=== PATIENT | female | born 1955 | race Caucasian/White ===

== ENCOUNTER 2017-07-06 15:52 | Inpatient (IN) ==
[~2017-07-06 15:52] MED LIST: *HR* Midazolam HCl 5 MG/5 ML VIAL IVP ONE; *HR* Rocuronium Bromide 50 MG/5 ML VIAL IVC ONE
[2017-07-06] MEDS ORDERED: 0.9 % Sodium Chloride 1,000 ML IVC ONE (15:59)
[2017-07-06] MEDS ORDERED: Piperacillin/Tazobactam 4.5 GM in D5% in Water (Mini-Bag+) 100 ML IVPB ONE (15:59)
[2017-07-06] MEDS ORDERED: Vancomycin 1,000 MG in D5% in Water 250 ML IVPB ONE (15:59)
[2017-07-06] MEDS ORDERED: Ipratropium/Albuterol Neb 3 ML IH ONE (16:00)
[2017-07-06] MEDS ORDERED: methylPREDNISolone 125 MG/2 ML VIAL IVP ONE (16:00)
[2017-07-06] MEDS ORDERED: *HR* Rocuronium Bromide 50 MG/5 ML VIAL IVP ONE (16:04)
[2017-07-06] MEDS ORDERED: *HR* Etomidate 20 MG/10 ML AMPUL IVP ONE (16:04)
[2017-07-06] MEDS ORDERED: Pantoprazole 80 MG in 0.9 % Sodium Chloride 50 ML IVPB ONE (16:20)
--- NOTE | 2017-07-06 16:24 | Emergency Department Note ---
Disposition Clinical Impression: Acute respiratory failure with hypoxia, Elevated CK GI bleed Qualifiers: GI bleed type/associated pathology: unspecified gastrointestinal hemorrhage type Qualified Code(s): K92.2 - Gastrointestinal hemorrhage, unspecified Sepsis Qualifiers: Sepsis type: sepsis due to unspecified organism Qualified Code(s): A41.9 - Sepsis, unspecified organism Pneumonia Qualifiers: Pneumonia type: due to unspecified organism Laterality: bilateral Lung location : lower lobe of lung Qualified Code(s): J18.9 - Pneumonia, unspecified organism Disposition: Admitted As Inpatient Condition: Good General Adult HPI - General Chief complaint: ED Abdominal Pain Stated complaint: abd pain Time Seen by Provider: 07/06/17 15:56 Source: EMS Mode of arrival: EMS Limitations: altered mental status Nursing Notes Reviewed: Yes Vital Signs Reviewed: Yes - History of Present Illness HPI Narrative: 61-year-old female history of oxygen-dependent COPD who presents to the ER due to GI bleed, hypoxia. EMS reports that she had been out of her oxygen for some time. Patient arrives hypoxic in the 80s on a nonrebreather. She was alert and oriented 1 and was unable to provide most of her own history. She has been taking aspirin for abdominal pain. She is unable to quantify how much she actually took. She states that she does have diverticulosis. The patient continued to desaturate despite noninvasive means and the decision was made to intubate her for protection of her airway. Family did arrive reporting that she has been low on her oxygen for a couple of weeks and was supposed to do something about that but she had not. Pt Subjective Complaint: Abdominal pain, GI bleed, hypoxia Onset (ago): day(s) Radiation: non-radiation Pain Scale: 0 Improves with: nothing Worsens with: nothing Associated symptoms: Reports: nausea/vomiting. Denies: chest pain, fever/chills Treatments Prior to Arrival: none - Related Data Home Medications Medication Instructions Recorded Confirmed ALPRAZolam [Xanax 1 MG Tablet] 1 mg PO TID PRN 07/06/17 07/06/17 Albuterol Sulfate [Ventolin Hfa] 2 puff IH Q4H PRN 07/06/17 07/06/17 BuPROPion SR (12 HR) [Wellbutrin 150 mg PO BID 07/06/17 07/06/17 SR] Cetirizine HCl [Zyrtec] 10 mg PO DAILY 07/06/17 07/06/17 Cromolyn Sodium 1 drop OP QID PRN 07/06/17 07/06/17 Docusate Sodium [Stool Softener] 50 mg PO BID 07/06/17 07/06/17 Fluticasone Propionate Nasal 50 - 100 mcg NS DAILY PRN 07/06/17 07/06/17 [Flonase] Fluticasone/Vilanterol [Breo 1 each IH DAILY PRN 07/06/17 07/06/17 Ellipta 200-25 Mcg INH] Gabapentin [Neurontin] 1,200 mg PO TID 07/06/17 07/06/17 Methocarbamol [Robaxin-750] 750 mg PO TID PRN 07/06/17 07/06/17 Montelukast [Singulair] 10 mg PO DAILY 07/06/17 07/06/17 Omeprazole [PriLOSEC] 40 mg PO BID 07/06/17 07/06/17 Oxycodone HCl/Acetaminophen 1 each PO Q6H PRN 07/06/17 07/06/17 [Percocet 5-325 mg Tablet] Paroxetine HCl [Paxil] 20 mg PO DAILY 07/06/17 07/06/17 Piroxicam [Feldene] 20 mg PO DAILY 07/06/17 07/06/17 Polyethylene Glycol 3350 [MiraLAX] 17 gm PO DAILY 07/06/17 07/06/17 Propranolol HCl 40 mg PO BID 07/06/17 07/06/17 Sennosides/Docusate Sodium 2 each PO QAM 07/06/17 07/06/17 [Senna-S Tablet] Umeclidinium [place] [Incruse 62.5 mcg IH DAILY PRN 07/06/17 07/06/17 Ellipta] Previous Rx's Medication Instructions Recorded DiphenhydraMINE [Benadryl] 25 mg PO Q6HR PRN #20 capsule 05/01/16 Allergies Allergy/AdvReac Type Severity Reaction Status Date / Time Penicillins AdvReac See Verified 07/06/17 16:50 Comments All systems ED: reviewed and negative except as stated. Cardiovascular: Denies: chest pain Respiratory: Denies: dyspnea Gastrointestinal: Reports: abdominal pain, nausea, melena. Denies: vomiting, diarrhea Past Medical History - Past Medical History Attestation: Yes The following information was validated with the patient. Source: patient, old records reviewed, obtained from family Medical history: Reports: non-contributory, arthritis, asthma, COPD - Social History Smoking Status: Current every day smoker Alcohol use: Reports: none Drug use: Reports: none Physical Exam - General Limitations: altered mental status General appearance: alert - Head Head exam: atraumatic, normocephalic, normal inspection - Eye Eye exam: Present: normal appearance, EOMI - ENT ENT exam: normal exam - Neck Neck exam: Present: normal inspection, full ROM - Chest Chest inspection: Present: normal inspection, symmetric chest wall rise - Respiratory Respiratory exam: Present: wheezes (Diffuse), accessory muscle use, prolonged expiratory phase. Absent: respiratory distress - Cardiovascular Cardiovascular exam: Present: regular rate, normal rhythm, normal heart sounds - Abdominal Exam Abdominal exam: Present: soft, tenderness (Mild lower abdominal tenderness to palpation without guarding rigidity or distention.). Absent: distention, guarding, rigidity - Rectal Exam Rectal exam: Present: heme (+) stool, other (There is tissue breakdown at the anus) - Extremities Exam Extremities exam: Present: normal inspection, full ROM - Expanded Upper Extremity Exam Shoulder exam: Present: normal inspection, full ROM Arm exam: Present: normal inspection, full ROM Elbow exam: Present: normal inspection, full ROM Forearm/Wrist exam: Present: normal inspection, full ROM Hand exam: Present: normal inspection, full ROM Vascular exam: Normal: radial pulse - Expanded Lower Extremity Exam Hip/Pelvis exam: Present: normal inspection, full ROM Upper leg exam: Present: normal inspection, full ROM Knee exam: Present: normal inspection, full ROM Lower leg exam: Present: normal inspection, full ROM Ankle exam: Present: normal inspection, full ROM Foot/toe exam: Present: normal inspection, full ROM Neurovascular/Tendon exam: Absent: motor deficit, sensory deficit - Neurological Exam Neurological exam: Present: alert, other (Alert and oriented times one. Answering questions appropriately. Nonfocal neurologic exam. Moves all extremities equally.). Absent: oriented X3 - Skin Skin exam: Present: warm, dry, intact, normal color Course Course Narrative: Patient seen and examined the time of arrival. She is alert and oriented 1. She is desaturating here and unable to protect her airway and her altered mental status. The decision was made to intubate please see procedure documentation for details. We will obtain a CT scan of her head as well as her abdomen and pelvis. Patient has grossly positive blood on exam of her rectum. We will also obtain a CBC, type and screen, aspirin level as well as carboxyhemoglobin. Patient given a liter of fluids placed on propofol for sedation and also receiving a dose of Solu-Medrol and Protonix. She will require admission to the ICU for critical care. Disposition pending imaging and labs. Vital Signs Temperature 98.9 F 07/06/17 15:54 Pulse Rate 102 07/06/17 15:54 Respiratory Rate 24 07/06/17 15:54 Blood Pressure 139/84 07/06/17 15:54 O2 Sat by Pulse Oximetry 84 07/06/17 15:54 Temperature 100.0 F H 07/06/17 20:55 Pulse Rate 65 07/06/17 21:00 Respiratory Rate 15 07/06/17 21:00 Blood Pressure 84/42 07/06/17 21:00 O2 Sat by Pulse Oximetry 94 07/06/17 21:00 Oxygen Delivery Oxygen Delivery Ventilator Procedures - Intubation Time out performed: No sedative: Etomidate Mg Given: 20 paralytic: Rocuronium Mg Given: 100 Laryngoscope: Andrew ET Tube Size: 7.5 ET Tube Uncuffed: No Tube Secured Depth (cm): 22 Tube Secured Location: lips Tube Placement Confirmation: visualized tube passing through cords, equal breath sounds bilaterally, no breath sounds over epigastrium, confirmation by capnometry Patient Tolerated Procedure: well Intubation Complications: none Additional Comments: Intubated by Dr. Landa under direct supervision. Medical Decision Making - [facility] Narrative Medical decision making narrative: 61-year-old female presents to the ER due to GI bleed as well as hypoxia. Known history of COPD and has been out of her oxygen at home for the last 2 weeks. She was initially in the low 80s here. Placed on nonrebreather but was unable to protect her airway eating altered here. Patient intubated for securement of her airway. She is grossly Hemoccult positive on exam. Hemoglobin resulted at 13.6. Patient given a dose of Solu-Medrol as well as a liter of IV fluids. She is on propofol for sedation. We did also give her a dose of Protonix given a history of taking aspirin for her abdominal pain. Patient received vancomycin and Zosyn given hypoxia, tachypnea. She is admitted to the ICU for ventilatory management and further care. - Lab Data Lab results reviewed: Yes I reviewed the patient's lab results. Result diagrams: 07/06/17 16:20 07/06/17 16:20 Lab Results 07/06/17 07/06/17 07/06/17 Range/Units 16:07 16:08 16:20 WBC 11.9 H (4.3-11.1) K/mcL RBC 4.37 (3.82-4.97) M/mcL Hgb 13.3 (11.5-15.4) g/dL Hct 40.7 (35.3-44.9) % MCV 93.1 (83.0-100.0) fL MCH 30.4 (28.0-33.3) pg MCHC 32.7 (31.6-35.5) g/dL RDW 16.7 H (11.5-14.5) % Plt Count 283 (140-400) K/mcL MPV 9.6 (9.4-12.4) fL Immature Gran % 0.3 (0-4) % Seg Neutrophils % 84.2 % Lymphocytes % 8.3 % Monocytes % 6.9 % Eosinophils % 0.0 % Basophils % 0.3 % Neutrophils # 10.0 H (1.6-8.9) K/mcL Lymphocytes # 1.0 (0.6-4.6) K/mcL Monocytes # 0.8 (0.0-1.3) K/mcL Eosinophils # 0.0 (0.0-0.6) K/mcL Basophils # 0.0 (0.0-0.2) K/mcL PT (9.4-12.1) Seconds INR APTT (26.0-36.0) Seconds ABG pH (7.32-7.45) pH Units ABG pCO2 (35-45) mmHg ABG pO2 (85-104) mmHg ABG HCO3 (21-27) mEq/L ABG Total CO2 (20-26) mEq/L ABG O2 Saturation (95-98) % ABG Base Excess (-2 to 3) mEq/L Carboxyhemoglobin (0-5) % Sodium (136-145) mEq/L Potassium (3.5-4.5) mEq/L Chloride (98-109) mEq/L Carbon Dioxide (19-29) mEq/L BUN (7-20) mg/dL Creatinine (0.57-1.11) mg/dL Est GFR ( Amer) (> 60) Est GFR (Non-Af Amer) (> 60) BUN/Creatinine Ratio (6-26) Glucose (70-99) mg/dL POC Glucose 116 H (58-89) Calculated Osmolality (280-300) Calcium (8.6-10.8) mg/dL Total Bilirubin (0.2-1.2) mg/dL Direct Bilirubin (0.0-0.5) mg/dL Indirect Bilirubin (0.0-1.2) mg/dL AST (5-34) Units/L ALT (0-55) Units/L Alkaline Phosphatase (38-126) Units/L Ammonia 23 (18-72) mcmol/L Creatine Kinase (29-168) Units/L Troponin I (0-0.03) ng/mL Serum Total Protein (6.0-8.3) g/dL Albumin (3.5-5.0) g/dL Globulin (2.4-3.5) g/dL Albumin/Globulin Ratio (1.1-2.2) TSH (0.350-4.840) mcIU/mL Urine Color (Yellow) Urine Clarity (Clear) Urine pH (5.0-8.0) pH Units Ur Specific [place] (1.010-1.025) Urine Protein (Neg-Trace) mg/dL Urine Glucose (UA) (Normal) mg/dL Urine Ketones (Negative) mg/dL Urine Blood (Negative) Urine Nitrite (Negative) Urine Bilirubin (Negative) Urine Urobilinogen (Normal) mg/dL Ur Leukocyte Esterase (Negative) Urine Microscopic RBC (0-3) per hpf Urine Microscopic WBC (0-3) per hpf Ur Squamous Epith Cells (None-Few) per lpf Urine Bacteria (None-Few) per hpf Hyaline Casts (None-Few) per lpf Ur Culture Indicated? (NO) Salicylates (15-30) mg/dL Urine Opiates Screen (Jecobp=007) ng/mL Acetaminophen (10-30) mcg/mL Ur Barbiturates Screen (Huojot=356) ng/mL Ur Phencyclidine Scrn (Cutoff=25) ng/mL Ur Amphetamines Screen (Cohgpu=8012) ng/mL U Benzodiazepines Scrn (Hbboxc=910) ng/mL Urine Cocaine Screen (Cutoff= 300) ng/mL U Marijuana (THC) Screen (Cutoff = 50) ng/mL Ethyl Alcohol (0-10) mg/dL Person Notif of Crit Blood Type Antibody Screen 07/06/17 07/06/17 07/06/17 Range/Units 16:20 16:20 16:20 WBC (4.3-11.1) K/mcL RBC (3.82-4.97) M/mcL Hgb (11.5-15.4) g/dL Hct (35.3-44.9) % MCV (83.0-100.0) fL MCH (28.0-33.3) pg MCHC (31.6-35.5) g/dL RDW (11.5-14.5) % Plt Count (140-400) K/mcL MPV (9.4-12.4) fL Immature Gran % (0-4) % Seg Neutrophils % % Lymphocytes % % Monocytes % % Eosinophils % % Basophils % % Neutrophils # (1.6-8.9) K/mcL Lymphocytes # (0.6-4.6) K/mcL Monocytes # (0.0-1.3) K/mcL Eosinophils # (0.0-0.6) K/mcL Basophils # (0.0-0.2) K/mcL PT 11.4 (9.4-12.1) Seconds INR 1.1 APTT 27.4 (26.0-36.0) Seconds ABG pH (7.32-7.45) pH Units ABG pCO2 (35-45) mmHg ABG pO2 (85-104) mmHg ABG HCO3 (21-27) mEq/L ABG Total CO2 (20-26) mEq/L ABG O2 Saturation (95-98) % ABG Base Excess (-2 to 3) mEq/L Carboxyhemoglobin (0-5) % Sodium 139 (136-145) mEq/L Potassium 3.5 (3.5-4.5) mEq/L Chloride 105 (98-109) mEq/L Carbon Dioxide 20 (19-29) mEq/L BUN 19 (7-20) mg/dL Creatinine 0.98 (0.57-1.11) mg/dL Est GFR ( Amer) > 60 (> 60) Est GFR (Non-Af Amer) 58 L (> 60) BUN/Creatinine Ratio 19 (6-26) Glucose 120 H (70-99) mg/dL POC Glucose (58-89) Calculated Osmolality 291 (280-300) Calcium 8.8 (8.6-10.8) mg/dL Total Bilirubin 0.3 (0.2-1.2) mg/dL Direct Bilirubin 0.1 (0.0-0.5) mg/dL Indirect Bilirubin 0.2 (0.0-1.2) mg/dL AST 48 H (5-34) Units/L ALT 20 (0-55) Units/L Alkaline Phosphatase 84 (38-126) Units/L Ammonia (18-72) mcmol/L Creatine Kinase 2899 H (29-168) Units/L Troponin I 0.03 (0-0.03) ng/mL Serum Total Protein 7.5 (6.0-8.3) g/dL Albumin 3.6 (3.5-5.0) g/dL Globulin 3.9 H (2.4-3.5) g/dL Albumin/Globulin Ratio 0.9 L (1.1-2.2) TSH 0.297 L (0.350-4.840) mcIU/mL Urine Color (Yellow) Urine Clarity (Clear) Urine pH (5.0-8.0) pH Units Ur Specific [place] (1.010-1.025) Urine Protein (Neg-Trace) mg/dL Urine Glucose (UA) (Normal) mg/dL Urine Ketones (Negative) mg/dL Urine Blood (Negative) Urine Nitrite (Negative) Urine Bilirubin (Negative) Urine Urobilinogen (Normal) mg/dL Ur Leukocyte Esterase (Negative) Urine Microscopic RBC (0-3) per hpf Urine Microscopic WBC (0-3) per hpf Ur Squamous Epith Cells (None-Few) per lpf Urine Bacteria (None-Few) per hpf Hyaline Casts (None-Few) per lpf Ur Culture Indicated? (NO) Salicylates 15.3 (15-30) mg/dL Urine Opiates Screen (Oaefti=749) ng/mL Acetaminophen < 1.0 L (10-30) mcg/mL Ur Barbiturates Screen (Tboyma=929) ng/mL Ur Phencyclidine Scrn (Cutoff=25) ng/mL Ur Amphetamines Screen (Jdmvoj=3148) ng/mL U Benzodiazepines Scrn (Gxtljm=819) ng/mL Urine Cocaine Screen (Cutoff= 300) ng/mL U Marijuana (THC) Screen (Cutoff = 50) ng/mL Ethyl Alcohol < 10 (0-10) mg/dL Person Notif of Crit Blood Type Antibody Screen 07/06/17 07/06/17 07/06/17 Range/Units 16:20 16:20 16:24 WBC (4.3-11.1) K/mcL RBC (3.82-4.97) M/mcL Hgb (11.5-15.4) g/dL Hct (35.3-44.9) % MCV (83.0-100.0) fL MCH (28.0-33.3) pg MCHC (31.6-35.5) g/dL RDW (11.5-14.5) % Plt Count (140-400) K/mcL MPV (9.4-12.4) fL Immature Gran % (0-4) % Seg Neutrophils % % Lymphocytes % % Monocytes % % Eosinophils % % Basophils % % Neutrophils # (1.6-8.9) K/mcL Lymphocytes # (0.6-4.6) K/mcL Monocytes # (0.0-1.3) K/mcL Eosinophils # (0.0-0.6) K/mcL Basophils # (0.0-0.2) K/mcL PT (9.4-12.1) Seconds INR APTT (26.0-36.0) Seconds ABG pH (7.32-7.45) pH Units ABG pCO2 (35-45) mmHg ABG pO2 (85-104) mmHg ABG HCO3 (21-27) mEq/L ABG Total CO2 (20-26) mEq/L ABG O2 Saturation (95-98) % ABG Base Excess (-2 to 3) mEq/L Carboxyhemoglobin 5.9 H (0-5) % Sodium (136-145) mEq/L Potassium (3.5-4.5) mEq/L Chloride (98-109) mEq/L Carbon Dioxide (19-29) mEq/L BUN (7-20) mg/dL Creatinine (0.57-1.11) mg/dL Est GFR ( Amer) (> 60) Est GFR (Non-Af Amer) (> 60) BUN/Creatinine Ratio (6-26) Glucose (70-99) mg/dL POC Glucose (58-89) Calculated Osmolality (280-300) Calcium (8.6-10.8) mg/dL Total Bilirubin (0.2-1.2) mg/dL Direct Bilirubin (0.0-0.5) mg/dL Indirect Bilirubin (0.0-1.2) mg/dL AST (5-34) Units/L ALT (0-55) Units/L Alkaline Phosphatase (38-126) Units/L Ammonia (18-72) mcmol/L Creatine Kinase (29-168) Units/L Troponin I (0-0.03) ng/mL Serum Total Protein (6.0-8.3) g/dL Albumin (3.5-5.0) g/dL Globulin (2.4-3.5) g/dL Albumin/Globulin Ratio (1.1-2.2) TSH (0.350-4.840) mcIU/mL Urine Color Yellow (Yellow) Urine Clarity Clear (Clear) Urine pH 6.0 (5.0-8.0) pH Units Ur Specific [place] 1.025 (1.010-1.025) Urine Protein 30 H (Neg-Trace) mg/dL Urine Glucose (UA) Normal (Normal) mg/dL Urine Ketones Negative (Negative) mg/dL Urine Blood Trace H (Negative) Urine Nitrite Negative (Negative) Urine Bilirubin Negative (Negative) Urine Urobilinogen Normal (Normal) mg/dL Ur Leukocyte Esterase Negative (Negative) Urine Microscopic RBC 3-5 H (0-3) per hpf Urine Microscopic WBC 0-3 (0-3) per hpf Ur Squamous Epith Cells Many H (None-Few) per lpf Urine Bacteria None Seen (None-Few) per hpf Hyaline Casts None Seen (None-Few) per lpf Ur Culture Indicated? NO (NO) Salicylates (15-30) mg/dL Urine Opiates Screen (Wbaqaq=553) ng/mL Acetaminophen (10-30) mcg/mL Ur Barbiturates Screen (Sifbwf=186) ng/mL Ur Phencyclidine Scrn (Cutoff=25) ng/mL Ur Amphetamines Screen (Zgbojo=6772) ng/mL U Benzodiazepines Scrn (Yzhgcz=216) ng/mL Urine Cocaine Screen (Cutoff= 300) ng/mL U Marijuana (THC) Screen (Cutoff = 50) ng/mL Ethyl Alcohol (0-10) mg/dL Person Notif of Crit Blood Type A POSITIVE Antibody Screen NEGATIVE 07/06/17 07/06/17 Range/Units 16:24 16:53 WBC (4.3-11.1) K/mcL RBC (3.82-4.97) M/mcL Hgb (11.5-15.4) g/dL Hct (35.3-44.9) % MCV (83.0-100.0) fL MCH (28.0-33.3) pg MCHC (31.6-35.5) g/dL RDW (11.5-14.5) % Plt Count (140-400) K/mcL MPV (9.4-12.4) fL Immature Gran % (0-4) % Seg Neutrophils % % Lymphocytes % % Monocytes % % Eosinophils % % Basophils % % Neutrophils # (1.6-8.9) K/mcL Lymphocytes # (0.6-4.6) K/mcL Monocytes # (0.0-1.3) K/mcL Eosinophils # (0.0-0.6) K/mcL Basophils # (0.0-0.2) K/mcL PT (9.4-12.1) Seconds INR APTT (26.0-36.0) Seconds ABG pH 7.15 L* (7.32-7.45) pH Units ABG pCO2 74 H* (35-45) mmHg ABG pO2 231 H (85-104) mmHg ABG HCO3 26 (21-27) mEq/L ABG Total CO2 28 H (20-26) mEq/L ABG O2 Saturation 100 H (95-98) % ABG Base Excess -5 L (-2 to 3) mEq/L Carboxyhemoglobin (0-5) % Sodium (136-145) mEq/L Potassium (3.5-4.5) mEq/L Chloride (98-109) mEq/L Carbon Dioxide (19-29) mEq/L BUN (7-20) mg/dL Creatinine (0.57-1.11) mg/dL Est GFR ( Amer) (> 60) Est GFR (Non-Af Amer) (> 60) BUN/Creatinine Ratio (6-26) Glucose (70-99) mg/dL POC Glucose (58-89) Calculated Osmolality (280-300) Calcium (8.6-10.8) mg/dL Total Bilirubin (0.2-1.2) mg/dL Direct Bilirubin (0.0-0.5) mg/dL Indirect Bilirubin (0.0-1.2) mg/dL AST (5-34) Units/L ALT (0-55) Units/L Alkaline Phosphatase (38-126) Units/L Ammonia (18-72) mcmol/L Creatine Kinase (29-168) Units/L Troponin I (0-0.03) ng/mL Serum Total Protein (6.0-8.3) g/dL Albumin (3.5-5.0) g/dL Globulin (2.4-3.5) g/dL Albumin/Globulin Ratio (1.1-2.2) TSH (0.350-4.840) mcIU/mL Urine Color (Yellow) Urine Clarity (Clear) Urine pH (5.0-8.0) pH Units Ur Specific [place] (1.010-1.025) Urine Protein (Neg-Trace) mg/dL Urine Glucose (UA) (Normal) mg/dL Urine Ketones (Negative) mg/dL Urine Blood (Negative) Urine Nitrite (Negative) Urine Bilirubin (Negative) Urine Urobilinogen (Normal) mg/dL Ur Leukocyte Esterase (Negative) Urine Microscopic RBC (0-3) per hpf Urine Microscopic WBC (0-3) per hpf Ur Squamous Epith Cells (None-Few) per lpf Urine Bacteria (None-Few) per hpf Hyaline Casts (None-Few) per lpf Ur Culture Indicated? (NO) Salicylates (15-30) mg/dL Urine Opiates Screen Negative (Zwojoe=646) ng/mL Acetaminophen (10-30) mcg/mL Ur Barbiturates Screen Negative (Oddrbd=001) ng/mL Ur Phencyclidine Scrn Negative (Cutoff=25) ng/mL Ur Amphetamines Screen Negative (Jeknvz=4610) ng/mL U Benzodiazepines Scrn Positive H (Dmasrh=885) ng/mL Urine Cocaine Screen Negative (Cutoff= 300) ng/mL U Marijuana (THC) Screen Positive H (Cutoff = 50) ng/mL Ethyl Alcohol (0-10) mg/dL Person Notif of Crit DIPAK/DAVE KELSEY Blood Type Antibody Screen - Radiology Data Radiology results reviewed: Yes I reviewed the patient's radiology results. Chest X-Ray 07/06/17 15:59 IMPRESSION: Endotracheal tube and enteric tube as detailed above. Bibasilar opacities, atelectasis versus pneumonia. D/ / Christian Gloria MD / Christian Gloria MD Interpreting Provider: Christian Gloria MD Head CT 07/06/17 15:59 IMPRESSION: 1. No acute intracranial hemorrhage 2. Right maxillary sinusitis D/ / Ramesh Babcock MD / Ramesh Babcock MD Interpreting Provider: Ramesh Babcock MD Abdomen/Pelvis CT 07/06/17 16:00 IMPRESSION: Equivocal wall thickening involving the right colon, possibly artifactual due to underdistention. Other considerations would include mild colitis. Diverticulosis predominately involving the descending and sigmoid colon without caitlin evidence of diverticulitis. Enteric tube tip terminates at the level of the GE junction. Recommend advancement. Extensive consolidative opacity and volume loss involving the right middle lobe, right lower lobe, and left lower lobe. Findings likely represent atelectasis with or without superimposed pneumonia/ aspiration. Follow-up radiographs recommended to document resolution. D/ / Christian Gloria MD / Christian Gloria MD Interpreting Provider: Christian Gloria MD KUB X-Ray 07/06/17 16:51 IMPRESSION: Enteric tube tip at the gastroesophageal junction with the side-port in the distal esophagus. Recommend further advancement prior to use. D/ / Percy Santiago MD / Percy Santiago MD Interpreting Provider: Percy Santiago MD - EKG Data EKG #1 EKG attestation: Yes I reviewed and interpreted this EKG. EKG results narrative: EKG demonstrates sinus rhythm with a rate of 88 bpm. Normal axis. Normal intervals. Normal R-wave progression. Nonspecific ST-T wave changes in the inferior leads. No gross ST elevations or depressions. No acute ischemic findings. Attestation Statement - Attestation Attestation: I examined this patient and my medical decision-making was reviewed with the Resident Physician. I agree with the documented findings, disposition and treatment plan as described except to the extent set forth below. 61-year-old female who has been noncompliant with home oxygen use for the past 2 weeks who presents with altered mental status, hypercapnia, inability to protect her airway. She was intubated on arrival due to hypoxic respiratory failure. Subsequently found to have gastrointestinal hemorrhage with chronic rectal prolapse. She was started on Protonix. Broad-spectrum antibiotics were initiated as she met SIRS criteria. She will be admitted to the intensive care unit for further monitoring. CT scan shows no evidence of acute findings on head CT. CT abdomen and pelvis is concerning for possible colitis. Salicylate level is mildly elevated, she did admit to taking salicylates for pain control. I spent greater than 60 minutes of critical care time resuscitating this acutely ill patient suffering from acute respiratory failure and gastrointestinal hemorrhage. This is excluding billable procedures.
[2017-07-06] MEDS: Propofol 500 MG/50 ML INFUS..BTL IVC SCH ×2 (16:32→22:16)
[2017-07-06 16:36] LABS: Bilirubin,Urine Negative (Negative); Blood,Urine Trace (Negative); Clarity,Urine Clear (Clear); Color,Urine Yellow (Yellow); Glucose,Urine (UA) Normal (Normal); Ketones,Urine Negative (Negative); Leukocyte Esterase,Urine Negative (Negative); Nitrite,Urine Negative (Negative); Protein,Urine 30 mg/dL (Neg-Trace); Specific Gravity,Urine 1.025 (1.010-1.025); Urobilinogen,Urine Normal (Normal)
[2017-07-06 16:36] LABS: INR 1.1; Prothrombin Time 11.4 Seconds (9.4-12.1)
[2017-07-06 16:37] LABS: Bacteria,Urine None Seen per hpf (None-Few); Hyaline Casts,Urine None Seen per lpf (None-Few); Squamous Epithelial Cell,Urine Many per lpf (None-Few); WBC,Urine 0-3 per hpf (0-3)
[2017-07-06 16:38] LABS: Activated Partial Thrombo Time 27.4 Seconds (26.0-36.0)
[2017-07-06 16:41] LABS: Amphetamine Screen,Urine Negative ng/mL (Cutoff=1000); Barbiturate Screen,Urine Negative ng/mL (Cutoff=200); Benzodiazepines Screen,Urine Positive ng/mL (Cutoff=200); Cannabinoid Screen,Urine Positive ng/mL (Cutoff = 50); Cocaine Screen,Urine Negative ng/mL (Cutoff= 300); Opiate Screen,Urine Negative ng/mL (Cutoff=300); Phencyclidine Screen,Urine Negative ng/mL (Cutoff=25)
[2017-07-06 16:42] LABS: Basophils % 0.3 %; Chloride 105 mEq/L (98-109); Hematocrit 40.7 % (35.3-44.9); Hemoglobin 13.3 g/dL (11.5-15.4); Immature Granulocytes % 0.3 % (0-4); Lymphocytes % 8.3 %; Mean Corpuscular HGB Conc 32.7 g/dL (31.6-35.5); Mean Corpuscular Hemoglobin 30.4 pg (28.0-33.3); Mean Corpuscular Volume 93.1 fL (83.0-100.0); Mean Platelet Volume 9.6 fL (9.4-12.4); Monocytes # 0.8 K/mcL (0.0-1.3); Monocytes % 6.9 %; Platelet Count 283 K/mcL (140-400); Potassium 3.5 mEq/L (3.5-4.5); Red Blood Count 4.37 M/mcL (3.82-4.97); Red Cell Distribution Width 16.7 % (11.5-14.5); Segmented Neutrophils % 84.2 %; Sodium 139 mEq/L (136-145)
[2017-07-06 16:47] LABS: Carboxyhemoglobin 5.9 % (0-5)
[2017-07-06 16:56] LABS: Alanine Aminotransferase 20 Units/L (0-55); Albumin 3.6 g/dL (3.5-5.0); Albumin/Globulin Ratio 0.9 (1.1-2.2); Alkaline Phosphatase 84 Units/L (38-126); Aspartate Amino Transferase 48 Units/L (5-34); BUN/Creatinine Ratio 19 (6-26); Bilirubin,Direct 0.1 mg/dL (0.0-0.5); Bilirubin,Indirect 0.2 mg/dL (0.0-1.2); Bilirubin,Total 0.3 mg/dL (0.2-1.2); Blood Urea Nitrogen 19 mg/dL (7-20); Calcium 8.8 mg/dL (8.6-10.8); Carbon Dioxide 20 mEq/L (19-29); Creatine Kinase 2899 Units/L (29-168); Globulin 3.9 g/dL (2.4-3.5); Glucose 120 mg/dL (70-99); Osmolality,Calculated 291 (280-300); Salicylate 15.3 mg/dL (15-30); Total Protein 7.5 g/dL (6.0-8.3); eGFR For African Americans > 60 (> 60); eGFR For Non-African Americans 58 (> 60)
[2017-07-06 17:00] LABS: Acetaminophen < 1.0 mcg/mL (10-30); Ethanol < 10 mg/dL (0-10)
[2017-07-06 17:00] LABS: ABG Base Excess -5 mEq/L (-2 to 3); ABG HCO3 26 mEq/L (21-27); ABG Oxygen Saturation 100 % (95-98); ABG PCO2 74 mmHg (35-45); ABG PH 7.15 pH Units (7.32-7.45); ABG PO2 231 mmHg (85-104); ABG TCO2 28 mEq/L (20-26)
[2017-07-06 17:16] LABS: Thyroid Stimulating Hormone 0.297 mcIU/mL (0.350-4.840)
--- NOTE | 2017-07-06 20:10 | Internal Med History&Physical ---
<ChrisCory - Last Filed: 07/06/17 21:12> Date of Encounter: 07/06/17 Time of Encounter: 20:07 Assessment and Plan (1) Acute on chronic respiratory failure with hypoxia and hypercapnia Current visit: Yes Status: Acute Likely secondary to COPD exacerbation as she has been non-compliant with her oxygen at home She was intubated and sedated in the ED and there is no one at bedside Will repeat ABG now as she has been on ventilator for a few hours and adjust settings accordingly Repeat ABG and CXR in the AM for reassessment I personally tried to contact the daughter but could not reach her (2) Acute exacerbation of chronic obstructive pulmonary disease (COPD) Current visit: Yes Status: Chronic Currently intubated and sedated as above Will support with scheduled breathing treatments She did receive steroids in the ED but we will hold off on continuing them for now (3) Community acquired pneumonia Current visit: Yes Status: Acute CXR demonstrated bibasilar opacities concerning for pneumonia Patient was given Vanc/Zosyn in the ED, but we will switch to Levaquin monotherapy as she has not had any recent hospitalizations not is immunocompromised Blood cultures collected in the ED, awaiting sensitivities prior to de- escalation Reassess CXR in the AM as above Qualifiers: Qualified Code(s): J18.9 - Pneumonia, unspecified organism (4) Rhabdomyolysis Current visit: Yes Status: Suspected Unclear if patient was down or sustained any trauma prior to arrival, but initial CK was 2899 There is only mild compromise of kidney function not enough to qualify as JP She did receive fluid bolus in ED, and will continue on maintenance fluids while she is intubated Check I/O's and trend Cr and monitor electrolytes Qualifiers: Qualified Code(s): M62.82 - Rhabdomyolysis (5) Rectal prolapse Current visit: Yes Status: Acute Significant rectal prolapse noted on exam No urgent surgical consultation needed at this time, but will consider once she is more stable and off the vent (6) DVT prophylaxis Current visit: Yes Status: Acute Heparin 5000 units BID Internal Medicine - H&P: HPI Chief complaint: SOB Admitted From: Home Plans for Post Hospital Care: Home History of present illness: Ms. Serrano is a 61 year old female who presented to the ED with abdominal pain and suspected GIB. She was confused and was A/O x 1 and had been hypoxemic saturating in the 80s. She was a poor historian but told the ED staff that she took some aspirin for abdominal pain but unsure how many. She continued to desaturate despite non-invasive measures so was eventually intubated. Family was around earlier and confirmed that she had been out of her oxygen for about 2 weeks as she has COPD. Currently there is no one at bedside and patient is sedated and intubated. Past Med Surg Social Fam HX - Past Medical History Medical history: non-contributory, arthritis, asthma, COPD - Social History Smoking Status: Current every day smoker Alcohol use: none Drug use: none Internal Medicine - H&P: Meds DiphenhydraMINE [Benadryl] 25 mg PO Q6HR PRN #20 capsule 05/01/16 [Rx] ALPRAZolam [Xanax 1 MG Tablet] 1 mg PO TID PRN 07/06/17 [History] Albuterol Sulfate [Ventolin Hfa] 2 puff IH Q4H PRN 07/06/17 [History] BuPROPion SR (12 HR) [Wellbutrin SR] 150 mg PO BID 07/06/17 [History] Cetirizine HCl [Zyrtec] 10 mg PO DAILY 07/06/17 [History] Cromolyn Sodium 1 drop OP QID PRN 07/06/17 [History] Docusate Sodium [Stool Softener] 50 mg PO BID 07/06/17 [History] Fluticasone Propionate Nasal [Flonase] 50 - 100 mcg NS DAILY PRN 07/06/17 [ History] Fluticasone/Vilanterol [Breo Ellipta 200-25 Mcg INH] 1 each IH DAILY PRN [History] Gabapentin [Neurontin] 1,200 mg PO TID 07/06/17 [History] Methocarbamol [Robaxin-750] 750 mg PO TID PRN 07/06/17 [History] Montelukast [Singulair] 10 mg PO DAILY 07/06/17 [History] Omeprazole [PriLOSEC] 40 mg PO BID 07/06/17 [History] Oxycodone HCl/Acetaminophen [Percocet 5-325 mg Tablet] 1 each PO Q6H PRN [History] Paroxetine HCl [Paxil] 20 mg PO DAILY 07/06/17 [History] Piroxicam [Feldene] 20 mg PO DAILY 07/06/17 [History] Polyethylene Glycol 3350 [MiraLAX] 17 gm PO DAILY 07/06/17 [History] Propranolol HCl 40 mg PO BID 07/06/17 [History] Sennosides/Docusate Sodium [Senna-S Tablet] 2 each PO QAM 07/06/17 [History] Umeclidinium [place] [Incruse Ellipta] 62.5 mcg IH DAILY PRN 07/06/17 [History] 3 Allergy/AdvReac Type Severity Reaction Status Date / Time Penicillins AdvReac See Verified 07/06/17 16:50 Comments ROS unobtainable: due to endotracheal tube All Systems PM: A 10-system review of systems was performed and is negative for pertinent findings except as documented above in the HPI. - Constitutional Vitals: Temp Pulse Resp BP Pulse Ox 98.9 F 86 15 122/69 97 07/06/17 15:54 07/06/17 18:12 07/06/17 19:54 07/06/17 19:54 07/06/17 19:54 Exam: sedated and intubated - Head Head exam: Present: atraumatic, normocephalic - Eye Eye exam: Present: PERRL, conjuntiva pink, sclera anicteric - Neck Neck exam general surgery: Present: supple, trachea midline. Absent: lymphadenopathy - Respiratory Respiratory exam: Present: decreased breath sounds. Absent: accessory muscle use, rales, rhonchi, wheezes - Cardiovascular Cardiovascular exam: Present: RRR, +S1, +S2. Absent: diastolic murmur, gallop, rubs, systolic murmur - GI/Abdominal GI/Abdominal exam: Present: normal bowel sounds, soft, no peritoneal signs. Absent: distended, tenderness - Rectal Additional comments: significant rectal prolapse noted - Extremities Exam Extremities exam: Present: warm, radial pulses palpable and symmetrical. Absent : calf tenderness, cyanotic, pedal edema - Neurological Exam Neurological exam: Absent: facial droop, speech deficit Additional comments: unable to assess - Skin Skin exam: Present: dry, intact Internal Med - H&P Results - Labs CBC & Chem 7: 07/06/17 16:20 07/06/17 16:20 <Kaitlin Perez - Last Filed: 07/07/17 03:53> Date of Encounter: 07/07/17 Internal Medicine - H&P: HPI History of present illness: Ms. Serrano is a 61 year old female All Systems PM: A 10-system review of systems was performed and is negative for pertinent findings except as documented above in the HPI. - Constitutional Vitals: Temp Pulse Resp BP Pulse Ox 98.5 F 67 16 113/62 98 07/07/17 00:58 07/07/17 03:04 07/07/17 02:59 07/07/17 02:59 07/07/17 02:59 Internal Med - H&P Results - Labs CBC & Chem 7: 07/07/17 02:51 07/07/17 02:51 Labs: Short CBC 07/07/17 Range/Units 02:51 WBC 11.6 H (4.3-11.1) K/mcL Hgb 12.4 (11.5-15.4) g/dL Hct 37.1 (35.3-44.9) % Plt Count 231 (140-400) K/mcL Neutrophils # 9.8 H (1.6-8.9) K/mcL BMP 07/07/17 02:51 Sodium 137 Potassium 3.6 Chloride 108 Carbon Dioxide 22 BUN 15 Creatinine 0.76 Glucose 121 H Calcium 8.4 L - ABG Interpretation ABG results: 07/06/17 23:10 ABG pH 7.30 L ABG pCO2 47 H ABG pO2 93 ABG HCO3 23 ABG Total CO2 24 ABG O2 Saturation 96 ABG Base Excess -4 L - Impressions ITS Impressions KUB X-Ray 07/06/17 21:36 IMPRESSION: Orogastric tube tip is in peripyloric position. Recommend retraction into the stomach. D/ / Hernan Guallpa MD / Hernan Guallpa MD Interpreting Provider: Hernan Guallpa MD - Attending Attestation I have seen and examined the patient independently. I have discussed with resident DR Perez regarding the management plan. Agree with the documentation. Patient did present to ER for acute respiratory failure with hypoxia and hypercapnia. Respiratory acidosis. Etiology consider pneumonia and COPD exacerbation. Patient failed BiPAP treatment in ER and was intubated. We will continue mechanical ventilation, antibiotic, and bronchodilator. Admit patient to ICU for close monitoring. Intensive care time 35 minutes.
[2017-07-06] MEDS ORDERED: Naloxone 0.4 MG/ML INJ IVP PRN (20:15)
[2017-07-06] MEDS ORDERED: Lacri-Lube 3.5 GM TUBE BOTH EYES PRN (20:15)
[2017-07-06] MEDS ORDERED: Ondansetron 4 MG/2 ML VIAL IVP PRN (20:15)
[2017-07-06] MEDS: Chlorhexidine Rinse 15 ML MOUTHWASH MM SCH (20:48)
[2017-07-06] MEDS: 0.9 % Sodium Chloride 1,000 ML IVC SCH (20:49)
[2017-07-06] MEDS: Ipratropium/Albuterol Neb 3 ML IH SCH (22:54)
[2017-07-06] MEDS: Budesonide/Formoterol 160/4.5 MDI IH SCH (22:54)
[2017-07-06 23:13] LABS: ABG Base Excess -4 mEq/L (-2 to 3); ABG HCO3 23 mEq/L (21-27); ABG Oxygen Saturation 96 % (95-98); ABG PCO2 47 mmHg (35-45); ABG PO2 93 mmHg (85-104); ABG TCO2 24 mEq/L (20-26); Blood Gas Modality PRVC; Blood Gas PEEP 5 cm H2O; Blood Gas Respiration Rate 12; Blood Gas VT 500 cc
[2017-07-06] MEDS ORDERED: *HR* Midazolam HCl 2 MG/2 ML VIAL ONE (23:21)
[2017-07-06] MEDS ORDERED: *HR* Midazolam HCl 2 MG/2 ML VIAL IVP ONE (23:25)
[2017-07-06] MEDS ORDERED: Dextrose Gel 15 GM PO PRN ×2 (23:35)
[2017-07-06] MEDS ORDERED: *HR* Dextrose 50 % in Water (Syg) 50 ML SYRINGE IVP PRN (23:35)
[2017-07-06] MEDS ORDERED: D5% in Water 1,000 ML IVC PRN (23:35)
[2017-07-06] MEDS: Lacri-Lube 3.5 GM TUBE BOTH EYES SCH (23:38)
[2017-07-06] MEDS: Insulin LISPRO 300 UNITS/3 ML VIAL SQ SCH (23:56)
[2017-07-07 03:03] LABS: Basophils % 0.2 %; Hematocrit 37.1 % (35.3-44.9); Hemoglobin 12.4 g/dL (11.5-15.4); Immature Granulocytes % 0.6 % (0-4); Lymphocytes # 1.1 K/mcL (0.6-4.6); Lymphocytes % 9.1 %; Mean Corpuscular HGB Conc 33.4 g/dL (31.6-35.5); Mean Corpuscular Hemoglobin 31.2 pg (28.0-33.3); Mean Corpuscular Volume 93.2 fL (83.0-100.0); Mean Platelet Volume 9.6 fL (9.4-12.4); Monocytes # 0.6 K/mcL (0.0-1.3); Monocytes % 5.3 %; Neutrophils # 9.8 K/mcL (1.6-8.9); Platelet Count 231 K/mcL (140-400); Red Blood Count 3.98 M/mcL (3.82-4.97); Red Cell Distribution Width 16.7 % (11.5-14.5); Segmented Neutrophils % 84.8 %
[2017-07-07 03:16] LABS: BUN/Creatinine Ratio 20 (6-26); Blood Urea Nitrogen 15 mg/dL (7-20); Calcium 8.4 mg/dL (8.6-10.8); Carbon Dioxide 22 mEq/L (19-29); Chloride 108 mEq/L (98-109); Glucose 121 mg/dL (70-99); Magnesium 1.9 mg/dL (1.6-2.6); Osmolality,Calculated 286 (280-300); Phosphorous 2.4 mg/dL (2.3-4.7); Potassium 3.6 mEq/L (3.5-4.5); Sodium 137 mEq/L (136-145); eGFR For African Americans > 60 (> 60); eGFR For Non-African Americans > 60 (> 60)
[2017-07-07] MEDS: Ipratropium/Albuterol Neb 3 ML IH SCH ×4 (04:10→22:15)
[2017-07-07] MEDS: Propofol 500 MG/50 ML INFUS..BTL IVC SCH ×2 (04:16→08:17)
[2017-07-07] MEDS: Lacri-Lube 3.5 GM TUBE BOTH EYES SCH ×2 (04:17→07:57)
[2017-07-07 04:19] LABS: ABG Base Excess -2 mEq/L (-2 to 3); ABG HCO3 25 mEq/L (21-27); ABG Oxygen Saturation 90 % (95-98); ABG PCO2 49 mmHg (35-45); ABG PH 7.31 pH Units (7.32-7.45); ABG PO2 65 mmHg (85-104); ABG TCO2 26 mEq/L (20-26); Blood Gas Modality PRVC; Blood Gas PEEP 5 cm H2O; Blood Gas Respiration Rate 12; Blood Gas VT 500 cc
--- NOTE | 2017-07-07 05:03 | Pulmonology Consult Note ---
<Cory Perez - Last Filed: 07/07/17 07:12> Date of Encounter: 07/07/17 Time of Encounter: 05:03 Assessment and Plan (1) Acute on chronic respiratory failure with hypoxia and hypercapnia Current Visit: Yes Status: Acute Likely secondary to COPD exacerbation in setting of pneumonia as she has been non-compliant with her oxygen at home She was intubated and sedated in the ED and there is no one at bedside this morning Repeat ABG did demonstrate resolving respiratory acidosis after her RR was increased from 12 to 14 CXR this AM is still pending I personally tried to contact the daughter but could not reach her Will plan on SBT this morning and possible extubation if she meets parameters (2) Acute exacerbation of chronic obstructive pulmonary disease (COPD) Current Visit: Yes Status: Chronic Currently intubated and sedated as above Will support with scheduled breathing treatments with plans to resume home meds once extubated She did receive one dose of 125 mg solumedrol in ED (3) Community acquired pneumonia Current Visit: Yes Status: Acute CXR demonstrated bibasilar opacities concerning for pneumonia, which was confirmed by CT Patient was given Vanc/Zosyn in the ED, but has since been switched Levaquin monotherapy since there is no recent hospitalizations or immunocompromise Blood cultures collected in the ED, awaiting sensitivities prior to de- escalation Reassess CXR this AM as above Qualifiers: Qualified Code(s): J18.9 - Pneumonia, unspecified organism (4) Colitis Current Visit: Yes Status: Suspected CT demonstrated equivocal wall thickening in right colon concerning for mild colitis Since she was complaining of abdominal pain initially, we will treat with Levaquin and Flagyl Awaiting blood cultures as above (5) Rhabdomyolysis Current Visit: Yes Status: Suspected Initial levels of CK was 2899 but she did not have renal compromise Continue with maintenance fluids while she is intubated and monitor I/O's and electrolytes Qualifiers: Qualified Code(s): M62.82 - Rhabdomyolysis (6) Rectal prolapse Current Visit: Yes Status: Acute May benefit from surgical consult as outpatient once she is extubated and stable (7) DVT prophylaxis Current Visit: Yes Status: Acute Heparin 5000 units BID History of Present Illness Consult date: 07/07/17 Requesting physician: Cory Perez Reason for consult: COPD, pneumonia Chief complaint: abdominal pain, hypoxemia History of present illness: Pt is a 61 yo female who was admitted from the ED intubated and sedated due to suspected COPD exacerbation and community acquired pneumonia. There is no one at bedside at this time so history is obtained strictly from ED documentation. Apparently she presented to the ED last night initially for abdominal pain and suspected GI bleed. She arrived hypoxemic in the 80s while on nonbreather and was confused and only oriented x 1. She continued to desaturate after being put on BiPAP and was eventually intubated. Family told the ED staff that she had been out of her oxygen for a couple weeks and she did not do anything about it. CXR did demonstrate bibasilar opacities concerning for PNA vs. atelectasis, head CT was negative, and ab/pel CT revealed possible colitis. When she arrived to the ICU, she was agitated despite being on Propofol, but calmed down significantly after Versed was added. This morning she is tranquil and breathing well on the ventilator. Past Med Surg Social Fam HX - Past Medical History Medical history: non-contributory, arthritis, asthma, COPD - Social History Smoking Status: Current every day smoker Smokeless Tobacco Status: No (pt sedated) Alcohol use: none Drug use: none Medications and Allergies DiphenhydraMINE [Benadryl] 25 mg PO Q6HR PRN #20 capsule 05/01/16 [Rx] ALPRAZolam [Xanax 1 MG Tablet] 1 mg PO TID PRN 07/06/17 [History] Albuterol Sulfate [Ventolin Hfa] 2 puff IH Q4H PRN 07/06/17 [History] BuPROPion SR (12 HR) [Wellbutrin SR] 150 mg PO BID 07/06/17 [History] Cetirizine HCl [Zyrtec] 10 mg PO DAILY 07/06/17 [History] Cromolyn Sodium 1 drop OP QID PRN 07/06/17 [History] Docusate Sodium [Stool Softener] 50 mg PO BID 07/06/17 [History] Fluticasone Propionate Nasal [Flonase] 50 - 100 mcg NS DAILY PRN 07/06/17 [ History] Fluticasone/Vilanterol [Breo Ellipta 200-25 Mcg INH] 1 each IH DAILY PRN [History] Gabapentin [Neurontin] 1,200 mg PO TID 07/06/17 [History] Methocarbamol [Robaxin-750] 750 mg PO TID PRN 07/06/17 [History] Montelukast [Singulair] 10 mg PO DAILY 07/06/17 [History] Omeprazole [PriLOSEC] 40 mg PO BID 07/06/17 [History] Oxycodone HCl/Acetaminophen [Percocet 5-325 mg Tablet] 1 each PO Q6H PRN [History] Paroxetine HCl [Paxil] 20 mg PO DAILY 07/06/17 [History] Piroxicam [Feldene] 20 mg PO DAILY 07/06/17 [History] Polyethylene Glycol 3350 [MiraLAX] 17 gm PO DAILY 07/06/17 [History] Propranolol HCl 40 mg PO BID 07/06/17 [History] Sennosides/Docusate Sodium [Senna-S Tablet] 2 each PO QAM 07/06/17 [History] Umeclidinium [place] [Incruse Ellipta] 62.5 mcg IH DAILY PRN 07/06/17 [History] 3 Allergy/AdvReac Type Severity Reaction Status Date / Time Penicillins AdvReac See Verified 07/06/17 16:50 Comments ROS unobtainable: due to endotracheal tube, due to mental status All Systems: A 10-system review of systems was performed and is negative for pertinent findings except as documented above in the HPI. Physical Examination Vital Signs: Vital Signs, Last 4 Hours Pulse Resp BP Pulse Ox 07/07/17 04:10 12 94/48 98 07/07/17 04:00 64 12 94/48 98 07/07/17 03:04 67 07/07/17 02:59 67 16 113/62 98 07/07/17 02:42 14 108/65 99 07/07/17 01:57 81 19 101/60 100 General appearance: no acute distress, other (easily arousable while intubated/ sedated) Eyes: nonicteric ENT: oropharynx moist Neck: supple Effort: normal Inspection: normal Auscultation: bilateral: rales Percussion: bilateral: not dull Tactile fremitus: bilateral: normal Cardiovascular: regular rate and rhythm Gastrointestinal: normoactive bowel sounds, non-distended Integumentary: normal Extremities: no cyanosis, no edema, no clubbing Musculoskeletal: no deformities, ROM normal unable to assess due to mental status anxious Ventilator Settings Ventilator Settings: Ventilator Settings, Last 8 Hours Ventilator Mode A/C Ventilator Mode A/C Ventilator Mode A/C Ventilator Mode A/C Ventilator Mode A/C Ventilator Mode A/C Ventilator Mode A/C Ventilator Mode A/C Ventilator Mode A/C Ventilator Mode VC+ Ventilator Mode VC+ Ventilator Mode A/C Ventilator Mode A/C Ventilator Tidal Volume 500 Setting Ventilator Tidal Volume 500 Setting Ventilator Tidal Volume 500 Setting Ventilator Tidal Volume 500 Setting Ventilator Tidal Volume 500 Setting Ventilator Tidal Volume 500 Setting Ventilator Tidal Volume 500 Setting Ventilator Tidal Volume 500 Setting Ventilator Tidal Volume 500 Setting Ventilator Tidal Volume 500 Setting Ventilator Tidal Volume 500 Setting Ventilator Tidal Volume 500 Setting Ventilator Tidal Volume 500 Setting Ventilator Respiratory Rate 12 Setting Ventilator Respiratory Rate 12 Setting Ventilator Respiratory Rate 12 Setting Ventilator Respiratory Rate 12 Setting Ventilator Respiratory Rate 12 Setting Ventilator Respiratory Rate 12 Setting Ventilator Respiratory Rate 12 Setting Ventilator Respiratory Rate 12 Setting Ventilator Respiratory Rate 12 Setting Ventilator Respiratory Rate 12 Setting Ventilator Respiratory Rate 12 Setting Ventilator Respiratory Rate 12 Setting Ventilator Respiratory Rate 12 Setting Actual Respiratory Rate 12 Actual Respiratory Rate 14 Actual Respiratory Rate 16 Actual Respiratory Rate 14 Actual Respiratory Rate 19 Actual Respiratory Rate 13 Actual Respiratory Rate 14 Actual Respiratory Rate 16 Actual Respiratory Rate 12 Actual Respiratory Rate 13 Actual Respiratory Rate 15 Positive End Expiratory 5 Pressure Positive End Expiratory 5 Pressure Positive End Expiratory 5 Pressure Positive End Expiratory 5 Pressure Positive End Expiratory 5 Pressure Positive End Expiratory 5 Pressure Positive End Expiratory 5 Pressure Positive End Expiratory 5 Pressure Positive End Expiratory 5 Pressure Positive End Expiratory 5 Pressure Positive End Expiratory 5 Pressure Positive End Expiratory 5 Pressure Positive End Expiratory 5 Pressure Peak Inspiratory Airway 30 Pressure Peak Inspiratory Airway 28 Pressure Peak Inspiratory Airway 29 Pressure Peak Inspiratory Airway 30 Pressure Peak Inspiratory Airway 24 Pressure Peak Inspiratory Airway 24 Pressure Peak Inspiratory Airway 28 Pressure Peak Inspiratory Airway 29 Pressure Peak Inspiratory Airway 28 Pressure Peak Inspiratory Airway 30 Pressure Peak Inspiratory Airway 23 Pressure Peak Inspiratory Airway 21 Pressure Results - Laboratory Findings CBC and BMP: 07/07/17 02:51 07/07/17 02:51 ABG ABG pH 7.31 pH Units (7.32-7.45) L 07/07/17 04:14 ABG pCO2 49 mmHg (35-45) H 07/07/17 04:14 ABG pO2 65 mmHg (85-104) L 07/07/17 04:14 ABG O2 Saturation 90 % (95-98) L 07/07/17 04:14 PT/INR, D-dimer PT 11.4 Seconds (9.4-12.1) 07/06/17 16:20 Abnormal lab findings: Abnormal lab results WBC 11.6 K/mcL (4.3-11.1) H 07/07/17 02:51 RDW 16.7 % (11.5-14.5) H 07/07/17 02:51 Neutrophils # 9.8 K/mcL (1.6-8.9) H 07/07/17 02:51 ABG pH 7.31 pH Units (7.32-7.45) L 07/07/17 04:14 ABG pCO2 49 mmHg (35-45) H 07/07/17 04:14 ABG pO2 65 mmHg (85-104) L 07/07/17 04:14 ABG O2 Saturation 90 % (95-98) L 07/07/17 04:14 Carboxyhemoglobin 5.9 % (0-5) H 07/06/17 16:20 Glucose 121 mg/dL (70-99) H 07/07/17 02:51 POC Glucose 145 (58-89) H 07/06/17 23:44 Calcium 8.4 mg/dL (8.6-10.8) L 07/07/17 02:51 AST 48 Units/L (5-34) H 07/06/17 16:20 Creatine Kinase 2899 Units/L (29-168) H 07/06/17 16:20 Globulin 3.9 g/dL (2.4-3.5) H 07/06/17 16:20 Albumin/Globulin Ratio 0.9 (1.1-2.2) L 07/06/17 16:20 TSH 0.297 mcIU/mL (0.350-4.840) L 07/06/17 16:20 Urine Protein 30 mg/dL (Neg-Trace) H 07/06/17 16:24 Urine Blood Trace (Negative) H 07/06/17 16:24 Urine Microscopic RBC 3-5 per hpf (0-3) H 07/06/17 16:24 Ur Squamous Epith Cells Many per lpf (None-Few) H 07/06/17 16:24 Acetaminophen < 1.0 mcg/mL (10-30) L 07/06/17 16:20 U Benzodiazepines Scrn Positive ng/mL (Iwalrn=687) H 07/06/17 16:24 U Marijuana (THC) Screen Positive ng/mL (Cutoff = 50) H 07/06/17 16:24 - Clinical Findings Intake & Output: Intake & Output 07/06/17 07/06/17 07/07/17 15:59 23:59 07:59 Intake Total 50 / 1150 50 / 50 Output Total 425 / 425 450 / 450 Balance -375 / 725 -400 / -400 Weight 72.5 kg Consult Discharge Plan - Plan Referrals: Indra Soria DO [Primary Care Provider] - <Alex Paulino - Last Filed: 07/07/17 16:36> Date of Encounter: 07/07/17 All Systems: A 10-system review of systems was performed and is negative for pertinent findings except as documented above in the HPI. Physical Examination Vital Signs: Vital Signs, Last 4 Hours Temp Pulse Resp BP Pulse Ox 07/07/17 16:00 74 23 116/100 92 07/07/17 15:00 96.9 F L 76 16 115/66 92 07/07/17 14:00 73 20 113/79 94 07/07/17 13:00 70 18 130/78 93 Ventilator Settings Ventilator Settings: Ventilator Settings, Last 8 Hours Ventilator Mode CPAP Results - Laboratory Findings CBC and BMP: 07/07/17 02:51 07/07/17 02:51 ABG ABG pH 7.36 pH Units (7.32-7.45) 07/07/17 10:05 ABG pCO2 44 mmHg (35-45) 07/07/17 10:05 ABG pO2 51 mmHg (85-104) L 07/07/17 10:05 ABG O2 Saturation 84 % (95-98) L 07/07/17 10:05 PT/INR, D-dimer PT 11.4 Seconds (9.4-12.1) 07/06/17 16:20 Abnormal lab findings: Abnormal lab results WBC 11.6 K/mcL (4.3-11.1) H 07/07/17 02:51 RDW 16.7 % (11.5-14.5) H 07/07/17 02:51 Neutrophils # 9.8 K/mcL (1.6-8.9) H 07/07/17 02:51 ABG pO2 51 mmHg (85-104) L 07/07/17 10:05 ABG O2 Saturation 84 % (95-98) L 07/07/17 10:05 Carboxyhemoglobin 5.9 % (0-5) H 07/06/17 16:20 Glucose 121 mg/dL (70-99) H 07/07/17 02:51 POC Glucose 106 (58-89) H 07/07/17 05:26 Calcium 8.4 mg/dL (8.6-10.8) L 07/07/17 02:51 AST 48 Units/L (5-34) H 07/06/17 16:20 Creatine Kinase 2899 Units/L (29-168) H 07/06/17 16:20 Globulin 3.9 g/dL (2.4-3.5) H 07/06/17 16:20 Albumin/Globulin Ratio 0.9 (1.1-2.2) L 07/06/17 16:20 TSH 0.297 mcIU/mL (0.350-4.840) L 07/06/17 16:20 Urine Protein 30 mg/dL (Neg-Trace) H 07/06/17 16:24 Urine Blood Trace (Negative) H 07/06/17 16:24 Urine Microscopic RBC 3-5 per hpf (0-3) H 07/06/17 16:24 Ur Squamous Epith Cells Many per lpf (None-Few) H 07/06/17 16:24 Salicylates < 5.0 mg/dL (15-30) L 07/07/17 07:52 Acetaminophen < 1.0 mcg/mL (10-30) L 07/07/17 07:52 U Benzodiazepines Scrn Positive ng/mL (Dyrmzg=155) H 07/06/17 16:24 U Marijuana (THC) Screen Positive ng/mL (Cutoff = 50) H 07/06/17 16:24 - Clinical Findings Intake & Output: Intake & Output 07/07/17 07/07/17 07/07/17 07:59 15:59 23:59 Intake Total 1160 / 1160 1494 / 1494 Output Total 450 / 450 375 / 375 Balance 710 / 710 1119 / 1119 - Attending Attestation I saw the patient with the resident agree with History and Physical exam findings. 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 Patient is on chronic benzodiazepine , nicotine and Marijuana addiction . After extubation will continue home BZD and Prn Haldol NECK : No JVD appreciated Pulmonary : Patient is hypoxic and hypercarbic on ventilator , ABG showed mild respiratory acidosis with hypoxemia , patient has RLL consolidation will treat with IV levofloxacin and IV steroids patient has background of COPD will continue with bronchodilators . Possible aspiration . Dropped the TV to 450 and RR increased to 18 will SBT once she is awake. Cardiac : Hemodynamically stable Nutrition/GI: Patient had a swallow evaluation will follow speech therapy recs for consistency of solids and liquids . To continue PPI . Patient has chronic abdominal pain due to rectal prolapse surgery consulted most likely outpatient management and elective surgery. Renal : Patient has Rhabdomyloysis will give continuous IV fluids LR 100 ml /hr will repeat CK Heme onc : No acute issues will follow CBC ID: Blood cultures and sputum cultures To continue Levofloxacin for RLL and RML pneumonia will add Metronidazole to cover aspiration. Disposition : Critically ill Code status: Full Code Family/POA: Daughter Spent 35 critical care minutes
[2017-07-07] MEDS ORDERED: Potassium Chloride Elixir 20 MEQ/15 ML UDC GTUBE ONE (05:04)
[2017-07-07] MEDS: Pantoprazole 40 MG VIAL IVP SCH (05:28)
[2017-07-07] MEDS: Insulin LISPRO 300 UNITS/3 ML VIAL SQ SCH ×3 (05:28→17:19)
[2017-07-07] MEDS: *HR* Heparin 5,000 UNIT/ML VIAL SQ SCH ×2 (05:28→17:15)
[2017-07-07] MEDS ORDERED: Calcium Gluconate 1,000 MG in D5% in Water 100 ML IVPB ONE (05:41)
[2017-07-07] MEDS: 0.9 % Sodium Chloride 1,000 ML IVC SCH (07:11)
[2017-07-07] MEDS ORDERED: Ringers Solution, Lactated 1,000 ML IVC ONE (07:33)
[2017-07-07] MEDS: Levofloxacin 750 MG/150 ML 750 MG/150 ML BAG IVPB SCH (07:58)
[2017-07-07] MEDS: Chlorhexidine Rinse 15 ML MOUTHWASH MM SCH (07:58)
[2017-07-07] MEDS ORDERED: MetroNIDAZOLE 500 MG/100 ML 500 MG/100 ML BAG IVPB SCH (08:00)
[2017-07-07] MEDS ORDERED: *HR* Rocuronium Bromide 100 MG/10 ML VIAL IVC ONE (08:09)
[2017-07-07] MEDS ORDERED: *HR* Etomidate 40 MG/20 ML VIAL IVP ONE (08:09)
[2017-07-07] MEDS: Dexmedetomidine HCl 400 MCG/100 ML MLS IVC SCH ×3 (08:13→18:14)
[2017-07-07 08:14] LABS: Acetaminophen < 1.0 mcg/mL (10-30); Salicylate < 5.0 mg/dL (15-30)
[2017-07-07] MEDS: Budesonide/Formoterol 160/4.5 MDI IH SCH ×2 (09:43→22:15)
[2017-07-07 10:12] LABS: ABG Base Excess -1 mEq/L (-2 to 3); ABG HCO3 25 mEq/L (21-27); ABG Oxygen Saturation 84 % (95-98); ABG PCO2 44 mmHg (35-45); ABG PH 7.36 pH Units (7.32-7.45); ABG PO2 51 mmHg (85-104); ABG TCO2 26 mEq/L (20-26)
[2017-07-07] MEDS ORDERED: ALPRAZolam 1 MG TABLET PO ONE (10:24)
[2017-07-07] MEDS ORDERED: *HR* HYDROcodone/Acet 5/325 mg TABLET PO ONE (10:24)
[2017-07-07] MEDS ORDERED: *HR* Morphine 2 MG/ML SYRINGE IVP ONE (10:34)
[2017-07-07] MEDS: BuPROPion SR (12 HR) 150 MG TABLET PO SCH ×2 (10:38→22:49)
[2017-07-07] MEDS: *HR* LORazepam 2 MG/ML VIAL IVP ONE ×2 (10:52→19:03)
--- NOTE | 2017-07-07 14:25 | General Surgery Consult Note ---
Date of Encounter: 07/07/17 Time of Encounter: 14:00 Assessment and Plan (1) Rectal prolapse Current Visit: Yes Status: Acute Patient has a past medical hx of rectal prolapse with unknown surgery on her rectum 09/29/14. Family states that she has pain intermittently and that this is a chronic problem. PE showed no rectal prolapse at this time. No need for surgical or procedural intervention at this time. We will sign off for now, please contact with questions or concerns. History of Present Illness Consult date: 07/07/17 Reason for consult: other (rectal prolapse) Requesting physician: Tim Vazquez History of present illness: Patient is a 61 y/o female with a past medical history of COPD and diverticulosis and presented to the ED due to GI bleed and hypoxia and was found to be in acute respiratory failure. While in the hospital patient began complaining of rectal pain and rectal prolapse was seen by staff. Surgery was consulted for rectal prolapse. Patient was unable to contribute to hx of rectal prolapse due to her altered mental status but family said that she has had the rectal prolapse for years and had rectal surgery in 2014, unsure of type of surgery performed. Family member says she easily prolapses.and reduces. Today while patient was aggravated staff noticed rectal prolapse present. At the time of our examination, rectum was not prolapsed. Past Med Surg Social Fam HX - Past Medical History Medical history: non-contributory, arthritis, asthma, COPD, GERD, hypertension Psychiatric history: anxiety, depression - Past Surgical History Surgical History: hysterectomy, orthopedic, other (right shoulder ), other ( carpal tunnel release) - Social History Smoking Status: Current every day smoker Smokeless Tobacco Status: No (pt sedated) Alcohol use: none Drug use: none - Family History Brother Cause of : murder in [place]ion Father Living Status: Age at : 79 Hx Family Cardiac Disorders: Yes (CAD) Hx Family Respiratory Disorders: Yes (lung disease, ) Mother Living Status: Age at : 56 Hx Family Cancer: Yes Medications and Allergies DiphenhydraMINE [Benadryl] 25 mg PO Q6HR PRN #20 capsule 05/01/16 [Rx] ALPRAZolam [Xanax 1 MG Tablet] 1 mg PO TID PRN 07/06/17 [History] Albuterol Sulfate [Ventolin Hfa] 2 puff IH Q4H PRN 07/06/17 [History] BuPROPion SR (12 HR) [Wellbutrin SR] 150 mg PO BID 07/06/17 [History] Cetirizine HCl [Zyrtec] 10 mg PO DAILY 07/06/17 [History] Cromolyn Sodium 1 drop OP QID PRN 07/06/17 [History] Docusate Sodium [Stool Softener] 50 mg PO BID 07/06/17 [History] Fluticasone Propionate Nasal [Flonase] 50 - 100 mcg NS DAILY PRN 07/06/17 [ History] Fluticasone/Vilanterol [Breo Ellipta 200-25 Mcg INH] 1 each IH DAILY PRN [History] Gabapentin [Neurontin] 1,200 mg PO TID 07/06/17 [History] Methocarbamol [Robaxin-750] 750 mg PO TID PRN 07/06/17 [History] Montelukast [Singulair] 10 mg PO DAILY 07/06/17 [History] Omeprazole [PriLOSEC] 40 mg PO BID 07/06/17 [History] Oxycodone HCl/Acetaminophen [Percocet 5-325 mg Tablet] 1 each PO Q6H PRN [History] Paroxetine HCl [Paxil] 20 mg PO DAILY 07/06/17 [History] Piroxicam [Feldene] 20 mg PO DAILY 07/06/17 [History] Polyethylene Glycol 3350 [MiraLAX] 17 gm PO DAILY 07/06/17 [History] Propranolol HCl 40 mg PO BID 07/06/17 [History] Sennosides/Docusate Sodium [Senna-S Tablet] 2 each PO QAM 07/06/17 [History] Umeclidinium [place] [Incruse Ellipta] 62.5 mcg IH DAILY PRN 07/06/17 [History] 3 Allergy/AdvReac Type Severity Reaction Status Date / Time Penicillins AdvReac See Verified 07/06/17 16:50 Comments Review of Systems ROS unobtainable: due to mental status General Surgery Exam Initial Vital Signs Temp Pulse Resp BP Pulse Ox 98.9 F 102 24 139/84 84 07/06/17 15:54 07/06/17 15:54 07/06/17 15:54 07/06/17 15:54 07/06/17 15:54 - Additional Findings Constitutional: easily arousal, responding to voices but no eye contact, no acute distress Head: Normocephalic, atraumatic, normal contour and symmetric, no masses, lesions or scars Heart: Normal, regular rate and rhythm, no murmurs Lungs: + wheezing diffusely, simple mask present, no rales, or rhonchi Abdomen: Soft, nondistended, nontender, and no masses palpable, bowel sounds present and normal, no guarding or rigidity. Extremities: No clubbing, cyanosis, or edema, radial pulse +2/4, capillary refill <2sec. Rectal: skin is intact and normal in color, no rectal prolapse present, Skin: Skin warm and dry, no lesions, no rashes, no jaundice Neurologic: Cranial nerves II through XII grossly intact, no focal deficits, strength within normal limits in all extremities Psych: Cooperative with exam, poor eye contact, Exam Initial Vital Signs Temp Pulse Resp BP Pulse Ox 98.9 F 102 24 139/84 84 07/06/17 15:54 07/06/17 15:54 07/06/17 15:54 07/06/17 15:54 07/06/17 15:54 Results - Labs 07/07/17 02:51 07/07/17 02:51 Abnormal lab results WBC 11.6 K/mcL (4.3-11.1) H 07/07/17 02:51 RDW 16.7 % (11.5-14.5) H 07/07/17 02:51 Neutrophils # 9.8 K/mcL (1.6-8.9) H 07/07/17 02:51 ABG pO2 51 mmHg (85-104) L 07/07/17 10:05 ABG O2 Saturation 84 % (95-98) L 07/07/17 10:05 Carboxyhemoglobin 5.9 % (0-5) H 07/06/17 16:20 Glucose 121 mg/dL (70-99) H 07/07/17 02:51 POC Glucose 106 (58-89) H 07/07/17 05:26 Calcium 8.4 mg/dL (8.6-10.8) L 07/07/17 02:51 AST 48 Units/L (5-34) H 07/06/17 16:20 Creatine Kinase 2899 Units/L (29-168) H 07/06/17 16:20 Globulin 3.9 g/dL (2.4-3.5) H 07/06/17 16:20 Albumin/Globulin Ratio 0.9 (1.1-2.2) L 07/06/17 16:20 TSH 0.297 mcIU/mL (0.350-4.840) L 07/06/17 16:20 Urine Protein 30 mg/dL (Neg-Trace) H 07/06/17 16:24 Urine Blood Trace (Negative) H 07/06/17 16:24 Urine Microscopic RBC 3-5 per hpf (0-3) H 07/06/17 16:24 Ur Squamous Epith Cells Many per lpf (None-Few) H 07/06/17 16:24 Salicylates < 5.0 mg/dL (15-30) L 07/07/17 07:52 Acetaminophen < 1.0 mcg/mL (10-30) L 07/07/17 07:52 U Benzodiazepines Scrn Positive ng/mL (Skpewl=180) H 07/06/17 16:24 U Marijuana (THC) Screen Positive ng/mL (Cutoff = 50) H 07/06/17 16:24 Diabetes panel 07/07/17 Range/Units 02:51 Sodium 137 (136-145) mEq/L Potassium 3.6 (3.5-4.5) mEq/L Chloride 108 (98-109) mEq/L Carbon Dioxide 22 (19-29) mEq/L BUN 15 (7-20) mg/dL Creatinine 0.76 (0.57-1.11) mg/dL Glucose 121 H (70-99) mg/dL Calcium 8.4 L (8.6-10.8) mg/dL Calcium panel 07/07/17 Range/Units 02:51 Calcium 8.4 L (8.6-10.8) mg/dL Phosphorus 2.4 (2.3-4.7) mg/dL Pituitary panel 07/07/17 Range/Units 02:51 Sodium 137 (136-145) mEq/L Potassium 3.6 (3.5-4.5) mEq/L Chloride 108 (98-109) mEq/L Carbon Dioxide 22 (19-29) mEq/L BUN 15 (7-20) mg/dL Creatinine 0.76 (0.57-1.11) mg/dL Glucose 121 H (70-99) mg/dL Calcium 8.4 L (8.6-10.8) mg/dL Adrenal panel 07/07/17 Range/Units 02:51 Sodium 137 (136-145) mEq/L Potassium 3.6 (3.5-4.5) mEq/L Chloride 108 (98-109) mEq/L Carbon Dioxide 22 (19-29) mEq/L BUN 15 (7-20) mg/dL Creatinine 0.76 (0.57-1.11) mg/dL Glucose 121 H (70-99) mg/dL Calcium 8.4 L (8.6-10.8) mg/dL All other labs normal. Consult Discharge Plan - Plan Referrals: Indra Soria DO [Primary Care Provider] -
[2017-07-07] MEDS ORDERED: ALPRAZolam 1 MG TABLET PO PRN (15:06)
[2017-07-07] MEDS: *HR* Morphine 2 MG/ML SYRINGE IVP PRN ×2 (15:27→18:53)
[2017-07-07] MEDS ORDERED: *HR* LORazepam 2 MG/ML VIAL ONE (15:39)
[2017-07-07] MEDS ORDERED: *HR* LORazepam 2 MG/ML VIAL IVP ONE (15:58)
[2017-07-07] MEDS ORDERED: Haloperidol Lactate 5 MG/ML VIAL IVP PRN (16:37)
[2017-07-07] MEDS ORDERED: Ringers Solution, Lactated 1,000 ML ONE (16:48)
[2017-07-07] MEDS: Ringers Solution, Lactated 1,000 ML IVC SCH (16:52)
[2017-07-07] MEDS: MetroNIDAZOLE 500 MG/100 ML 500 MG/100 ML BAG IVPB SCH (17:10)
[2017-07-07] MEDS: Nicotine 21 MG PATCH.TD24 TD SCH (17:10)
--- NOTE | 2017-07-07 18:27 | Electrocardiograph Report ---
[place] [id number] Test Date: 2017-07-06 Pat Name: Makenzie Serrano Department: 102 Room: [facility] Gender: F Pharmacy Benefit Manager: Susan : 1955 Requested By: Bello Perez Order Number: [id number] Reading MD: Derick Mcgraw DO Measurements Intervals [place] Rate: 88 P: 71 MO: 112 QRS: 62 QRSD: 92 T: 67 QT: 266 QTc: 312 Interpretive Statements SINUS RHYTHM WITH SHORT MO INTERVAL NONSPECIFIC ST & T-WAVE ABNORMALITY Electronically Signed On 07-07-2017 18:26:29 EDT by Derick Mcgraw DO
[2017-07-07] MEDS ORDERED: *HR* Midazolam HCl 2 MG/2 ML VIAL IVP ONE (19:45)
[2017-07-07] MEDS ORDERED: *HR* Midazolam HCl 2 MG/2 ML VIAL ONE (19:47)
--- NOTE | 2017-07-07 20:13 | Event Note ---
Date of Encounter: 07/07/17 Time of Encounter: 20:10 Patient was extremely agitated this evening despite being maxed on Precedex drip. Per RN, she was agitated throughout the day when she was awake and was not making any sense when speaking. She also became tachycardic in the 150s and would intermittently desaturate while on nasal cannula. Daughter was at bedside and stated that although she does get agitated easily, her mother does make sense when talking to. She denies any drug abuse other than marijuana and does not believe she is withdrawing. The decision was made to sedate and intubate to protect her airway. Daughter understood and agreed to the plan.
--- NOTE | 2017-07-07 20:16 | Procedure Note ---
Date of procedure: 07/07/17 Pre-op diagnosis: copd exacerbation Post-op diagnosis: same Procedure: A time-out was completed verifying correct patient, procedure, site, positioning , and special equipment if applicable. The patient was placed in a flat position. Sedation was obtained using Versed 5mg and additionally with Rocuronium 50 mg. The patient was easily ventilated using an ambu bag. The C- mac 4 was used and inserted into the oropharynx at which time there was a Grade 1 view of the vocal cords. A 7.5-chinese endotracheal tube was inserted and visualized going through the vocal cords. The stylette was removed. Colorimetric change was visualized on the CO2 meter. Breath sounds were heard in both lung bourne equally. The endotracheal tube was placed at 23 cm, measured at the teeth. Dr. Perez was present for the entire procedure. A chest x-ray was ordered to assess for pneumothorax and verify endotrachealtube placement. Anesthesia: IV sedation Surgeon: Cory Perez Assistant Professor Of German: Kaitlin Perez Estimated blood loss (cc): 0 Condition: critical Disposition: ICU
[2017-07-07 22:16] LABS: ABG Base Excess 1 mEq/L (-2 to 3); ABG HCO3 27 mEq/L (21-27); ABG Oxygen Saturation 90 % (95-98); ABG PCO2 46 mmHg (35-45); ABG PH 7.37 pH Units (7.32-7.45); ABG PO2 62 mmHg (85-104); ABG TCO2 28 mEq/L (20-26); Blood Gas Modality VC
[2017-07-08] MEDS: MetroNIDAZOLE 500 MG/100 ML 500 MG/100 ML BAG IVPB SCH ×4 (00:18→23:00)
[2017-07-08] MEDS: Insulin LISPRO 300 UNITS/3 ML VIAL SQ SCH ×5 (00:19→23:00)
[2017-07-08] MEDS: Ringers Solution, Lactated 1,000 ML IVC SCH ×2 (00:19→07:54)
[2017-07-08] MEDS: Dexmedetomidine HCl 400 MCG/100 ML MLS IVC SCH ×5 (01:55→22:07)
[2017-07-08] MEDS: Ipratropium/Albuterol Neb 3 ML IH SCH ×4 (03:21→21:25)
[2017-07-08] MEDS: Pantoprazole 40 MG VIAL IVP SCH (05:47)
[2017-07-08] MEDS: *HR* Heparin 5,000 UNIT/ML VIAL SQ SCH ×2 (05:47→17:42)
[2017-07-08 06:25] LABS: Basophils % 0.3 %; Eosinophils % 0.2 %; Hematocrit 38.4 % (35.3-44.9); Hemoglobin 12.7 g/dL (11.5-15.4); Lymphocytes # 1.6 K/mcL (0.6-4.6); Lymphocytes % 12.6 %; Mean Corpuscular HGB Conc 33.1 g/dL (31.6-35.5); Mean Corpuscular Hemoglobin 30.8 pg (28.0-33.3); Mean Corpuscular Volume 93.2 fL (83.0-100.0); Mean Platelet Volume 10.1 fL (9.4-12.4); Monocytes # 0.9 K/mcL (0.0-1.3); Monocytes % 7.2 %; Neutrophils # 9.9 K/mcL (1.6-8.9); Platelet Count 189 K/mcL (140-400); Red Blood Count 4.12 M/mcL (3.82-4.97); Red Cell Distribution Width 16.5 % (11.5-14.5); Segmented Neutrophils % 78.7 %
[2017-07-08 06:43] LABS: BUN/Creatinine Ratio 15 (6-26); Blood Urea Nitrogen 10 mg/dL (7-20); Calcium 8.6 mg/dL (8.6-10.8); Carbon Dioxide 23 mEq/L (19-29); Chloride 104 mEq/L (98-109); Glucose 123 mg/dL (70-99); Magnesium 1.3 mg/dL (1.6-2.6); Osmolality,Calculated 284 (280-300); Phosphorous 1.7 mg/dL (2.3-4.7); Potassium 3.5 mEq/L (3.5-4.5); Sodium 137 mEq/L (136-145); eGFR For African Americans > 60 (> 60); eGFR For Non-African Americans > 60 (> 60)
[2017-07-08] MEDS: Nicotine 21 MG PATCH.TD24 TD SCH (07:58)
--- NOTE | 2017-07-08 07:58 | Pulmonology Progress Note ---
<Tim Vazquez - Last Filed: 07/08/17 11:25> Date of Encounter: 07/08/17 Time of Encounter: 07:56 Assessment and Plan (1) Acute on chronic respiratory failure with hypoxia and hypercapnia Current Visit: Yes Status: Acute Patent intubated again last night Patient oxygenation is stable with vent settings of Rate 22, Tidal Volume 380, PEEP 5, and FiO2 50% CXR showed worsening opacification of the lungs, most likely pulmonary edema Will monitor ABGs (2) Pulmonary edema Current Visit: Yes Status: Acute Increased opacification of the lungs bilaterally Limited echo and troponins x3 ordered to evaluate for cardiac cause Discontinued lactated ringers Starting diuresis with lasix 40 mg Qualifiers: Chronicity: acute Qualified Code(s): J81.0 - Acute pulmonary edema (3) Elevated troponin Current Visit: Yes Status: Acute Troponin increased from 0.03 on 07/06/17 to 0.24 this morning 12 lead EKG did not show ST elevation Most likely demand-perfusion mismatch Will continue to trend troponin, consult cardiology if they do not improve Echo ordered (4) Acute exacerbation of chronic obstructive pulmonary disease (COPD) Current Visit: Yes Status: Acute Stable oxygenation on ventilator Ipratropium/albuterol, symbicort (5) Community acquired pneumonia Current Visit: Yes Status: Acute WBC increased overnight 11.6 --> 12.6 Borderline fever overnight of 100.1 and some decreased temperature down to 96.9 On levofloxacin Day 2, changed to dxyccline to reduce risk of QT prolongation with medications added for delirium Consider escalation if WBC worsens or temperature spikes above 100.4 Qualifiers: Laterality: unspecified laterality Qualified Code(s): J18.9 - Pneumonia, unspecified organism (6) Rhabdomyolysis Current Visit: Yes Status: Suspected CK fell from 2899 to 1833 Good kidney function and urinary output Discontinuing lactated ringers due to pulmonary edema Qualifiers: Rhabdomyolysis type: non-traumatic Qualified Code(s): M62.82 - Rhabdomyolysis (7) Delirium Current Visit: Yes Status: Acute Acute delirium superimposed on chronic dementia, per patient's daughter Becomes acutely agitated with even minimal Patient requiring versed, precedex, and fentanyl Added xanax, seroquel, and zyprexa (8) DVT prophylaxis Current Visit: Yes Status: Acute Heparin subq Subjective Principal diagnosis: COPD Exacerbation, Pneumonia Interval history: Patient was re-intubated last night secondary to extreme agitation and increased sedation requirements. She continues to be agitated this morning. Objective PUL Vital signs: Last Vital Signs Temp 98.6 F 07/08/17 06:00 Pulse 69 07/08/17 07:30 Resp 20 07/08/17 07:43 BP 152/90 07/08/17 07:43 Pulse Ox 93 07/08/17 07:43 General appearance: agitated Eyes: nonicteric Effort: normal Auscultation: bilateral: diminished breath sounds Cardiovascular: regular rate and rhythm Gastrointestinal: soft, non-distended Integumentary: normal Extremities: no cyanosis, no edema unable to assess due to mental status Ventilator Settings Ventilator Settings: Ventilator Settings, Last 8 Hours Ventilator Mode VC+ Ventilator Mode VC+ Ventilator Mode VC+ Ventilator Mode VC+ Ventilator Mode A/C Ventilator Mode A/C Ventilator Mode A/C Ventilator Mode VC+ Ventilator Mode A/C Ventilator Mode VC+ Ventilator Mode A/C Ventilator Mode VC+ Ventilator Mode A/C Ventilator Tidal Volume 380 Setting Ventilator Tidal Volume 380 Setting Ventilator Tidal Volume 500 Setting Ventilator Tidal Volume 500 Setting Ventilator Tidal Volume 500 Setting Ventilator Tidal Volume 500 Setting Ventilator Tidal Volume 500 Setting Ventilator Tidal Volume 500 Setting Ventilator Tidal Volume 500 Setting Ventilator Tidal Volume 500 Setting Ventilator Tidal Volume 500 Setting Ventilator Tidal Volume 500 Setting Ventilator Tidal Volume 500 Setting Ventilator Respiratory Rate 14 Setting Ventilator Respiratory Rate 22 Setting Ventilator Respiratory Rate 14 Setting Ventilator Respiratory Rate 14 Setting Ventilator Respiratory Rate 14 Setting Ventilator Respiratory Rate 14 Setting Ventilator Respiratory Rate 14 Setting Ventilator Respiratory Rate 14 Setting Ventilator Respiratory Rate 14 Setting Ventilator Respiratory Rate 14 Setting Ventilator Respiratory Rate 14 Setting Ventilator Respiratory Rate 14 Setting Ventilator Respiratory Rate 14 Setting Actual Respiratory Rate 37 Actual Respiratory Rate 24 Actual Respiratory Rate 19 Actual Respiratory Rate 18 Actual Respiratory Rate 18 Actual Respiratory Rate 19 Actual Respiratory Rate 20 Actual Respiratory Rate 17 Actual Respiratory Rate 18 Actual Respiratory Rate 18 Actual Respiratory Rate 18 Actual Respiratory Rate 17 Actual Respiratory Rate 18 Positive End Expiratory 5 Pressure Positive End Expiratory 5 Pressure Positive End Expiratory 5 Pressure Positive End Expiratory 5 Pressure Positive End Expiratory 5 Pressure Positive End Expiratory 5 Pressure Positive End Expiratory 5 Pressure Positive End Expiratory 5 Pressure Positive End Expiratory 5 Pressure Positive End Expiratory 5 Pressure Positive End Expiratory 5 Pressure Positive End Expiratory 5 Pressure Positive End Expiratory 5 Pressure Peak Inspiratory Airway 21 Pressure Peak Inspiratory Airway 24 Pressure Peak Inspiratory Airway 29 Pressure Peak Inspiratory Airway 30 Pressure Peak Inspiratory Airway 29 Pressure Peak Inspiratory Airway 25 Pressure Peak Inspiratory Airway 24 Pressure Peak Inspiratory Airway 30 Pressure Peak Inspiratory Airway 29 Pressure Peak Inspiratory Airway 28 Pressure Peak Inspiratory Airway 27 Pressure Peak Inspiratory Airway 27 Pressure Peak Inspiratory Airway 27 Pressure Results - Laboratory Findings CBC and BMP: 07/08/17 05:42 07/08/17 05:42 ABG ABG pH 7.37 pH Units (7.32-7.45) 07/07/17 22:13 ABG pCO2 46 mmHg (35-45) H 07/07/17 22:13 ABG pO2 62 mmHg (85-104) L 07/07/17 22:13 ABG O2 Saturation 90 % (95-98) L 07/07/17 22:13 PT/INR, D-dimer PT 11.4 Seconds (9.4-12.1) 07/06/17 16:20 Abnormal lab findings: Abnormal lab results WBC 12.6 K/mcL (4.3-11.1) H 07/08/17 05:42 RDW 16.5 % (11.5-14.5) H 07/08/17 05:42 Neutrophils # 9.9 K/mcL (1.6-8.9) H 07/08/17 05:42 ABG pCO2 46 mmHg (35-45) H 07/07/17 22:13 ABG pO2 62 mmHg (85-104) L 07/07/17 22:13 ABG Total CO2 28 mEq/L (20-26) H 07/07/17 22:13 ABG O2 Saturation 90 % (95-98) L 07/07/17 22:13 Carboxyhemoglobin 5.9 % (0-5) H 07/06/17 16:20 Glucose 123 mg/dL (70-99) H 07/08/17 05:42 POC Glucose 136 (58-89) H 07/08/17 00:10 Phosphorus 1.7 mg/dL (2.3-4.7) L 07/08/17 05:42 Magnesium 1.3 mg/dL (1.6-2.6) L 07/08/17 05:42 AST 48 Units/L (5-34) H 07/06/17 16:20 Creatine Kinase 1833 Units/L (29-168) H 07/07/17 20:00 Globulin 3.9 g/dL (2.4-3.5) H 07/06/17 16:20 Albumin/Globulin Ratio 0.9 (1.1-2.2) L 07/06/17 16:20 TSH 0.297 mcIU/mL (0.350-4.840) L 07/06/17 16:20 Urine Protein 30 mg/dL (Neg-Trace) H 07/06/17 16:24 Urine Blood Trace (Negative) H 07/06/17 16:24 Urine Microscopic RBC 3-5 per hpf (0-3) H 07/06/17 16:24 Ur Squamous Epith Cells Many per lpf (None-Few) H 07/06/17 16:24 Salicylates < 5.0 mg/dL (15-30) L 07/07/17 07:52 Acetaminophen < 1.0 mcg/mL (10-30) L 07/07/17 07:52 U Benzodiazepines Scrn Positive ng/mL (Bhqmbc=479) H 07/06/17 16:24 U Marijuana (THC) Screen Positive ng/mL (Cutoff = 50) H 07/06/17 16:24 - Diagnostic Findings Chest x-ray: report reviewed, image reviewed - Clinical Findings Intake & Output: Intake & Output 07/07/17 07/07/17 07/08/17 15:59 23:59 07:59 Intake Total 1494 / 1494 228.8 / 228.8 1345.6 / 1345.6 Output Total 375 / 375 2125 / 2125 275 / 275 Balance 1119 / 1119 -1896.2 / -1896.2 1070.6 / 1070.6 Weight 74.1 kg Consult Discharge Plan - Plan Referrals: Indra Soria DO [Primary Care Provider] - <Alex Paulino - Last Filed: 07/08/17 17:56> Date of Encounter: 07/08/17 Objective PUL Vital signs: Last Vital Signs Temp 98.6 F 07/08/17 11:48 Pulse 85 07/08/17 12:00 Resp 25 07/08/17 12:00 BP 128/83 07/08/17 12:00 Pulse Ox 94 07/08/17 12:00 Ventilator Settings Ventilator Settings: Ventilator Settings, Last 8 Hours Ventilator Mode VC+ Ventilator Mode VC+ Ventilator Mode VC+ Ventilator Mode VC+ Ventilator Mode VC+ Ventilator Mode VC+ Ventilator Mode VC+ Ventilator Mode VC+ Ventilator Mode VC+ Ventilator Mode VC+ Ventilator Mode VC+ Ventilator Mode VC+ Ventilator Mode A/C Ventilator Tidal Volume 380 Setting Ventilator Tidal Volume 380 Setting Ventilator Tidal Volume 380 Setting Ventilator Tidal Volume 380 Setting Ventilator Tidal Volume 380 Setting Ventilator Tidal Volume 380 Setting Ventilator Tidal Volume 380 Setting Ventilator Tidal Volume 380 Setting Ventilator Tidal Volume 380 Setting Ventilator Tidal Volume 380 Setting Ventilator Tidal Volume 500 Setting Ventilator Tidal Volume 500 Setting Ventilator Tidal Volume 500 Setting Ventilator Respiratory Rate 20 Setting Ventilator Respiratory Rate 22 Setting Ventilator Respiratory Rate 20 Setting Ventilator Respiratory Rate 22 Setting Ventilator Respiratory Rate 22 Setting Ventilator Respiratory Rate 22 Setting Ventilator Respiratory Rate 22 Setting Ventilator Respiratory Rate 14 Setting Ventilator Respiratory Rate 14 Setting Ventilator Respiratory Rate 22 Setting Ventilator Respiratory Rate 14 Setting Ventilator Respiratory Rate 14 Setting Ventilator Respiratory Rate 14 Setting Actual Respiratory Rate 26 Actual Respiratory Rate 22 Actual Respiratory Rate 22 Actual Respiratory Rate 22 Actual Respiratory Rate 27 Actual Respiratory Rate 27 Actual Respiratory Rate 36 Actual Respiratory Rate 37 Actual Respiratory Rate 24 Actual Respiratory Rate 19 Actual Respiratory Rate 18 Actual Respiratory Rate 18 Positive End Expiratory 5 Pressure Positive End Expiratory 5 Pressure Positive End Expiratory 5 Pressure Positive End Expiratory 5 Pressure Positive End Expiratory 5 Pressure Positive End Expiratory 5 Pressure Positive End Expiratory 5 Pressure Positive End Expiratory 5 Pressure Positive End Expiratory 5 Pressure Positive End Expiratory 5 Pressure Positive End Expiratory 5 Pressure Positive End Expiratory 5 Pressure Positive End Expiratory 5 Pressure Peak Inspiratory Airway 20 Pressure Peak Inspiratory Airway 23 Pressure Peak Inspiratory Airway 24 Pressure Peak Inspiratory Airway 24 Pressure Peak Inspiratory Airway 24 Pressure Peak Inspiratory Airway 26 Pressure Peak Inspiratory Airway 21 Pressure Peak Inspiratory Airway 21 Pressure Peak Inspiratory Airway 24 Pressure Peak Inspiratory Airway 29 Pressure Peak Inspiratory Airway 30 Pressure Peak Inspiratory Airway 29 Pressure Results - Laboratory Findings CBC and BMP: 07/08/17 05:42 07/08/17 05:42 ABG ABG pH 7.37 pH Units (7.32-7.45) 07/07/17 22:13 ABG pCO2 46 mmHg (35-45) H 07/07/17 22:13 ABG pO2 62 mmHg (85-104) L 07/07/17 22:13 ABG O2 Saturation 90 % (95-98) L 07/07/17 22:13 PT/INR, D-dimer PT 11.4 Seconds (9.4-12.1) 07/06/17 16:20 Abnormal lab findings: Abnormal lab results WBC 12.6 K/mcL (4.3-11.1) H 07/08/17 05:42 RDW 16.5 % (11.5-14.5) H 07/08/17 05:42 Neutrophils # 9.9 K/mcL (1.6-8.9) H 07/08/17 05:42 ABG pCO2 46 mmHg (35-45) H 07/07/17 22:13 ABG pO2 62 mmHg (85-104) L 07/07/17 22:13 ABG Total CO2 28 mEq/L (20-26) H 07/07/17 22:13 ABG O2 Saturation 90 % (95-98) L 07/07/17 22:13 Capillary pCO2 39 mmHg (41-51) L 07/08/17 08:36 Capillary pO2 67 mmHg (25-50) H 07/08/17 08:36 Carboxyhemoglobin 5.9 % (0-5) H 07/06/17 16:20 Glucose 123 mg/dL (70-99) H 07/08/17 05:42 POC Glucose 126 (58-89) H 07/08/17 11:13 Phosphorus 1.7 mg/dL (2.3-4.7) L 07/08/17 05:42 Magnesium 1.3 mg/dL (1.6-2.6) L 07/08/17 05:42 AST 48 Units/L (5-34) H 07/06/17 16:20 Creatine Kinase 1833 Units/L (29-168) H 07/07/17 20:00 Troponin I 0.24 ng/mL (0-0.03) H* 07/08/17 08:28 Globulin 3.9 g/dL (2.4-3.5) H 07/06/17 16:20 Albumin/Globulin Ratio 0.9 (1.1-2.2) L 07/06/17 16:20 TSH 0.297 mcIU/mL (0.350-4.840) L 07/06/17 16:20 Urine Protein 30 mg/dL (Neg-Trace) H 07/06/17 16:24 Urine Blood Trace (Negative) H 07/06/17 16:24 Urine Microscopic RBC 3-5 per hpf (0-3) H 07/06/17 16:24 Ur Squamous Epith Cells Many per lpf (None-Few) H 07/06/17 16:24 Salicylates < 5.0 mg/dL (15-30) L 07/07/17 07:52 Acetaminophen < 1.0 mcg/mL (10-30) L 07/07/17 07:52 U Benzodiazepines Scrn Positive ng/mL (Qxpspe=761) H 07/06/17 16:24 U Marijuana (THC) Screen Positive ng/mL (Cutoff = 50) H 07/06/17 16:24 - Clinical Findings Intake & Output: Intake & Output 07/07/17 07/08/17 07/08/17 23:59 07:59 15:59 Intake Total 228.8 / 228.8 2345.6 / 2345.6 550 / 550 Output Total 2125 / 2125 525 / 525 550 / 550 Balance -1896.2 / -1896.2 1820.6 / 1820.6 0 / 0 Weight 74.1 kg - Attending Attestation I saw the patient with the resident agree with History and Physical exam findings. When i examined when patient straining there was mild rectal prolapse yesterday Labs and Radiology were reviewed Ventilator data were reviewed Reduced Tidal volume AC/DC REWINDER: Patient is arousable to just touch with full dose of Precedex and Versed 6 mg /hr complicated chronic BZD addiction, Marijuana . Will start giving baseline antipyschotics nightly seroquel and Daily olanzapine , QT interval is normal will repeat EKG tomorrow for QT interval. NECK : No JVD appreciated Pulmonary : Patient is more hypoxic than yesterday CXR shows bilateral airspace disease more look like Pulmonary edema Vs Pneumonia , Trending Troponin will diurese her , ECHO normal EF with not much diastolic dysfunction with mild pulmonary hypertension lowered TV to 350 low tidal volume strategy adequate gas exchange Cardiac : Hemodynamically stable Nutrition/GI: Will keep her NPO . To continue PPI . Patient has chronic abdominal pain due to rectal prolapse surgery consulted most likely outpatient management and elective surgery. Renal : Patient has Rhabdomyloysis CK trending down good UOP , renal function stable. Heme onc : No acute issues will follow CBC ID: Blood cultures and sputum cultures To continue Levofloxacin for RLL and RML pneumonia will add Metronidazole to cover aspiration. If she spikes fever will broaden her coverage Disposition : Critically ill Code status: Full Code Family/POA: Daughter Spent 32 minutes of Critical Care time .
[2017-07-08] MEDS: BuPROPion SR (12 HR) 150 MG TABLET PO SCH ×2 (08:12→18:48)
[2017-07-08 08:57] LABS: Blood Gas PEEP 5 cm H2O; Blood Gas Respiration Rate 22; Blood Gas VT 380 cc; Capillary Blood PH 7.43 pH Units (7.32-7.45)
[2017-07-08] MEDS: Levofloxacin 750 MG/150 ML 750 MG/150 ML BAG IVPB SCH (08:59)
[2017-07-08 09:22] LABS: Folate 9.5 ng/mL (7.0-31.4)
[2017-07-08] MEDS ORDERED: ALPRAZolam 1 MG TABLET PO PRN (09:43)
[2017-07-08] MEDS: Budesonide/Formoterol 160/4.5 MDI IH SCH ×2 (10:00→21:25)
[2017-07-08] MEDS ORDERED: Furosemide 40 MG/4 ML VIAL IVP ONE (10:28)
[2017-07-08] MEDS: FentaNYL (PF) 1,000 MCG in 0.9 % Sodium Chloride 80 ML IVC SCH (10:57)
[2017-07-08] MEDS: Aspirin 81 MG TAB.CHEW PO SCH (10:58)
[2017-07-08] MEDS: OLANZapine 5 MG TAB.RAPDIS PO SCH ×2 (10:58→17:34)
[2017-07-08] MEDS: Doxycycline 100 MG in 0.9 % Sodium Chloride Mini Bag 100 ML IVPB SCH (17:30)
[2017-07-08] MEDS: *HR* Metoprolol 5 MG/5 ML VIAL IVP SCH (17:32)
[2017-07-09] MEDS: FentaNYL (PF) 1,000 MCG in 0.9 % Sodium Chloride 80 ML IVC SCH (00:01)
[2017-07-09] MEDS: Dexmedetomidine HCl 400 MCG/100 ML MLS IVC SCH ×4 (03:01→22:06)
[2017-07-09] MEDS: Ipratropium/Albuterol Neb 3 ML IH SCH ×4 (03:18→21:38)
[2017-07-09] MEDS: *HR* Metoprolol 5 MG/5 ML VIAL IVP SCH ×2 (04:15→16:09)
[2017-07-09 04:50] LABS: Basophils % 0.3 %; Eosinophils % 0.5 %; Hematocrit 34.1 % (35.3-44.9); Hemoglobin 11.4 g/dL (11.5-15.4); Immature Granulocytes % 0.7 % (0-4); Lymphocytes # 1.1 K/mcL (0.6-4.6); Lymphocytes % 12.7 %; Mean Corpuscular HGB Conc 33.4 g/dL (31.6-35.5); Mean Corpuscular Hemoglobin 30.5 pg (28.0-33.3); Mean Corpuscular Volume 91.2 fL (83.0-100.0); Monocytes # 0.6 K/mcL (0.0-1.3); Monocytes % 6.6 %; Neutrophils # 6.8 K/mcL (1.6-8.9); Platelet Count 178 K/mcL (140-400); Red Blood Count 3.74 M/mcL (3.82-4.97); Red Cell Distribution Width 15.9 % (11.5-14.5); Segmented Neutrophils % 79.2 %
[2017-07-09 05:04] LABS: BUN/Creatinine Ratio 12 (6-26); Blood Urea Nitrogen 8 mg/dL (7-20); Calcium 8.2 mg/dL (8.6-10.8); Carbon Dioxide 27 mEq/L (19-29); Chloride 103 mEq/L (98-109); Creatine Kinase 844 Units/L (29-168); Glucose 107 mg/dL (70-99); Osmolality,Calculated 293 (280-300); Potassium 2.7 mEq/L (3.5-4.5); Sodium 142 mEq/L (136-145); eGFR For African Americans > 60 (> 60); eGFR For Non-African Americans > 60 (> 60)
[2017-07-09] MEDS: Doxycycline 100 MG in 0.9 % Sodium Chloride Mini Bag 100 ML IVPB SCH ×2 (05:18→16:59)
[2017-07-09] MEDS: Pantoprazole 40 MG VIAL IVP SCH (05:20)
[2017-07-09] MEDS: *HR* Heparin 5,000 UNIT/ML VIAL SQ SCH ×2 (05:20→17:00)
[2017-07-09] MEDS: Insulin LISPRO 300 UNITS/3 ML VIAL SQ SCH ×4 (05:20→23:04)
[2017-07-09] MEDS ORDERED: Potassium Effervescent 25 MEQ TABLET.EFF PO ONE (05:31)
[2017-07-09] MEDS ORDERED: Potassium Chloride 40 MEQ/200 ML BAG IVPB ONE (05:32)
[2017-07-09] MEDS ORDERED: Magnesium Sulfate 2 GM in D5% in Water 100 ML IVPB ONE (05:34)
[2017-07-09] MEDS ORDERED: Potassium Chloride Elixir 20 MEQ/15 ML UDC GTUBE ONE (08:07)
--- NOTE | 2017-07-09 08:19 | Pulmonology Progress Note ---
<Tim Vazquez - Last Filed: 07/09/17 10:10> Date of Encounter: 07/09/17 Time of Encounter: 08:13 Assessment and Plan (1) Acute on chronic respiratory failure with hypoxia and hypercapnia Current Visit: Yes Status: Acute Patent intubated, Saturates well with CPAP Repeat CXR ordered for this morning Will monitor ABG Plan to reduce sedation for potential extubation (2) Pulmonary edema Current Visit: Yes Status: Acute Repeating CXR Diuresed well yesterday Additional 40 mg Lasix Avoid IV fluid administration Qualifiers: Chronicity: acute Qualified Code(s): J81.0 - Acute pulmonary edema (3) Elevated troponin Current Visit: Yes Status: Acute Troponin trending down repeating EKG Most likely demand-perfusion mismatch (4) Acute exacerbation of chronic obstructive pulmonary disease (COPD) Current Visit: Yes Status: Acute Stable oxygenation on ventilator Ipratropium/albuterol, symbicort (5) Community acquired pneumonia Current Visit: Yes Status: Acute WBC improved to 8.6 from 12.6 Temperature consistently less than 100 overnight On Doxycycline day 2 Monitor for spiking fevers or increasing WBC count, possibility to escalate to aztreonam and vancomycin if necessary Qualifiers: Laterality: unspecified laterality Qualified Code(s): J18.9 - Pneumonia, unspecified organism (6) Rhabdomyolysis Current Visit: Yes Status: Suspected CK fell from 2899 to 1833, now 844 Good kidney function and urinary output Qualifiers: Rhabdomyolysis type: non-traumatic Qualified Code(s): M62.82 - Rhabdomyolysis (7) Delirium Current Visit: Yes Status: Acute Acute delirium superimposed on chronic dementia, per patient's daughter Will attempt to wean sedation today and will assess mental status (8) Hypokalemia due to loss of potassium Current Visit: Yes Status: Acute Secondary to lasix administration 40 mEq po and 40 mEq IV given early this morning additional 40 mEq po ordered (9) DVT prophylaxis Current Visit: Yes Status: Acute Heparin subq Subjective Principal diagnosis: COPD Exacerbation, Pneumonia Interval history: No acute events overnight. Patient has been stable, though has required high sedation to prevent agitation. Objective PUL Vital signs: Last Vital Signs Temp 98.9 F 07/09/17 07:55 Pulse 68 07/09/17 07:00 Resp 21 07/09/17 07:00 BP 102/60 07/09/17 07:00 Pulse Ox 95 07/09/17 07:00 General appearance: no acute distress, asleep Eyes: nonicteric Effort: other (ventilated) Auscultation: bilateral: diminished breath sounds Cardiovascular: regular rate and rhythm Gastrointestinal: soft, non-distended Extremities: no cyanosis, no edema unable to assess due to mental status Ventilator Settings Ventilator Settings: Ventilator Settings, Last 8 Hours Ventilator Mode VC+ Ventilator Mode VC+ Ventilator Mode VC+ Ventilator Mode VC+ Ventilator Mode VC+ Ventilator Mode VC+ Ventilator Mode VC+ Ventilator Mode VC+ Ventilator Mode VC+ Ventilator Mode VC+ Ventilator Tidal Volume 350 Setting Ventilator Tidal Volume 350 Setting Ventilator Tidal Volume 350 Setting Ventilator Tidal Volume 350 Setting Ventilator Tidal Volume 350 Setting Ventilator Tidal Volume 350 Setting Ventilator Tidal Volume 350 Setting Ventilator Tidal Volume 350 Setting Ventilator Tidal Volume 350 Setting Ventilator Tidal Volume 350 Setting Ventilator Respiratory Rate 20 Setting Ventilator Respiratory Rate 20 Setting Ventilator Respiratory Rate 20 Setting Ventilator Respiratory Rate 20 Setting Ventilator Respiratory Rate 20 Setting Ventilator Respiratory Rate 20 Setting Ventilator Respiratory Rate 20 Setting Ventilator Respiratory Rate 20 Setting Ventilator Respiratory Rate 20 Setting Ventilator Respiratory Rate 20 Setting Actual Respiratory Rate 21 Actual Respiratory Rate 23 Actual Respiratory Rate 20 Actual Respiratory Rate 20 Actual Respiratory Rate 20 Actual Respiratory Rate 21 Actual Respiratory Rate 22 Actual Respiratory Rate 22 Actual Respiratory Rate 24 Actual Respiratory Rate 22 Positive End Expiratory 5 Pressure Positive End Expiratory 5 Pressure Positive End Expiratory 5 Pressure Positive End Expiratory 5 Pressure Positive End Expiratory 5 Pressure Positive End Expiratory 5 Pressure Positive End Expiratory 5 Pressure Positive End Expiratory 5 Pressure Positive End Expiratory 5 Pressure Positive End Expiratory 5 Pressure Peak Inspiratory Airway 25 Pressure Peak Inspiratory Airway 25 Pressure Peak Inspiratory Airway 22 Pressure Peak Inspiratory Airway 24 Pressure Peak Inspiratory Airway 24 Pressure Peak Inspiratory Airway 21 Pressure Peak Inspiratory Airway 21 Pressure Peak Inspiratory Airway 20 Pressure Peak Inspiratory Airway 24 Pressure Peak Inspiratory Airway 19 Pressure Results - Laboratory Findings CBC and BMP: 07/09/17 04:31 07/09/17 04:31 ABG ABG pH 7.37 pH Units (7.32-7.45) 07/07/17 22:13 ABG pCO2 46 mmHg (35-45) H 07/07/17 22:13 ABG pO2 62 mmHg (85-104) L 07/07/17 22:13 ABG O2 Saturation 90 % (95-98) L 07/07/17 22:13 PT/INR, D-dimer PT 11.4 Seconds (9.4-12.1) 07/06/17 16:20 Abnormal lab findings: Abnormal lab results RBC 3.74 M/mcL (3.82-4.97) L 07/09/17 04:31 Hgb 11.4 g/dL (11.5-15.4) L 07/09/17 04:31 Hct 34.1 % (35.3-44.9) L 07/09/17 04:31 RDW 15.9 % (11.5-14.5) H 07/09/17 04:31 ABG pCO2 46 mmHg (35-45) H 07/07/17 22:13 ABG pO2 62 mmHg (85-104) L 07/07/17 22:13 ABG Total CO2 28 mEq/L (20-26) H 07/07/17 22:13 ABG O2 Saturation 90 % (95-98) L 07/07/17 22:13 Capillary pCO2 39 mmHg (41-51) L 07/08/17 08:36 Capillary pO2 67 mmHg (25-50) H 07/08/17 08:36 Carboxyhemoglobin 5.9 % (0-5) H 07/06/17 16:20 Potassium 2.7 mEq/L (3.5-4.5) L 07/09/17 04:31 Glucose 107 mg/dL (70-99) H 07/09/17 04:31 POC Glucose 116 (58-89) H 07/08/17 22:17 Calcium 8.2 mg/dL (8.6-10.8) L 07/09/17 04:31 Phosphorus 1.7 mg/dL (2.3-4.7) L 07/08/17 05:42 Magnesium 1.3 mg/dL (1.6-2.6) L 07/08/17 05:42 AST 48 Units/L (5-34) H 07/06/17 16:20 Creatine Kinase 844 Units/L (29-168) H 07/09/17 04:31 Troponin I 0.19 ng/mL (0-0.03) H* 07/08/17 20:12 Globulin 3.9 g/dL (2.4-3.5) H 07/06/17 16:20 Albumin/Globulin Ratio 0.9 (1.1-2.2) L 07/06/17 16:20 TSH 0.297 mcIU/mL (0.350-4.840) L 07/06/17 16:20 Urine Protein 30 mg/dL (Neg-Trace) H 07/06/17 16:24 Urine Blood Trace (Negative) H 07/06/17 16:24 Urine Microscopic RBC 3-5 per hpf (0-3) H 07/06/17 16:24 Ur Squamous Epith Cells Many per lpf (None-Few) H 07/06/17 16:24 Salicylates < 5.0 mg/dL (15-30) L 07/07/17 07:52 Acetaminophen < 1.0 mcg/mL (10-30) L 07/07/17 07:52 U Benzodiazepines Scrn Positive ng/mL (Sphwbj=469) H 07/06/17 16:24 U Marijuana (THC) Screen Positive ng/mL (Cutoff = 50) H 07/06/17 16:24 - Diagnostic Findings Chest x-ray: pending - Clinical Findings Intake & Output: Intake & Output 07/08/17 07/09/17 07/09/17 23:59 07:59 15:59 Intake Total 600 / 600 604 / 604 Output Total 1100 / 1100 350 / 350 Balance -500 / -500 254 / 254 Weight 73.2 kg Consult Discharge Plan - Plan Referrals: Indra Soria DO [Primary Care Provider] - <Alex Paulino - Last Filed: 07/09/17 11:47> Date of Encounter: 07/09/17 Objective PUL Vital signs: Last Vital Signs Temp 98.5 F 07/09/17 11:14 Pulse 64 07/09/17 11:00 Resp 21 07/09/17 11:00 BP 113/64 07/09/17 11:00 Pulse Ox 91 07/09/17 11:00 Ventilator Settings Ventilator Settings: Ventilator Settings, Last 8 Hours Ventilator Mode VC+ Ventilator Mode VC+ Ventilator Mode VC+ Ventilator Mode VC+ Ventilator Mode VC+ Ventilator Mode VC+ Ventilator Mode VC+ Ventilator Mode VC+ Ventilator Mode VC+ Ventilator Mode VC+ Ventilator Tidal Volume 350 Setting Ventilator Tidal Volume 350 Setting Ventilator Tidal Volume 350 Setting Ventilator Tidal Volume 350 Setting Ventilator Tidal Volume 350 Setting Ventilator Tidal Volume 350 Setting Ventilator Tidal Volume 350 Setting Ventilator Tidal Volume 350 Setting Ventilator Tidal Volume 350 Setting Ventilator Tidal Volume 350 Setting Ventilator Respiratory Rate 20 Setting Ventilator Respiratory Rate 20 Setting Ventilator Respiratory Rate 20 Setting Ventilator Respiratory Rate 20 Setting Ventilator Respiratory Rate 20 Setting Ventilator Respiratory Rate 20 Setting Ventilator Respiratory Rate 20 Setting Ventilator Respiratory Rate 20 Setting Ventilator Respiratory Rate 20 Setting Ventilator Respiratory Rate 20 Setting Actual Respiratory Rate 21 Actual Respiratory Rate 20 Actual Respiratory Rate 20 Actual Respiratory Rate 21 Actual Respiratory Rate 20 Actual Respiratory Rate 21 Actual Respiratory Rate 23 Actual Respiratory Rate 20 Actual Respiratory Rate 20 Actual Respiratory Rate 20 Positive End Expiratory 5 Pressure Positive End Expiratory 5 Pressure Positive End Expiratory 5 Pressure Positive End Expiratory 5 Pressure Positive End Expiratory 5 Pressure Positive End Expiratory 5 Pressure Positive End Expiratory 5 Pressure Positive End Expiratory 5 Pressure Positive End Expiratory 5 Pressure Positive End Expiratory 5 Pressure Peak Inspiratory Airway 27 Pressure Peak Inspiratory Airway 24 Pressure Peak Inspiratory Airway 25 Pressure Peak Inspiratory Airway 23 Pressure Peak Inspiratory Airway 28 Pressure Peak Inspiratory Airway 25 Pressure Peak Inspiratory Airway 25 Pressure Peak Inspiratory Airway 22 Pressure Peak Inspiratory Airway 24 Pressure Peak Inspiratory Airway 24 Pressure Results - Laboratory Findings CBC and BMP: 07/09/17 04:31 07/09/17 04:31 ABG ABG pH 7.37 pH Units (7.32-7.45) 07/07/17 22:13 ABG pCO2 46 mmHg (35-45) H 07/07/17 22:13 ABG pO2 62 mmHg (85-104) L 07/07/17 22:13 ABG O2 Saturation 90 % (95-98) L 07/07/17 22:13 PT/INR, D-dimer PT 11.4 Seconds (9.4-12.1) 07/06/17 16:20 Abnormal lab findings: Abnormal lab results RBC 3.74 M/mcL (3.82-4.97) L 07/09/17 04:31 Hgb 11.4 g/dL (11.5-15.4) L 07/09/17 04:31 Hct 34.1 % (35.3-44.9) L 07/09/17 04:31 RDW 15.9 % (11.5-14.5) H 07/09/17 04:31 ABG pCO2 46 mmHg (35-45) H 07/07/17 22:13 ABG pO2 62 mmHg (85-104) L 07/07/17 22:13 ABG Total CO2 28 mEq/L (20-26) H 07/07/17 22:13 ABG O2 Saturation 90 % (95-98) L 07/07/17 22:13 Capillary pCO2 39 mmHg (41-51) L 07/08/17 08:36 Capillary pO2 67 mmHg (25-50) H 07/08/17 08:36 Carboxyhemoglobin 5.9 % (0-5) H 07/06/17 16:20 Potassium 2.7 mEq/L (3.5-4.5) L 07/09/17 04:31 Glucose 107 mg/dL (70-99) H 07/09/17 04:31 POC Glucose 99 (58-89) H 07/09/17 10:59 Calcium 8.2 mg/dL (8.6-10.8) L 07/09/17 04:31 Phosphorus 1.7 mg/dL (2.3-4.7) L 07/08/17 05:42 Magnesium 1.3 mg/dL (1.6-2.6) L 07/08/17 05:42 AST 48 Units/L (5-34) H 07/06/17 16:20 Creatine Kinase 844 Units/L (29-168) H 07/09/17 04:31 Troponin I 0.19 ng/mL (0-0.03) H* 07/08/17 20:12 Globulin 3.9 g/dL (2.4-3.5) H 07/06/17 16:20 Albumin/Globulin Ratio 0.9 (1.1-2.2) L 07/06/17 16:20 TSH 0.297 mcIU/mL (0.350-4.840) L 07/06/17 16:20 Urine Protein 30 mg/dL (Neg-Trace) H 07/06/17 16:24 Urine Blood Trace (Negative) H 07/06/17 16:24 Urine Microscopic RBC 3-5 per hpf (0-3) H 07/06/17 16:24 Ur Squamous Epith Cells Many per lpf (None-Few) H 07/06/17 16:24 Salicylates < 5.0 mg/dL (15-30) L 07/07/17 07:52 Acetaminophen < 1.0 mcg/mL (10-30) L 07/07/17 07:52 U Benzodiazepines Scrn Positive ng/mL ([id number]=792) H 07/06/17 16:24 U Marijuana (THC) Screen Positive ng/mL (Cutoff = 50) H 07/06/17 16:24 - Clinical Findings Intake & Output: Intake & Output 07/08/17 07/09/17 07/09/17 23:59 07:59 15:59 Intake Total 600 / 600 604 / 604 415 / 415 Output Total 1100 / 1100 350 / 350 150 / 150 Balance -500 / -500 254 / 254 265 / 265 Weight 73.2 kg - Attending Attestation I saw the patient with the resident agree with History and Physical exam findings. Labs and Radiology were reviewed Ventilator data were reviewed Low tidal volume strategy RADIO PROGRAM DIRECTOR: Patient has chronic BZD addiction, Marijuana addiction , patient was re- intubated because was combative and delirious , Patient is on high dose precedex , High dose Versed, On Fentanyl patient is on oral olanzapine and seroquel , will prescribe Xanax once the oral medications in will try to take her off from fentanyl and versed to keep her on Precedex will try extubate most likely tomorrow. NECK : No JVD appreciated Pulmonary : Patient has hypoxic and hypercarbic respiratory failure due to RLL amd RML pneumonia can be possible aspiration will continue Doxycycline and Metronidazole , her CPIS score is 3 low suspicion for VAP , she good gas exchange with FIO2 of 40% , if she spikes fever and oxygenation worsens will broaden the coverage with broad spectrum antibiotics. Cardiac : Hemodynamically stable . EF is 65% , LA size is normal . Troponins trending down supply demand mismatch Nutrition/GI: Will keep her NPO . To continue PPI . Patient has chronic abdominal pain due to rectal prolapse surgery consulted most likely outpatient management and elective surgery. Will start on trophic feeding . Renal : Patient has Rhabdomyloysis CK trending down good UOP , renal function stable. Heme onc : No acute issues ID: Blood cultures and sputum cultures because of concern for QT prolongation changed levofloxacin to doxycycline to continue metronidazole , if she spikes fever and oxygenation gets worsen will do broad spectrum antibiotics Disposition : Critically ill Code status: Full Code Family/POA: Daughter
[2017-07-09] MEDS: MetroNIDAZOLE 500 MG/100 ML 500 MG/100 ML BAG IVPB SCH ×3 (08:40→23:03)
[2017-07-09] MEDS: Nicotine 21 MG PATCH.TD24 TD SCH (08:42)
[2017-07-09] MEDS: Aspirin 81 MG TAB.CHEW PO SCH (08:43)
[2017-07-09] MEDS: BuPROPion SR (12 HR) 150 MG TABLET PO SCH ×2 (08:44→20:02)
[2017-07-09] MEDS: Budesonide/Formoterol 160/4.5 MDI IH SCH ×2 (09:34→21:38)
[2017-07-09] MEDS: Nystatin SUSP 5 ML UD.LIQ PO SCH ×3 (12:27→20:01)
[2017-07-09 13:08] LABS: Magnesium 1.8 mg/dL (1.6-2.6); Phosphorous 2.4 mg/dL (2.3-4.7)
[2017-07-09 13:09] LABS: Potassium 4.2 mEq/L (3.5-4.5)
[2017-07-09] MEDS: ALPRAZolam 1 MG TABLET PO SCH ×2 (14:01→20:01)
[2017-07-09] MEDS: OLANZapine 5 MG TAB.RAPDIS PO SCH (16:58)
[2017-07-10 02:50] LABS: Basophils % 0.4 %; Eosinophils % 0.5 %; Hematocrit 36.5 % (35.3-44.9); Hemoglobin 11.9 g/dL (11.5-15.4); Immature Granulocytes % 0.4 % (0-4); Lymphocytes # 1.1 K/mcL (0.6-4.6); Lymphocytes % 13.8 %; Mean Corpuscular HGB Conc 32.6 g/dL (31.6-35.5); Mean Corpuscular Hemoglobin 30.8 pg (28.0-33.3); Mean Corpuscular Volume 94.6 fL (83.0-100.0); Mean Platelet Volume 10.1 fL (9.4-12.4); Monocytes # 0.6 K/mcL (0.0-1.3); Monocytes % 8.3 %; Neutrophils # 5.8 K/mcL (1.6-8.9); Platelet Count 204 K/mcL (140-400); Red Blood Count 3.86 M/mcL (3.82-4.97); Red Cell Distribution Width 16.3 % (11.5-14.5); Segmented Neutrophils % 76.6 %
[2017-07-10 02:53] LABS: BUN/Creatinine Ratio 16 (6-26); Blood Urea Nitrogen 10 mg/dL (7-20); Calcium 8.4 mg/dL (8.6-10.8); Carbon Dioxide 26 mEq/L (19-29); Chloride 107 mEq/L (98-109); Glucose 106 mg/dL (70-99); Osmolality,Calculated 293 (280-300); Potassium 3.9 mEq/L (3.5-4.5); Sodium 142 mEq/L (136-145); eGFR For African Americans > 60 (> 60); eGFR For Non-African Americans > 60 (> 60)
[2017-07-10] MEDS: Ipratropium/Albuterol Neb 3 ML IH SCH ×4 (03:16→22:31)
[2017-07-10] MEDS: Dexmedetomidine HCl 400 MCG/100 ML MLS IVC SCH (04:14)
[2017-07-10] MEDS: *HR* Heparin 5,000 UNIT/ML VIAL SQ SCH ×2 (05:11→17:14)
[2017-07-10] MEDS: Pantoprazole 40 MG VIAL IVP SCH (05:11)
[2017-07-10] MEDS: Doxycycline 100 MG in 0.9 % Sodium Chloride Mini Bag 100 ML IVPB SCH ×2 (05:11→17:08)
[2017-07-10] MEDS: *HR* Metoprolol 5 MG/5 ML VIAL IVP SCH ×2 (05:12→17:09)
[2017-07-10] MEDS: Insulin LISPRO 300 UNITS/3 ML VIAL SQ SCH ×4 (05:12→23:19)
--- NOTE | 2017-07-10 06:23 | Electrocardiograph Report ---
[place] [id number] Test Date: 2017-07-08 Pat Name: Makenzie Serrano Department: 109 Room: [facility] Gender: F Pharmacy Tech: : [id number] Requested By: Tim Vazquez Order Number: [id number] Reading MD: Sebastian Contreras MD Measurements Intervals [place] Rate: 120 P: 65 ID: [id number] QRS: 72 QRSD: 95 T: 47 QT: 308 QTc: 379 Interpretive Statements SINUS TACHYCARDIA WITH SHORT ID INTERVAL BASELINE ARTIFACT COMPLICATES ACCURATE INTERPRETATION Electronically Signed On 07-10-2017 6:22:10 EDT by Sebastian Contreras MD
[2017-07-10] MEDS: ALPRAZolam 1 MG TABLET PO SCH (08:47)
[2017-07-10] MEDS: 0.9 % Sodium Chloride 1,000 ML IV SCH ×2 (08:47→16:36)
[2017-07-10] MEDS: Aspirin 81 MG TAB.CHEW PO SCH (08:48)
[2017-07-10] MEDS: Nicotine 21 MG PATCH.TD24 TD SCH (08:48)
[2017-07-10] MEDS: Nystatin SUSP 5 ML UD.LIQ PO SCH ×4 (08:49→19:21)
[2017-07-10] MEDS: FentaNYL (PF) 1,000 MCG in 0.9 % Sodium Chloride 80 ML IVC SCH (08:49)
[2017-07-10] MEDS: BuPROPion SR (12 HR) 150 MG TABLET PO SCH (08:49)
[2017-07-10] MEDS: MetroNIDAZOLE 500 MG/100 ML 500 MG/100 ML BAG IVPB SCH ×3 (08:51→23:18)
[2017-07-10] MEDS: Budesonide/Formoterol 160/4.5 MDI IH SCH ×2 (09:03→22:31)
--- NOTE | 2017-07-10 09:36 | Pulmonology Progress Note ---
<Fiona Cage - Last Filed: 07/10/17 15:01> Date of Encounter: 07/10/17 Time of Encounter: 09:00 Assessment and Plan (1) Acute on chronic respiratory failure with hypoxia and hypercapnia Current Visit: Yes Status: Acute -Remains intubated and on CPAP, oxygenating well -Unable to extubate secondary to AMS and unable to follow commands -AMS likely due to tank terminal gauger sedation, gradually improving (2) Pulmonary edema Current Visit: Yes Status: Acute -continue to monitor while giving IV fluids for treatment of rhabdomyolysis -will use lasix as needed -repeat CXR tomorrow Qualifiers: Chronicity: acute Qualified Code(s): J81.0 - Acute pulmonary edema (3) Elevated troponin Current Visit: Yes Status: Acute -likely secondary to mismatch of demand and perfusion -no EKG changes concerning for ischemia (4) Acute exacerbation of chronic obstructive pulmonary disease (COPD) Current Visit: Yes Status: Acute -continue scheduled duoneb and symbicort -mechanical ventilation, oxygenating well (5) Community acquired pneumonia Current Visit: Yes Status: Acute -Temperature elevated from this morning (98.3), now 100.1 -WBC continues to improve, 8.6 to 7.6 today -5 days on abx (flagyl day 4, doxycycline day 3) -Continue to monitor temperatures and WBC count Qualifiers: Laterality: unspecified laterality Qualified Code(s): J18.9 - Pneumonia, unspecified organism (6) Rhabdomyolysis Current Visit: Yes Status: Suspected -CK continues to improve: 433 from 844 -Good kidney function, Cr 0.61 today -Normal saline at 125mL/hr Qualifiers: Rhabdomyolysis type: non-traumatic Qualified Code(s): M62.82 - Rhabdomyolysis (7) Delirium Current Visit: Yes Status: Acute -Acute delirium superimposed on, per patient's daughter, chronic dementia -Unable to assess mental status today because patient is not easily aroused secondary to long-term sedation (8) Hypokalemia due to loss of potassium Current Visit: Yes Status: Acute -Likely etiology is lasix use -Potassium 3.9 today -Giving lasix for pulmonary edema on PRN basis -Monitor with morning labs, will replace as necessary (9) DVT prophylaxis Current Visit: Yes Status: Acute -Continue heparin 5,000 units subQ Subjective Principal diagnosis: COPD Exacerbation, Pneumonia Interval history: Patient seen and examined this morning at bedside, she remains intubated-- unable to conduct ROS. Has been under long-term sedation to prevent agitation. Objective PUL Vital signs: Last Vital Signs Temp 98.3 F 07/10/17 08:41 Pulse 85 07/10/17 08:35 Resp 15 07/10/17 09:05 BP 116/71 07/10/17 09:05 Pulse Ox 91 07/10/17 09:05 General appearance: comatose Eyes: nonicteric ENT: oropharynx dry Neck: supple Effort: other Auscultation: bilateral: diminished breath sounds Cardiovascular: regular rate and rhythm Gastrointestinal: normoactive bowel sounds, soft, non-tender, non-distended Integumentary: normal Extremities: no cyanosis, no edema Musculoskeletal: no deformities unable to assess due to mental status Ventilator Settings Ventilator Settings: Ventilator Settings, Last 8 Hours Ventilator Mode CPAP Ventilator Mode CPAP Ventilator Mode CPAP Ventilator Mode CPAP Ventilator Mode VC+ Ventilator Mode VC+ Ventilator Mode VC+ Ventilator Mode VC+ Ventilator Mode VC+ Ventilator Mode VC+ Ventilator Mode VC+ Ventilator Tidal Volume 350 Setting Ventilator Tidal Volume 350 Setting Ventilator Tidal Volume 350 Setting Ventilator Tidal Volume 350 Setting Ventilator Tidal Volume 350 Setting Ventilator Tidal Volume 350 Setting Ventilator Tidal Volume 350 Setting Ventilator Respiratory Rate 20 Setting Ventilator Respiratory Rate 20 Setting Ventilator Respiratory Rate 20 Setting Ventilator Respiratory Rate 20 Setting Ventilator Respiratory Rate 20 Setting Ventilator Respiratory Rate 20 Setting Ventilator Respiratory Rate 20 Setting Actual Respiratory Rate 19 Actual Respiratory Rate 15 Actual Respiratory Rate 12 Actual Respiratory Rate 11 Actual Respiratory Rate 22 Actual Respiratory Rate 21 Actual Respiratory Rate 21 Actual Respiratory Rate 22 Actual Respiratory Rate 21 Actual Respiratory Rate 21 Actual Respiratory Rate 21 Positive End Expiratory 5 Pressure Positive End Expiratory 5 Pressure Positive End Expiratory 5 Pressure Positive End Expiratory 5 Pressure Positive End Expiratory 5 Pressure Positive End Expiratory 5 Pressure Positive End Expiratory 5 Pressure Positive End Expiratory 5 Pressure Positive End Expiratory 5 Pressure Positive End Expiratory 5 Pressure Positive End Expiratory 5 Pressure Peak Inspiratory Airway 14 Pressure Peak Inspiratory Airway 14 Pressure Peak Inspiratory Airway 15 Pressure Peak Inspiratory Airway 15 Pressure Peak Inspiratory Airway 20 Pressure Peak Inspiratory Airway 20 Pressure Peak Inspiratory Airway 20 Pressure Peak Inspiratory Airway 20 Pressure Peak Inspiratory Airway 21 Pressure Peak Inspiratory Airway 21 Pressure Peak Inspiratory Airway 21 Pressure Results - Laboratory Findings CBC and BMP: 07/10/17 02:34 07/10/17 02:34 ABG ABG pH 7.37 pH Units (7.32-7.45) 07/07/17 22:13 ABG pCO2 46 mmHg (35-45) H 07/07/17 22:13 ABG pO2 62 mmHg (85-104) L 07/07/17 22:13 ABG O2 Saturation 90 % (95-98) L 07/07/17 22:13 PT/INR, D-dimer PT 11.4 Seconds (9.4-12.1) 07/06/17 16:20 Abnormal lab findings: Abnormal lab results RDW 16.3 % (11.5-14.5) H 07/10/17 02:34 ABG pCO2 46 mmHg (35-45) H 07/07/17 22:13 ABG pO2 62 mmHg (85-104) L 07/07/17 22:13 ABG Total CO2 28 mEq/L (20-26) H 07/07/17 22:13 ABG O2 Saturation 90 % (95-98) L 07/07/17 22:13 Capillary pCO2 39 mmHg (41-51) L 07/08/17 08:36 Capillary pO2 67 mmHg (25-50) H 07/08/17 08:36 Carboxyhemoglobin 5.9 % (0-5) H 07/06/17 16:20 Glucose 106 mg/dL (70-99) H 07/10/17 02:34 POC Glucose 99 (58-89) H 07/09/17 22:56 Calcium 8.4 mg/dL (8.6-10.8) L 07/10/17 02:34 AST 48 Units/L (5-34) H 07/06/17 16:20 Creatine Kinase 433 Units/L (29-168) H 07/10/17 08:49 Troponin I 0.19 ng/mL (0-0.03) H* 07/08/17 20:12 Globulin 3.9 g/dL (2.4-3.5) H 07/06/17 16:20 Albumin/Globulin Ratio 0.9 (1.1-2.2) L 07/06/17 16:20 TSH 0.297 mcIU/mL (0.350-4.840) L 07/06/17 16:20 Urine Protein 30 mg/dL (Neg-Trace) H 07/06/17 16:24 Urine Blood Trace (Negative) H 07/06/17 16:24 Urine Microscopic RBC 3-5 per hpf (0-3) H 07/06/17 16:24 Ur Squamous Epith Cells Many per lpf (None-Few) H 07/06/17 16:24 Salicylates < 5.0 mg/dL (15-30) L 07/07/17 07:52 Acetaminophen < 1.0 mcg/mL (10-30) L 07/07/17 07:52 U Benzodiazepines Scrn Positive ng/mL (Aoreon=174) H 07/06/17 16:24 U Marijuana (THC) Screen Positive ng/mL (Cutoff = 50) H 07/06/17 16:24 - Clinical Findings Intake & Output: Intake & Output 07/09/17 07/10/17 07/10/17 23:59 07:59 15:59 Intake Total 460 / 460 300 / 300 Output Total 350 / 350 100 / 100 125 / 125 Balance 110 / 110 200 / 200 -125 / -125 Weight 72.3 kg Consult Discharge Plan - Plan Referrals: Indra Soria DO [Primary Care Provider] - <Petra Perez - Last Filed: 07/10/17 15:45> Date of Encounter: 07/10/17 Objective PUL Vital signs: Last Vital Signs Temp 100.1 F H 07/10/17 12:22 Pulse 99 07/10/17 15:37 Resp 10 07/10/17 15:37 BP 91/55 07/10/17 15:37 Pulse Ox 94 07/10/17 15:37 Ventilator Settings Ventilator Settings: Ventilator Settings, Last 8 Hours Ventilator Mode CPAP Ventilator Mode CPAP Ventilator Mode CPAP Ventilator Mode CPAP Ventilator Mode CPAP Ventilator Mode CPAP Ventilator Mode CPAP Ventilator Mode CPAP Ventilator Mode CPAP Ventilator Mode CPAP Ventilator Mode CPAP Actual Respiratory Rate 10 Actual Respiratory Rate 10 Actual Respiratory Rate 10 Actual Respiratory Rate 10 Actual Respiratory Rate 9 Actual Respiratory Rate 11 Actual Respiratory Rate 11 Actual Respiratory Rate 11 Actual Respiratory Rate 12 Actual Respiratory Rate 19 Actual Respiratory Rate 15 Positive End Expiratory 5 Pressure Positive End Expiratory 5 Pressure Positive End Expiratory 5 Pressure Positive End Expiratory 5 Pressure Positive End Expiratory 5 Pressure Positive End Expiratory 5 Pressure Positive End Expiratory 5 Pressure Positive End Expiratory 5 Pressure Positive End Expiratory 5 Pressure Positive End Expiratory 5 Pressure Positive End Expiratory 5 Pressure Peak Inspiratory Airway 15 Pressure Peak Inspiratory Airway 15 Pressure Peak Inspiratory Airway 15 Pressure Peak Inspiratory Airway 14 Pressure Peak Inspiratory Airway 15 Pressure Peak Inspiratory Airway 14 Pressure Peak Inspiratory Airway 14 Pressure Peak Inspiratory Airway 15 Pressure Peak Inspiratory Airway 14 Pressure Peak Inspiratory Airway 14 Pressure Peak Inspiratory Airway 14 Pressure Results - Laboratory Findings CBC and BMP: 07/10/17 02:34 07/10/17 02:34 ABG ABG pH 7.37 pH Units (7.32-7.45) 07/07/17 22:13 ABG pCO2 46 mmHg (35-45) H 07/07/17 22:13 ABG pO2 62 mmHg (85-104) L 07/07/17 22:13 ABG O2 Saturation 90 % (95-98) L 07/07/17 22:13 PT/INR, D-dimer PT 11.4 Seconds (9.4-12.1) 07/06/17 16:20 Abnormal lab findings: Abnormal lab results RDW 16.3 % (11.5-14.5) H 07/10/17 02:34 ABG pCO2 46 mmHg (35-45) H 07/07/17 22:13 ABG pO2 62 mmHg (85-104) L 07/07/17 22:13 ABG Total CO2 28 mEq/L (20-26) H 07/07/17 22:13 ABG O2 Saturation 90 % (95-98) L 07/07/17 22:13 Capillary pCO2 39 mmHg (41-51) L 07/08/17 08:36 Capillary pO2 67 mmHg (25-50) H 07/08/17 08:36 Carboxyhemoglobin 5.9 % (0-5) H 07/06/17 16:20 Glucose 106 mg/dL (70-99) H 07/10/17 02:34 POC Glucose 99 (58-89) H 07/10/17 12:30 Calcium 8.4 mg/dL (8.6-10.8) L 07/10/17 02:34 AST 48 Units/L (5-34) H 07/06/17 16:20 Creatine Kinase 433 Units/L (29-168) H 07/10/17 08:49 Troponin I 0.19 ng/mL (0-0.03) H* 07/08/17 20:12 Globulin 3.9 g/dL (2.4-3.5) H 07/06/17 16:20 Albumin/Globulin Ratio 0.9 (1.1-2.2) L 07/06/17 16:20 TSH 0.297 mcIU/mL (0.350-4.840) L 07/06/17 16:20 Urine Protein 30 mg/dL (Neg-Trace) H 07/06/17 16:24 Urine Blood Trace (Negative) H 07/06/17 16:24 Urine Microscopic RBC 3-5 per hpf (0-3) H 07/06/17 16:24 Ur Squamous Epith Cells Many per lpf (None-Few) H 07/06/17 16:24 Salicylates < 5.0 mg/dL (15-30) L 07/07/17 07:52 Acetaminophen < 1.0 mcg/mL (10-30) L 07/07/17 07:52 U Benzodiazepines Scrn Positive ng/mL (Ttvzyb=899) H 07/06/17 16:24 U Marijuana (THC) Screen Positive ng/mL (Cutoff = 50) H 07/06/17 16:24 - Clinical Findings Intake & Output: Intake & Output 07/09/17 07/10/17 07/10/17 23:59 07:59 15:59 Intake Total 460 / 460 300 / 300 100 / 100 Output Total 350 / 350 100 / 100 162 / 162 Balance 110 / 110 200 / 200 -62 / -62 Weight 72.3 kg - Attending Attestation I examined this patient and my medical decision-making was reviewed with the Resident Physician. I agree with the documented findings, disposition and treatment plan as described except to the extent set forth below. Patient seen and examined. Labs, radiology, chart personally reviewed. Agree with resident's history and physical, assessment, plan with following comments: DISABILITY RATER: Patient does not follows commands, Pulmonary: Acceptable oxygenation and ventilation. spontaneous breathing trial is done and patient is tolerating, however still not following commands and I suspect from sedation which is being weaned off and it could be metabolic. When patient awake enough then will plan for extubation and this was discussed with the family at the bedside. Cardiovascular: stable GI: Nutrition per dietary and GI prophylaxis per routine Heme: DVT prophylaxis per routine ID: Continue antibiotics and plan to de-escalation Renal; urine out put and renal funtion reviewed Endorcine: blood glucose is monitored Lines: all lines checked and no evidence of infections Skin: skin care to prevent pressure ulcers per nursing routine care
[2017-07-10] MEDS ORDERED: ALPRAZolam 0.5 MG TABLET PO PRN (10:13)
[2017-07-10] MEDS ORDERED: 0.9 % Sodium Chloride 500 ML IVC ONE (12:13)
--- NOTE | 2017-07-10 14:41 | Electrocardiograph Report ---
[place] [id number] Test Date: 2017-07-09 Pat Name: Makenzie Serrano Department: 109 Room: [facility] Gender: F Winderman: MARQUISE : 1955 Requested By: Tim Vazquez Order Number: [id number] Reading MD: Mouna Freeman Measurements Intervals [place] Rate: 66 P: 61 [place]: 121 QRS: 53 QRSD: 106 T: 53 QT: 427 QTc: 440 Interpretive Statements SINUS RHYTHM EARLY REPOLARIZATION Electronically Signed On 07-10-2017 14:39:12 EDT by Mouna Freeman
[2017-07-10] MEDS: Acetaminophen 325 MG TABLET PO PRN (17:08)
[2017-07-10] MEDS: OLANZapine 5 MG TAB.RAPDIS PO SCH (17:09)
[2017-07-10] MEDS: Sennosides/Docusate Sodium TABLET PO SCH (19:21)
[2017-07-11] MEDS: 0.9 % Sodium Chloride 1,000 ML IV SCH ×2 (00:19→07:15)
[2017-07-11] MEDS: Ipratropium/Albuterol Neb 3 ML IH SCH ×4 (03:27→21:37)
[2017-07-11] MEDS: Doxycycline 100 MG in 0.9 % Sodium Chloride Mini Bag 100 ML IVPB SCH ×2 (05:27→17:00)
[2017-07-11] MEDS: Pantoprazole 40 MG VIAL IVP SCH (05:27)
[2017-07-11] MEDS: Insulin LISPRO 300 UNITS/3 ML VIAL SQ SCH ×4 (05:28→23:21)
[2017-07-11] MEDS: *HR* Metoprolol 5 MG/5 ML VIAL IVP SCH ×2 (05:28→17:00)
[2017-07-11] MEDS: *HR* Heparin 5,000 UNIT/ML VIAL SQ SCH ×2 (05:29→17:00)
[2017-07-11] MEDS: MetroNIDAZOLE 500 MG/100 ML 500 MG/100 ML BAG IVPB SCH ×3 (07:14→23:03)
[2017-07-11] MEDS: Nicotine 21 MG PATCH.TD24 TD SCH (07:16)
[2017-07-11] MEDS: Sennosides/Docusate Sodium TABLET PO SCH ×2 (07:16→19:03)
[2017-07-11] MEDS: Nystatin SUSP 5 ML UD.LIQ PO SCH ×4 (07:16→19:03)
[2017-07-11] MEDS: Aspirin 81 MG TAB.CHEW PO SCH (07:17)
[2017-07-11] MEDS: FentaNYL (PF) 1,000 MCG in 0.9 % Sodium Chloride 80 ML IVC SCH ×3 (07:18→18:03)
[2017-07-11] MEDS: Dexmedetomidine HCl 400 MCG/100 ML MLS IVC SCH ×2 (07:18→18:03)
[2017-07-11 07:25] LABS: Basophils % 0.4 %; Eosinophils % 0.2 %; Hematocrit 32.6 % (35.3-44.9); Immature Granulocytes % 1.1 % (0-4); Lymphocytes # 0.8 K/mcL (0.6-4.6); Lymphocytes % 13.8 %; Mean Corpuscular HGB Conc 31.3 g/dL (31.6-35.5); Mean Corpuscular Hemoglobin 29.5 pg (28.0-33.3); Mean Corpuscular Volume 94.2 fL (83.0-100.0); Mean Platelet Volume 9.9 fL (9.4-12.4); Monocytes # 0.7 K/mcL (0.0-1.3); Monocytes % 12.2 %; Neutrophils # 3.9 K/mcL (1.6-8.9); Platelet Count 199 K/mcL (140-400); Red Blood Count 3.46 M/mcL (3.82-4.97); Red Cell Distribution Width 16.5 % (11.5-14.5); Segmented Neutrophils % 72.3 %
[2017-07-11 07:36] LABS: BUN/Creatinine Ratio 22 (6-26); Blood Urea Nitrogen 13 mg/dL (7-20); Carbon Dioxide 24 mEq/L (19-29); Chloride 114 mEq/L (98-109); Creatine Kinase 1347 Units/L (29-168); Glucose 94 mg/dL (70-99); Osmolality,Calculated 300 (280-300); Potassium 3.6 mEq/L (3.5-4.5); Sodium 145 mEq/L (136-145); eGFR For African Americans > 60 (> 60); eGFR For Non-African Americans > 60 (> 60)
[2017-07-11 07:43] LABS: Hemoglobin 10.2 g/dL (11.5-15.4)
[2017-07-11] MEDS ORDERED: *HR* FentaNYL (PF) 100 MCG/2 ML VIAL IVP ONE (09:22)
[2017-07-11] MEDS: Budesonide/Formoterol 160/4.5 MDI IH SCH ×2 (09:54→21:37)
[2017-07-11] MEDS: Ringers Solution, Lactated 1,000 ML IVC SCH ×3 (10:04→22:17)
--- NOTE | 2017-07-11 10:49 | Pulmonology Progress Note ---
<Fiona Cage - Last Filed: 07/11/17 12:53> Date of Encounter: 07/11/17 Time of Encounter: 09:00 Assessment and Plan (1) Acute on chronic respiratory failure with hypoxia and hypercapnia Current Visit: Yes Status: Acute -Remains intubated and on CPAP, oxygenating well -Unable to extubate secondary to continued AMS and unable to follow commands -AMS likely due to manager terminal sedation. Per RN notes, overnight agitation required sedating meds be given again. (2) Pulmonary edema Current Visit: Yes Status: Acute -continue to monitor while giving IV fluids for treatment of rhabdomyolysis -will use lasix as needed -improved per repeat CXR Qualifiers: Chronicity: acute Qualified Code(s): J81.0 - Acute pulmonary edema (3) Elevated troponin Current Visit: Yes Status: Acute -likely secondary to mismatch of demand and perfusion -no EKG changes concerning for ischemia (4) Acute exacerbation of chronic obstructive pulmonary disease (COPD) Current Visit: Yes Status: Acute -continue scheduled duoneb and symbicort -oxygenating well on mechanical ventilation (5) Community acquired pneumonia Current Visit: Yes Status: Acute -Afebrile this morning 98.1 -WBC continues to improve, is 5.4 today -Day 6 on abx (flagyl day 5, doxycycline day 4) -Continue to monitor temperatures and WBC count Qualifiers: Laterality: unspecified laterality Qualified Code(s): J18.9 - Pneumonia, unspecified organism (6) Rhabdomyolysis Current Visit: Yes Status: Suspected -CK elevated to 1347 (yesterday 433), possibly 2/2 episode of agitation, fighting against restraints -Kidney function remains good, Cr 0.58 today -Normal saline stopped and replaced with lactated ringer's 2/2 hyperchloremia -Continue following CK with morning labs -Continue IV fluids Qualifiers: Rhabdomyolysis type: non-traumatic Qualified Code(s): M62.82 - Rhabdomyolysis (7) Delirium Current Visit: Yes Status: Acute -Acute delirium superimposed on, per patient's daughter, chronic dementia -Unable to assess mental status today because patient is not easily aroused secondary to long-term sedation (8) Hypokalemia due to loss of potassium Current Visit: Yes Status: Acute -Likely related to lasix use for pulmonary edema -Potassium 3.9 today -PRN lasix for pulmonary edema -Monitor with morning labs, will replace as necessary (9) DVT prophylaxis Current Visit: Yes Status: Acute -Continue heparin 5,000 units subQ Subjective Principal diagnosis: COPD Exacerbation, Pneumonia Interval history: Patient seen and examined this morning at bedside, she remains intubated-- unable to conduct ROS. Per RN note: agitation overnight (with BP 206/107, HR 130 's, RR 28 on vent) requiring precedex and fentanyl to be started, propofol started per Dr. Ann. Objective PUL Vital signs: Last Vital Signs Temp 98.1 F 07/11/17 08:52 Pulse 160 07/11/17 10:00 Resp 30 07/11/17 10:00 BP 181/120 07/11/17 10:00 Pulse Ox 93 07/11/17 10:00 General appearance: no acute distress, comatose Eyes: nonicteric ENT: oropharynx moist Neck: supple Effort: normal Auscultation: bilateral: rhonchi Cardiovascular: regular rate and rhythm Gastrointestinal: absent bowel sounds, soft, non-tender, non-distended Integumentary: normal Extremities: no cyanosis, no edema, pulses normal, cool Musculoskeletal: no deformities unable to assess due to mental status Ventilator Settings Ventilator Settings: Ventilator Settings, Last 8 Hours Ventilator Mode VC+ Ventilator Mode VC+ Ventilator Mode VC+ Ventilator Mode VC+ Ventilator Mode VC+ Ventilator Mode VC+ Ventilator Mode VC+ Ventilator Mode VC+ Ventilator Mode VC+ Ventilator Mode VC+ Ventilator Mode VC+ Ventilator Mode VC+ Ventilator Tidal Volume 350 Setting Ventilator Tidal Volume 350 Setting Ventilator Tidal Volume 350 Setting Ventilator Tidal Volume 350 Setting Ventilator Tidal Volume 350 Setting Ventilator Tidal Volume 350 Setting Ventilator Tidal Volume 350 Setting Ventilator Tidal Volume 350 Setting Ventilator Tidal Volume 350 Setting Ventilator Tidal Volume 350 Setting Ventilator Tidal Volume 350 Setting Ventilator Tidal Volume 350 Setting Ventilator Respiratory Rate 14 Setting Ventilator Respiratory Rate 14 Setting Ventilator Respiratory Rate 14 Setting Ventilator Respiratory Rate 14 Setting Ventilator Respiratory Rate 14 Setting Ventilator Respiratory Rate 14 Setting Ventilator Respiratory Rate 14 Setting Ventilator Respiratory Rate 14 Setting Ventilator Respiratory Rate 14 Setting Ventilator Respiratory Rate 14 Setting Ventilator Respiratory Rate 14 Setting Ventilator Respiratory Rate 14 Setting Actual Respiratory Rate 30 Actual Respiratory Rate 20 Actual Respiratory Rate 16 Actual Respiratory Rate 18 Actual Respiratory Rate 18 Actual Respiratory Rate 20 Actual Respiratory Rate 20 Actual Respiratory Rate 19 Actual Respiratory Rate 20 Actual Respiratory Rate 16 Actual Respiratory Rate 16 Actual Respiratory Rate 16 Positive End Expiratory 5 Pressure Positive End Expiratory 5 Pressure Positive End Expiratory 5 Pressure Positive End Expiratory 5 Pressure Positive End Expiratory 5 Pressure Positive End Expiratory 5 Pressure Positive End Expiratory 5 Pressure Positive End Expiratory 5 Pressure Positive End Expiratory 5 Pressure Positive End Expiratory 5 Pressure Positive End Expiratory 5 Pressure Positive End Expiratory 5 Pressure Peak Inspiratory Airway 42 Pressure Peak Inspiratory Airway 24 Pressure Peak Inspiratory Airway 21 Pressure Peak Inspiratory Airway 20 Pressure Peak Inspiratory Airway 17 Pressure Peak Inspiratory Airway 23 Pressure Peak Inspiratory Airway 21 Pressure Peak Inspiratory Airway 21 Pressure Peak Inspiratory Airway 21 Pressure Peak Inspiratory Airway 21 Pressure Peak Inspiratory Airway 21 Pressure Peak Inspiratory Airway 22 Pressure Results - Laboratory Findings CBC and BMP: 07/11/17 06:40 07/11/17 06:40 ABG ABG pH 7.37 pH Units (7.32-7.45) 07/07/17 22:13 ABG pCO2 46 mmHg (35-45) H 07/07/17 22:13 ABG pO2 62 mmHg (85-104) L 07/07/17 22:13 ABG O2 Saturation 90 % (95-98) L 07/07/17 22:13 PT/INR, D-dimer PT 11.4 Seconds (9.4-12.1) 07/06/17 16:20 Abnormal lab findings: Abnormal lab results RBC 3.46 M/mcL (3.82-4.97) L 07/11/17 06:40 Hgb 10.2 g/dL (11.5-15.4) L D 07/11/17 06:40 Hct 32.6 % (35.3-44.9) L 07/11/17 06:40 MCHC 31.3 g/dL (31.6-35.5) L 07/11/17 06:40 RDW 16.5 % (11.5-14.5) H 07/11/17 06:40 ABG pCO2 46 mmHg (35-45) H 07/07/17 22:13 ABG pO2 62 mmHg (85-104) L 07/07/17 22:13 ABG Total CO2 28 mEq/L (20-26) H 07/07/17 22:13 ABG O2 Saturation 90 % (95-98) L 07/07/17 22:13 Capillary pCO2 39 mmHg (41-51) L 07/08/17 08:36 Capillary pO2 67 mmHg (25-50) H 07/08/17 08:36 Carboxyhemoglobin 5.9 % (0-5) H 07/06/17 16:20 Chloride 114 mEq/L (98-109) H 07/11/17 06:40 Calcium 8.0 mg/dL (8.6-10.8) L 07/11/17 06:40 AST 48 Units/L (5-34) H 07/06/17 16:20 Creatine Kinase 1347 Units/L (29-168) H D 07/11/17 06:40 Troponin I 0.19 ng/mL (0-0.03) H* 07/08/17 20:12 Globulin 3.9 g/dL (2.4-3.5) H 07/06/17 16:20 Albumin/Globulin Ratio 0.9 (1.1-2.2) L 07/06/17 16:20 TSH 0.297 mcIU/mL (0.350-4.840) L 07/06/17 16:20 Urine Protein 30 mg/dL (Neg-Trace) H 07/06/17 16:24 Urine Blood Trace (Negative) H 07/06/17 16:24 Urine Microscopic RBC 3-5 per hpf (0-3) H 07/06/17 16:24 Ur Squamous Epith Cells Many per lpf (None-Few) H 07/06/17 16:24 Salicylates < 5.0 mg/dL (15-30) L 07/07/17 07:52 Acetaminophen < 1.0 mcg/mL (10-30) L 07/07/17 07:52 U Benzodiazepines Scrn Positive ng/mL ([id number]=746) H 07/06/17 16:24 U Marijuana (THC) Screen Positive ng/mL (Cutoff = 50) H 07/06/17 16:24 - Clinical Findings Intake & Output: Intake & Output 07/10/17 07/11/17 07/11/17 23:59 07:59 15:59 Intake Total 1250 / 1250 2332 / 2332 561 / 561 Output Total 300 / 300 500 / 500 850 / 850 Balance 950 / 950 1832 / 1832 -289 / -289 Weight 72 kg Consult Discharge Plan - Plan Referrals: Indra Soria DO [Primary Care Provider] - <Petra Perez - Last Filed: 07/11/17 16:44> Date of Encounter: 07/11/17 Objective PUL Vital signs: Last Vital Signs Temp 98.9 F 07/11/17 12:36 Pulse 76 07/11/17 16:00 Resp 15 07/11/17 15:18 BP 95/52 07/11/17 15:18 Pulse Ox 95 07/11/17 15:18 Ventilator Settings Ventilator Settings: Ventilator Settings, Last 8 Hours Ventilator Mode VC+ Ventilator Mode VC+ Ventilator Mode VC+ Ventilator Mode VC+ Ventilator Mode VC+ Ventilator Mode VC+ Ventilator Mode VC+ Ventilator Mode VC+ Ventilator Mode VC+ Ventilator Mode VC+ Ventilator Mode VC+ Ventilator Mode VC+ Ventilator Tidal Volume 450 Setting Ventilator Tidal Volume 450 Setting Ventilator Tidal Volume 350 Setting Ventilator Tidal Volume 350 Setting Ventilator Tidal Volume 350 Setting Ventilator Tidal Volume 350 Setting Ventilator Tidal Volume 350 Setting Ventilator Tidal Volume 350 Setting Ventilator Tidal Volume 350 Setting Ventilator Tidal Volume 350 Setting Ventilator Tidal Volume 350 Setting Ventilator Tidal Volume 350 Setting Ventilator Respiratory Rate 14 Setting Ventilator Respiratory Rate 14 Setting Ventilator Respiratory Rate 14 Setting Ventilator Respiratory Rate 14 Setting Ventilator Respiratory Rate 14 Setting Ventilator Respiratory Rate 14 Setting Ventilator Respiratory Rate 14 Setting Ventilator Respiratory Rate 14 Setting Ventilator Respiratory Rate 14 Setting Ventilator Respiratory Rate 14 Setting Ventilator Respiratory Rate 14 Setting Ventilator Respiratory Rate 14 Setting Actual Respiratory Rate 14 Actual Respiratory Rate 18 Actual Respiratory Rate 16 Actual Respiratory Rate 19 Actual Respiratory Rate 18 Actual Respiratory Rate 18 Actual Respiratory Rate 21 Actual Respiratory Rate 18 Actual Respiratory Rate 30 Actual Respiratory Rate 20 Actual Respiratory Rate 16 Positive End Expiratory 5 Pressure Positive End Expiratory 5 Pressure Positive End Expiratory 5 Pressure Positive End Expiratory 5 Pressure Positive End Expiratory 5 Pressure Positive End Expiratory 5 Pressure Positive End Expiratory 5 Pressure Positive End Expiratory 5 Pressure Positive End Expiratory 5 Pressure Positive End Expiratory 5 Pressure Positive End Expiratory 5 Pressure Positive End Expiratory 5 Pressure Peak Inspiratory Airway 19 Pressure Peak Inspiratory Airway 13 Pressure Peak Inspiratory Airway 18 Pressure Peak Inspiratory Airway 23 Pressure Peak Inspiratory Airway 14 Pressure Peak Inspiratory Airway 20 Pressure Peak Inspiratory Airway 20 Pressure Peak Inspiratory Airway 19 Pressure Peak Inspiratory Airway 42 Pressure Peak Inspiratory Airway 24 Pressure Peak Inspiratory Airway 21 Pressure Results - Laboratory Findings CBC and BMP: 07/11/17 06:40 07/11/17 06:40 ABG ABG pH 7.30 pH Units (7.32-7.45) L 07/11/17 16:29 ABG pCO2 53 mmHg (35-45) H 07/11/17 16:29 ABG pO2 74 mmHg (85-104) L 07/11/17 16:29 ABG O2 Saturation 93 % (95-98) L 07/11/17 16:29 PT/INR, D-dimer PT 11.4 Seconds (9.4-12.1) 07/06/17 16:20 Abnormal lab findings: Abnormal lab results RBC 3.46 M/mcL (3.82-4.97) L 07/11/17 06:40 Hgb 10.2 g/dL (11.5-15.4) L D 07/11/17 06:40 Hct 32.6 % (35.3-44.9) L 07/11/17 06:40 MCHC 31.3 g/dL (31.6-35.5) L 07/11/17 06:40 RDW 16.5 % (11.5-14.5) H 07/11/17 06:40 ABG pH 7.30 pH Units (7.32-7.45) L 07/11/17 16:29 ABG pCO2 53 mmHg (35-45) H 07/11/17 16:29 ABG pO2 74 mmHg (85-104) L 07/11/17 16:29 ABG Total CO2 27 mEq/L (20-26) H 07/11/17 16:29 ABG O2 Saturation 93 % (95-98) L 07/11/17 16:29 Capillary pCO2 39 mmHg (41-51) L 07/08/17 08:36 Capillary pO2 67 mmHg (25-50) H 07/08/17 08:36 Carboxyhemoglobin 5.9 % (0-5) H 07/06/17 16:20 Chloride 114 mEq/L (98-109) H 07/11/17 06:40 Calcium 8.0 mg/dL (8.6-10.8) L 07/11/17 06:40 AST 48 Units/L (5-34) H 07/06/17 16:20 Creatine Kinase 1347 Units/L (29-168) H D 07/11/17 06:40 Troponin I 0.19 ng/mL (0-0.03) H* 07/08/17 20:12 Globulin 3.9 g/dL (2.4-3.5) H 07/06/17 16:20 Albumin/Globulin Ratio 0.9 (1.1-2.2) L 07/06/17 16:20 TSH 0.297 mcIU/mL (0.350-4.840) L 07/06/17 16:20 Urine Protein 30 mg/dL (Neg-Trace) H 07/06/17 16:24 Urine Blood Trace (Negative) H 07/06/17 16:24 Urine Microscopic RBC 3-5 per hpf (0-3) H 07/06/17 16:24 Ur Squamous Epith Cells Many per lpf (None-Few) H 07/06/17 16:24 Salicylates < 5.0 mg/dL (15-30) L 07/07/17 07:52 Acetaminophen < 1.0 mcg/mL (10-30) L 07/07/17 07:52 U Benzodiazepines Scrn Positive ng/mL (Buuajm=058) H 07/06/17 16:24 U Marijuana (THC) Screen Positive ng/mL (Cutoff = 50) H 07/06/17 16:24 - Clinical Findings Intake & Output: Intake & Output 07/11/17 07/11/17 07/11/17 07:59 15:59 23:59 Intake Total 2332 / 2332 1661 / 1661 0 / 0 Output Total 500 / 500 1250 / 1250 Balance 1832 / 1832 411 / 411 0 / 0 - Attending Attestation I examined this patient and my medical decision-making was reviewed with the Resident Physician. I agree with the documented findings, disposition and treatment plan as described except to the extent set forth below. Patient seen and examined. Labs, radiology, chart personally reviewed. Agree with resident's history and physical, assessment, plan with following comments: [employer]: Patient does not follows commands, Patient was very agitated and had to is her back on the ventilator and restart sedation. I will add Klonopin via OG every which hopefully will control her agitation and it will be easier for extubation. CT head also was done. Family witnessed her agitation. Pulmonary: Acceptable oxygenation and ventilation.. Unfortunately she is not stable to extubate her mainly due to mental status change and put her back on the full support and change to her vent setting for comfort. Repeated ABG is acceptable and I am hoping the next 24 hours Klonopin and antipsychotic would work and will plan for extubation when the family is around. Cardiovascular: stable GI: Nutrition per dietary and GI prophylaxis per routine Heme: DVT prophylaxis per routine ID: Continue antibiotics and plan to de-escalation Renal; urine out put and renal funtion reviewed Endorcine: blood glucose is monitored Lines: all lines checked and no evidence of infections Skin: skin care to prevent pressure ulcers per nursing routine care I spent 32 min of Critical Care time with this patient. It involved decision making of high complexity to assess, manipulate, and support vital organ system failure and/or to prevent further life threatening deterioration of the patient' s condition. The time involved in the performance of separately reportable procedures was not counted toward critical care time.
[2017-07-11] MEDS: clonazePAM 1 MG TABLET PO SCH ×3 (12:09→23:03)
[2017-07-11 16:32] LABS: ABG Base Excess -1 mEq/L (-2 to 3); ABG HCO3 26 mEq/L (21-27); ABG Oxygen Saturation 93 % (95-98); ABG PCO2 53 mmHg (35-45); ABG PO2 74 mmHg (85-104); ABG TCO2 27 mEq/L (20-26)
[2017-07-11] MEDS: OLANZapine 5 MG TAB.RAPDIS PO SCH (17:00)
[2017-07-11] MEDS: Chlorhexidine Rinse 15 ML MOUTHWASH MM SCH (19:03)
[2017-07-12] MEDS: Ipratropium/Albuterol Neb 3 ML IH SCH ×4 (03:50→22:17)
[2017-07-12] MEDS: Ringers Solution, Lactated 1,000 ML IVC SCH ×4 (04:19→22:21)
[2017-07-12] MEDS: Pantoprazole 40 MG VIAL IVP SCH (05:04)
[2017-07-12] MEDS: Doxycycline 100 MG in 0.9 % Sodium Chloride Mini Bag 100 ML IVPB SCH ×2 (05:04→20:10)
[2017-07-12] MEDS: clonazePAM 1 MG TABLET PO SCH ×4 (05:06→20:21)
[2017-07-12] MEDS: Insulin LISPRO 300 UNITS/3 ML VIAL SQ SCH ×4 (05:06→23:09)
[2017-07-12] MEDS: *HR* Heparin 5,000 UNIT/ML VIAL SQ SCH ×2 (05:06→19:25)
[2017-07-12] MEDS: *HR* Metoprolol 5 MG/5 ML VIAL IVP SCH ×2 (05:06→20:10)
[2017-07-12 05:15] LABS: ABG Base Excess 1 mEq/L (-2 to 3); ABG HCO3 28 mEq/L (21-27); ABG Oxygen Saturation 94 % (95-98); ABG PCO2 57 mmHg (35-45); ABG PO2 79 mmHg (85-104); ABG TCO2 30 mEq/L (20-26); Blood Gas Modality VC; Blood Gas PEEP 5 cm H2O; Blood Gas Respiration Rate 14; Blood Gas VT 450 cc
[2017-07-12] MEDS: Dexmedetomidine HCl 400 MCG/100 ML MLS IVC SCH ×3 (05:18→20:01)
[2017-07-12 06:43] LABS: Basophils % 0.6 %; Eosinophils % 0.4 %; Hematocrit 34.7 % (35.3-44.9); Hemoglobin 10.5 g/dL (11.5-15.4); Immature Granulocytes % 1.4 % (0-4); Lymphocytes # 1.3 K/mcL (0.6-4.6); Mean Corpuscular HGB Conc 30.3 g/dL (31.6-35.5); Mean Corpuscular Hemoglobin 30.2 pg (28.0-33.3); Mean Corpuscular Volume 99.7 fL (83.0-100.0); Monocytes # 0.7 K/mcL (0.0-1.3); Monocytes % 13.7 %; Neutrophils # 2.8 K/mcL (1.6-8.9); Platelet Count 166 K/mcL (140-400); Red Blood Count 3.48 M/mcL (3.82-4.97); Red Cell Distribution Width 16.9 % (11.5-14.5); Segmented Neutrophils % 57.9 %
[2017-07-12 06:56] LABS: BUN/Creatinine Ratio 22 (6-26); Blood Urea Nitrogen 12 mg/dL (7-20); Calcium 8.3 mg/dL (8.6-10.8); Carbon Dioxide 25 mEq/L (19-29); Chloride 113 mEq/L (98-109); Creatine Kinase 1050 Units/L (29-168); Glucose 87 mg/dL (70-99); Osmolality,Calculated 299 (280-300); Potassium 3.4 mEq/L (3.5-4.5); eGFR For African Americans > 60 (> 60); eGFR For Non-African Americans > 60 (> 60)
[2017-07-12 06:58] LABS: Sodium 145 mEq/L (136-145)
[2017-07-12] MEDS ORDERED: Haloperidol Lactate 5 MG/ML VIAL IVP ONE ×2 (07:07→07:35)
[2017-07-12] MEDS ORDERED: Haloperidol Lactate 5 MG/ML VIAL ONE (07:09)
[2017-07-12] MEDS: MetroNIDAZOLE 500 MG/100 ML 500 MG/100 ML BAG IVPB SCH ×3 (08:05→23:36)
--- NOTE | 2017-07-12 09:15 | Pulmonology Progress Note ---
Date of Encounter: 07/12/17 Time of Encounter: 08:30 Assessment and Plan (1) Acute on chronic respiratory failure with hypoxia and hypercapnia Current Visit: Yes Status: Acute -extubated early this morning, breathing on her own with supplemental oxygen -saturating 90-93% -will continue to monitor respiratory status (2) Pulmonary edema Current Visit: Yes Status: Acute -continue to monitor while giving IV fluids for treatment of rhabdomyolysis -will use lasix as needed -improved per repeat CXR Qualifiers: Chronicity: acute Qualified Code(s): J81.0 - Acute pulmonary edema (3) Elevated troponin Current Visit: Yes Status: Acute -likely secondary to mismatch of demand and perfusion -no EKG changes concerning for ischemia (4) Acute exacerbation of chronic obstructive pulmonary disease (COPD) Current Visit: Yes Status: Acute -continue scheduled duoneb and symbicort -oxygenation between 90-93% since extubation this morning (5) Community acquired pneumonia Current Visit: Yes Status: Acute -Afebrile this morning 98.1 -WBC continues to improve, 4.9 today -Day 7 on abx (flagyl day 6, doxycycline day 5) -Continue to monitor temperatures and WBC count Qualifiers: Laterality: unspecified laterality Qualified Code(s): J18.9 - Pneumonia, unspecified organism (6) Rhabdomyolysis Current Visit: Yes Status: Suspected -CK elevated to 1347 from 433, possibly 2/2 episode of agitation, fighting against restraints. CK improved today to 1050. -Kidney function remains good, Cr 0.55 today -Normal saline stopped and replaced with lactated ringer's 2/2 hyperchloremia -Continue following CK with morning labs -Continue IV fluids @ 100mL/h Qualifiers: Rhabdomyolysis type: non-traumatic Qualified Code(s): M62.82 - Rhabdomyolysis (7) Delirium Current Visit: Yes Status: Acute -Acute delirium superimposed on, per patient's daughter, chronic dementia -Unable to assess mental status today because patient is not easily aroused, received 2mg Haldol this morning. (8) Hypokalemia due to loss of potassium Current Visit: Yes Status: Acute -Likely related to lasix use for pulmonary edema -Potassium 3.4 today -Replacing with 10 mEq in 100 mL over 1 hour; total of 4 bags -Monitor with morning labs, will replace as necessary (9) DVT prophylaxis Current Visit: Yes Status: Acute -Continue heparin 5,000 units subQ Subjective Principal diagnosis: COPD Exacerbation, Pneumonia Interval history: Patient seen and examined this morning at bedside, one of her daughters is present. Patient extubated early this morning, now getting supplemental oxygen and breathing without assistance. Unable to arouse patient to obtain a ROS. Objective PUL Vital signs: Last Vital Signs Temp 98.1 F 07/12/17 07:52 Pulse 80 07/12/17 08:00 Resp 14 07/12/17 08:00 BP 94/50 07/12/17 08:00 Pulse Ox 91 07/12/17 08:00 General appearance: no acute distress, comatose Neck: supple Effort: normal Auscultation: bilateral: rhonchi Cardiovascular: regular rate and rhythm Gastrointestinal: absent bowel sounds, soft, non-tender, non-distended Integumentary: normal Extremities: no cyanosis Musculoskeletal: no deformities unable to assess due to mental status Ventilator Settings Ventilator Settings: Ventilator Settings, Last 8 Hours Ventilator Mode VC+ Ventilator Mode VC+ Ventilator Mode VC+ Ventilator Mode VC+ Ventilator Mode VC+ Ventilator Mode VC+ Ventilator Mode VC+ Ventilator Mode VC+ Ventilator Mode VC+ Ventilator Tidal Volume 450 Setting Ventilator Tidal Volume 450 Setting Ventilator Tidal Volume 450 Setting Ventilator Tidal Volume 450 Setting Ventilator Tidal Volume 450 Setting Ventilator Tidal Volume 450 Setting Ventilator Tidal Volume 450 Setting Ventilator Tidal Volume 450 Setting Ventilator Tidal Volume 450 Setting Ventilator Respiratory Rate 14 Setting Ventilator Respiratory Rate 14 Setting Ventilator Respiratory Rate 14 Setting Ventilator Respiratory Rate 14 Setting Ventilator Respiratory Rate 14 Setting Ventilator Respiratory Rate 14 Setting Ventilator Respiratory Rate 14 Setting Ventilator Respiratory Rate 14 Setting Ventilator Respiratory Rate 14 Setting Actual Respiratory Rate 15 Actual Respiratory Rate 15 Actual Respiratory Rate 14 Actual Respiratory Rate 14 Actual Respiratory Rate 14 Actual Respiratory Rate 17 Actual Respiratory Rate 14 Actual Respiratory Rate 14 Positive End Expiratory 5 Pressure Positive End Expiratory 5 Pressure Positive End Expiratory 5 Pressure Positive End Expiratory 5 Pressure Positive End Expiratory 5 Pressure Positive End Expiratory 5 Pressure Positive End Expiratory 5 Pressure Positive End Expiratory 5 Pressure Positive End Expiratory 5 Pressure Peak Inspiratory Airway 23 Pressure Peak Inspiratory Airway 21 Pressure Peak Inspiratory Airway 23 Pressure Peak Inspiratory Airway 23 Pressure Peak Inspiratory Airway 30 Pressure Peak Inspiratory Airway 21 Pressure Peak Inspiratory Airway 21 Pressure Peak Inspiratory Airway 21 Pressure Results - Laboratory Findings CBC and BMP: 07/12/17 06:27 07/12/17 06:27 ABG ABG pH 7.30 pH Units (7.32-7.45) L 07/12/17 05:11 ABG pCO2 57 mmHg (35-45) H 07/12/17 05:11 ABG pO2 79 mmHg (85-104) L 07/12/17 05:11 ABG O2 Saturation 94 % (95-98) L 07/12/17 05:11 PT/INR, D-dimer PT 11.4 Seconds (9.4-12.1) 07/06/17 16:20 Abnormal lab findings: Abnormal lab results RBC 3.48 M/mcL (3.82-4.97) L 07/12/17 06:27 Hgb 10.5 g/dL (11.5-15.4) L 07/12/17 06:27 Hct 34.7 % (35.3-44.9) L 07/12/17 06:27 MCHC 30.3 g/dL (31.6-35.5) L 07/12/17 06:27 RDW 16.9 % (11.5-14.5) H 07/12/17 06:27 ABG pH 7.30 pH Units (7.32-7.45) L 07/12/17 05:11 ABG pCO2 57 mmHg (35-45) H 07/12/17 05:11 ABG pO2 79 mmHg (85-104) L 07/12/17 05:11 ABG HCO3 28 mEq/L (21-27) H 07/12/17 05:11 ABG Total CO2 30 mEq/L (20-26) H 07/12/17 05:11 ABG O2 Saturation 94 % (95-98) L 07/12/17 05:11 Capillary pCO2 39 mmHg (41-51) L 07/08/17 08:36 Capillary pO2 67 mmHg (25-50) H 07/08/17 08:36 Carboxyhemoglobin 5.9 % (0-5) H 07/06/17 16:20 Potassium 3.4 mEq/L (3.5-4.5) L 07/12/17 06:27 Chloride 113 mEq/L (98-109) H 07/12/17 06:27 Creatinine 0.55 mg/dL (0.57-1.11) L 07/12/17 06:27 POC Glucose 92 (58-89) H 07/11/17 23:08 Calcium 8.3 mg/dL (8.6-10.8) L 07/12/17 06:27 AST 48 Units/L (5-34) H 07/06/17 16:20 Creatine Kinase 1050 Units/L (29-168) H 07/12/17 06:27 Troponin I 0.19 ng/mL (0-0.03) H* 07/08/17 20:12 Globulin 3.9 g/dL (2.4-3.5) H 07/06/17 16:20 Albumin/Globulin Ratio 0.9 (1.1-2.2) L 07/06/17 16:20 TSH 0.297 mcIU/mL (0.350-4.840) L 07/06/17 16:20 Urine Protein 30 mg/dL (Neg-Trace) H 07/06/17 16:24 Urine Blood Trace (Negative) H 07/06/17 16:24 Urine Microscopic RBC 3-5 per hpf (0-3) H 07/06/17 16:24 Ur Squamous Epith Cells Many per lpf (None-Few) H 07/06/17 16:24 Salicylates < 5.0 mg/dL (15-30) L 07/07/17 07:52 Acetaminophen < 1.0 mcg/mL (10-30) L 07/07/17 07:52 U Benzodiazepines Scrn Positive ng/mL (Zohwdp=941) H 07/06/17 16:24 U Marijuana (THC) Screen Positive ng/mL (Cutoff = 50) H 07/06/17 16:24 - Clinical Findings Intake & Output: Intake & Output 07/11/17 07/12/17 07/12/17 23:59 07:59 15:59 Intake Total 1283 / 1283 1200 / 1200 Output Total 450 / 450 550 / 550 Balance 833 / 833 650 / 650 Weight 74.2 kg Consult Discharge Plan - Plan Referrals: Indra Soria DO [Primary Care Provider] -
[2017-07-12] MEDS: Nicotine 21 MG PATCH.TD24 TD SCH (09:46)
[2017-07-12] MEDS: Chlorhexidine Rinse 15 ML MOUTHWASH MM SCH ×2 (09:48→20:22)
[2017-07-12] MEDS: Aspirin 81 MG TAB.CHEW PO SCH (09:48)
[2017-07-12] MEDS: Sennosides/Docusate Sodium TABLET PO SCH ×2 (09:48→20:21)
[2017-07-12] MEDS: Nystatin SUSP 5 ML UD.LIQ PO SCH ×4 (09:48→20:22)
[2017-07-12] MEDS: Budesonide/Formoterol 160/4.5 MDI IH SCH ×2 (10:36→22:18)
[2017-07-12] MEDS ORDERED: Haloperidol Lactate 5 MG/ML VIAL IM ONE (18:59)
[2017-07-12] MEDS: OLANZapine 5 MG TAB.RAPDIS PO SCH (20:22)
[2017-07-13] MEDS: Dexmedetomidine HCl 400 MCG/100 ML MLS IVC SCH ×5 (00:44→19:53)
[2017-07-13] MEDS: Ipratropium/Albuterol Neb 3 ML IH SCH ×4 (03:41→21:59)
[2017-07-13] MEDS: clonazePAM 1 MG TABLET PO SCH (04:52)
[2017-07-13] MEDS: *HR* Heparin 5,000 UNIT/ML VIAL SQ SCH ×2 (05:02→18:01)
[2017-07-13] MEDS: Doxycycline 100 MG in 0.9 % Sodium Chloride Mini Bag 100 ML IVPB SCH (05:02)
[2017-07-13] MEDS: Pantoprazole 40 MG VIAL IVP SCH (05:02)
[2017-07-13] MEDS: *HR* Metoprolol 5 MG/5 ML VIAL IVP SCH ×2 (05:03→17:59)
[2017-07-13 05:11] LABS: BUN/Creatinine Ratio 10 (6-26); Blood Urea Nitrogen 6 mg/dL (7-20); Calcium 8.5 mg/dL (8.6-10.8); Carbon Dioxide 25 mEq/L (19-29); Chloride 101 mEq/L (98-109); Creatine Kinase 1616 Units/L (29-168); Glucose 82 mg/dL (70-99); Magnesium 1.1 mg/dL (1.6-2.6); Osmolality,Calculated 291 (280-300); Potassium 3.3 mEq/L (3.5-4.5); Sodium 142 mEq/L (136-145); eGFR For African Americans > 60 (> 60); eGFR For Non-African Americans > 60 (> 60)
[2017-07-13] MEDS: Insulin LISPRO 300 UNITS/3 ML VIAL SQ SCH (05:17)
[2017-07-13 05:36] LABS: Basophils % 0.4 %; Eosinophils % 0.2 %; Hematocrit 33.6 % (35.3-44.9); Hemoglobin 10.7 g/dL (11.5-15.4); Immature Granulocytes % 1.1 % (0-4); Immature Platelets 2.7 % (1.1-6.1); Lymphocytes # 1.1 K/mcL (0.6-4.6); Lymphocytes % 19.9 %; Mean Corpuscular HGB Conc 31.8 g/dL (31.6-35.5); Mean Corpuscular Hemoglobin 30.1 pg (28.0-33.3); Mean Corpuscular Volume 94.6 fL (83.0-100.0); Mean Platelet Volume 9.5 fL (9.4-12.4); Monocytes # 0.5 K/mcL (0.0-1.3); Neutrophils # 3.9 K/mcL (1.6-8.9); Platelet Count 228 K/mcL (140-400); Red Blood Count 3.55 M/mcL (3.82-4.97); Red Cell Distribution Width 15.9 % (11.5-14.5); Segmented Neutrophils % 69.4 %
[2017-07-13] MEDS ORDERED: Calcium Gluconate 1,000 MG in D5% in Water 100 ML IVPB PRN (05:53)
[2017-07-13] MEDS ORDERED: Sodium Phosphate 30 MMOL in D5% in Water 100 ML IVPB PRN (05:53)
[2017-07-13] MEDS ORDERED: Potassium Phosphate 44 MEQ in 0.9 % Sodium Chloride 250 ML IVPB PRN (05:53)
[2017-07-13 06:50] LABS: Ionized Calcium 1.1 mmol/L (1.15-1.35)
[2017-07-13 07:30] LABS: Magnesium 1.1 mg/dL (1.6-2.6); Phosphorous 2.7 mg/dL (2.3-4.7)
[2017-07-13] MEDS ORDERED: Haloperidol Lactate 5 MG/ML VIAL IVP ONE (08:00)
[2017-07-13] MEDS: MetroNIDAZOLE 500 MG/100 ML 500 MG/100 ML BAG IVPB SCH (08:15)
[2017-07-13] MEDS: Chlorhexidine Rinse 15 ML MOUTHWASH MM SCH (08:16)
[2017-07-13] MEDS: Nystatin SUSP 5 ML UD.LIQ PO SCH ×4 (08:16→20:02)
[2017-07-13] MEDS: Magnesium Sulfate 2 GM in D5% in Water 100 ML IVPB PRN (08:16)
[2017-07-13] MEDS: Sennosides/Docusate Sodium TABLET PO SCH ×2 (08:16→20:02)
[2017-07-13] MEDS: Aspirin 81 MG TAB.CHEW PO SCH (08:17)
[2017-07-13] MEDS: Nicotine 21 MG PATCH.TD24 TD SCH (08:17)
[2017-07-13] MEDS: Ringers Solution, Lactated 1,000 ML IVC SCH ×2 (08:34→17:58)
[2017-07-13] MEDS ORDERED: clonazePAM 1 MG TABLET PO SCH (09:00)
--- NOTE | 2017-07-13 09:27 | Pulmonology Progress Note ---
<Fiona Cage - Last Filed: 07/13/17 13:06> Date of Encounter: 07/13/17 Time of Encounter: 08:45 Assessment and Plan (1) Acute on chronic respiratory failure with hypoxia and hypercapnia Current Visit: Yes Status: Acute -remains extubated, breathing on her own -saturating 91-93% on 15L oxymask -will continue to monitor respiratory status (2) Pulmonary edema Current Visit: Yes Status: Acute -continue to monitor while giving IV fluids for treatment of rhabdomyolysis -will use lasix as needed -improved per repeat CXR -remains clinically stable Qualifiers: Chronicity: acute Qualified Code(s): J81.0 - Acute pulmonary edema (3) Elevated troponin Current Visit: Yes Status: Acute -likely secondary to mismatch of demand and perfusion -no EKG changes concerning for ischemia -remains clinically stable (4) Acute exacerbation of chronic obstructive pulmonary disease (COPD) Current Visit: Yes Status: Acute -continue scheduled duoneb and symbicort in addition to PRN albuterol -oxygenation between 90-93% since extubation early yesterday (5) Community acquired pneumonia Current Visit: Yes Status: Acute -Afebrile this morning 99.9 and white count WNL -Flagyl and doxycycline have been stopped -Continue to monitor temperatures and WBC count Qualifiers: Laterality: unspecified laterality Qualified Code(s): J18.9 - Pneumonia, unspecified organism (6) Rhabdomyolysis Current Visit: Yes Status: Suspected -CK elevated to 1347 from 433, possibly 2/2 episode of agitation, fighting against restraints. CK improved today to 1050. -Kidney function remains good, Cr 0.55 today -Normal saline stopped and replaced with lactated ringer's 2/2 hyperchloremia -Continue following CK with morning labs -Continue IV fluids @ 100mL/h Qualifiers: Rhabdomyolysis type: non-traumatic Qualified Code(s): M62.82 - Rhabdomyolysis (7) Delirium Current Visit: Yes Status: Acute -Acute delirium superimposed on, per patient's daughter, chronic dementia -Unable to assess mental status today because patient is not easily aroused, received 2mg Haldol this morning. (8) Hypokalemia due to loss of potassium Current Visit: Yes Status: Acute -Likely related to lasix use for pulmonary edema -Potassium 3.4 today -Replacing with 10 mEq in 100 mL over 1 hour; total of 4 bags -Monitor with morning labs, will replace as necessary (9) DVT prophylaxis Current Visit: Yes Status: Acute -Continue heparin 5,000 units subQ Subjective Principal diagnosis: COPD Exacerbation, Pneumonia Interval history: Patient seen and examined this morning at bedside, receiving supplemental oxygen via oxymask and breathing without assistance. Patient is awake and agitated. She is uncooperative during ROS and exam. Objective PUL Vital signs: Last Vital Signs Temp 99.9 F H 07/13/17 07:33 Pulse 89 07/13/17 06:00 Resp 30 07/13/17 06:00 BP 172/99 07/13/17 06:00 Pulse Ox 91 07/13/17 06:00 General appearance: alert, agitated Neck: supple Effort: normal Auscultation: bilateral: wheezes, rhonchi Cardiovascular: regular rate and rhythm Gastrointestinal: absent bowel sounds, soft, non-tender, non-distended Extremities: no cyanosis, no edema Musculoskeletal: no deformities unable to assess due to mental status Results - Laboratory Findings CBC and BMP: 07/13/17 05:21 07/13/17 04:22 ABG ABG pH 7.30 pH Units (7.32-7.45) L 07/12/17 05:11 ABG pCO2 57 mmHg (35-45) H 07/12/17 05:11 ABG pO2 79 mmHg (85-104) L 07/12/17 05:11 ABG O2 Saturation 94 % (95-98) L 07/12/17 05:11 PT/INR, D-dimer PT 11.4 Seconds (9.4-12.1) 07/06/17 16:20 Abnormal lab findings: Abnormal lab results RBC 3.55 M/mcL (3.82-4.97) L 07/13/17 05:21 Hgb 10.7 g/dL (11.5-15.4) L 07/13/17 05:21 Hct 33.6 % (35.3-44.9) L 07/13/17 05:21 RDW 15.9 % (11.5-14.5) H 07/13/17 05:21 ABG pH 7.30 pH Units (7.32-7.45) L 07/12/17 05:11 ABG pCO2 57 mmHg (35-45) H 07/12/17 05:11 ABG pO2 79 mmHg (85-104) L 07/12/17 05:11 ABG HCO3 28 mEq/L (21-27) H 07/12/17 05:11 ABG Total CO2 30 mEq/L (20-26) H 07/12/17 05:11 ABG O2 Saturation 94 % (95-98) L 07/12/17 05:11 Capillary pCO2 39 mmHg (41-51) L 07/08/17 08:36 Capillary pO2 67 mmHg (25-50) H 07/08/17 08:36 Carboxyhemoglobin 5.9 % (0-5) H 07/06/17 16:20 Potassium 3.3 mEq/L (3.5-4.5) L 07/13/17 04:22 BUN 6 mg/dL (7-20) L 07/13/17 04:22 Calcium 8.5 mg/dL (8.6-10.8) L 07/13/17 04:22 Ionized Calcium 1.10 mmol/L (1.15-1.35) L 07/13/17 06:21 Magnesium 1.1 mg/dL (1.6-2.6) L 07/13/17 06:21 AST 48 Units/L (5-34) H 07/06/17 16:20 Creatine Kinase 1616 Units/L (29-168) H 07/13/17 04:22 Troponin I 0.19 ng/mL (0-0.03) H* 07/08/17 20:12 Globulin 3.9 g/dL (2.4-3.5) H 07/06/17 16:20 Albumin/Globulin Ratio 0.9 (1.1-2.2) L 07/06/17 16:20 TSH 0.297 mcIU/mL (0.350-4.840) L 07/06/17 16:20 Urine Protein 30 mg/dL (Neg-Trace) H 07/06/17 16:24 Urine Blood Trace (Negative) H 07/06/17 16:24 Urine Microscopic RBC 3-5 per hpf (0-3) H 07/06/17 16:24 Ur Squamous Epith Cells Many per lpf (None-Few) H 07/06/17 16:24 Salicylates < 5.0 mg/dL (15-30) L 07/07/17 07:52 Acetaminophen < 1.0 mcg/mL (10-30) L 07/07/17 07:52 U Benzodiazepines Scrn Positive ng/mL (Gngskd=032) H 07/06/17 16:24 U Marijuana (THC) Screen Positive ng/mL (Cutoff = 50) H 07/06/17 16:24 - Clinical Findings Intake & Output: Intake & Output 07/12/17 07/13/17 07/13/17 23:59 07:59 15:59 Intake Total 1400 / 1400 400 / 400 1000 / 1000 Output Total 1850 / 1850 2650 / 2650 Balance -450 / -450 -2250 / -2250 1000 / 1000 Weight 77.9 kg Consult Discharge Plan - Plan Referrals: Indra Soria DO [Primary Care Provider] - <Petra Perez - Last Filed: 07/13/17 16:17> Date of Encounter: 07/13/17 Objective PUL Vital signs: Last Vital Signs Temp 99.3 F 07/13/17 12:36 Pulse 89 07/13/17 14:00 Resp 24 07/13/17 14:00 BP 156/88 07/13/17 14:00 Pulse Ox 97 07/13/17 14:00 Results - Laboratory Findings CBC and BMP: 07/13/17 05:21 07/13/17 04:22 ABG ABG pH 7.30 pH Units (7.32-7.45) L 07/12/17 05:11 ABG pCO2 57 mmHg (35-45) H 07/12/17 05:11 ABG pO2 79 mmHg (85-104) L 07/12/17 05:11 ABG O2 Saturation 94 % (95-98) L 07/12/17 05:11 PT/INR, D-dimer PT 11.4 Seconds (9.4-12.1) 07/06/17 16:20 Abnormal lab findings: Abnormal lab results RBC 3.55 M/mcL (3.82-4.97) L 07/13/17 05:21 Hgb 10.7 g/dL (11.5-15.4) L 07/13/17 05:21 Hct 33.6 % (35.3-44.9) L 07/13/17 05:21 RDW 15.9 % (11.5-14.5) H 07/13/17 05:21 ABG pH 7.30 pH Units (7.32-7.45) L 07/12/17 05:11 ABG pCO2 57 mmHg (35-45) H 07/12/17 05:11 ABG pO2 79 mmHg (85-104) L 07/12/17 05:11 ABG HCO3 28 mEq/L (21-27) H 07/12/17 05:11 ABG Total CO2 30 mEq/L (20-26) H 07/12/17 05:11 ABG O2 Saturation 94 % (95-98) L 07/12/17 05:11 Capillary pCO2 39 mmHg (41-51) L 07/08/17 08:36 Capillary pO2 67 mmHg (25-50) H 07/08/17 08:36 Carboxyhemoglobin 5.9 % (0-5) H 07/06/17 16:20 Potassium 3.3 mEq/L (3.5-4.5) L 07/13/17 04:22 BUN 6 mg/dL (7-20) L 07/13/17 04:22 Calcium 8.5 mg/dL (8.6-10.8) L 07/13/17 04:22 Ionized Calcium 1.10 mmol/L (1.15-1.35) L 07/13/17 06:21 Magnesium 1.1 mg/dL (1.6-2.6) L 07/13/17 06:21 AST 48 Units/L (5-34) H 07/06/17 16:20 Creatine Kinase 1616 Units/L (29-168) H 07/13/17 04:22 Troponin I 0.19 ng/mL (0-0.03) H* 07/08/17 20:12 Globulin 3.9 g/dL (2.4-3.5) H 07/06/17 16:20 Albumin/Globulin Ratio 0.9 (1.1-2.2) L 07/06/17 16:20 TSH 0.297 mcIU/mL (0.350-4.840) L 07/06/17 16:20 Urine Protein 30 mg/dL (Neg-Trace) H 07/06/17 16:24 Urine Blood Trace (Negative) H 07/06/17 16:24 Urine Microscopic RBC 3-5 per hpf (0-3) H 07/06/17 16:24 Ur Squamous Epith Cells Many per lpf (None-Few) H 07/06/17 16:24 Salicylates < 5.0 mg/dL (15-30) L 07/07/17 07:52 Acetaminophen < 1.0 mcg/mL (10-30) L 07/07/17 07:52 U Benzodiazepines Scrn Positive ng/mL (Whtdqo=056) H 07/06/17 16:24 U Marijuana (THC) Screen Positive ng/mL (Cutoff = 50) H 07/06/17 16:24 - Clinical Findings Intake & Output: Intake & Output 07/13/17 07/13/17 07/13/17 07:59 15:59 23:59 Intake Total 400 / 400 1200 / 1200 Output Total 2650 / 2650 700 / 700 Balance -2250 / -2250 500 / 500 Weight 77.9 kg - Attending Attestation I examined this patient and my medical decision-making was reviewed with the Resident Physician. I agree with the documented findings, disposition and treatment plan as described except to the extent set forth below. Patient seen and examined. Labs, radiology, chart personally reviewed. 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 We will continue monitor since with agitation her breathing could worsen. Cardiovascular: stable GI: Nutrition per dietary and GI prophylaxis per routine Heme: DVT prophylaxis per routine ID: Continue antibiotics and plan to de-escalation Renal; urine out put and renal funtion reviewed Endorcine: blood glucose is monitored Lines: all lines checked and no evidence of infections Skin: skin care to prevent pressure ulcers per nursing routine care
[2017-07-13] MEDS: Budesonide/Formoterol 160/4.5 MDI IH SCH ×2 (11:13→21:59)
[2017-07-13] MEDS: *HR* Morphine 2 MG/ML SYRINGE IVP PRN ×3 (12:27→23:53)
--- NOTE | 2017-07-13 14:39 | Consult Note ---
Date of Encounter: 07/13/17 Time of Encounter: 13:50 Assessment & Recommendation (1) Delirium due to multiple etiologies Current visit: Yes Status: Acute Assessment & Recommendation: Patient's behavior and agitation is related to her delirious condition due to multiple etiologies including hypoxia hypercapnia hypokalemia and others. At this time there is no acute psychiatric condition that requires hospitalization or further psychiatric treatment. Regarding the medication I recommend using Haldol when necessary to control agitation and avoids any benzodiazepine since they suppress respiration. Outpatient mental health follow-up appointment is recommended. Thank you for consultation History of Present Illness Patient: new to practice Requesting Physician: Aime Ann MD Reason for consult: Agitation History of present illness: Ms. Serrano is a 61 year old female admitted to the hospital evaluation and treatment of abdominal pain and respiratory failure. Patient is currently in ICU and recently extubated. Psychiatric consultation was requested regarding combativeness agitation after extubation. Patient has a complex medical history including procurement on chronic respiratory failure, hypoxemia and hypercapnia, pulmonary edema, COPD, pneumonia, rhabdomyolysis and hypokalemia. Review of records show no previous psychiatric hospitalization treatment. Per patient's daughter she had a remote history of psychiatric treatment and hospitalization in the past 20 years ago. Patient currently on antidepressant Paxil and on and off Xanax given by primary care physician. daughter informed that patient's is not aggressive or agitated at baseline. Also she is noncompliant with medication or oxygen at home. CC: Aime Ann MD Past Med Surg Social Fam HX - Past Medical History Medical history: non-contributory, arthritis, asthma, COPD, GERD, hypertension - Past Surgical History Surgical History: hysterectomy, orthopedic, other (right shoulder ), other ( carpal tunnel release) - Social History Smoking Status: Current every day smoker Smokeless Tobacco Status: No (pt sedated) Alcohol use: none Drug use: none - Family History Brother Cause of : murder in prsion Father Living Status: Age at : 79 Hx Family Cardiac Disorders: Yes (CAD) Hx Family Respiratory Disorders: Yes (lung disease, ) Mother Living Status: Age at : 56 Hx Family Cancer: Yes Medications & Allergies DiphenhydraMINE [Benadryl] 25 mg PO Q6HR PRN #20 capsule 05/01/16 [Rx] ALPRAZolam [Xanax 1 MG Tablet] 1 mg PO TID PRN 07/06/17 [History] Albuterol Sulfate [Ventolin Hfa] 2 puff IH Q4H PRN 07/06/17 [History] BuPROPion SR (12 HR) [Wellbutrin SR] 150 mg PO BID 07/06/17 [History] Cetirizine HCl [Zyrtec] 10 mg PO DAILY 07/06/17 [History] Cromolyn Sodium 1 drop OP QID PRN 07/06/17 [History] Docusate Sodium [Stool Softener] 50 mg PO BID 07/06/17 [History] Fluticasone Propionate Nasal [Flonase] 50 - 100 mcg NS DAILY PRN 07/06/17 [ History] Fluticasone/Vilanterol [Breo Ellipta 200-25 Mcg INH] 1 each IH DAILY PRN [History] Gabapentin [Neurontin] 1,200 mg PO TID 07/06/17 [History] Methocarbamol [Robaxin-750] 750 mg PO TID PRN 07/06/17 [History] Montelukast [Singulair] 10 mg PO DAILY 07/06/17 [History] Omeprazole [PriLOSEC] 40 mg PO BID 07/06/17 [History] Oxycodone HCl/Acetaminophen [Percocet 5-325 mg Tablet] 1 each PO Q6H PRN [History] Paroxetine HCl [Paxil] 20 mg PO DAILY 07/06/17 [History] Piroxicam [Feldene] 20 mg PO DAILY 07/06/17 [History] Polyethylene Glycol 3350 [MiraLAX] 17 gm PO DAILY 07/06/17 [History] Propranolol HCl 40 mg PO BID 07/06/17 [History] Sennosides/Docusate Sodium [Senna-S Tablet] 2 each PO QAM 07/06/17 [History] Umeclidinium [place] [Incruse Ellipta] 62.5 mcg IH DAILY PRN 07/06/17 [History] 3 Allergy/AdvReac Type Severity Reaction Status Date / Time Penicillins AdvReac See Verified 07/06/17 16:50 Comments Mental Status Exam Additional observations: Patient presented as an elderly white female sitting in bed was family standing by she was alert but she was anxious and restless having difficulty breathing and could not be interviewed Condition she was slightly irritable and agitated. Results - Vital Signs Vital signs: Temp Pulse Resp BP Pulse Ox 99.3 F 89 24 156/88 97 07/13/17 12:36 07/13/17 14:00 07/13/17 14:00 07/13/17 14:00 07/13/17 14:00 - Labs Labs: Laboratory Last Values WBC 5.6 K/mcL (4.3-11.1) 07/13/17 05:21 RBC 3.55 M/mcL (3.82-4.97) L 07/13/17 05:21 Hgb 10.7 g/dL (11.5-15.4) L 07/13/17 05:21 Hct 33.6 % (35.3-44.9) L 07/13/17 05:21 MCV 94.6 fL (83.0-100.0) 07/13/17 05:21 MCH 30.1 pg (28.0-33.3) 07/13/17 05:21 MCHC 31.8 g/dL (31.6-35.5) 07/13/17 05:21 RDW 15.9 % (11.5-14.5) H 07/13/17 05:21 Plt Count 228 K/mcL (140-400) 07/13/17 05:21 MPV 9.5 fL (9.4-12.4) 07/13/17 05:21 Immature Gran % 1.1 % (0-4) 07/13/17 05:21 Seg Neutrophils % 69.4 % 07/13/17 05:21 Lymphocytes % 19.9 % 07/13/17 05:21 Monocytes % 9.0 % 07/13/17 05:21 Eosinophils % 0.2 % 07/13/17 05:21 Basophils % 0.4 % 07/13/17 05:21 Neutrophils # 3.9 K/mcL (1.6-8.9) 07/13/17 05:21 Lymphocytes # 1.1 K/mcL (0.6-4.6) 07/13/17 05:21 Monocytes # 0.5 K/mcL (0.0-1.3) 07/13/17 05:21 Eosinophils # 0.0 K/mcL (0.0-0.6) 07/13/17 05:21 Basophils # 0.0 K/mcL (0.0-0.2) 07/13/17 05:21 Immature Plt Fraction 2.7 % (1.1-6.1) 07/13/17 05:21 PT 11.4 Seconds (9.4-12.1) 07/06/17 16:20 INR 1.1 07/06/17 16:20 APTT 27.4 Seconds (26.0-36.0) 07/06/17 16:20 Sample Site L Radial 07/07/17 04:14 ABG pH 7.30 pH Units (7.32-7.45) L 07/12/17 05:11 ABG pCO2 57 mmHg (35-45) H 07/12/17 05:11 ABG pO2 79 mmHg (85-104) L 07/12/17 05:11 ABG HCO3 28 mEq/L (21-27) H 07/12/17 05:11 ABG Total CO2 30 mEq/L (20-26) H 07/12/17 05:11 ABG O2 Saturation 94 % (95-98) L 07/12/17 05:11 ABG Base Excess 1 mEq/L (-2 to 3) 07/12/17 05:11 Yves Test N/A 07/07/17 04:14 Capillary pH 7.43 pH Units (7.32-7.45) 07/08/17 08:36 Capillary pCO2 39 mmHg (41-51) L 07/08/17 08:36 Capillary pO2 67 mmHg (25-50) H 07/08/17 08:36 Capillary HCO3 26 mEq/l (21-27) 07/08/17 08:36 Capillary Total CO2 27 mEq/L 07/08/17 08:36 Capillary Base Excess 1 mEq/L 07/08/17 08:36 Capillary O2 Sat 93 % 07/08/17 08:36 Carboxyhemoglobin 5.9 % (0-5) H 07/06/17 16:20 O2 Delivery Device Cannula 07/07/17 10:05 Respiration Rate 14 07/12/17 05:11 Blood Gas Modality VC 07/12/17 05:11 Inspired O2 40.0 (1-15=lpm [id number]=%) 07/12/17 05:11 Tidal Volume 450 cc 07/12/17 05:11 PEEP 5 cm H2O 07/12/17 05:11 Sodium 142 mEq/L (136-145) 07/13/17 04:22 Potassium 3.3 mEq/L (3.5-4.5) L 07/13/17 04:22 Chloride 101 mEq/L (98-109) 07/13/17 04:22 Carbon Dioxide 25 mEq/L (19-29) 07/13/17 04:22 BUN 6 mg/dL (7-20) L 07/13/17 04:22 Creatinine 0.60 mg/dL (0.57-1.11) 07/13/17 04:22 Est GFR ( Amer) > 60 (> 60) 07/13/17 04:22 Est GFR (Non-Af Amer) > 60 (> 60) 07/13/17 04:22 BUN/Creatinine Ratio 10 (6-26) 07/13/17 04:22 Glucose 82 mg/dL (70-99) 07/13/17 04:22 POC Glucose 80 (58-89) 07/12/17 22:34 Lactic Acid 1.5 mmol/L (0.5-2.2) 07/07/17 07:52 Calculated Osmolality 291 (280-300) 07/13/17 04:22 Calcium 8.5 mg/dL (8.6-10.8) L 07/13/17 04:22 Ionized Calcium 1.10 mmol/L (1.15-1.35) L 07/13/17 06:21 Phosphorus 2.7 mg/dL (2.3-4.7) 07/13/17 06:21 Magnesium 1.1 mg/dL (1.6-2.6) L 07/13/17 06:21 Total Bilirubin 0.3 mg/dL (0.2-1.2) 07/06/17 16:20 Direct Bilirubin 0.1 mg/dL (0.0-0.5) 07/06/17 16:20 Indirect Bilirubin 0.2 mg/dL (0.0-1.2) 07/06/17 16:20 AST 48 Units/L (5-34) H 07/06/17 16:20 ALT 20 Units/L (0-55) 07/06/17 16:20 Alkaline Phosphatase 84 Units/L (38-126) 07/06/17 16:20 Ammonia 23 mcmol/L (18-72) 07/06/17 16:08 Creatine Kinase 1616 Units/L (29-168) H 07/13/17 04:22 Troponin I 0.19 ng/mL (0-0.03) H* 07/08/17 20:12 Serum Total Protein 7.5 g/dL (6.0-8.3) 07/06/17 16:20 Albumin 3.6 g/dL (3.5-5.0) 07/06/17 16:20 Globulin 3.9 g/dL (2.4-3.5) H 07/06/17 16:20 Albumin/Globulin Ratio 0.9 (1.1-2.2) L 07/06/17 16:20 Vitamin B12 577 pg/mL (213-816) 07/08/17 05:42 Folate 9.5 ng/mL (7.0-31.4) 07/08/17 05:42 TSH 0.297 mcIU/mL (0.350-4.840) L 07/06/17 16:20 Urine Color Yellow (Yellow) 07/06/17 16:24 Urine Clarity Clear (Clear) 07/06/17 16:24 Urine pH 6.0 pH Units (5.0-8.0) 07/06/17 16:24 Ur Specific [place] 1.025 (1.010-1.025) 07/06/17 16:24 Urine Protein 30 mg/dL (Neg-Trace) H 07/06/17 16:24 Urine Glucose (UA) Normal mg/dL (Normal) 07/06/17 16:24 Urine Ketones Negative mg/dL (Negative) 07/06/17 16:24 Urine Blood Trace (Negative) H 07/06/17 16:24 Urine Nitrite Negative (Negative) 07/06/17 16:24 Urine Bilirubin Negative (Negative) 07/06/17 16:24 Urine Urobilinogen Normal mg/dL (Normal) 07/06/17 16:24 Ur Leukocyte Esterase Negative (Negative) 07/06/17 16:24 Urine Microscopic RBC 3-5 per hpf (0-3) H 07/06/17 16:24 Urine Microscopic WBC 0-3 per hpf (0-3) 07/06/17 16:24 Ur Squamous Epith Cells Many per lpf (None-Few) H 07/06/17 16:24 Urine Bacteria None Seen per hpf (None-Few) 07/06/17 16:24 Hyaline Casts None Seen per lpf (None-Few) 07/06/17 16:24 Ur Culture Indicated? NO (NO) 07/06/17 16:24 Salicylates < 5.0 mg/dL (15-30) L 07/07/17 07:52 Urine Opiates Screen Negative ng/mL (Koxgdp=411) 07/06/17 16:24 Acetaminophen < 1.0 mcg/mL (10-30) L 07/07/17 07:52 Ur Barbiturates Screen Negative ng/mL (Wvuucq=259) 07/06/17 16:24 Ur Phencyclidine Scrn Negative ng/mL (Cutoff=25) 07/06/17 16:24 Ur Amphetamines Screen Negative ng/mL (Zrfurd=7820) 07/06/17 16:24 U Benzodiazepines Scrn Positive ng/mL (Kwjwql=278) H 07/06/17 16:24 Urine Cocaine Screen Negative ng/mL (Cutoff= 300) 07/06/17 16:24 U Marijuana (THC) Screen Positive ng/mL (Cutoff = 50) H 07/06/17 16:24 Ethyl Alcohol < 10 mg/dL (0-10) 07/06/17 16:20 Person Notif of Crit RESP/DAVE BLANCHARDNET 07/06/17 16:53 Blood Type A POSITIVE 07/06/17 16:20 Antibody Screen NEGATIVE 07/06/17 16:20 - Impressions Impressions Head CT 07/11/17 11:00 IMPRESSION: 1. No evidence of acute intracranial abnormality. If clinical symptomatology warrants, follow-up MRI examination with diffusion imaging may be helpful for a more complete evaluation. 2. Persistent finding of right maxillary sinus disease as described above. D/ / 07/11/2017 14:12:24 Emerson Winn MD / bcarter Interpreting Provider: Emerson Winn MD Consult Discharge Plan - Plan Referrals: Indra Soria DO [Primary Care Provider] -
[2017-07-13] MEDS: OLANZapine 5 MG TAB.RAPDIS PO SCH (17:59)
[2017-07-13] MEDS: Nystatin POWDER 30 GM BOTTLE TP SCH ×2 (18:00→20:02)
[2017-07-13] MEDS: BuPROPion SR (12 HR) 150 MG TABLET PO SCH (20:02)
[2017-07-14] MEDS: Dexmedetomidine HCl 400 MCG/100 ML MLS IVC SCH ×2 (00:38→05:24)
[2017-07-14] MEDS: Ringers Solution, Lactated 1,000 ML IVC SCH (03:06)
[2017-07-14 03:21] LABS: Basophils % 0.1 %; Eosinophils % 0.1 %; Hematocrit 33.1 % (35.3-44.9); Immature Granulocytes % 1.2 % (0-4); Lymphocytes # 1.1 K/mcL (0.6-4.6); Lymphocytes % 13.5 %; Mean Corpuscular HGB Conc 33.2 g/dL (31.6-35.5); Mean Corpuscular Volume 90.2 fL (83.0-100.0); Mean Platelet Volume 9.8 fL (9.4-12.4); Monocytes # 0.5 K/mcL (0.0-1.3); Monocytes % 6.3 %; Neutrophils # 6.6 K/mcL (1.6-8.9); Platelet Count 237 K/mcL (140-400); Red Blood Count 3.67 M/mcL (3.82-4.97); Red Cell Distribution Width 15.5 % (11.5-14.5); Segmented Neutrophils % 78.8 %
[2017-07-14 03:50] LABS: BUN/Creatinine Ratio 8 (6-26); Calcium 8.5 mg/dL (8.6-10.8); Carbon Dioxide 29 mEq/L (19-29); Chloride 96 mEq/L (98-109); Glucose 109 mg/dL (70-99); Magnesium 1.3 mg/dL (1.6-2.6); Osmolality,Calculated 282 (280-300); Potassium 2.8 mEq/L (3.5-4.5); Sodium 137 mEq/L (136-145); eGFR For African Americans > 60 (> 60); eGFR For Non-African Americans > 60 (> 60)
[2017-07-14 03:51] LABS: Blood Urea Nitrogen 5 mg/dL (7-20)
[2017-07-14] MEDS: Ipratropium/Albuterol Neb 3 ML IH SCH ×4 (04:11→23:07)
[2017-07-14] MEDS: Magnesium Sulfate 2 GM in D5% in Water 100 ML IVPB PRN (04:13)
[2017-07-14] MEDS: *HR* Metoprolol 5 MG/5 ML VIAL IVP SCH (05:01)
[2017-07-14] MEDS: *HR* Heparin 5,000 UNIT/ML VIAL SQ SCH ×2 (05:01→20:35)
--- NOTE | 2017-07-14 08:05 | Pulmonology Progress Note ---
<Fiona Cage - Last Filed: 07/14/17 08:04> Date of Encounter: 07/14/17 Time of Encounter: 08:04 Assessment and Plan (1) Acute on chronic respiratory failure with hypoxia and hypercapnia Current Visit: Yes Status: Acute -remains extubated, breathing on her own -saturating 91-93% on 15L oxymask -will continue to monitor respiratory status (2) Pulmonary edema Current Visit: Yes Status: Acute -continue to monitor while giving IV fluids for treatment of rhabdomyolysis -will use lasix as needed -improved per repeat CXR -remains clinically stable Qualifiers: Chronicity: acute Qualified Code(s): J81.0 - Acute pulmonary edema (3) Elevated troponin Current Visit: Yes Status: Acute -likely secondary to mismatch of demand and perfusion -no EKG changes concerning for ischemia -remains clinically stable (4) Acute exacerbation of chronic obstructive pulmonary disease (COPD) Current Visit: Yes Status: Acute -continue scheduled duoneb and symbicort in addition to PRN albuterol -oxygenation between 90-93% since extubation early yesterday (5) Community acquired pneumonia Current Visit: Yes Status: Acute -Afebrile this morning 99.9 and white count WNL -Flagyl and doxycycline have been stopped -Continue to monitor temperatures and WBC count Qualifiers: Laterality: unspecified laterality Qualified Code(s): J18.9 - Pneumonia, unspecified organism (6) Rhabdomyolysis Current Visit: Yes Status: Suspected -CK elevated to 1347 from 433, possibly 2/2 episode of agitation, fighting against restraints. CK improved today to 1050. -Kidney function remains good, Cr 0.55 today -Normal saline stopped and replaced with lactated ringer's 2/2 hyperchloremia -Continue following CK with morning labs -Continue IV fluids @ 100mL/h Qualifiers: Rhabdomyolysis type: non-traumatic Qualified Code(s): M62.82 - Rhabdomyolysis (7) Delirium Current Visit: Yes Status: Acute -Acute delirium superimposed on, per patient's daughter, chronic dementia -Unable to assess mental status today because patient is not easily aroused, received 2mg Haldol this morning. (8) Hypokalemia due to loss of potassium Current Visit: Yes Status: Acute -Likely related to lasix use for pulmonary edema -Potassium 3.4 today -Replacing with 10 mEq in 100 mL over 1 hour; total of 4 bags -Monitor with morning labs, will replace as necessary (9) DVT prophylaxis Current Visit: Yes Status: Acute -Continue heparin 5,000 units subQ Subjective Principal diagnosis: COPD Exacerbation, Pneumonia Interval history: Patient seen and examined this morning at bedside, receiving supplemental oxygen via oxymask and breathing without assistance. Patient is awake and agitated. She is uncooperative during ROS and exam. Objective PUL Vital signs: Last Vital Signs Temp 101.8 F H 07/14/17 07:55 Pulse 97 07/14/17 07:34 Resp 20 07/14/17 07:00 BP 152/89 07/14/17 07:00 Pulse Ox 96 07/14/17 07:00 Results - Laboratory Findings CBC and BMP: 07/14/17 03:00 07/14/17 03:00 ABG ABG pH 7.30 pH Units (7.32-7.45) L 07/12/17 05:11 ABG pCO2 57 mmHg (35-45) H 07/12/17 05:11 ABG pO2 79 mmHg (85-104) L 07/12/17 05:11 ABG O2 Saturation 94 % (95-98) L 07/12/17 05:11 PT/INR, D-dimer PT 11.4 Seconds (9.4-12.1) 07/06/17 16:20 Abnormal lab findings: Abnormal lab results RBC 3.67 M/mcL (3.82-4.97) L 07/14/17 03:00 Hgb 11.0 g/dL (11.5-15.4) L 07/14/17 03:00 Hct 33.1 % (35.3-44.9) L 07/14/17 03:00 RDW 15.5 % (11.5-14.5) H 07/14/17 03:00 ABG pH 7.30 pH Units (7.32-7.45) L 07/12/17 05:11 ABG pCO2 57 mmHg (35-45) H 07/12/17 05:11 ABG pO2 79 mmHg (85-104) L 07/12/17 05:11 ABG HCO3 28 mEq/L (21-27) H 07/12/17 05:11 ABG Total CO2 30 mEq/L (20-26) H 07/12/17 05:11 ABG O2 Saturation 94 % (95-98) L 07/12/17 05:11 Capillary pCO2 39 mmHg (41-51) L 07/08/17 08:36 Capillary pO2 67 mmHg (25-50) H 07/08/17 08:36 Carboxyhemoglobin 5.9 % (0-5) H 07/06/17 16:20 Potassium 2.8 mEq/L (3.5-4.5) L 07/14/17 03:00 Chloride 96 mEq/L (98-109) L 07/14/17 03:00 BUN 5 mg/dL (7-20) L 07/14/17 03:00 Glucose 109 mg/dL (70-99) H 07/14/17 03:00 Calcium 8.5 mg/dL (8.6-10.8) L 07/14/17 03:00 Ionized Calcium 1.10 mmol/L (1.15-1.35) L 07/13/17 06:21 Magnesium 1.3 mg/dL (1.6-2.6) L 07/14/17 03:00 AST 48 Units/L (5-34) H 07/06/17 16:20 Creatine Kinase 1616 Units/L (29-168) H 07/13/17 04:22 Troponin I 0.19 ng/mL (0-0.03) H* 07/08/17 20:12 Globulin 3.9 g/dL (2.4-3.5) H 07/06/17 16:20 Albumin/Globulin Ratio 0.9 (1.1-2.2) L 07/06/17 16:20 TSH 0.297 mcIU/mL (0.350-4.840) L 07/06/17 16:20 Urine Protein 30 mg/dL (Neg-Trace) H 07/06/17 16:24 Urine Blood Trace (Negative) H 07/06/17 16:24 Urine Microscopic RBC 3-5 per hpf (0-3) H 07/06/17 16:24 Ur Squamous Epith Cells Many per lpf (None-Few) H 07/06/17 16:24 Salicylates < 5.0 mg/dL (15-30) L 07/07/17 07:52 Acetaminophen < 1.0 mcg/mL (10-30) L 07/07/17 07:52 U Benzodiazepines Scrn Positive ng/mL (Dhpgjn=833) H 07/06/17 16:24 U Marijuana (THC) Screen Positive ng/mL (Cutoff = 50) H 07/06/17 16:24 - Clinical Findings Intake & Output: Intake & Output 07/13/17 07/14/17 07/14/17 23:59 07:59 15:59 Intake Total 1240 / 1240 1668 / 1668 Output Total 1500 / 1500 1550 / 1550 Balance -260 / -260 118 / 118 Weight 77.8 kg Consult Discharge Plan - Plan Referrals: Indra Soria DO [Primary Care Provider] - <Petra Perez - Last Filed: 07/14/17 10:22> Date of Encounter: 07/14/17 Objective PUL Vital signs: Last Vital Signs Temp 101.8 F H 07/14/17 07:55 Pulse 96 07/14/17 10:00 Resp 20 07/14/17 10:03 BP 169/91 07/14/17 10:00 Pulse Ox 90 07/14/17 10:03 Results - Laboratory Findings CBC and BMP: 07/14/17 03:00 07/14/17 03:00 ABG ABG pH 7.30 pH Units (7.32-7.45) L 07/12/17 05:11 ABG pCO2 57 mmHg (35-45) H 07/12/17 05:11 ABG pO2 79 mmHg (85-104) L 07/12/17 05:11 ABG O2 Saturation 94 % (95-98) L 07/12/17 05:11 PT/INR, D-dimer PT 11.4 Seconds (9.4-12.1) 07/06/17 16:20 Abnormal lab findings: Abnormal lab results RBC 3.67 M/mcL (3.82-4.97) L 07/14/17 03:00 Hgb 11.0 g/dL (11.5-15.4) L 07/14/17 03:00 Hct 33.1 % (35.3-44.9) L 07/14/17 03:00 RDW 15.5 % (11.5-14.5) H 07/14/17 03:00 ABG pH 7.30 pH Units (7.32-7.45) L 07/12/17 05:11 ABG pCO2 57 mmHg (35-45) H 07/12/17 05:11 ABG pO2 79 mmHg (85-104) L 07/12/17 05:11 ABG HCO3 28 mEq/L (21-27) H 07/12/17 05:11 ABG Total CO2 30 mEq/L (20-26) H 07/12/17 05:11 ABG O2 Saturation 94 % (95-98) L 07/12/17 05:11 Capillary pCO2 39 mmHg (41-51) L 07/08/17 08:36 Capillary pO2 67 mmHg (25-50) H 07/08/17 08:36 Carboxyhemoglobin 5.9 % (0-5) H 07/06/17 16:20 Potassium 2.8 mEq/L (3.5-4.5) L 07/14/17 03:00 Chloride 96 mEq/L (98-109) L 07/14/17 03:00 BUN 5 mg/dL (7-20) L 07/14/17 03:00 Glucose 109 mg/dL (70-99) H 07/14/17 03:00 Calcium 8.5 mg/dL (8.6-10.8) L 07/14/17 03:00 Ionized Calcium 1.10 mmol/L (1.15-1.35) L 07/13/17 06:21 Magnesium 1.3 mg/dL (1.6-2.6) L 07/14/17 03:00 AST 48 Units/L (5-34) H 07/06/17 16:20 Creatine Kinase 1616 Units/L (29-168) H 07/13/17 04:22 Troponin I 0.19 ng/mL (0-0.03) H* 07/08/17 20:12 Globulin 3.9 g/dL (2.4-3.5) H 07/06/17 16:20 Albumin/Globulin Ratio 0.9 (1.1-2.2) L 07/06/17 16:20 TSH 0.297 mcIU/mL (0.350-4.840) L 07/06/17 16:20 Urine Protein 30 mg/dL (Neg-Trace) H 07/06/17 16:24 Urine Blood Trace (Negative) H 07/06/17 16:24 Urine Microscopic RBC 3-5 per hpf (0-3) H 07/06/17 16:24 Ur Squamous Epith Cells Many per lpf (None-Few) H 07/06/17 16:24 Salicylates < 5.0 mg/dL (15-30) L 07/07/17 07:52 Acetaminophen < 1.0 mcg/mL (10-30) L 07/07/17 07:52 U Benzodiazepines Scrn Positive ng/mL (Vfcwwa=191) H 07/06/17 16:24 U Marijuana (THC) Screen Positive ng/mL (Cutoff = 50) H 07/06/17 16:24 - Clinical Findings Intake & Output: Intake & Output 07/13/17 07/14/17 07/14/17 23:59 07:59 15:59 Intake Total 1240 / 1240 1768 / 1768 100 / 100 Output Total 1500 / 1500 1550 / 1550 Balance -260 / -260 218 / 218 100 / 100 Weight 77.8 kg - Attending Attestation I examined this patient and my medical decision-making was reviewed with the Resident Physician. I agree with the documented findings, disposition and treatment plan as described except to the extent set forth below. Patient seen and examined. Labs, radiology, chart personally reviewed. 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 Plan to transfer out of ICU.
[2017-07-14] MEDS: Acetaminophen 325 MG TABLET PO PRN (08:21)
[2017-07-14] MEDS: BuPROPion SR (12 HR) 150 MG TABLET PO SCH ×2 (08:21→21:11)
[2017-07-14] MEDS: Sennosides/Docusate Sodium TABLET PO SCH ×2 (08:21→21:12)
[2017-07-14] MEDS: Aspirin 81 MG TAB.CHEW PO SCH (08:21)
[2017-07-14] MEDS: Nystatin POWDER 30 GM BOTTLE TP SCH ×3 (08:22→22:30)
[2017-07-14] MEDS: Nystatin SUSP 5 ML UD.LIQ PO SCH ×4 (08:22→21:12)
[2017-07-14] MEDS: Nicotine 21 MG PATCH.TD24 TD SCH (08:22)
[2017-07-14] MEDS: Budesonide/Formoterol 160/4.5 MDI IH SCH ×2 (10:03→23:07)
[2017-07-14] MEDS ORDERED: D5% in Water 1,000 ML IVC PRN (10:58)
[2017-07-14] MEDS ORDERED: Naloxone 0.4 MG/ML INJ IVP PRN (10:58)
[2017-07-14] MEDS ORDERED: Acetaminophen 325 MG TABLET PO PRN (10:58)
[2017-07-14] MEDS ORDERED: *HR* Dextrose 50 % in Water (Syg) 50 ML SYRINGE IVP PRN (10:58)
[2017-07-14] MEDS ORDERED: Dextrose Gel 15 GM PO PRN ×2 (10:58)
[2017-07-14] MEDS ORDERED: Magnesium Sulfate 2 GM in D5% in Water 100 ML IVPB ONE (11:15)
[2017-07-14] MEDS ORDERED: *HR* OxyCODONE/APAP 5/325 TABLET PO PRN (11:19)
[2017-07-14] MEDS: Potassium Chloride Elixir 20 MEQ/15 ML UDC PO SCH ×2 (12:08→21:12)
[2017-07-14] MEDS: Gabapentin 300 MG CAPSULE PO SCH ×2 (15:50→21:12)
[2017-07-14] MEDS: OLANZapine 5 MG TAB.RAPDIS PO SCH (20:35)
[2017-07-15] MEDS: Ipratropium/Albuterol Neb 3 ML IH SCH ×4 (03:57→22:33)
[2017-07-15 04:42] LABS: Basophils % 0.2 %; Hematocrit 33.3 % (35.3-44.9); Hemoglobin 10.9 g/dL (11.5-15.4); Immature Granulocytes % 1.1 % (0-4); Lymphocytes # 0.8 K/mcL (0.6-4.6); Lymphocytes % 9.1 %; Mean Corpuscular HGB Conc 32.7 g/dL (31.6-35.5); Mean Corpuscular Hemoglobin 29.9 pg (28.0-33.3); Mean Corpuscular Volume 91.5 fL (83.0-100.0); Monocytes # 0.3 K/mcL (0.0-1.3); Monocytes % 3.5 %; Neutrophils # 7.7 K/mcL (1.6-8.9); Platelet Count 261 K/mcL (140-400); Red Blood Count 3.64 M/mcL (3.82-4.97); Red Cell Distribution Width 15.8 % (11.5-14.5); Segmented Neutrophils % 86.1 %
[2017-07-15 04:58] LABS: BUN/Creatinine Ratio 13 (6-26); Blood Urea Nitrogen 9 mg/dL (7-20); Calcium 8.2 mg/dL (8.6-10.8); Carbon Dioxide 33 mEq/L (19-29); Chloride 101 mEq/L (98-109); Glucose 128 mg/dL (70-99); Magnesium 2.2 mg/dL (1.6-2.6); Osmolality,Calculated 292 (280-300); Sodium 141 mEq/L (136-145); eGFR For African Americans > 60 (> 60); eGFR For Non-African Americans > 60 (> 60)
[2017-07-15] MEDS: *HR* Heparin 5,000 UNIT/ML VIAL SQ SCH ×2 (05:55→17:51)
[2017-07-15] MEDS: Gabapentin 300 MG CAPSULE PO SCH ×3 (08:38→21:34)
[2017-07-15] MEDS: BuPROPion SR (12 HR) 150 MG TABLET PO SCH ×2 (08:38→21:35)
[2017-07-15] MEDS: Sennosides/Docusate Sodium TABLET PO SCH ×2 (08:39→21:35)
[2017-07-15] MEDS: Potassium Chloride Elixir 20 MEQ/15 ML UDC PO SCH ×2 (08:39→21:35)
[2017-07-15] MEDS: Nicotine 21 MG PATCH.TD24 TD SCH ×2 (08:39→08:47)
[2017-07-15] MEDS: Nystatin SUSP 5 ML UD.LIQ PO SCH ×4 (08:39→21:34)
[2017-07-15] MEDS: Aspirin 81 MG TAB.CHEW PO SCH (08:39)
[2017-07-15] MEDS: Nystatin POWDER 30 GM BOTTLE TP SCH ×3 (08:41→21:35)
[2017-07-15] MEDS: Budesonide/Formoterol 160/4.5 MDI IH SCH ×2 (09:47→22:33)
[2017-07-15] MEDS: Multivit/Ca/Min/Fe/FA 1 TAB TABLET PO SCH (14:13)
[2017-07-15] MEDS: OLANZapine 5 MG TAB.RAPDIS PO SCH (17:51)
[2017-07-15] MEDS: *HR* OxyCODONE/APAP 5/325 TABLET PO PRN (21:47)
[2017-07-16] MEDS: Ipratropium/Albuterol Neb 3 ML IH SCH ×4 (04:40→22:45)
[2017-07-16 05:07] LABS: Basophils % 0.3 %; Eosinophils # 0.1 K/mcL (0.0-0.6); Eosinophils % 0.6 %; Hematocrit 33.1 % (35.3-44.9); Hemoglobin 10.5 g/dL (11.5-15.4); Lymphocytes # 1.4 K/mcL (0.6-4.6); Lymphocytes % 16.2 %; Mean Corpuscular HGB Conc 31.7 g/dL (31.6-35.5); Mean Corpuscular Hemoglobin 29.7 pg (28.0-33.3); Mean Corpuscular Volume 93.8 fL (83.0-100.0); Mean Platelet Volume 10.3 fL (9.4-12.4); Monocytes # 0.5 K/mcL (0.0-1.3); Monocytes % 6.1 %; Neutrophils # 6.7 K/mcL (1.6-8.9); Platelet Count 302 K/mcL (140-400); Red Blood Count 3.53 M/mcL (3.82-4.97); Segmented Neutrophils % 75.8 %
[2017-07-16 05:32] LABS: BUN/Creatinine Ratio 14 (6-26); Blood Urea Nitrogen 10 mg/dL (7-20); Calcium 8.5 mg/dL (8.6-10.8); Carbon Dioxide 28 mEq/L (19-29); Chloride 101 mEq/L (98-109); Glucose 108 mg/dL (70-99); Osmolality,Calculated 288 (280-300); Potassium 3.8 mEq/L (3.5-4.5); Sodium 139 mEq/L (136-145); eGFR For African Americans > 60 (> 60); eGFR For Non-African Americans > 60 (> 60)
[2017-07-16] MEDS: *HR* Heparin 5,000 UNIT/ML VIAL SQ SCH ×2 (06:04→18:33)
[2017-07-16] MEDS: Gabapentin 300 MG CAPSULE PO SCH ×3 (07:56→20:07)
[2017-07-16] MEDS: Aspirin 81 MG TAB.CHEW PO SCH (07:56)
[2017-07-16] MEDS: BuPROPion SR (12 HR) 150 MG TABLET PO SCH ×2 (07:57→20:07)
[2017-07-16] MEDS: Multivit/Ca/Min/Fe/FA 1 TAB TABLET PO SCH (07:57)
[2017-07-16] MEDS: Potassium Chloride Elixir 20 MEQ/15 ML UDC PO SCH (07:58)
[2017-07-16] MEDS: Sennosides/Docusate Sodium TABLET PO SCH ×2 (07:58→20:07)
[2017-07-16] MEDS: Nystatin SUSP 5 ML UD.LIQ PO SCH ×4 (10:04→20:06)
[2017-07-16] MEDS: Nystatin POWDER 30 GM BOTTLE TP SCH ×3 (10:30→20:15)
[2017-07-16] MEDS: Budesonide/Formoterol 160/4.5 MDI IH SCH ×2 (10:53→22:45)
[2017-07-16] MEDS: Nicotine 21 MG PATCH.TD24 TD SCH (11:29)
[2017-07-16] MEDS: OLANZapine 5 MG TAB.RAPDIS PO SCH (18:33)
[2017-07-17] MEDS ORDERED: Ibuprofen 400 MG TABLET PO ONE (01:34)
[2017-07-17] MEDS: Ipratropium/Albuterol Neb 3 ML IH SCH ×4 (03:58→21:38)
[2017-07-17 04:28] LABS: Basophils % 0.5 %; Eosinophils % 0.4 %; Hematocrit 31.1 % (35.3-44.9); Hemoglobin 9.8 g/dL (11.5-15.4); Immature Granulocytes % 0.7 % (0-4); Lymphocytes # 1.6 K/mcL (0.6-4.6); Lymphocytes % 20.5 %; Mean Corpuscular HGB Conc 31.5 g/dL (31.6-35.5); Mean Corpuscular Volume 95.1 fL (83.0-100.0); Mean Platelet Volume 10.4 fL (9.4-12.4); Monocytes # 0.6 K/mcL (0.0-1.3); Monocytes % 7.7 %; Neutrophils # 5.3 K/mcL (1.6-8.9); Platelet Count 307 K/mcL (140-400); Red Blood Count 3.27 M/mcL (3.82-4.97); Red Cell Distribution Width 16.1 % (11.5-14.5); Segmented Neutrophils % 70.2 %
[2017-07-17 04:43] LABS: Blood Urea Nitrogen 10 mg/dL (7-20); Carbon Dioxide 30 mEq/L (19-29); Chloride 104 mEq/L (98-109); Sodium 141 mEq/L (136-145)
[2017-07-17 04:44] LABS: BUN/Creatinine Ratio 13 (6-26); Calcium 8.4 mg/dL (8.6-10.8); Glucose 111 mg/dL (70-99); Magnesium 1.7 mg/dL (1.6-2.6); Osmolality,Calculated 292 (280-300); eGFR For African Americans > 60 (> 60); eGFR For Non-African Americans > 60 (> 60)
[2017-07-17] MEDS: *HR* Heparin 5,000 UNIT/ML VIAL SQ SCH ×2 (05:45→18:39)
[2017-07-17] MEDS: Aspirin 81 MG TAB.CHEW PO SCH (09:08)
[2017-07-17] MEDS: Gabapentin 300 MG CAPSULE PO SCH ×3 (09:09→21:07)
[2017-07-17] MEDS: Nystatin SUSP 5 ML UD.LIQ PO SCH ×4 (09:09→21:06)
[2017-07-17] MEDS: Nicotine 21 MG PATCH.TD24 TD SCH (09:10)
[2017-07-17] MEDS: Nystatin POWDER 30 GM BOTTLE TP SCH ×3 (09:10→21:07)
[2017-07-17] MEDS: BuPROPion SR (12 HR) 150 MG TABLET PO SCH ×2 (09:11→21:08)
[2017-07-17] MEDS: Multivit/Ca/Min/Fe/FA 1 TAB TABLET PO SCH (09:11)
[2017-07-17] MEDS: Sennosides/Docusate Sodium TABLET PO SCH ×2 (09:11→21:06)
--- NOTE | 2017-07-17 09:12 | Internal Med Progress Note ---
Date of Encounter: 07/15/17 Time of Encounter: 09:06 - Assessment and plan (1) Acute respiratory failure with hypoxia Current Visit: Yes Status: Acute Assessment and plan: Continue Duo nebs, supportive care, o2 (2) Community acquired pneumonia Current Visit: Yes Status: Acute Assessment and plan: abx course completed in ICU Qualifiers: Laterality: unspecified laterality Qualified Code(s): J18.9 - Pneumonia, unspecified organism (3) Acute exacerbation of chronic obstructive pulmonary disease (COPD) Current Visit: Yes Status: Acute - Subjective Interval history: Patient feels good, no complaints - Constitutional Vitals: Temp Pulse Resp BP Pulse Ox 98.2 F 87 18 127/79 89 07/17/17 07:17 07/17/17 07:17 07/17/17 07:17 07/17/17 07:17 07/17/17 07:17 Exam: Gen: appears older than stated age, nad, pleasant cvs; rrr lungs; course breath sounds abd;: nt/nd Ext: no edema Internal Medicine: Result - Labs CBC & Chem 7: 07/17/17 03:53 07/17/17 03:53 Labs: Short CBC 07/17/17 Range/Units 03:53 WBC 7.6 (4.3-11.1) K/mcL Hgb 9.8 L (11.5-15.4) g/dL Hct 31.1 L (35.3-44.9) % Plt Count 307 (140-400) K/mcL Neutrophils # 5.3 (1.6-8.9) K/mcL BMP 07/17/17 03:53 Sodium 141 Potassium 4.0 Chloride 104 Carbon Dioxide 30 H BUN 10 Creatinine 0.76 Glucose 111 H Calcium 8.4 L - ABG Interpretation ABG results: ABG ABG pH 7.30 pH Units (7.32-7.45) L 07/12/17 05:11 ABG pCO2 57 mmHg (35-45) H 07/12/17 05:11 ABG pO2 79 mmHg (85-104) L 07/12/17 05:11 ABG O2 Saturation 94 % (95-98) L 07/12/17 05:11 PT/INR, D-dimer PT 11.4 Seconds (9.4-12.1) 07/06/17 16:20 - Impressions Impressions Chest X-Ray 07/16/17 12:09 IMPRESSION: Findings suggesting mild pulmonary edema. D/ / Wesley Hanna MD / Wesley Hanna MD Interpreting Provider: Wesley Hanna MD Consult Discharge Plan - Plan Referrals: Indra Soria DO [Primary Care Provider] -
--- NOTE | 2017-07-17 09:17 | Internal Med Progress Note ---
Date of Encounter: 07/16/17 Time of Encounter: 09:15 - Assessment and plan (1) Acute respiratory failure with hypoxia Current Visit: Yes Status: Acute Assessment and plan: Acute phase improved. She is developing some course breath sounds. Must prevent any fluid overload - Get r/p chest x-ray - change to cardiac diet (2) Community acquired pneumonia Current Visit: Yes Status: Acute Assessment and plan: abx course completed in ICU Qualifiers: Laterality: unspecified laterality Qualified Code(s): J18.9 - Pneumonia, unspecified organism (3) Acute exacerbation of chronic obstructive pulmonary disease (COPD) Current Visit: Yes Status: Acute - Subjective Interval history: Patient feels good, no complaints. Nursing reports she can be drowsy at times. Patient states because of poor sleep. - Constitutional Vitals: Temp Pulse Resp BP Pulse Ox 98.2 F 87 18 127/79 89 07/17/17 07:17 07/17/17 07:17 07/17/17 07:17 07/17/17 07:17 07/17/17 07:17 Exam: Gen: NAD, AAOx3 Lungs: course breath sounds, good air echange, scattered fine rales CVS: RRR ext: no edema Internal Medicine: Result - Labs CBC & Chem 7: 07/17/17 03:53 07/17/17 03:53 Labs: Short CBC 07/17/17 Range/Units 03:53 WBC 7.6 (4.3-11.1) K/mcL Hgb 9.8 L (11.5-15.4) g/dL Hct 31.1 L (35.3-44.9) % Plt Count 307 (140-400) K/mcL Neutrophils # 5.3 (1.6-8.9) K/mcL BMP 07/17/17 03:53 Sodium 141 Potassium 4.0 Chloride 104 Carbon Dioxide 30 H BUN 10 Creatinine 0.76 Glucose 111 H Calcium 8.4 L - ABG Interpretation ABG results: ABG ABG pH 7.30 pH Units (7.32-7.45) L 07/12/17 05:11 ABG pCO2 57 mmHg (35-45) H 07/12/17 05:11 ABG pO2 79 mmHg (85-104) L 07/12/17 05:11 ABG O2 Saturation 94 % (95-98) L 07/12/17 05:11 PT/INR, D-dimer PT 11.4 Seconds (9.4-12.1) 07/06/17 16:20 - Impressions Impressions Chest X-Ray 07/16/17 12:09 IMPRESSION: Findings suggesting mild pulmonary edema. D/ / Wesley Hanna MD / Wesley Hanna MD Interpreting Provider: Wesley Hanna MD Consult Discharge Plan - Plan Referrals: Indra Soria DO [Primary Care Provider] -
[2017-07-17] MEDS: Budesonide/Formoterol 160/4.5 MDI IH SCH ×2 (10:46→21:39)
[2017-07-17] MEDS: *HR* OxyCODONE/APAP 5/325 TABLET PO PRN ×2 (11:05→18:39)
[2017-07-17] MEDS: OLANZapine 5 MG TAB.RAPDIS PO SCH (18:40)
[2017-07-18] MEDS: Ipratropium/Albuterol Neb 3 ML IH SCH ×2 (04:11→10:35)
--- NOTE | 2017-07-18 04:47 | Event Note ---
Date of Encounter: 07/18/17 Time of Encounter: 04:30 Informed by nursing staff that patient fell in the bathroom. Patient says she felt weak and fell down. Denies any head or other injury. No LOC, no s/s of seizure disorder. I examined patient and did not find any acute signs of injury. To be prudent will order CXR and CT head and will follow up these results.
[2017-07-18] MEDS: *HR* Heparin 5,000 UNIT/ML VIAL SQ SCH ×2 (05:39→18:00)
--- NOTE | 2017-07-18 05:58 | Internal Med Progress Note ---
Date of Encounter: 07/17/17 Time of Encounter: 11:30 - Assessment and plan (1) Acute respiratory failure with hypoxia Current Visit: Yes Status: Acute Assessment and plan: Resolved. Back at baseline. She does tend to appear to have apnea episodes while observing patient sleeping. I informed her of this and she is willing to do an autopap study tonight. She had documented fever overnight. Was treated in ICU for CAP and finished course. Will do micro workup and rule out infection. May need emperic abx therapy PT/OT follow-up for weakness. (2) Community acquired pneumonia Current Visit: Yes Status: Acute Assessment and plan: abx course completed in ICU Qualifiers: Laterality: unspecified laterality Qualified Code(s): J18.9 - Pneumonia, unspecified organism (3) Acute exacerbation of chronic obstructive pulmonary disease (COPD) Current Visit: Yes Status: Acute - Subjective Interval history: Patient feels good, no complaints. Patient having delusional thoughts. States her oxygen equipment technician is outside and threatening to keep her here for a week. There is no oxygen equipment technician who is seeing her in the hospital. Documented fever overnight. - Constitutional Vitals: Temp Pulse Resp BP Pulse Ox 99.4 F 97 24 129/85 88 07/18/17 03:28 07/18/17 03:28 07/18/17 04:12 07/18/17 03:28 07/18/17 04:12 Exam: Gen: NAD, AAOx2 CVS: RRR Lungs: course breath sounds, fine rales at bases, no wheezing Ext: no edema. Internal Medicine: Result - Labs CBC & Chem 7: 07/17/17 03:53 07/17/17 03:53 - ABG Interpretation ABG results: ABG ABG pH 7.30 pH Units (7.32-7.45) L 07/12/17 05:11 ABG pCO2 57 mmHg (35-45) H 07/12/17 05:11 ABG pO2 79 mmHg (85-104) L 07/12/17 05:11 ABG O2 Saturation 94 % (95-98) L 07/12/17 05:11 PT/INR, D-dimer PT 11.4 Seconds (9.4-12.1) 07/06/17 16:20 Consult Discharge Plan - Plan Referrals: Indra Soria DO [Primary Care Provider] -
[2017-07-18] MEDS: *HR* OxyCODONE/APAP 5/325 TABLET PO PRN ×3 (06:12→20:35)
[2017-07-18 06:27] LABS: Basophils % 0.4 %; Eosinophils % 0.3 %; Hematocrit 28.6 % (35.3-44.9); Hemoglobin 9.1 g/dL (11.5-15.4); Lymphocytes # 0.9 K/mcL (0.6-4.6); Lymphocytes % 12.1 %; Mean Corpuscular HGB Conc 31.8 g/dL (31.6-35.5); Mean Corpuscular Volume 94.4 fL (83.0-100.0); Mean Platelet Volume 10.3 fL (9.4-12.4); Monocytes # 0.5 K/mcL (0.0-1.3); Monocytes % 6.6 %; Neutrophils # 5.8 K/mcL (1.6-8.9); Platelet Count 347 K/mcL (140-400); Red Blood Count 3.03 M/mcL (3.82-4.97); Red Cell Distribution Width 15.9 % (11.5-14.5); Segmented Neutrophils % 79.6 %
[2017-07-18 06:39] LABS: BUN/Creatinine Ratio 11 (6-26); Blood Urea Nitrogen 7 mg/dL (7-20); Calcium 8.2 mg/dL (8.6-10.8); Carbon Dioxide 31 mEq/L (19-29); Chloride 102 mEq/L (98-109); Glucose 103 mg/dL (70-99); Osmolality,Calculated 290 (280-300); Potassium 3.9 mEq/L (3.5-4.5); Sodium 141 mEq/L (136-145); eGFR For African Americans > 60 (> 60); eGFR For Non-African Americans > 60 (> 60)
[2017-07-18] MEDS: Multivit/Ca/Min/Fe/FA 1 TAB TABLET PO SCH (08:32)
[2017-07-18] MEDS: Aspirin 81 MG TAB.CHEW PO SCH (08:32)
[2017-07-18] MEDS: Sennosides/Docusate Sodium TABLET PO SCH ×2 (08:32→20:35)
[2017-07-18] MEDS: Gabapentin 300 MG CAPSULE PO SCH ×3 (08:32→20:35)
[2017-07-18] MEDS: BuPROPion SR (12 HR) 150 MG TABLET PO SCH ×2 (08:33→20:35)
[2017-07-18] MEDS: Nicotine 21 MG PATCH.TD24 TD SCH (08:34)
[2017-07-18] MEDS: Nystatin POWDER 30 GM BOTTLE TP SCH ×3 (08:34→20:37)
[2017-07-18] MEDS: Nystatin SUSP 5 ML UD.LIQ PO SCH (08:34)
[2017-07-18] MEDS: Budesonide/Formoterol 160/4.5 MDI IH SCH ×2 (10:32→20:52)
[2017-07-18] MEDS ORDERED: Ipratropium/Albuterol Neb 3 ML IH PRN (12:32)
[2017-07-18] MEDS: Furosemide 40 MG/4 ML VIAL IVP SCH (13:28)
[2017-07-18 13:52] LABS: Bilirubin,Urine Negative (Negative); Blood,Urine Negative (Negative); Clarity,Urine Clear (Clear); Color,Urine Dark Yellow (Yellow); Glucose,Urine (UA) Normal (Normal); Ketones,Urine Negative (Negative); Leukocyte Esterase,Urine Negative (Negative); Nitrite,Urine Negative (Negative); PH,Urine 7.5 pH Units (5.0-8.0); Protein,Urine Trace mg/dL (Neg-Trace); Urobilinogen,Urine Normal (Normal)
[2017-07-18 13:54] LABS: Hyaline Casts,Urine None Seen per lpf (None-Few); RBC,Urine 0-3 per hpf (0-3); Squamous Epithelial Cell,Urine Many per lpf (None-Few); WBC,Urine 0-3 per hpf (0-3)
[2017-07-18 14:13] LABS: Bacteria,Urine Few per hpf (None-Few)
--- NOTE | 2017-07-18 15:27 | Internal Med Progress Note ---
Date of Encounter: 07/18/17 Time of Encounter: 09:10 - Assessment and plan (1) Acute respiratory failure with hypoxia Current Visit: Yes Status: Acute Assessment and plan: On 4 L O2 supplementation via nasal cannula. Continue to treat underlying causes including COPD and pulmonary edema. Moderate risk for complications. Wean FiO2 as tolerated. (2) Pulmonary edema Current Visit: Yes Status: Acute Assessment and plan: Chest x-ray shows features S2 with pulmonary edema. 2-D echocardiogram done during this admission shows an EF of 65%. BNP is elevated. We will treat with intravenous Lasix. Qualifiers: Chronicity: acute Qualified Code(s): J81.0 - Acute pulmonary edema (3) Acute exacerbation of chronic obstructive pulmonary disease (COPD) Current Visit: Yes Status: Acute Assessment and plan: continue bronchodilators. We will transition to as needed use. (4) Community acquired pneumonia Current Visit: Yes Status: Resolved Assessment and plan: Patient has completed antibiotic course. Chest x-ray does not show any new infiltrates. Qualifiers: Laterality: unspecified laterality Qualified Code(s): J18.9 - Pneumonia, unspecified organism (5) Rectal prolapse Current Visit: Yes Status: Acute Assessment and plan: Will arrange for outpatient follow-up with surgery - Subjective Interval history: Patient is awake and alert. Denies any complaints at this time. No shortness of breath. No chest pain. No palpitations. No fever or chills reported overnight. Patient did have a fall last night. It appears to have been a mechanical fall but patient did feel weak and fell in the bathroom. No injuries were identified. She underwent chest x-ray and CT scan of the head. Denies any dizziness at this time. No other complaints reported at this time. - Constitutional Vitals: Temp Pulse Resp BP Pulse Ox 98.0 F 78 18 100/66 91 07/18/17 14:58 07/18/17 14:58 07/18/17 14:58 07/18/17 14:58 07/18/17 14:58 General appearance: Present: cooperative, A&O X 3, answers questions appropriately - Neck Neck exam general surgery: Present: supple, trachea midline. Absent: lymphadenopathy - Respiratory Respiratory exam: Present: prolonged expiratory phase. Absent: accessory muscle use, rales, rhonchi, wheezes - Cardiovascular Cardiovascular exam: Present: RRR, +S1, +S2. Absent: diastolic murmur, gallop, rubs, systolic murmur - GI/Abdominal GI/Abdominal exam: Present: normal bowel sounds, soft, no peritoneal signs. Absent: distended, tenderness - Extremities Exam Extremities exam: Present: warm, radial pulses palpable and symmetrical. Absent : calf tenderness, cyanotic, pedal edema - Neurological Exam Neurological exam: Present: CN II-XII intact, oriented X3, no focal deficits. Absent: facial droop, speech deficit - Skin Skin exam: Present: dry, intact Internal Medicine: Result - Labs CBC & Chem 7: 07/18/17 05:48 07/18/17 05:48 Labs: Short CBC 07/18/17 Range/Units 05:48 WBC 7.3 (4.3-11.1) K/mcL Hgb 9.1 L (11.5-15.4) g/dL Hct 28.6 L (35.3-44.9) % Plt Count 347 (140-400) K/mcL Neutrophils # 5.8 (1.6-8.9) K/mcL BMP 07/18/17 05:48 Sodium 141 Potassium 3.9 Chloride 102 Carbon Dioxide 31 H BUN 7 Creatinine 0.63 Glucose 103 H Calcium 8.2 L Urine 07/17/17 Range/Units 13:45 Urine Color Dark Yellow (Yellow) Urine Clarity Clear (Clear) Urine pH 7.5 (5.0-8.0) pH Units Ur Specific [place] 1.020 (1.010-1.025) Urine Protein Trace (Neg-Trace) mg/dL Urine Glucose (UA) Normal (Normal) mg/dL - ABG Interpretation ABG results: ABG ABG pH 7.30 pH Units (7.32-7.45) L 07/12/17 05:11 ABG pCO2 57 mmHg (35-45) H 07/12/17 05:11 ABG pO2 79 mmHg (85-104) L 07/12/17 05:11 ABG O2 Saturation 94 % (95-98) L 07/12/17 05:11 PT/INR, D-dimer PT 11.4 Seconds (9.4-12.1) 07/06/17 16:20 - Impressions Impressions Chest X-Ray 07/18/17 04:46 IMPRESSION: 1. No acute traumatic abnormality. 2. Progressive bilateral airspace disease, likely pulmonary edema. D/ / Edwin Boyd MD / Edwin Boyd MD Interpreting Provider: Edwin Boyd MD Head CT 07/18/17 04:46 IMPRESSION: No acute intracranial abnormality. D/ / Edwin Boyd MD / Edwin Boyd MD Interpreting Provider: Edwin Boyd MD Consult Discharge Plan - Plan Referrals: Indra Soria DO [Primary Care Provider] -
[2017-07-18] MEDS: OLANZapine 5 MG TAB.RAPDIS PO SCH (18:00)
[2017-07-19] MEDS: *HR* OxyCODONE/APAP 5/325 TABLET PO PRN ×2 (03:46→10:22)
[2017-07-19 05:51] LABS: Basophils # 0.1 K/mcL (0.0-0.2); Basophils % 0.8 %; Eosinophils % 0.3 %; Hematocrit 31.5 % (35.3-44.9); Hemoglobin 9.9 g/dL (11.5-15.4); Immature Granulocytes % 0.9 % (0-4); Immature Platelets 6.6 % (1.1-6.1); Lymphocytes # 1.4 K/mcL (0.6-4.6); Lymphocytes % 18.1 %; Mean Corpuscular HGB Conc 31.4 g/dL (31.6-35.5); Mean Corpuscular Volume 95.5 fL (83.0-100.0); Mean Platelet Volume 10.6 fL (9.4-12.4); Monocytes # 0.7 K/mcL (0.0-1.3); Monocytes % 9.6 %; Neutrophils # 5.3 K/mcL (1.6-8.9); Platelet Count 429 K/mcL (140-400); Red Cell Distribution Width 15.8 % (11.5-14.5); Segmented Neutrophils % 70.3 %
[2017-07-19 06:05] LABS: BUN/Creatinine Ratio 12 (6-26); Blood Urea Nitrogen 9 mg/dL (7-20); Calcium 8.8 mg/dL (8.6-10.8); Carbon Dioxide 30 mEq/L (19-29); Chloride 101 mEq/L (98-109); Glucose 105 mg/dL (70-99); Osmolality,Calculated 291 (280-300); Potassium 4.1 mEq/L (3.5-4.5); Sodium 141 mEq/L (136-145); eGFR For African Americans > 60 (> 60); eGFR For Non-African Americans > 60 (> 60)
[2017-07-19] MEDS: *HR* Heparin 5,000 UNIT/ML VIAL SQ SCH ×2 (06:12→18:19)
[2017-07-19] MEDS: Budesonide/Formoterol 160/4.5 MDI IH SCH (08:12)
[2017-07-19] MEDS: Furosemide 40 MG/4 ML VIAL IVP SCH (10:21)
[2017-07-19] MEDS: Aspirin 81 MG TAB.CHEW PO SCH (10:22)
[2017-07-19] MEDS: Nicotine 21 MG PATCH.TD24 TD SCH (10:22)
[2017-07-19] MEDS: Gabapentin 300 MG CAPSULE PO SCH ×2 (10:23→16:23)
[2017-07-19] MEDS: BuPROPion SR (12 HR) 150 MG TABLET PO SCH (10:23)
[2017-07-19] MEDS: Sennosides/Docusate Sodium TABLET PO SCH (10:23)
[2017-07-19] MEDS: Multivit/Ca/Min/Fe/FA 1 TAB TABLET PO SCH (10:23)
[2017-07-19] MEDS: Nystatin POWDER 30 GM BOTTLE TP SCH ×2 (11:04→16:23)
[2017-07-19 11:46] VITALS: BP 125/75
--- NOTE | 2017-07-19 14:50 | Discharge Summary ---
Date of Encounter: 07/19/17 Time of Encounter: 14:48 - Discharge Diagnosis (1) Acute respiratory failure with hypoxia Priority: Primary Status: Acute (2) Pulmonary edema Priority: Secondary Status: Acute Qualifiers: Chronicity: acute Qualified Code(s): J81.0 - Acute pulmonary edema (3) Acute exacerbation of chronic obstructive pulmonary disease (COPD) Priority: Secondary Status: Acute (4) Community acquired pneumonia Priority: Secondary Status: Resolved Qualifiers: Laterality: unspecified laterality Qualified Code(s): J18.9 - Pneumonia, unspecified organism (5) Rectal prolapse Priority: Secondary Status: Acute - Discharge Medications Prescriptions: Aspirin Enteric Coated [Aspirin EC] 81 mg PO DAILY #30 tablet. Furosemide [Lasix] 40 mg PO DAILY #30 tablet Gabapentin [Neurontin] 300 mg PO TID #90 capsule Multivit/Ca/Min/Fe/FA [Thera M Plus] 1 tab PO DAILY #30 tablet OLANZapine [Zyprexa Zydis] 5 mg PO QPM #30 tab.rapdis Potassium Chloride [K-Tab ER] 10 meq PO DAILY #30 tablet.er Home Medications: Albuterol Sulfate [Ventolin Hfa] 2 puff IH Q4H PRN 07/06/17 [History] BuPROPion SR (12 HR) [Wellbutrin SR] 150 mg PO BID 07/06/17 [History] Cetirizine HCl [Zyrtec] 10 mg PO DAILY 07/06/17 [History] Cromolyn Sodium 1 drop OP QID PRN 07/06/17 [History] Docusate Sodium [Stool Softener] 50 mg PO BID 07/06/17 [History] Fluticasone Propionate Nasal [Flonase] 50 - 100 mcg NS DAILY PRN 07/06/17 [ History] Methocarbamol [Robaxin-750] 750 mg PO TID PRN 07/06/17 [History] Montelukast [Singulair] 10 mg PO DAILY 07/06/17 [History] Omeprazole [PriLOSEC] 40 mg PO BID 07/06/17 [History] Oxycodone HCl/Acetaminophen [Percocet 5-325 mg Tablet] 1 each PO Q6H PRN [History] Paroxetine HCl [Paxil] 20 mg PO DAILY 07/06/17 [History] Polyethylene Glycol 3350 [MiraLAX] 17 gm PO DAILY 07/06/17 [History] Propranolol HCl 40 mg PO BID 07/06/17 [History] Sennosides/Docusate Sodium [Senna-S Tablet] 2 each PO QAM 07/06/17 [History] Umeclidinium [place] [Incruse Ellipta] 62.5 mcg IH DAILY PRN 07/06/17 [History] Aspirin Enteric Coated [Aspirin EC] 81 mg PO DAILY #30 tablet.dr 07/19/17 [Rx] Fluticasone/Vilanterol [Breo Ellipta 200-25 Mcg INH] 1 each IH DAILY #0 [Rx] Furosemide [Lasix] 40 mg PO DAILY #30 tablet 07/19/17 [Rx] Gabapentin [Neurontin] 300 mg PO TID #90 capsule 07/19/17 [Rx] Multivit/Ca/Min/Fe/FA [Thera M Plus] 1 tab PO DAILY #30 tablet 07/19/17 [Rx] OLANZapine [Zyprexa Zydis] 5 mg PO QPM #30 tab.rapdis 07/19/17 [Rx] Potassium Chloride [K-Tab ER] 10 meq PO DAILY #30 tablet.er 07/19/17 [Rx] Allergies/Adverse Reactions: 3 Allergy/AdvReac Type Severity Reaction Status Date / Time Penicillins AdvReac See Verified 07/06/17 16:50 Comments Procedures/tests Complete & Pending: Procedures Performed prior 72 hours Category Date Time Status CT head/brain wo con [CT] Stat Cat Scan 07/18/17 04:46 Completed Date of admission: 07/06/17 19:10 Primary care physician: Indra Soria Consults: 07/07/17 05:15 Consult to Critical Care [CONS] Routine Consulting Provider: Pulm Crit Care & Sleep Madyson Reason for Consult: intubated and sedated; copd exacerbation Call Completed: No 07/07/17 10:37 Consult to Speech Therapy [CONS] Routine Comment: Evaluate, develop and implement POC Reason for Consult: Patient failed nursing swallow eval Call Completed: No 07/07/17 10:48 Consult to Surgery [CONS] Routine Consulting Provider: Surgery [facility] Reason for Consult: Rectal prolapse Time Notified: 10:15 Call Completed: Yes 07/13/17 10:59 Consult to Psychiatry [CONS] Routine Consulting Provider: Lily Coughlin Reason for Consult: delirium refractory to treatment Call Completed: No 07/16/17 12:03 Consult to Physical Therapy [CONS] Routine Comment: Evaluate, develop and implement POC Reason for Consult: Disposition planning. Therapy - weakness in bed. 07/18/17 08:49 Consult to Occupational Therapy [CONS] Routine Comment: Evaluate, develop and implement POC Reason for Consult: Gen weakness Discharging clinician: Rachel Blanco Anticipated date of discharge: 07/19/17 - Patient Status Disposition: Home Health Service Condition: Good Functional capacity at discharge: uses cane/walker Overall status at discharge: patient is progressing back to baseline - Discharge Instructions Instructions: Acute Respiratory Distress Syndrome (DC), Chronic Obstructive Pulmonary Disease (DC), Sepsis (DC), Pneumonia (DC) Follow Up With: Indra Soria DO [Primary Care Provider] - (in 1-2 weeks) Alex Paulino MD [Partnered Physician] - (in 1-2 weeks for COPD) Additional Instructions: Follow up with surgery in 1-2 weeks for rectal prolapse - Diet and Activity Activity: as per physical therapy, wear oxygen at all times Diet: advance to your usual diet, low fat, low cholesterol, low salt diet Hospital course: Ms. Serrano is a 61 year old female patient with a history of a PDA, asthma, arthritis who presented to the ER with complaints of abdominal pain and possible GI bleed. On presentation to the ER, she was confused and also hypoxemic and hypercapneic. She was continuing to desaturate and so was emergently intubated. Patient apparently has home oxygen but she had been out of her oxygen for about 2 weeks prior to presentation. She was diagnosed with acute COPD exacerbation with community-acquired pneumonia. CT scan of the abdomen and pelvis also showed thickening of the right colon concerning for mild colitis. Patient also had an elevated CPK at 2899 concerning for rhabdomyolysis. Patient was also found to have a rectal prolapse which was spontaneously reduced. Patient had a prolonged stay in the ICU. She was treated for acute respiratory failure with mechanical ventilation. She did develop delirium in between with concerns for withdrawal from benzodiazepines. Psychiatry was consulted and they recommended treating her agitation with antipsychotic agents instead of benzodiazepines to reduce risk of respiratory depression. She was eventually extubated and transferred to the floor. She completed antibiotic therapy for pneumonia and has continued to recover well. She does have chronic hypercapnia and has had episodes of apnea during sleep. She was evaluated for home BiPAP use and qualified for this. BiPAP use should help with her symptoms of COPD and hypercapnia and apneic spells. She did develop pulmonary edema per chest Xray done here yesterday. Likely from volume overload and was treated with lasix. She will continue lasix at home. Echo done here showed a normal EFof 65%. Patient did have an episode of fall 2 days back due to gen weakness. Has been evaluated by PT and recommended SNF. However, patient wishes to go home with home health. She will be discharged home today after Home O2 and BiPAP arranged. Patient has not had any new episodes of GI bleed here. Her hemoglobin levels have been stable since admission. - Time Spent with Patient Total time spent providing and/or coordinating discharge services: Greater than 30 minutes (45 min) - Constitutional Vitals: Temp Pulse Resp BP Pulse Ox 98.4 F 74 16 125/75 96 07/19/17 11:45 07/19/17 11:45 07/19/17 11:45 07/19/17 11:45 07/19/17 11:45 General appearance: Present: cooperative, A&O X 3, answers questions appropriately - Neck Neck exam general surgery: Present: supple, trachea midline. Absent: lymphadenopathy - Respiratory Respiratory exam: Present: prolonged expiratory phase. Absent: accessory muscle use, rales, rhonchi, wheezes - Cardiovascular Cardiovascular exam: Present: RRR, +S1, +S2. Absent: diastolic murmur, gallop, rubs, systolic murmur - GI/Abdominal GI/Abdominal exam: Present: normal bowel sounds, soft, no peritoneal signs. Absent: distended, tenderness - Extremities Exam Extremities exam: Present: warm, radial pulses palpable and symmetrical. Absent : calf tenderness, cyanotic, pedal edema - Neurological Exam Neurological exam: Present: alert, CN II-XII intact, oriented X3, no focal deficits. Absent: facial droop, speech deficit
--- NOTE | 2017-07-19 15:02 | Physician Discharge Referral ---
Home Health/Hosp Referral Info Transfer to: Home Health Provider in Charge Post Discharge: PCP - Diagnosis (1) Acute respiratory failure with hypoxia Priority: Primary Status: Acute (2) Pulmonary edema Priority: Secondary Status: Acute (3) Acute exacerbation of chronic obstructive pulmonary disease (COPD) Priority: Secondary Status: Acute (4) Community acquired pneumonia Priority: Secondary Status: Resolved (5) Rectal prolapse Priority: Secondary Status: Acute - Respiratory Orders Oxygen / L per min (3) Smoking Cessation: Smoking cessation has been advised. For more information, call the [place] Tobacco Quit Line at 5-755-KFIR-NOW. - Diet/Nutrition Diet/Nutrition Orders: Cardiac - Activity Activity Orders: Walker - Services Needed Following services are medically necessary services: Nursing, Physical Therapy, Occupational Therapy - Transfer Medications Prescriptions: Aspirin Enteric Coated [Aspirin EC] 81 mg PO DAILY #30 tablet.dr Furosemide [Lasix] 40 mg PO DAILY #30 tablet Gabapentin [Neurontin] 300 mg PO TID #90 capsule Multivit/Ca/Min/Fe/FA [Thera M Plus] 1 tab PO DAILY #30 tablet OLANZapine [Zyprexa Zydis] 5 mg PO QPM #30 tab.rapdis Potassium Chloride [K-Tab ER] 10 meq PO DAILY #30 tablet.er Home Medications: Albuterol Sulfate [Ventolin Hfa] 2 puff IH Q4H PRN 07/06/17 [History] BuPROPion SR (12 HR) [Wellbutrin SR] 150 mg PO BID 07/06/17 [History] Cetirizine HCl [Zyrtec] 10 mg PO DAILY 07/06/17 [History] Cromolyn Sodium 1 drop OP QID PRN 07/06/17 [History] Docusate Sodium [Stool Softener] 50 mg PO BID 07/06/17 [History] Fluticasone Propionate Nasal [Flonase] 50 - 100 mcg NS DAILY PRN 07/06/17 [ History] Methocarbamol [Robaxin-750] 750 mg PO TID PRN 07/06/17 [History] Montelukast [Singulair] 10 mg PO DAILY 07/06/17 [History] Omeprazole [PriLOSEC] 40 mg PO BID 07/06/17 [History] Oxycodone HCl/Acetaminophen [Percocet 5-325 mg Tablet] 1 each PO Q6H PRN [History] Paroxetine HCl [Paxil] 20 mg PO DAILY 07/06/17 [History] Polyethylene Glycol 3350 [MiraLAX] 17 gm PO DAILY 07/06/17 [History] Propranolol HCl 40 mg PO BID 07/06/17 [History] Sennosides/Docusate Sodium [Senna-S Tablet] 2 each PO QAM 07/06/17 [History] Umeclidinium [place] [Incruse Ellipta] 62.5 mcg IH DAILY PRN 07/06/17 [History] Aspirin Enteric Coated [Aspirin EC] 81 mg PO DAILY #30 tablet.dr 07/19/17 [Rx] Fluticasone/Vilanterol [Breo Ellipta 200-25 Mcg INH] 1 each IH DAILY #0 [Rx] Furosemide [Lasix] 40 mg PO DAILY #30 tablet 07/19/17 [Rx] Gabapentin [Neurontin] 300 mg PO TID #90 capsule 07/19/17 [Rx] Multivit/Ca/Min/Fe/FA [Thera M Plus] 1 tab PO DAILY #30 tablet 07/19/17 [Rx] OLANZapine [Zyprexa Zydis] 5 mg PO QPM #30 tab.rapdis 07/19/17 [Rx] Potassium Chloride [K-Tab ER] 10 meq PO DAILY #30 tablet.er 07/19/17 [Rx] Allergies/Adverse Reactions: 3 Allergy/AdvReac Type Severity Reaction Status Date / Time Penicillins AdvReac See Verified 07/06/17 16:50 Comments Certification: Further, I certify that my clinical findings support that this patient is homebound (i.e. absences from home require considerable and taxing effort and are for medical reasons or jain services or infrequently or short duration when for other reasons) because: Homebound Reason: Patient requires assistance of a person or device to safely leave home, Severity of cardiac or pulmonary status limits activity tolerance Attestation: My signature below is to certify that this patient is under my care and that I, or nurse practitioner, or a physician's facilities maintenance assistant working with me, has a face-to -face encounter with this patient.
[2017-07-19] MEDS ORDERED: FLUARIX QUAD 2017-18 36MOS UP/PF 0.5 ML SYRINGE IM ONE (18:05)
[2017-07-19] MEDS: OLANZapine 5 MG TAB.RAPDIS PO SCH (18:19)
[2017-07-20] MEDS ORDERED: Furosemide 40 MG TABLET PO SCH (09:00)
== END 2017-07-19 18:48 | disposition home health service (06) | DRG 130 ==
LOC: EMEROO 15:52 → ICNU 19:10 → SUATTDRO 19:10 → ICNU 19:45 → 3ANU 07-14 19:41
PROVIDERS: ADMIT Student in an Organized Health Care Education/Training Program; ATTEND Internal Medicine

== ENCOUNTER 2017-12-08 06:50 | Inpatient (IN) ==
[2017-12-08] MEDS ORDERED: Albuterol 2.5 MG/3 ML NEBULIZER IH ONE (07:33)
[2017-12-08] MEDS ORDERED: Ringers Solution, Lactated 1,000 ML IVC SCH (07:45)
[2017-12-08] MEDS ORDERED: cefOXitin 2,000 MG in Water for inj. (sterile) 20 ML 10 ML IVP ONE (07:46)
--- NOTE | 2017-12-08 07:48 | History & Physical Report ---
Date of Encounter: 12/08/17 Time of Encounter: 07:48 24 Hour HP Update - Instructions Instructions: If the History and Physical is less than 30 days old and was completed prior to A.M. admission and or procedure and has NOT been updated on calendar day of procedure please complete this update prior to performing procedure. - Update Patient reports changes in Medical Condition: No Changes in examination, assessment, or condition: No Changes in Medication: No Preop tests/diagnostics Reviewed: Yes Surgery Remains Indicated: Yes Consent for Planned Operative Procedure(s) Verified: Yes - Pre-Operative Checklist Preoperative Checklist Indicated: Yes Prophylactic Antibiotic Ordered: Yes Home Medications Include Beta Lizeth: Yes Beta Lizeth Taken Today (Day of Surgery): Yes
--- NOTE | 2017-12-08 07:54 | Anesthesia Evaluation PreOp ---
Date of Encounter: 12/08/17 Time of Encounter: 07:52 - Past History Planned Operation: Robotic Colon Resection Cardiac History: HTN Pulmonary History: Smoker (40 years), Asthma, COPD (on home O2 4L, chronic dyspnea and orthopnea), Other BOBBIN PRESSER History: Denies Any Significant HX Other Medical History: GERD, Other (anxiety/depression) Anesthesia History: No Prior Anesthetic Complications, Past Anesthesia Alcohol Use: none Drug use: none Medications and Allergies Albuterol Sulfate [Ventolin Hfa] 2 puff IH Q4H PRN 07/06/17 [History] BuPROPion SR (12 HR) [Wellbutrin SR] 150 mg PO BID 07/06/17 [History] Cetirizine HCl [Zyrtec] 10 mg PO DAILY PRN 07/06/17 [History] Cromolyn Sodium 1 drop OP QID PRN 07/06/17 [History] Docusate Sodium [Stool Softener] 50 mg PO BID 07/06/17 [History] Fluticasone Propionate Nasal [Flonase] 50 - 100 mcg NS DAILY PRN 07/06/17 [ History] Methocarbamol [Robaxin-750] 750 mg PO TID PRN 07/06/17 [History] Montelukast [Singulair] 10 mg PO HS 07/06/17 [History] Omeprazole [PriLOSEC] 40 mg PO BID 07/06/17 [History] Oxycodone HCl/Acetaminophen [Percocet 5-325 mg Tablet] 1 each PO Q8H PRN [History] Paroxetine HCl [Paxil] 20 mg PO DAILY 07/06/17 [History] Propranolol HCl 40 mg PO BID 07/06/17 [History] Umeclidinium [place] [Incruse Ellipta] 62.5 mcg IH DAILY PRN 07/06/17 [History] Aspirin Enteric Coated [Aspirin EC] 81 mg PO DAILY #30 tablet. 07/19/17 [Rx] Fluticasone/Vilanterol [Breo Ellipta 200-25 Mcg INH] 1 each IH DAILY #0 [Rx] Furosemide [Lasix] 40 mg PO DAILY #30 tablet 07/19/17 [Rx] Gabapentin [Neurontin] 300 mg PO TID #90 capsule 07/19/17 [Rx] OLANZapine [Zyprexa Zydis] 5 mg PO QPM #30 tab.rapdis 07/19/17 [Rx] Potassium Chloride [K-Tab ER] 10 meq PO DAILY #30 tablet.er 07/19/17 [Rx] 3 Allergy/AdvReac Type Severity Reaction Status Date / Time No Known Allergies Allergy Verified 12/08/17 07:46 - Meds/Allergy Pre-op Review Medications Reviewed: Yes Allergies Reviewed: Yes Beta Blockers on Current Med List: Yes If Beta Blockers taken, Date/Time (Last Dose taken): 12/08/2017 at 0812 Anesthesia Results - Labs Laboratory Tests 07/06/17 07/19/17 11/27/17 16:20 05:30 14:19 WBC 8.7 Hgb 14.4 Hct 43.2 Plt Count 336 PT 11.4 INR 1.1 APTT 27.4 Sodium Potassium BUN 9 Creatinine 0.73 11/27/17 12/04/17 14:19 13:47 WBC Hgb Hct Plt Count PT INR APTT Sodium 126 L Potassium 3.9 BUN Creatinine - Imaging EKG: report reviewed (07/09/2017 SINUS RHYTHM EARLY REPOLARIZATION) Additional studies: 07/08/2017 Echo Impressions: Technically sub-optimal due to clinical status (supine, on ventilator). Normal LV systolic function, LVEF 65%. Normal right ventricular size and function. Mild-moderate mitral regurgitation. Mild pulmonary hypertension. Estimated RVSP = 42 mmHg. Anesthesia Exam O2 Sat Height 1.55 m Height 1.55 m Weight 67.585 kg Weight 67.585 kg O2 Sat by Pulse Oximetry 88 O2 Sat by Pulse Oximetry 88 Vital Signs Temp Pulse Resp BP Pulse Ox 98.0 F 77 18 141/96 88 12/08/17 07:53 12/08/17 07:53 12/08/17 07:53 12/08/17 07:53 12/08/17 07:53 Height: 5'1'' Weight: 149 lbs NPO (# of Hours): 8 Pain Scale: 8 (right hip) Pain Scale Used: Numeric (1 - 10) - HEENT Pupil (Motor): EOMI Mallampati: II Teeth: Normal Oral Opening: Greater than 3 - BOBBIN PRESSER LOC: Oriented BOBBIN PRESSER Motor: Normal RUE, Normal LUE, Normal RLE, Normal LLE, Normal Face BOBBIN PRESSER Sensory: Normal: RUE, LUE, RLE, LLE, Face - Cardiac Rhythm: Regular Murmur: None - Pulmonary Breath Sounds: bilateral Clear Respiratory Effort: Symmetrical Anesthesia Assess/Plan ASA Score: 4 (Patient understands that she is at increased risk for perioperative complications including myocardial infarct, arrhythmias, CVA, post op vent support/ICU stay, and . Patient wishes to proceed.) Modified Corey Scale for Level of Consciousness: Cooperative, oriented, and tranquil Anesthetic Plan: General Monitoring Plan: Standard Monitors Recovery Plan: PACU
[2017-12-08] MEDS ORDERED: OXYCODONE Oral CONC 10 MG/0.5 ML ORAL.SYG SL ONE (08:52)
[2017-12-08] MEDS ORDERED: *HR* Propofol 200 MG/20 ML VIAL IVP ONE (08:54)
[2017-12-08] MEDS ORDERED: *HR* Succinylcholine 200 MG/10 ML VIAL IVP ONE (08:54)
[2017-12-08] MEDS ORDERED: Lidocaine -MPF 2% 2 ML VIAL ONE (08:54)
[2017-12-08] MEDS ORDERED: Neostigmine Methylsulfate 3 MG/3 ML SYRINGE ONE (08:54)
[2017-12-08] MEDS ORDERED: Ondansetron 4 MG/2 ML VIAL ONE (08:54)
[2017-12-08] MEDS ORDERED: *HR* Rocuronium Bromide 50 MG/5 ML VIAL ONE (08:54)
[2017-12-08] MEDS ORDERED: Dexamethasone 4 MG/ML VIAL ONE (08:54)
[2017-12-08] MEDS ORDERED: *HR* FentaNYL (PF) 100 MCG/2 ML VIAL ONE ×4 (08:55→13:58)
[2017-12-08] MEDS ORDERED: MORPHINE SUL Oral CONC 10 MG/0.5 ML ORAL.SYG SL ONE (09:45)
[2017-12-08] MEDS ORDERED: EPHEDrine 50 MG/ML VIAL ONE (10:29)
[2017-12-08] MEDS ORDERED: *HR* PHENYLEPHRINE 1,000 MCG/10 ML SYRINGE IVP ONE (10:55)
[2017-12-08] MEDS ORDERED: *HR* Midazolam HCl 2 MG/2 ML VIAL ONE (10:56)
[2017-12-08] MEDS ORDERED: *HR* Promethazine 25 MG/ML VIAL IVP PRN (12:50)
[2017-12-08] MEDS ORDERED: Ondansetron 4 MG/2 ML VIAL IVP ONE (12:50)
[2017-12-08] MEDS ORDERED: *HR* Meperidine 25 MG/ML SYRINGE IVP PRN (12:50)
[2017-12-08] MEDS ORDERED: *HR* OxyCODONE/APAP 5/325 TABLET PO PRN (12:50)
[2017-12-08] MEDS ORDERED: *HR* FentaNYL (PF) 100 MCG/2 ML VIAL IVP PRN (12:50)
[2017-12-08] MEDS ORDERED: Ketorolac 30 MG/ML VIAL ONE (13:23)
[2017-12-08] MEDS ORDERED: Lidocaine -MPF 1% 5 ML AMPUL ONE (14:01)
[2017-12-08] MEDS ORDERED: Lidocaine -MPF 4% 5 ML AMPUL ONE ×2 (14:02→14:04)
[2017-12-08] MEDS: MORPHINE SUL Oral CONC 10 MG/0.5 ML ORAL.SYG SL PRN ×2 (14:07→14:17)
[2017-12-08] MEDS ORDERED: Naloxone 0.4 MG/ML INJ IVP PRN (15:56)
[2017-12-08] MEDS: OXYCODONE Oral CONC 10 MG/0.5 ML ORAL.SYG SL PRN (17:13)
[2017-12-08] MEDS: *HR* FentaNYL PATCH 50 MCG PATCH TD SCH (18:15)
[2017-12-08] MEDS: *HR* Heparin 5,000 UNIT/ML VIAL SQ SCH (18:15)
[2017-12-08] MEDS: Ringers Solution, Lactated 1,000 ML IVC SCH (18:16)
[2017-12-09] MEDS: MORPHINE SUL Oral CONC 10 MG/0.5 ML ORAL.SYG SL PRN (04:34)
[2017-12-09] MEDS: Ondansetron 4 MG/2 ML VIAL IVP PRN (04:34)
[2017-12-09] MEDS: Ringers Solution, Lactated 1,000 ML IVC SCH (04:39)
[2017-12-09] MEDS: *HR* Heparin 5,000 UNIT/ML VIAL SQ SCH ×2 (05:39→18:04)
[2017-12-09 07:24] LABS: BUN/Creatinine Ratio 11 (6-26); Blood Urea Nitrogen 6 mg/dL (8-23); Calcium 8.5 mg/dL (8.6-10.3); Carbon Dioxide 26 mEq/L (23-29); Chloride 101 mEq/L (98-107); Glucose 109 mg/dL (70-105); Osmolality,Calculated 274 (280-300); Potassium 3.9 mEq/L (3.5-5.1); Sodium 133 mEq/L (136-145); eGFR For African Americans > 60 (> 60); eGFR For Non-African Americans > 60 (> 60)
[2017-12-09 07:26] LABS: Basophils % 0.4 %; Hematocrit 38.2 % (35.3-44.9); Hemoglobin 12.2 g/dL (11.5-15.4); Immature Granulocytes % 0.5 % (0-4); Lymphocytes % 21.4 %; Mean Corpuscular HGB Conc 31.9 g/dL (31.6-35.5); Mean Corpuscular Hemoglobin 28.9 pg (28.0-33.3); Mean Corpuscular Volume 90.5 fL (83.0-100.0); Mean Platelet Volume 10.2 fL (9.4-12.4); Monocytes # 0.9 K/mcL (0.0-1.3); Monocytes % 9.1 %; Neutrophils # 6.4 K/mcL (1.6-8.9); Nucleated Red Blood Cells 0.2 /100 WBC (0); Platelet Count 231 K/mcL (140-400); Red Blood Count 4.22 M/mcL (3.82-4.97); Red Cell Distribution Width 15.3 % (11.5-14.5); Segmented Neutrophils % 68.6 %
[2017-12-09] MEDS: OXYCODONE Oral CONC 10 MG/0.5 ML ORAL.SYG SL PRN ×2 (08:37→20:16)
[2017-12-09] MEDS ORDERED: Ipratropium/Albuterol Neb 3 ML IH ONE (11:41)
[2017-12-09] MEDS ORDERED: Ringers Solution, Lactated 1,000 ML IVC SCH (13:11)
--- NOTE | 2017-12-09 14:23 | General Surgery Progress Note ---
Date of Encounter: 12/09/17 Time of Encounter: 10:15 - Assessment and Plan (1) Status post colon resection Current Visit: Yes Status: Acute POD #1 s/p low anterior resection by Dr. Leonard. -Advance to Full liquid diet today -Supportive care and pain control -OOTB to the chair at least 3 times per day. -GI/DVT prophylaxis -PT/OT for mobilization -Incentive Spirometer every 1 hour while awake -await return of bowel function (2) COPD (chronic obstructive pulmonary disease) Current Visit: Yes Status: Acute History of COPD. No exasperation COPD at this time. Oxygen saturation at 95% on 4 L of nasal cannula. Patient admits shortness of breath and difficulty breathing. -Schedule duonebs q4h -Continue aggressive pulmonary toilet with IS -continue to monitor the patient closely Qualifiers: Qualified Code(s): J44.9 - Chronic obstructive pulmonary disease, unspecified (3) DVT prophylaxis Current Visit: Yes Status: Acute Heparin 5000 units subcutaneous twice daily for DVT prophylaxis EPCDs to bilateral lower extremities for DVT prophylaxis Ambulate hallways 3 times a day with assistance Subjective Patient reports: flatus, no bowel movement, shortness of breath, afebrile Narrative: The patient was seen and evaluated at bedside this morning. The patient was awake, alert, interactive, afebrile, and appears in no acute distress. The patient stated that Dr. Leonard and I startled her when we entered the room. Patient admits a productive cough, shortness of breath, and being more wheezy. She states that her cough and breathing are worse today. The patient states that when she usually gets short of breath with worsening wheezing, she uses her nebulizers at home. She admits history of COPD. she admits mild abdominal pain that is tender near her surgical incisions. She denies any bowel movements or flatus. Patient denies any fever, headaches, near syncope, vision changes, chest pain, nausea, vomiting, urinary symptoms, and any weaknesses. Patient has no other concerns at this time. Objective Vital Signs - Last 8 Hours Temp Pulse Resp BP Pulse Ox 12/09/17 11:45 16 95 12/09/17 11:26 99.1 F 71 19 117/64 95 12/09/17 06:21 98.7 F 70 18 128/77 95 Intake and Output 12/08/17 12/09/1718 23:59 07:59 15:59 Intake Total 0 / 0 1200 / 1200 480 / 480 Output Total 800 / 800 850 / 850 450 / 450 Balance -800 / -800 350 / 350 30 / 30 Intake: IV Fluids 1000 / 1000 Lactated Ringers 1,000 ML @ 90 1000 / 1000 mls/hr IVC .[id number] STEPHANIE Rx#: [id number] Oral 0 / 0 200 / 200 480 / 480 Output: Catheter 800 / 800 850 / 850 450 / 450 Other: Meal Lunch # Bowel Movements 0 - General physical appearance well developed, well nourished, no distress - Eyes PERRL, normal ocular movement - ENT normal mucosa - Neck Neck exam: trachea midline - Respiratory normal expansion, normal respiratory effort, other (Decreased breath sounds in the bilateral lower bases. Moist and productive cough present on exam.) wheezing: bilateral (Expiratory wheezes bilaterally) - Cardiovascular Cardiovascular exam: Present: RRR, no murmurs/rubs/gallops - Abdomen Abdomen: Present: bowel sounds present, soft, tender (Tender to palpation near his surgical incisions. Appropriate post operative tenderness.). Absent: distended - Incision Incision: Present: clean and dry, intact. Absent: draining, purulent - Integumentary no rash, no abnormal pigmentation - Neurologic CN 2-12 grossly intact - Psychiatric oriented to time, oriented to person, oriented to place - Labs 12/09/17 06:17 12/09/17 06:17 Diabetes panel 12/09/17 Range/Units 06:17 Sodium 133 L (136-145) mEq/L Potassium 3.9 (3.5-5.1) mEq/L Chloride 101 (98-107) mEq/L Carbon Dioxide 26 (23-29) mEq/L BUN 6 L (8-23) mg/dL Creatinine 0.56 L (0.60-1.20) mg/dL Glucose 109 H (70-105) mg/dL Calcium 8.5 L (8.6-10.3) mg/dL Calcium panel 12/09/17 Range/Units 06:17 Calcium 8.5 L (8.6-10.3) mg/dL Pituitary panel 12/09/17 Range/Units 06:17 Sodium 133 L (136-145) mEq/L Potassium 3.9 (3.5-5.1) mEq/L Chloride 101 (98-107) mEq/L Carbon Dioxide 26 (23-29) mEq/L BUN 6 L (8-23) mg/dL Creatinine 0.56 L (0.60-1.20) mg/dL Glucose 109 H (70-105) mg/dL Calcium 8.5 L (8.6-10.3) mg/dL Adrenal panel 12/09/17 Range/Units 06:17 Sodium 133 L (136-145) mEq/L Potassium 3.9 (3.5-5.1) mEq/L Chloride 101 (98-107) mEq/L Carbon Dioxide 26 (23-29) mEq/L BUN 6 L (8-23) mg/dL Creatinine 0.56 L (0.60-1.20) mg/dL Glucose 109 H (70-105) mg/dL Calcium 8.5 L (8.6-10.3) mg/dL - VTE Documentation of Mechanical Device: Intermittent pneumatic compression device Consult Discharge Plan - Plan Referrals: Ernestina Lemus, SO[facility]ER [Advanced Practice Nurse] - 12/22/17 11:00 am
[2017-12-09] MEDS: Ipratropium/Albuterol Neb 3 ML IH SCH ×3 (16:39→23:56)
[2017-12-09] MEDS: Ketorolac 15 MG/ML VIAL IVP SCH (23:42)
[2017-12-10] MEDS: OXYCODONE Oral CONC 10 MG/0.5 ML ORAL.SYG SL PRN (02:08)
[2017-12-10 03:37] LABS: Basophils % 0.4 %; Hematocrit 35.1 % (35.3-44.9); Hemoglobin 11.5 g/dL (11.5-15.4); Immature Granulocytes % 0.3 % (0-4); Lymphocytes # 2.3 K/mcL (0.6-4.6); Lymphocytes % 24.9 %; Mean Corpuscular HGB Conc 32.8 g/dL (31.6-35.5); Mean Corpuscular Hemoglobin 29.6 pg (28.0-33.3); Mean Corpuscular Volume 90.5 fL (83.0-100.0); Mean Platelet Volume 9.9 fL (9.4-12.4); Monocytes # 0.7 K/mcL (0.0-1.3); Monocytes % 7.6 %; Platelet Count 217 K/mcL (140-400); Red Blood Count 3.88 M/mcL (3.82-4.97); Red Cell Distribution Width 15.5 % (11.5-14.5); Segmented Neutrophils % 66.8 %
[2017-12-10] MEDS: Ipratropium/Albuterol Neb 3 ML IH SCH ×5 (04:32→19:45)
[2017-12-10 04:52] LABS: BUN/Creatinine Ratio 8 (6-26); Blood Urea Nitrogen 6 mg/dL (8-23); Calcium 8.6 mg/dL (8.6-10.3); Carbon Dioxide 27 mEq/L (23-29); Chloride 99 mEq/L (98-107); Glucose 104 mg/dL (70-105); Osmolality,Calculated 274 (280-300); Potassium 3.5 mEq/L (3.5-5.1); Sodium 133 mEq/L (136-145); eGFR For African Americans > 60 (> 60); eGFR For Non-African Americans > 60 (> 60)
[2017-12-10] MEDS: *HR* Heparin 5,000 UNIT/ML VIAL SQ SCH ×2 (05:10→16:38)
[2017-12-10] MEDS: Ketorolac 15 MG/ML VIAL IVP SCH ×3 (08:18→23:54)
--- NOTE | 2017-12-10 10:34 | General Surgery Progress Note ---
Date of Encounter: 12/10/17 Time of Encounter: 09:20 - Assessment and Plan (1) Status post colon resection Current Visit: Yes Status: Acute POD #2 s/p low anterior resection by Dr. Leonard. -Advance to soft diet as tolerated -Supportive care and pain control -OOTB to the chair at least 3 times per day. -GI/DVT prophylaxis -PT/OT for mobilization -Incentive Spirometer every 1 hour while awake -await return of bowel function (2) COPD (chronic obstructive pulmonary disease) Current Visit: Yes Status: Acute History of COPD. No acute exacerbation of COPD at this time. Oxygen saturation at 95% on 4 L of nasal cannula. Patient in no acute distress. Patient developed a fever overnight with a temperature of 101.8. Patient admits worsening cough and increase in green sputum production. -Order CXR to further evaluate for possible pneumonia due to fevers overnight, worsening cough, and increase in sputum production. -Will order one dose of 750 mg IV Levaquin. Will scheduled 500 mg IV Levaquin daily after. -Continue scheduled duonebs q4h -Continue aggressive pulmonary toilet with IS. Encourage and emphasized the importance of using the IS as recommended. -continue to monitor the patient closely Qualifiers: Qualified Code(s): J44.9 - Chronic obstructive pulmonary disease, unspecified (3) DVT prophylaxis Current Visit: Yes Status: Acute Heparin 5000 units subcutaneous twice daily for DVT prophylaxis EPCDs to bilateral lower extremities for DVT prophylaxis Ambulate hallways 3 times a day with assistance Subjective Patient reports: feels better (The patient admits the breathing treatments is improving her breathing.), pain is less, tolerating liquids well, flatus, no bowel movement Narrative: The patient was seen and evaluated at bedside this morning. The patient was awake, alert, interactive, afebrile, and appears in no acute distress. Overnight, the patient admits she had a fever of 101. She admits worsening productive cough with increase in sputum production. The patient states she has been using the incentive spirometry as recommended. The patient currently denies any fever, headaches, vision changes, new syncope, chest pain, shortness of breath, difficulty breathing, abdominal pain, any bowel movements, urinary symptoms, nausea and vomiting, and any weaknesses. The patient has no other concerns at this time. Objective Vital Signs - Last 8 Hours Temp Pulse Resp BP Pulse Ox 12/10/17 10:00 99.2 F 89 18 133/83 95 12/10/17 07:28 16 97 12/10/17 06:50 98.2 F 84 14 111/68 97 12/10/17 05:11 98.6 F 73 14 108/67 95 12/10/17 04:34 20 96 Intake and Output 12/09/17 12/10/17 12/10/17 23:59 07:59 15:59 Intake Total 240 / 240 0 / 0 480 / 480 Output Total 250 / 250 500 / 500 50 / 50 Balance -10 / -10 -500 / -500 430 / 430 Intake: Oral 240 / 240 0 / 0 480 / 480 Output: Catheter 250 / 250 500 / 500 50 / 50 Other: Meal Dinner Full Percent of Meal Consumed 0% 0% # Bowel Movements 0 0 Weight 66.633 kg Patient Weight 12/10/17 23:59 Weight 66.633 kg - General physical appearance well developed, well nourished, no distress - Eyes PERRL, normal ocular movement - ENT normal mucosa - Neck Neck exam: trachea midline - Respiratory normal expansion, normal respiratory effort, other (Wheezes and rhonchi heard bilaterally on anterior lung bourne. Decreased breath sounds in the lower bases bilaterally) wheezing: bilateral (Expiratory wheezes heard bilaterally.) - Cardiovascular Cardiovascular exam: Present: RRR, no murmurs/rubs/gallops - Abdomen Abdomen: Present: bowel sounds present, soft, non tender. Absent: distended, guarding, rebound, rigid - Incision Incision: Present: clean and dry, intact. Absent: draining, erythema, purulent - Integumentary no rash, no growths - Neurologic CN 2-12 grossly intact - Psychiatric oriented to time, oriented to person, oriented to place - Labs 12/10/17 02:44 12/10/17 02:44 Diabetes panel 12/10/17 Range/Units 02:44 Sodium 133 L (136-145) mEq/L Potassium 3.5 (3.5-5.1) mEq/L Chloride 99 (98-107) mEq/L Carbon Dioxide 27 (23-29) mEq/L BUN 6 L (8-23) mg/dL Creatinine 0.75 (0.60-1.20) mg/dL Glucose 104 (70-105) mg/dL Calcium 8.6 (8.6-10.3) mg/dL Calcium panel 12/10/17 Range/Units 02:44 Calcium 8.6 (8.6-10.3) mg/dL Pituitary panel 12/10/17 Range/Units 02:44 Sodium 133 L (136-145) mEq/L Potassium 3.5 (3.5-5.1) mEq/L Chloride 99 (98-107) mEq/L Carbon Dioxide 27 (23-29) mEq/L BUN 6 L (8-23) mg/dL Creatinine 0.75 (0.60-1.20) mg/dL Glucose 104 (70-105) mg/dL Calcium 8.6 (8.6-10.3) mg/dL Adrenal panel 12/10/17 Range/Units 02:44 Sodium 133 L (136-145) mEq/L Potassium 3.5 (3.5-5.1) mEq/L Chloride 99 (98-107) mEq/L Carbon Dioxide 27 (23-29) mEq/L BUN 6 L (8-23) mg/dL Creatinine 0.75 (0.60-1.20) mg/dL Glucose 104 (70-105) mg/dL Calcium 8.6 (8.6-10.3) mg/dL - VTE Documentation of Mechanical Device: Intermittent pneumatic compression device Consult Discharge Plan - Plan Referrals: Ernestina Lemus CNP [Advanced Practice Nurse] - 12/22/17 11:00 am
[2017-12-10] MEDS ORDERED: Levofloxacin 750 MG/150 ML 750 MG/150 ML BAG IVPB ONE (12:23)
[2017-12-10] MEDS: Ondansetron 4 MG/2 ML VIAL IVP PRN (14:16)
[2017-12-11] MEDS: Ipratropium/Albuterol Neb 3 ML IH SCH ×5 (00:20→15:53)
[2017-12-11] MEDS: *HR* Heparin 5,000 UNIT/ML VIAL SQ SCH (05:11)
[2017-12-11] MEDS: Ketorolac 15 MG/ML VIAL IVP SCH ×2 (08:13→15:37)
[2017-12-11] MEDS ORDERED: Levofloxacin 500 MG/100 ML 500 MG/100 ML BAG IVPB SCH (09:00)
--- NOTE | 2017-12-11 09:54 | General Surgery Progress Note ---
Date of Encounter: 12/11/17 Time of Encounter: 09:45 - Assessment and Plan (1) Rectal prolapse Current Visit: No Status: Acute POD #[address] Leonard Tolerating soft diet Positive flatus but complains of bloating and occasional nausea today Add Reglan Add Colace Supportive care and pain control IS every 1 hour while awake GI prophylaxis Ambulate hallways TID with assistance Remove soria catheter (2) Pneumonia Current Visit: No Status: Acute Continue levaquin IS every 1 hour while awake Duonebs every 4 hours Supplemental oxygen via nasal cannula Qualifiers: Pneumonia type: due to unspecified organism Laterality: right Lung location: lower lobe of lung Qualified Code(s): J18.1 - Lobar pneumonia, unspecified organism (3) COPD (chronic obstructive pulmonary disease) Current Visit: Yes Status: Chronic IS every 1 hour while awake Supplemental oxygen vial nasal cannula Duonebs every 4 hours Qualifiers: COPD type: unspecified COPD Qualified Code(s): J44.9 - Chronic obstructive pulmonary disease, unspecified (4) DVT prophylaxis Current Visit: Yes Status: Acute Heparin 5,000 units SQ twice daily for DVT prophylaxis EPCDs to bilateral lower extremities for DVT prophylaxis Ambulate hallways TID with assistance Subjective Patient reports: tolerating a regular diet (soft, chopped meat), flatus, no bowel movement, nausea (occasional with bloating today), afebrile Objective Vital Signs - Last 8 Hours Temp Pulse Resp BP Pulse Ox 12/11/17 07:29 16 98 12/11/17 04:16 97.6 F 65 14 150/84 97 Intake and Output 12/10/17 12/11/17 12/11/17 23:59 07:59 15:59 Intake Total 120 / 120 0 / 0 240 / 240 Output Total 450 / 450 550 / 550 Balance -330 / -330 -550 / -550 240 / 240 Intake: Oral 120 / 120 0 / 0 240 / 240 Output: Catheter 450 / 450 550 / 550 Other: Meal Dinner Breakfast Percent of Meal Consumed 5% 75% # Bowel Movements 0 Weight 66.587 kg Patient Weight 12/11/17 23:59 Weight 66.587 kg - General physical appearance well developed, well nourished, no distress - Eyes normal ocular movement - ENT normal mucosa, atraumatic, normocephalic - Neck Neck exam: trachea midline - Respiratory normal respiratory effort (patient reports that she is at her baseline), clear to auscultation, other (diminished bibasilar bases) - Cardiovascular Cardiovascular exam: Present: RRR - Abdomen Abdomen: Present: bowel sounds present (minimal), soft, distended (softly distended), tender (minimal tenderness noted) - Incision Incision: Present: clean and dry, intact - Genitourinary other (soria catheter to SD with clear, yellow urine noted) - Neurologic CN 2-12 grossly intact - Psychiatric oriented to time, oriented to person, oriented to place, speech is normal, memory intact - Labs 12/10/17 02:44 12/10/17 02:44 - VTE Documentation of Mechanical Device: Intermittent pneumatic compression device Consult Discharge Plan - Plan Referrals: Ernestina Lemus CNP [Advanced Practice Nurse] - 12/22/17 11:00 am - Attending Attestation For this encounter, I have reviewed the BATT PACKER or PA documentation, treatment plan, and medical decision making; and I have had face to face time with this patient.
--- NOTE | 2017-12-11 10:07 | Discharge Summary ---
Orders not resulted at time of discharge: Pending orders 12/08/17 13:40 Surgical Pathology [PTH] Routine Date of Encounter: 12/11/17 Time of Encounter: 10:10 - Discharge Diagnosis (1) Pneumonia Priority: Secondary Status: Acute Qualifiers: Pneumonia type: due to unspecified organism Laterality: right Lung location: lower lobe of lung Qualified Code(s): J18.1 - Lobar pneumonia, unspecified organism (2) COPD (chronic obstructive pulmonary disease) Priority: Secondary Status: Chronic Qualifiers: COPD type: unspecified COPD Qualified Code(s): J44.9 - Chronic obstructive pulmonary disease, unspecified General Surgery Exam Initial Vital Signs Temp Pulse Resp BP Pulse Ox 98.0 F 77 18 141/96 88 12/08/17 07:53 12/08/17 07:53 12/08/17 07:53 12/08/17 07:53 12/08/17 07:53 - General physical appearance well developed, well nourished, no distress, chronically ill - Eyes normal ocular movement - ENT normal mucosa, atraumatic, normocephalic - Neck trachea midline - Respiratory normal respiratory effort, clear to auscultation - Cardiovascular Cardiovascular exam: Present: RRR - Abdomen Abdomen general surgery: Present: bowel sounds present, soft, non tender - Incision Incision: Present: clean and dry, intact - Integumentary Integumentary general surgery: Present: warm and dry - Neurologic Present: CN 2-12 grossly intact - Musculoskeletal Present: normal gait, normal posture - Psychiatric Psychiatric general surgery: Present: appropriate, oriented to person, oriented to place, oriented to time, speech is normal, memory intact - Hospital Course Hospital course: Ms. Serrano is a 62 year old female who is s/p a robotic assisted lower anterior resection with Dr. Leonard for rectal prolapse. Her post-operative course was complicated by a right lower lobe pneumonia. The patient was started on IV Levaquin for treatment of her pneumonia. She was also started on duonebs every 4 hours scheduled. She was instructed to use her incentive spirometer every 1 hour while awake. She was continued on her supplemental oxygen via nasal cannula. Her diet was slowly advanced as tolerated. We will begin discharge planning to home when the patient's vital signs are stable and she is afebrile, postoperative pain is controlled, tolerating a soft diet without nausea or vomiting. - Time Spent with Patient Total time spent providing and/or coordinating discharge services: Less than 30 minutes - Discharge Medications Prescriptions: OxyCODONE/APAP 5/325 [Percocet 5/325 MG] 1 each PO Q6HR PRN 4 Days #16 tablet PRN Reason: Pain Levofloxacin [Levaquin] 750 mg PO DAILY #10 tablet Home Medications: Albuterol Sulfate [Ventolin Hfa] 2 puff IH Q4H PRN 07/06/17 [History] BuPROPion SR (12 HR) [Wellbutrin SR] 150 mg PO BID 07/06/17 [History] Cetirizine HCl [Zyrtec] 10 mg PO DAILY PRN 07/06/17 [History] Cromolyn Sodium 1 drop OP QID PRN 07/06/17 [History] Docusate Sodium [Stool Softener] 50 mg PO BID 07/06/17 [History] Fluticasone Propionate Nasal [Flonase] 50 - 100 mcg NS DAILY PRN 07/06/17 [ History] Methocarbamol [Robaxin-750] 750 mg PO TID PRN 07/06/17 [History] Montelukast [Singulair] 10 mg PO HS 07/06/17 [History] Omeprazole [PriLOSEC] 40 mg PO BID 07/06/17 [History] Oxycodone HCl/Acetaminophen [Percocet 5-325 mg Tablet] 1 each PO Q6H PRN [History] Paroxetine HCl [Paxil] 20 mg PO DAILY 07/06/17 [History] Propranolol HCl 40 mg PO BID 07/06/17 [History] Umeclidinium [place] [Incruse Ellipta] 62.5 mcg IH DAILY PRN 07/06/17 [History] Aspirin Enteric Coated [Aspirin EC] 81 mg PO DAILY #30 tablet. 07/19/17 [Rx] Fluticasone/Vilanterol [Breo Ellipta 200-25 Mcg INH] 1 each IH DAILY #0 [Rx] Furosemide [Lasix] 40 mg PO DAILY #30 tablet 07/19/17 [Rx] Gabapentin [Neurontin] 300 mg PO TID #90 capsule 07/19/17 [Rx] OLANZapine [Zyprexa Zydis] 5 mg PO QPM #30 tab.rapdis 07/19/17 [Rx] Potassium Chloride [K-Tab ER] 10 meq PO DAILY #30 tablet.er 07/19/17 [Rx] ALPRAZolam [Xanax 0.5 MG Tablet] 0.5 mg PO TID PRN 12/08/17 [History] Levofloxacin [Levaquin] 750 mg PO DAILY #10 tablet 12/11/17 [Rx] OxyCODONE/APAP 5/325 [Percocet 5/325 MG] 1 each PO Q6HR PRN 4 Days #16 tablet [Rx] Allergies/Adverse Reactions: 3 Allergy/AdvReac Type Severity Reaction Status Date / Time No Known Allergies Allergy Verified 12/08/17 09:20 Date of admission: 12/08/17 15:33 Primary care physician: Indra Soria Consults: 12/08/17 16:00 Consult to Nutrition [CONS] Routine Comment: Consulting Provider: NUTRITION Reason for Dietary Consult: MST Score Consult to Staff Pharmacist [CONS] Routine Reason for SW Consult: Financial concern [facility] Anticipated date of discharge: 12/11/17 - Impressions ITS Impressions Chest X-Ray 12/10/17 12:21 IMPRESSION: 1. Small volume bilateral pleural effusion, right greater than left. 2. Focal infiltrate or atelectasis posterior and lateral lower right lung. 3. Bones appear osteoporotic, with new (compared to prior study June 2017) slight anterior wedging T11 and T12 superior endplates. 4. Calcific atherosclerotic disease aorta. D/ / Ford Warren / Ford Warren Interpreting Provider: Ford Warren - Patient Status Disposition: Home, Self-Care Condition: Good Functional capacity at discharge: independent ambulation Overall status at discharge: patient is progressing back to baseline - Discharge Instructions Follow Up With: Ernestina Lemus CNP [Advanced Practice Nurse] - 12/22/17 11:00 am Alex Paulino MD [Partnered Physician] - (1 week hospital follow-up ( pneumonia)) Additional Instructions: #1 may shower, no tub bath for 2 weeks #2 wash incisions with soap and water and pat dry daily #3 no lifting, pushing, pulling more than 15 pounds for the next 6 weeks #4 no driving until off narcotics for 24 hours and able to safely react in the car #5 may climb stairs - Diet and Activity Activity: other (See additional instructions above) Diet: advance to your usual diet - Attending Attestation For this encounter, I have reviewed the MEDIA MARKETING COORDINATOR or PA documentation, treatment plan, and medical decision making; and I have had face to face time with this patient.
[2017-12-11] MEDS ORDERED: Metoclopramide 10 MG/2 ML VIAL IVP SCH (12:00)
[2017-12-11 14:11] VITALS: BP 121/82
[2017-12-11] MEDS: *HR* FentaNYL PATCH 50 MCG PATCH TD SCH (15:37)
--- NOTE | 2017-12-13 16:42 | Operative Note ---
Date of procedure: 12/08/17 Pre-op diagnosis: Rectal Prolapse Post-op diagnosis: same Procedure: Robotic low anterior resection with 25 mm EEA stapling Anesthesia: AFSHIN Surgeon: Wilfredo Leonard Was there an assistant unit forester present: Yes Government Affairs Manager: Janelle Braun Estimated blood loss (cc): 5 Specimen: Recto-sigmoid colon Condition: stable Disposition: floor Procedure in Detail: After informed consent, patient taken operating room placed supine position. After adequate sedation anesthesia patient was placed in a lithotomy position. After proper timeout a 12 mm cannula site was placed right superior to the umbilicus. Pneumoperitoneum was greater. A 13 mm cannula was placed in right lower quadrant. 5 mm camera was placed in the right upper quadrant. An 8 mm cannula was placed in subxiphoid region followed by another 8 mm in the left lower quadrant. Patient was placed in a headdown position. The robot was docked over the patient's left hip. Small bowel swept out of the pelvis. Rectosigmoid colon was then grasped and retracted cephalad. The peritoneum was then scored level of the sacral promontory. The left ureter was identified and kept on harm's way. The inferior mesenteric artery was then taken with a vessel sealer. The lateral rectosigmoid stalks were taken down the vessel sealer. The dissection was carried out down to approximate 4 cm above the pelvic floor. Rectosigmoid colon was dissected free from the retro-pubic tubercle region. Once it was freed a 45 mm robotic Endo staplers fired across the rectum. Once it was retracted and area was demarcated on the sigmoid colon for transection. Indocyanine green was infused and we had excellent perfusion. A counterincision was made in the suprapubic region. Dissection carried down the anterior rectus sheath. The rectus muscles were then divided in the midline with Catie clamp. Once they were split the rectosigmoid colon was delivered. Zenobia bowel clamps are used to place across the colon proximal and distal and transected. Allis clamps are placed on the bowel and then a pursestring suture device placed on the colon. 3-0 Prolene suture was passed. A pursestring sutures and created and a 25 mm EEA anvil was placed. Suture was tied and secured. Colon was then placed back in the pelvis. The stapler was passed through the anal canal and to the rectal stump and then the spear was placed through the staple line. The anvil was then connected secured and fired. There were 2 excellent donuts. A leak test revealed no leak. At that point the procedure was terminated. All incisions are closed with 0 Vicryl suture and 4-0 Vicryl suture. Marcaine was inserted in the Pfannenstiel incision. She tolerated the procedure well.
== END 2017-12-11 16:50 | disposition home or self-care (01) | DRG 231 ==
LOC: SAMDAY 06:50 → 3ANU 15:33
PROVIDERS: ADMIT Surgery; ATTEND Surgery

== ENCOUNTER 2017-12-25 15:40 | Observation (INO) ==
[2017-12-25] MEDS ORDERED: Naloxone 0.4 MG/ML INJ IVP PRN (15:56)
[2017-12-25] MEDS ORDERED: Acetaminophen IV 1,000 MG/100 ML INFUS..BTL IVPB ONE (15:56)
[2017-12-25] MEDS ORDERED: OXYCODONE Oral CONC 10 MG/0.5 ML ORAL.SYG SL PRN (15:56)
[2017-12-25] MEDS ORDERED: *HR* Promethazine 25 MG/ML VIAL IVP PRN (15:56)
[2017-12-25] MEDS ORDERED: ALPRAZolam 0.5 MG TABLET PO PRN (16:02)
--- NOTE | 2017-12-25 16:12 | General Surg History&Physical ---
Date of Encounter: 12/25/17 Time of Encounter: 16:06 Assessment and Plan (1) History of low anterior resection of rectum Status: Acute The assessment and plan as outlined above was discussed with the patient and/or family members who expressed understanding and agreement. All questions were answered. Patient admitted from the office for nausea, vomiting, fevers, diarrhea, dysuria , and shortness of breath. We will obtain serial labs, chest x-ray and KUB, EKG , urinalysis with reflux to culture, and C diff study. NPO except ice chips pending initial work-up. Serial abdominal exams Further recommendations pending (2) Abdominal pain Status: Acute The assessment and plan as outlined above was discussed with the patient and/or family members who expressed understanding and agreement. All questions were answered. See A/P above Qualifiers: Abdominal location: generalized Qualified Code(s): R10.84 - Generalized abdominal pain (3) Nausea & vomiting Status: Acute The assessment and plan as outlined above was discussed with the patient and/or family members who expressed understanding and agreement. All questions were answered. See A/P above Qualifiers: Vomiting type: unspecified Vomiting Intractability: intractable Qualified Code(s): R11.2 - Nausea with vomiting, unspecified (4) COPD (chronic obstructive pulmonary disease) Status: Chronic The assessment and plan as outlined above was discussed with the patient and/or family members who expressed understanding and agreement. All questions were answered. Continue home medications Scheduled duonebs Titrate O2 to keep sats above 90% Qualifiers: COPD type: unspecified COPD Qualified Code(s): J44.9 - Chronic obstructive pulmonary disease, unspecified (5) SOB (shortness of breath) Status: Acute The assessment and plan as outlined above was discussed with the patient and/or family members who expressed understanding and agreement. All questions were answered. Likely COPD exacerbation but will rule out PNA and PE given recent surgery. If EKG and CXR are nonspecific will consider CTA chest History of Present Illness Chief complaint: Abdominal pain HPI: Ms. Serrano is a 62 year old female who is S/P low anterior resection on 2017. She is admitted from the office for abdominal pain, back pain, nausea and vomiting, and diarrhea with occasional incontinence and subjective fevers. Please see copy of H&P from the office on patients hard chart. Past Med Surg Social Fam HX - Past Medical History Medical history: asthma, atrial fibrillation, COPD, DVT, GERD, hypertension Psychiatric history: anxiety, depression - Past Surgical History Surgical History: hysterectomy, orthopedic, other, other - Social History Smoking Status: Current every day smoker Smokeless Tobacco Status: No Alcohol use: none Drug use: none - Family History Father Living Status: Hx Family Cardiac Disorders: Yes (CAD) Hx Family Respiratory Disorders: Yes (lung disease, ) Mother Living Status: Hx Family Cancer: Yes Medications and Allergies Albuterol Sulfate [Ventolin Hfa] 2 puff IH Q4H PRN 07/06/17 [History] BuPROPion SR (12 HR) [Wellbutrin SR] 150 mg PO BID 07/06/17 [History] Cetirizine HCl [Zyrtec] 10 mg PO DAILY PRN 07/06/17 [History] Cromolyn Sodium 1 drop OP QID PRN 07/06/17 [History] Docusate Sodium [Stool Softener] 50 mg PO BID 07/06/17 [History] Fluticasone Propionate Nasal [Flonase] 50 - 100 mcg NS DAILY PRN 07/06/17 [ History] Methocarbamol [Robaxin-750] 750 mg PO TID PRN 07/06/17 [History] Montelukast [Singulair] 10 mg PO HS 07/06/17 [History] Omeprazole [PriLOSEC] 40 mg PO BID 07/06/17 [History] Oxycodone HCl/Acetaminophen [Percocet 5-325 mg Tablet] 1 each PO Q6H PRN [History] Paroxetine HCl [Paxil] 20 mg PO DAILY 07/06/17 [History] Propranolol HCl 40 mg PO BID 07/06/17 [History] Umeclidinium [place] [Incruse Ellipta] 62.5 mcg IH DAILY PRN 07/06/17 [History] Aspirin Enteric Coated [Aspirin EC] 81 mg PO DAILY #30 tablet. 07/19/17 [Rx] Fluticasone/Vilanterol [Breo Ellipta 200-25 Mcg INH] 1 each IH DAILY #0 [Rx] Furosemide [Lasix] 40 mg PO DAILY #30 tablet 07/19/17 [Rx] Gabapentin [Neurontin] 300 mg PO TID #90 capsule 07/19/17 [Rx] OLANZapine [Zyprexa Zydis] 5 mg PO QPM #30 tab.rapdis 07/19/17 [Rx] Potassium Chloride [K-Tab ER] 10 meq PO DAILY #30 tablet.er 07/19/17 [Rx] ALPRAZolam [Xanax 0.5 MG Tablet] 0.5 mg PO TID PRN 12/08/17 [History] Levofloxacin [Levaquin] 750 mg PO DAILY #10 tablet 12/11/17 [Rx] OxyCODONE/APAP 5/325 [Percocet 5/325 MG] 1 each PO Q6HR PRN 4 Days #16 tablet [Rx] Loperamide [Imodium] 2 mg PO BID PRN #8 capsule 12/20/17 [Rx] Ondansetron ODT [Zofran ODT] 4 mg SL Q6HR PRN #7 tab.rapdis 12/20/17 [Rx] 3 Allergy/AdvReac Type Severity Reaction Status Date / Time No Known Allergies Allergy Verified 12/08/17 09:20 Review of Systems All systems PM: The remainder of the systems were reviewed and are negative Results - Labs All other labs normal.
[2017-12-25] MEDS: Ipratropium/Albuterol Neb 3 ML IH SCH ×3 (16:51→23:24)
[2017-12-25 18:50] LABS: Basophils % 0.6 %; Hematocrit 37.7 % (35.3-44.9); Hemoglobin 12.5 g/dL (11.5-15.4); Lymphocytes % 29.2 %; Mean Corpuscular HGB Conc 33.2 g/dL (31.6-35.5); Mean Corpuscular Hemoglobin 29.2 pg (28.0-33.3); Mean Corpuscular Volume 88.1 fL (83.0-100.0); Mean Platelet Volume 9.1 fL (9.4-12.4); Monocytes # 0.7 K/mcL (0.0-1.3); Monocytes % 10.5 %; Neutrophils # 4.1 K/mcL (1.6-8.9); Nucleated Red Blood Cells 0.6 /100 WBC (0); Platelet Count 453 K/mcL (140-400); Red Blood Count 4.28 M/mcL (3.82-4.97); Segmented Neutrophils % 58.7 %
[2017-12-25 18:51] LABS: INR 1.1; Prothrombin Time 11.3 Seconds (9.4-12.1)
[2017-12-25 18:54] LABS: Activated Partial Thrombo Time 28.6 Seconds (26.0-36.0)
[2017-12-25] MEDS: OLANZapine 5 MG TAB.RAPDIS PO SCH (18:57)
[2017-12-25] MEDS: 0.9 % Sodium Chloride 1,000 ML IVC SCH (18:57)
[2017-12-25 19:10] LABS: Alanine Aminotransferase 7 Units/L (7-52); Albumin 3.5 g/dL (3.5-5.7); Albumin/Globulin Ratio 1.2 (1.1-2.2); Alkaline Phosphatase 72 Units/L (34-104); Amylase 30 Units/L (29-103); Aspartate Amino Transferase 10 Units/L (13-39); BUN/Creatinine Ratio 17 (6-26); Bilirubin,Direct 0.1 mg/dL (0.0-0.2); Bilirubin,Indirect 0.3 mg/dL (0.0-1.2); Bilirubin,Total 0.4 mg/dL (0.3-1.0); Blood Urea Nitrogen 12 mg/dL (8-23); Calcium 9.4 mg/dL (8.6-10.3); Carbon Dioxide 27 mEq/L (23-29); Chloride 100 mEq/L (98-107); Globulin 2.9 g/dL (2.4-3.5); Glucose 103 mg/dL (70-105); Lipase 18 Units/L (11-82); Magnesium 2.2 mg/dL (1.6-2.6); Osmolality,Calculated 278 (280-300); Phosphorous 4.5 mg/dL (2.7-4.5); Potassium 4.6 mEq/L (3.5-5.1); Sodium 134 mEq/L (136-145); Total Protein 6.4 g/dL (6.4-8.9); eGFR For African Americans > 60 (> 60); eGFR For Non-African Americans > 60 (> 60)
[2017-12-25] MEDS: OXYCODONE Oral CONC 10 MG/0.5 ML ORAL.SYG SL PRN (21:54)
[2017-12-25] MEDS: Ondansetron 4 MG/2 ML VIAL IVP PRN (21:57)
[2017-12-25 22:34] LABS: Bilirubin,Urine Negative (Negative); Blood,Urine Negative (Negative); Clarity,Urine Clear (Clear); Color,Urine Yellow (Yellow); Glucose,Urine (UA) Normal (Normal); Ketones,Urine Negative (Negative); Leukocyte Esterase,Urine Negative (Negative); Nitrite,Urine Negative (Negative); Protein,Urine Negative (Neg-Trace); Specific Gravity,Urine 1.016 (1.010-1.025); Urobilinogen,Urine Normal (Normal)
[2017-12-26] MEDS: OXYCODONE Oral CONC 10 MG/0.5 ML ORAL.SYG SL PRN ×3 (02:26→21:42)
[2017-12-26] MEDS: Ipratropium/Albuterol Neb 3 ML IH SCH ×5 (03:10→20:37)
[2017-12-26] MEDS: levoFLOXacin 750 MG TABLET PO SCH (09:42)
[2017-12-26] MEDS: Furosemide 40 MG TABLET PO SCH (09:42)
[2017-12-26] MEDS: 0.9 % Sodium Chloride 1,000 ML IVC SCH ×2 (09:48→18:09)
--- NOTE | 2017-12-26 09:52 | General Surgery Progress Note ---
Date of Encounter: 12/26/17 Time of Encounter: 09:00 - Assessment and Plan (1) History of low anterior resection of rectum Current Visit: No Status: Acute CXR, Abd XR both unremarkable CBC, CMP, LFTs also unremarkable. Patient has been afebrile. Patient complaining of diffuse abd pain. Pt with positive carbone's sign on exam and recent CT prior to this admission showed cholilithiasis. Will check RUQ U/S for further evaluation. (2) Abdominal pain Current Visit: No Status: Acute See A/P above. Qualifiers: Abdominal location: generalized Qualified Code(s): R10.84 - Generalized abdominal pain (3) Nausea & vomiting Current Visit: No Status: Acute Pt no longer vomiting. Nausea improved. Qualifiers: Vomiting type: unspecified Vomiting Intractability: non-intractable Qualified Code(s): R11.2 - Nausea with vomiting, unspecified (4) Diarrhea Current Visit: No Status: Acute Pt reports diarrhea C. Diff and GI stool panel pending. Qualifiers: Diarrhea type: unspecified type Qualified Code(s): R19.7 - Diarrhea, unspecified (5) COPD (chronic obstructive pulmonary disease) Current Visit: No Status: Chronic Pt on chronic constant O2 at home 4L Pt toleratign 2.5 L here in the hospital. Patient still wheezy on exam. Possible COPD exacerbation in light of her subjective fevers. Patient started on empiric Levaquin continue home meds. Qualifiers: COPD type: unspecified COPD Qualified Code(s): J44.9 - Chronic obstructive pulmonary disease, unspecified (6) SOB (shortness of breath) Current Visit: No Status: Acute likely secondary to COPD CXR clear. Subjective Patient reports: still having pain, diarrhea, nausea, afebrile Narrative: 62 F w PMHx asthma, atrial fibrillation, COPD on home oxygen 4L at all times, DVT, GERD, hypertension, anxiety, depression, hysterectomy, low anterior colon resection 12/08/17 who was brought into the hospital after complaining of continued abd pain, back pain, N, V, D, SOB, Subjective fevers at her 2 week post surgery follow up. This morning patient reports continued pain, but some improvement. She reports she has had difficulty urinating since the surgery. She reports she has recently had drenching night sweats. She reports that when she came home from surgery all her family had the flu and believes she may have caught the flu. She complains of diffuse lower abdominal pain worst in the RLQ Objective Vital Signs - Last 8 Hours Temp Pulse Resp BP Pulse Ox 12/26/17 08:32 93 12/26/17 07:30 20 96 12/26/17 07:29 98.1 F 71 16 86/56 98 12/26/17 03:57 98.4 F 89 16 123/64 97 12/26/17 03:12 18 98 Intake and Output 12/25/17 12/26/17 12/26/17 23:59 07:59 15:59 Intake Total 0 / 0 0 / 0 Output Total 100 / 100 100 / 100 Balance -100 / -100 -100 / -100 0 / 0 Intake: Oral 0 / 0 0 / 0 Output: Urine 100 / 100 100 / 100 Other: Meal NPO Dinner NPO Percent of Meal Consumed 0% Stool Size Smear Small Stool Consistency formed loose Stool Color Brown Brown # Voids 1 # Bowel Movements 1 1 Weight 65 kg - General physical appearance well developed, well nourished, no distress - Respiratory normal expansion, normal respiratory effort wheezing: bilateral - Cardiovascular Cardiovascular exam: Present: RRR, no murmurs/rubs/gallops - Abdomen Abdomen: Present: bowel sounds present, soft, tender Abdominal Tenderness: diffusely Additional Comments: Pt indicated pain is worse in the RLQ Patient diffusely tender through out abdomen. Positve Carbone's sign - Incision Incision: Present: clean and dry, intact - Integumentary no rash, no abnormal pigmentation - Neurologic normal coordination, normal sensation - Psychiatric oriented to time, oriented to person, oriented to place, speech is normal, memory intact - Labs 12/25/17 18:32 12/25/17 18:32 Diabetes panel 12/25/17 12/25/17 Range/Units 18:32 18:32 Sodium 134 L (136-145) mEq/L Potassium 4.6 (3.5-5.1) mEq/L Chloride 100 (98-107) mEq/L Carbon Dioxide 27 (23-29) mEq/L BUN 12 (8-23) mg/dL Creatinine 0.70 (0.60-1.20) mg/dL Glucose 103 (70-105) mg/dL Calcium 9.4 (8.6-10.3) mg/dL AST 10 L (13-39) Units/L ALT 7 (7-52) Units/L Alkaline Phosphatase 72 (34-104) Units/L Albumin 3.5 3.5 (3.5-5.7) g/dL Calcium panel 12/25/17 12/25/17 Range/Units 18:32 18:32 Calcium 9.4 (8.6-10.3) mg/dL Phosphorus 4.5 (2.7-4.5) mg/dL Albumin 3.5 3.5 (3.5-5.7) g/dL Pituitary panel 12/25/17 Range/Units 18:32 Sodium 134 L (136-145) mEq/L Potassium 4.6 (3.5-5.1) mEq/L Chloride 100 (98-107) mEq/L Carbon Dioxide 27 (23-29) mEq/L BUN 12 (8-23) mg/dL Creatinine 0.70 (0.60-1.20) mg/dL Glucose 103 (70-105) mg/dL Calcium 9.4 (8.6-10.3) mg/dL Adrenal panel 12/25/17 12/25/17 Range/Units 18:32 18:32 Sodium 134 L (136-145) mEq/L Potassium 4.6 (3.5-5.1) mEq/L Chloride 100 (98-107) mEq/L Carbon Dioxide 27 (23-29) mEq/L BUN 12 (8-23) mg/dL Creatinine 0.70 (0.60-1.20) mg/dL Glucose 103 (70-105) mg/dL Calcium 9.4 (8.6-10.3) mg/dL Total Bilirubin 0.4 (0.3-1.0) mg/dL AST 10 L (13-39) Units/L ALT 7 (7-52) Units/L Alkaline Phosphatase 72 (34-104) Units/L Albumin 3.5 3.5 (3.5-5.7) g/dL - Imaging Chest x-ray: report reviewed, image reviewed Abdominal x-ray: report reviewed, image reviewed - VTE Documentation of Mechanical Device: Intermittent pneumatic compression device Consult Discharge Plan - Plan Referrals: Indra Soria DO [Primary Care Provider] -
[2017-12-26] MEDS: Ondansetron 4 MG/2 ML VIAL IVP PRN ×2 (13:03→21:50)
[2017-12-26] MEDS ORDERED: 0.9 % Sodium Chloride 1,000 ML IVC ONE (15:32)
[2017-12-26] MEDS: OLANZapine 5 MG TAB.RAPDIS PO SCH (17:48)
--- NOTE | 2017-12-26 23:51 | Electrocardiograph Report ---
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
[2017-12-27] MEDS: 0.9 % Sodium Chloride 1,000 ML IVC SCH (01:36)
[2017-12-27] MEDS: Ipratropium/Albuterol Neb 3 ML IH SCH ×4 (03:15→11:48)
[2017-12-27] MEDS: OXYCODONE Oral CONC 10 MG/0.5 ML ORAL.SYG SL PRN (05:20)
[2017-12-27] MEDS: Ondansetron 4 MG/2 ML VIAL IVP PRN (05:20)
[2017-12-27] MEDS: levoFLOXacin 750 MG TABLET PO SCH (09:21)
[2017-12-27] MEDS: Furosemide 40 MG TABLET PO SCH (09:21)
[2017-12-27 09:59] LABS: Basophils % 0.3 %; Eosinophils % 0.2 %; Hematocrit 35.3 % (35.3-44.9); Hemoglobin 11.5 g/dL (11.5-15.4); Immature Granulocytes % 0.5 % (0-4); Lymphocytes # 2.2 K/mcL (0.6-4.6); Lymphocytes % 34.1 %; Mean Corpuscular HGB Conc 32.6 g/dL (31.6-35.5); Mean Corpuscular Hemoglobin 29.3 pg (28.0-33.3); Mean Corpuscular Volume 89.8 fL (83.0-100.0); Monocytes # 0.7 K/mcL (0.0-1.3); Neutrophils # 3.5 K/mcL (1.6-8.9); Nucleated Red Blood Cells 0.3 /100 WBC (0); Platelet Count 448 K/mcL (140-400); Red Blood Count 3.93 M/mcL (3.82-4.97); Red Cell Distribution Width 16.3 % (11.5-14.5); Segmented Neutrophils % 53.9 %
[2017-12-27 10:44] VITALS: BP 93/60
--- NOTE | 2017-12-27 10:47 | Discharge Summary ---
Orders not resulted at time of discharge: Pending orders 12/27/17 09:30 Respiratory Infection Panel [MOLMIC] Routine Date of Encounter: 12/27/17 Time of Encounter: 11:35 - Discharge Diagnosis (1) History of low anterior resection of rectum Priority: Secondary Status: Acute (2) Abdominal pain Priority: Primary Status: Acute Qualifiers: Abdominal location: generalized Qualified Code(s): R10.84 - Generalized abdominal pain (3) Nausea & vomiting Priority: Primary Status: Acute Qualifiers: Vomiting type: unspecified Vomiting Intractability: non-intractable Qualified Code(s): R11.2 - Nausea with vomiting, unspecified (4) Diarrhea Priority: Secondary Status: Acute Qualifiers: Diarrhea type: unspecified type Qualified Code(s): R19.7 - Diarrhea, unspecified (5) COPD (chronic obstructive pulmonary disease) Priority: Secondary Status: Chronic Qualifiers: COPD type: unspecified COPD Qualified Code(s): J44.9 - Chronic obstructive pulmonary disease, unspecified (6) SOB (shortness of breath) Priority: Secondary Status: Acute General Surgery Exam Initial Vital Signs Temp Pulse Resp BP Pulse Ox 98.1 F 99 18 121/71 94 12/25/17 17:03 12/25/17 17:03 12/25/17 17:03 12/25/17 17:03 12/25/17 17:03 - General physical appearance well developed, well nourished, no distress - Respiratory normal expansion, normal respiratory effort, other (decreased breath soudns throughout) - Cardiovascular Cardiovascular exam: Present: RRR, no murmurs/rubs/gallops - Abdomen Abdomen general surgery: Present: bowel sounds present, soft, tender Abdominal Tenderness: Present: diffusely - Incision Incision: Present: clean and dry, intact - Neurologic Present: normal coordination, normal sensation - Psychiatric Psychiatric general surgery: Present: A&Ox3, appropriate, speech is normal, memory intact - Hospital Course Hospital course: Ms. Serrano is a 62 year old female c PMHx asthma, atrial fibrillation, COPD on home oxygen 4L at all times, DVT, GERD, hypertension, anxiety, depression, hysterectomy, low anterior colon resection 12/08/17 who was brought into the hospital after complaining of continued abd pain, back pain, N, V, D, SOB, Subjective fevers at her 2 week post surgery follow up. She had a work up with CBC, CMP, viral respiratory panel, CXR, Abd XR, and RUQ U/S all which were normal. Patient has been afebrile throughout admission. Patient had improvement of her symptoms so was discharge home with out patient follow up. - Time Spent with Patient Total time spent providing and/or coordinating discharge services: Greater than 30 minutes - Discharge Medications Home Medications: Albuterol Sulfate [Ventolin Hfa] 2 puff IH Q4H PRN 07/06/17 [History] BuPROPion SR (12 HR) [Wellbutrin SR] 150 mg PO BID 07/06/17 [History] Cetirizine HCl [Zyrtec] 10 mg PO DAILY PRN 07/06/17 [History] Cromolyn Sodium 1 drop OP QID PRN 07/06/17 [History] Fluticasone Propionate Nasal [Flonase] 2 spr NS BID PRN 07/06/17 [History] Methocarbamol [Robaxin-750] 750 mg PO TID PRN 07/06/17 [History] Montelukast [Singulair] 10 mg PO HS 07/06/17 [History] Omeprazole [PriLOSEC] 40 mg PO BID 07/06/17 [History] Oxycodone HCl/Acetaminophen [Percocet 5-325 mg Tablet] 1 each PO Q6H PRN [History] Paroxetine HCl [Paxil] 20 mg PO DAILY 07/06/17 [History] Propranolol HCl 40 mg PO BID 07/06/17 [History] Umeclidinium [place] [Incruse Ellipta] 62.5 mcg IH DAILY PRN 07/06/17 [History] Aspirin Enteric Coated [Aspirin EC] 81 mg PO DAILY #30 tablet. 07/19/17 [Rx] Fluticasone/Vilanterol [Breo Ellipta 200-25 Mcg INH] 1 each IH DAILY #0 [Rx] Gabapentin [Neurontin] 300 mg PO TID #90 capsule 07/19/17 [Rx] OLANZapine [Zyprexa Zydis] 5 mg PO QPM #30 tab.rapdis 07/19/17 [Rx] Potassium Chloride [K-Tab ER] 10 meq PO DAILY #30 tablet.er 07/19/17 [Rx] ALPRAZolam [Xanax 0.5 MG Tablet] 0.5 mg PO TID PRN 12/08/17 [History] Loperamide [Imodium] 2 mg PO BID PRN #8 capsule 12/20/17 [Rx] Ondansetron ODT [Zofran ODT] 4 mg SL Q6HR PRN #7 tab.rapdis 12/20/17 [Rx] Furosemide [Lasix] 40 mg PO DAILY tablet 12/27/17 [Rx] Allergies/Adverse Reactions: 3 Allergy/AdvReac Type Severity Reaction Status Date / Time No Known Allergies Allergy Verified 12/26/17 08:58 Date of admission: 12/25/17 16:17 Primary care physician: Indra Soria Consults: 12/26/17 08:31 Midline [Consult to Invasive Line Access Team] [CONS] Routine Reason for Consult: limited vascular access. Need's midline. Line Type: Midline Discharging clinician: Saul Katz Anticipated date of discharge: 12/27/17 Labs on day of discharge: Labs from last 24 hours 12/27/17 08:33 WBC 6.4 RBC 3.93 Hgb 11.5 Hct 35.3 MCV 89.8 MCH 29.3 MCHC 32.6 RDW 16.3 H Plt Count 448 H MPV 9.0 L Immature Gran % 0.5 Seg Neutrophils % 53.9 Lymphocytes % 34.1 Monocytes % 11.0 Eosinophils % 0.2 Basophils % 0.3 Neutrophils # 3.5 Lymphocytes # 2.2 Monocytes # 0.7 Eosinophils # 0.0 Basophils # 0.0 Nucleated RBCs/100 WBC 0.3 H - Impressions ITS Impressions Chest X-Ray 12/25/17 15:56 IMPRESSION: No acute cardiopulmonary disease. D/ / Ramesh Thomas MD / Ramesh Thomas MD Interpreting Provider: Ramesh Thomas MD X-Ray 12/25/17 15:56 IMPRESSION: No significant findings in the abdomen. D/ / Stanley Andres MD / Stanley Andres MD Interpreting Provider: Stanley Andres MD Abdomen Ultrasound 12/26/17 11:00 IMPRESSION: Cholelithiasis with no definitive evidence for acute cholecystitis. D/ / 12/26/2017 11:59:44 [facility] Mendez MD [facility] Interpreting Provider: Ambrose Mendez MD - Patient Status Disposition: Home, Self-Care Condition: Good Functional capacity at discharge: independent ambulation Overall status at discharge: patient is progressing back to baseline - Discharge Instructions Follow Up With: Indra Soria DO [Primary Care Provider] - Additional Instructions: Follow up with Dr. Leonard on Monday at 10:50AM at the [facility] [address] - Diet and Activity Activity: increase activity as tolerated Diet: advance to your usual diet
[2017-12-27 12:32] LABS: Adenovirus Not Detected (Not Detect); Coronavirus 229E Not Detected (Not Detect); Coronavirus HKU1 Not Detected (Not Detect); Coronavirus NL63 Not Detected (Not Detect)
[2017-12-27 12:33] LABS: Bordetella Pertussis Not Detected (Not Detect); Chlamydophila pneumoniae Not Detected (Not Detect); Coronavirus OC43 Not Detected (Not Detect); Human Metapneumovirus Not Detected (Not Detect); Human Rhinovirus/Enterovirus Not Detected (Not Detect); Influenza A Subtype 2009 H1 Not Detected (Not Detect); Influenza A Untypeable Not Detected (Not Detect); Influenza B Not Detected (Not Detect); Mycoplasma pneumoniae Not Detected (Not Detect); Parainfluenza Virus 1 Not Detected (Not Detect); Parainfluenza Virus 2 Not Detected (Not Detect); Parainfluenza Virus 3 Not Detected (Not Detect); Parainfluenza Virus 4 Not Detected (Not Detect); Respiratory Syncytial Virus Not Detected (Not Detect)
== END 2017-12-27 14:54 | disposition home or self-care (01) ==
LOC: 3ANU
PROVIDERS: ADMIT Surgery; ATTEND Surgery

== ENCOUNTER 2019-06-10 14:35 | Observation (INO) ==
[2019-06-10] MEDS ORDERED: Ipratropium/Albuterol Neb 3 ML IH ONE (15:34)
[2019-06-10] MEDS ORDERED: Aspirin 81 MG TAB.CHEW PO ONE (15:34)
[2019-06-10] MEDS ORDERED: methylPREDNISolone 125 MG/2 ML VIAL IVP ONE (15:46)
[2019-06-10] MEDS ORDERED: *HR* LORazepam 1 MG TABLET PO ONE (15:47)
--- NOTE | 2019-06-10 15:47 | Emergency Department Note ---
Disposition Clinical Impression: Acute electrocardiogram changes Chest pain Qualifiers: Chest pain type: unspecified Qualified Code(s): R07.9 - COPD (chronic obstructive pulmonary disease) Qualifiers: COPD type: unspecified COPD Qualified Code(s): J44.9 - Chronic obstructive pulmonary disease, unspecified Disposition: Admitted As Inpatient Condition: Good Time of Disposition: 19:13 Chest Pain HPI - General Chief Complaint: ED Chest Pain Stated Complaint: Hypertension Time Seen by Provider: 06/10/19 15:13 Source: patient Mode of arrival: ambulatory Limitations: no limitations Vital Signs Reviewed: Yes Nursing Notes Reviewed: Yes - History of Present Illness HPI Narrative: 63F with PMHx of COPD on 3 L of oxygen, atrial fibrillation, [place], hypertension, hyperlipidemia 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 She was seeing Dr. Paulino today and had high blood pressure and was sent to the emergency room for further development. Her blood pressure was measured at 208/118 at their office and here today it is 164/97. Her main complaints are anxiety and chest tightness. She states the chest tightness has been going on for the past several days. She does not feel like her breathing is any worse than normal and she has not been coughing recently. The chest tightness does not get worse with movement and does not improve with rest. She denies fever, chills, abdominal pain, nausea and vomiting. Severity scale (1-10): 7 - Related Data Home Medications Medication Instructions Recorded Confirmed Albuterol Sulfate [Ventolin Hfa] 2 puff IH Q4H PRN 07/06/17 06/11/19 BuPROPion SR (12 HR) [Wellbutrin 150 mg PO BID 07/06/17 06/11/19 SR] Cetirizine HCl [Zyrtec] 10 mg PO DAILY PRN 07/06/17 06/11/19 Fluticasone Propionate Nasal 2 spr NS BID PRN 07/06/17 06/11/19 [Flonase] Montelukast [Singulair] 10 mg PO HS 07/06/17 06/11/19 Paroxetine HCl [Paxil] 20 mg PO DAILY 07/06/17 06/11/19 Umeclidinium [place] [Incruse 1 puff IH DAILY 07/06/17 06/11/19 Ellipta] DiphenhydraMINE [Benadryl] 25 mg PO Q6HR PRN 01/23/19 06/11/19 Piroxicam [Feldene] 20 mg PO DAILY 01/23/19 06/11/19 Polyethylene Glycol 3350 [Gavilax] 8.5 gm PO DAILY PRN 01/23/19 06/11/19 Sennosides/Docusate Sodium 2 tab PO DAILY 01/23/19 06/11/19 [Senna-S Tablet] Potassium Chloride [Klor-Con 10] 10 meq PO DAILY 02/15/19 06/11/19 Albuterol Neb [Proventil Neb] 3 ml IH TID 06/11/19 06/11/19 Fluticasone/Salmeterol [Airduo 1 puff IH BID 06/11/19 06/11/19 Respiclick [id number] Mcg] Methocarbamol [Robaxin] 750 mg PO TID PRN 06/11/19 06/11/19 Omeprazole [PriLOSEC] 40 mg PO BID 06/11/19 06/11/19 OxyCODONE/APAP 5/325 [Percocet 1 tab PO Q6HR PRN 06/11/19 06/11/19 5/325 MG] Previous Rx's Medication Instructions Recorded Aspirin Enteric Coated [Aspirin EC] 81 mg PO DAILY #30 tablet. 07/19/17 Gabapentin [Neurontin] 300 mg PO TID #1 capsule 02/18/19 Atorvastatin [Lipitor] 40 mg PO HS #30 tablet 06/14/19 Furosemide [Lasix] 20 mg PO DAILY #30 tablet 06/14/19 Propranolol [Inderal] 10 mg PO BID #60 tablet 06/14/19 Allergies Allergy/AdvReac Type Severity Reaction Status Date / Time No Known Allergies Allergy Verified 12/26/17 08:58 All systems ED: reviewed and negative except as stated. Review of Systems: As Per HPI Constitutional: Denies: fever, chills, weakness Cardiovascular: Reports: chest pain. Denies: palpitations, dyspnea on exertion Respiratory: Reports: dyspnea. Denies: cough, wheezes, sputum production Gastrointestinal: Denies: abdominal pain, nausea, vomiting Musculoskeletal: Reports: back pain. Denies: neck pain Neurological: Denies: headache Psychiatric: Reports: anxiety Endocrine: Reports: fatigue Chest Pain PMH - Past Medical History Medical history: Reports: arthritis, asthma, atrial fibrillation, cancer, COPD, DVT, GERD, hyperlipidemia, hypertension, myocardial infarction Surgical history: Reports: cataract, colectomy, hysterectomy Psychiatric history: Reports: anxiety, prior suicide attempt - Social History Smoking Status: Current every day smoker Alcohol use: Reports: none Drug use: Reports: none Physical Exam - General Limitations: no limitations General appearance: alert, in no apparent distress - Head Head exam: atraumatic, normocephalic - Eye Eye exam: Present: normal appearance, EOMI - Chest Chest inspection: Present: tenderness (left sided). Absent: rash - Respiratory Respiratory exam: Present: other (diminished breath sounds throughout). Absent: respiratory distress - Cardiovascular Cardiovascular exam: Present: regular rate, normal rhythm - Abdominal Exam Abdominal exam: Present: soft, Non-Tender. Absent: distention, guarding, rebound, rigidity - Extremities Exam Extremities exam: Present: normal inspection. Absent: tenderness, pedal edema - Neurological Exam Neurological exam: Present: alert, oriented X3 - Psychiatric Psychiatric exam: Present: anxious - Skin Skin exam: Present: warm, dry, intact Course Vital Signs Temperature 98.6 F 06/10/19 14:59 Pulse Rate 65 06/10/19 14:59 Respiratory Rate 22 06/10/19 14:59 Blood Pressure 164/92 06/10/19 14:59 O2 Sat by Pulse Oximetry 92 06/10/19 14:59 Temperature 98.6 F 06/10/19 14:59 Pulse Rate 90 06/10/19 18:35 Respiratory Rate 20 06/10/19 18:35 Blood Pressure 159/103 06/10/19 18:35 O2 Sat by Pulse Oximetry 96 06/10/19 18:35 Oxygen Delivery Oxygen Delivery Nasal Cannula Chest Pain - MDM Narrative Medical decision making narrative: Patient presents with chest tightness and anxiety which has been going on for the past several days. We will obtain a cardiac workup on the patient and administer sublingual nitroglycerin, DuoNebs, aspirin, prednisone and Ativan to help control the patient's symptoms. 1746 - pts CXR is wnl. EKG showed some ST segment depression in the inferior leads. Awaiting labs at this time. Pt feeling mildly better after medications and breathing treatments. 1853 - pts labs do not demonstrate any acute abnormalities other than an elevated white count of 16. Patient will be admitted to the hospitalist for chest pain rule out issue still endorsing some chest pain that improved with the nitroglycerin and had some EKG changes. Patient is agreeable with this plan of care. 1912 - Dr. Nicole has accepted the patient at this time. - Medical Records Medical records reviewed: Yes I reviewed the patient's medical records. - Lab Data Lab results reviewed: Yes I reviewed the patient's lab results. Result diagrams: 06/14/19 08:35 06/14/19 08:35 Lab Results 06/10/19 06/10/19 06/10/19 Range/Units 17:06 17:06 17:06 WBC 7.6 (4.3-11.1) K/mcL RBC 5.39 H (3.82-4.97) M/mcL Hgb 16.5 H (11.5-15.4) g/dL Hct 49.6 H (35.3-44.9) % MCV 92.0 (83.0-100.0) fL MCH 30.6 (28.0-33.3) pg MCHC 33.3 (31.6-35.5) g/dL RDW 15.2 H (11.5-14.5) % Plt Count 281 (140-400) K/mcL MPV 9.4 (9.4-12.4) fL Immature Gran % 0.1 (0-4) % Seg Neutrophils % 50.7 % Lymphocytes % 41.5 % Monocytes % 6.9 % Eosinophils % 0.1 % Basophils % 0.7 % Neutrophils # 3.8 (1.6-8.9) K/mcL Lymphocytes # 3.1 (0.6-4.6) K/mcL Monocytes # 0.5 (0.0-1.3) K/mcL Eosinophils # 0.0 (0.0-0.6) K/mcL Basophils # 0.1 (0.0-0.2) K/mcL Sodium 134 L (136-145) mEq/L Potassium 3.6 (3.5-5.1) mEq/L Chloride 98 (98-107) mEq/L Carbon Dioxide 24 (23-29) mEq/L BUN 14 (8-23) mg/dL Creatinine 0.82 (0.60-1.20) mg/dL Est GFR ( Amer) > 60 (> 60) Est GFR (Non-Af Amer) > 60 (> 60) BUN/Creatinine Ratio 17 (6-26) Glucose 83 (70-105) mg/dL Calculated Osmolality 278 L (280-300) Calcium 9.8 (8.6-10.3) mg/dL Troponin I < 0.03 (< 0.04) ng/mL B-Natriuretic Peptide 132 H (Less than 100) pg/mL - Radiology Data Radiology results reviewed: Yes I reviewed the patient's radiology results. - EKG Data EKG attestation: Yes I reviewed and interpreted this EKG. EKG results narrative: EKG obtained at 1304 on 06/10/2019 Heart rate 71 bpm, WI interval 128, QRS duration 90, QT 378, QTC 41 Sinus rhythm without any ST segment elevations. There are inverted T waves with ST segment depressions in the inferior leads which are new when compared to previous EKG dated 03/01/2019. No other acute EKG changes. Heart Score - Score History: Moderately Suspicious EKG: Significant ST-Depression Age: 45-65 Risk Factors: Equal/Greater than 3 risk factor or history of atherosclerotic disease Troponin: Less than normal limit HEART Score Total: 6 Attestation Statement - Attestation Attestation: I have seen this patient with the resident physician, I have personally evaluated this patient. I had reviewed the chart and document dictation by the resident physician and aM in agreement with the information documented by the resident physician. Please see documentation by the resident physician for complete chart including past medical history, family medical history, review of systems, current history and physical and laboratory and imaging studies. I was present for all procedures, provided direct supervision for all procedures, was present for the entirety of all procedures and provided direct guidance during the procedures. Please see documentation by the resident physician for any procedures performed. I have reviewed all interpretations of EKGs, and reviewed all EKGs performed on patient's as well. I have also reviewed reports of imaging as provided by radiology.
--- NOTE | 2019-06-10 15:56 | Emergency Department Note ---
Disposition Clinical Impression: Chest pain, Acute electrocardiogram changes, COPD (chronic obstructive pulmonary disease) Disposition: Admitted As Inpatient Referrals: Indra Soria DO [Primary Care Provider] - Forms: ED Satisfaction Letter Time of Disposition: 18:38 General Adult HPI - General Chief complaint: ED Chest Pain Stated complaint: Hypertension Time Seen by Provider: 06/10/19 15:13 Source: patient Mode of arrival: ambulatory Limitations: no limitations Nursing Notes Reviewed: Yes Vital Signs Reviewed: Yes - History of Present Illness Pain Scale: 7 - Related Data Home Medications Medication Instructions Recorded Confirmed Albuterol Sulfate [Ventolin Hfa] 2 puff IH Q4H PRN 07/06/17 06/10/19 BuPROPion SR (12 HR) [Wellbutrin 150 mg PO BID 07/06/17 06/10/19 SR] Cetirizine HCl [Zyrtec] 10 mg PO DAILY PRN 07/06/17 06/10/19 Cromolyn Sodium 1 drop OP QID PRN 07/06/17 06/10/19 Fluticasone Propionate Nasal 2 spr NS BID PRN 07/06/17 06/10/19 [Flonase] Montelukast [Singulair] 10 mg PO HS 07/06/17 06/10/19 Paroxetine HCl [Paxil] 20 mg PO DAILY 07/06/17 06/10/19 Propranolol HCl 40 mg PO BID 07/06/17 06/10/19 Umeclidinium [place] [Incruse 62.5 mcg IH DAILY 07/06/17 06/10/19 Ellipta] DiphenhydraMINE [Benadryl] 25 mg PO Q6HR PRN 01/23/19 06/10/19 Piroxicam [Feldene] 20 mg PO DAILY 01/23/19 06/10/19 Polyethylene Glycol 3350 [Gavilax] 8.5 gm PO DAILY PRN 01/23/19 06/10/19 Sennosides/Docusate Sodium 2 tab PO DAILY 01/23/19 06/10/19 [Senna-S Tablet] Potassium Chloride [Klor-Con 10] 10 meq PO DAILY 02/15/19 06/10/19 Previous Rx's Medication Instructions Recorded Aspirin Enteric Coated [Aspirin EC] 81 mg PO DAILY #30 tablet. 07/19/17 Furosemide [Lasix] 40 mg PO DAILY tablet 12/27/17 Gabapentin [Neurontin] 300 mg PO TID #1 capsule 02/18/19 Omeprazole [PriLOSEC] 40 mg PO DAILY #0 02/18/19 Allergies Allergy/AdvReac Type Severity Reaction Status Date / Time No Known Allergies Allergy Verified 12/26/17 08:58 All systems ED: reviewed and negative except as stated. Review of Systems: As Per HPI Constitutional: Denies: fever, chills, weakness Cardiovascular: Reports: chest pain. Denies: palpitations, dyspnea on exertion Respiratory: Reports: dyspnea. Denies: cough, wheezes, sputum production Gastrointestinal: Denies: abdominal pain, nausea, vomiting Musculoskeletal: Reports: back pain. Denies: neck pain Neurological: Denies: headache Psychiatric: Reports: anxiety Endocrine: Reports: fatigue Past Medical History - Past Medical History Medical history: Reports: arthritis, asthma, atrial fibrillation, cancer, COPD, DVT, GERD, hyperlipidemia, hypertension, myocardial infarction Surgical history: Reports: cataract, colectomy, hysterectomy Psychiatric history: Reports: anxiety, prior suicide attempt - Social History Smoking Status: Current every day smoker Smokeless Tobacco Status: No Alcohol use: Reports: none Drug use: Reports: none Physical Exam - General Limitations: no limitations General appearance: alert, in no apparent distress Course Vital Signs Temperature 98.6 F 06/10/19 14:59 Pulse Rate 65 06/10/19 14:59 Respiratory Rate 22 06/10/19 14:59 Blood Pressure 164/92 06/10/19 14:59 O2 Sat by Pulse Oximetry 92 06/10/19 14:59 Temperature 98.6 F 06/10/19 14:59 Pulse Rate 90 06/10/19 18:35 Respiratory Rate 20 06/10/19 18:35 Blood Pressure 159/103 06/10/19 18:35 O2 Sat by Pulse Oximetry 96 06/10/19 18:35 Oxygen Delivery Oxygen Delivery Nasal Cannula Medical Decision Making - Lab Data Result diagrams: 06/10/19 17:06 06/10/19 17:06 Lab Results 06/10/19 06/10/19 06/10/19 Range/Units 17:06 17:06 17:06 WBC 7.6 (4.3-11.1) K/mcL RBC 5.39 H (3.82-4.97) M/mcL Hgb 16.5 H (11.5-15.4) g/dL Hct 49.6 H (35.3-44.9) % MCV 92.0 (83.0-100.0) fL MCH 30.6 (28.0-33.3) pg MCHC 33.3 (31.6-35.5) g/dL RDW 15.2 H (11.5-14.5) % Plt Count 281 (140-400) K/mcL MPV 9.4 (9.4-12.4) fL Immature Gran % 0.1 (0-4) % Seg Neutrophils % 50.7 % Lymphocytes % 41.5 % Monocytes % 6.9 % Eosinophils % 0.1 % Basophils % 0.7 % Neutrophils # 3.8 (1.6-8.9) K/mcL Lymphocytes # 3.1 (0.6-4.6) K/mcL Monocytes # 0.5 (0.0-1.3) K/mcL Eosinophils # 0.0 (0.0-0.6) K/mcL Basophils # 0.1 (0.0-0.2) K/mcL Sodium 134 L (136-145) mEq/L Potassium 3.6 (3.5-5.1) mEq/L Chloride 98 (98-107) mEq/L Carbon Dioxide 24 (23-29) mEq/L BUN 14 (8-23) mg/dL Creatinine 0.82 (0.60-1.20) mg/dL Est GFR ( Amer) > 60 (> 60) Est GFR (Non-Af Amer) > 60 (> 60) BUN/Creatinine Ratio 17 (6-26) Glucose 83 (70-105) mg/dL Calculated Osmolality 278 L (280-300) Calcium 9.8 (8.6-10.3) mg/dL Troponin I < 0.03 (< 0.04) ng/mL B-Natriuretic Peptide 132 H (Less than 100) pg/mL Attestation Statement - Attestation Attestation: I have seen this patient with the resident physician, I have personally evaluated this patient. I had reviewed the chart and document dictation by the resident physician and aM in agreement with the information documented by the resident physician. Please see documentation by the resident physician for complete chart including past medical history, family medical history, review of systems, current history and physical and laboratory and imaging studies. I was present for all procedures, provided direct supervision for all procedures, was present for the entirety of all procedures and provided direct guidance during the procedures. Please see documentation by the resident physician for any procedures performed. I have reviewed all interpretations of EKGs, and reviewed all EKGs performed on patient's as well. I have also reviewed reports of imaging as provided by radiology. Patient presented emergency department with multiple complaints. The patient states that she has been having significant problems with anxiety related to multiple family issues, and the passing of her best friend. She states that she has also been having chest tightness, which is been coming and going nonspecifically exertional but sometimes with exertion. She does have COPD history and wears oxygen at baseline and has had some mild shortness of breath but states that she has had no fevers no chills no increased cough or sputum production she reports that she has not used her inhaler or nebulizer today just because of everything going on she went to her doctor's office and was sent here for further evaluation of chest pain with elevated blood pressure in the office. She denies headache neck pain or jaw pain she complains of chronic back pain, for which she wants to have surgery but was told that she probably would not survive the surgery because last time in February when she had surgery she had significant cardiac problems thereafter. She states that she was admitted to the hospital after this procedure but dates that she did not stay to have a complete workup she reports that she had an echocardiogram that was potentially abnormal but states that she was under the effects of anesthesia and also did not feel that she had seen the nursing staff enough so she just got up and left without completing her cardiac evaluation. She has had intermittent chest tightness since that time centralized slightly radiating towards the left but all over her chest primarily. No pain or back no abdominal pain no dizziness. No palpitations although she states that maybe sometimes she feels palpitations when she feels anxious about everything going on. She denies black or bloody stool urinary changes she denies unilateral leg pain or leg swelling she denies peripheral edema she denies orthopnea she has chronic nocturnal dyspnea, but has not specifically noticed any changes in this. On physical examination she is anxious in appearance but alert and nontoxic in appearance in no acute distress cranial nerves are intact oropharynx is normal. There is no JVD. Lungs are significantly diminished diffusely bilaterally with question some faint end expiratory wheezes no increased work of breathing no focal rales rhonchi or crackles. Cardiovascular regular rate and rhythm no murmurs rubs or gallops abdomen soft and nontender. Skin is warm dry without rash or petechiae. No evidence of peripheral edema and no unilateral swelling palpable cord calf tenderness Homans sign or clinical evidence of DVT. EKG was performed was a normal sinus rhythm, with no evidence of acute ST radha vation, however there are new T-wave inversions in the inferior leads 23 and aVF compared to an EKG performed 3 months ago. There are persistent T-wave inversions in the lateral leads as well. No evidence of prolonged QT or hyperkalemia. Chest x-ray was ordered basic laboratory studies were ordered. She was given breathing treatments she was given aspirin she was given Solu- Medrol. She requested something for anxiety was given by mouth Ativan for this. The patient will require admission to the hospital pending further evaluation in the emergency department for chest tightness and EKG changes. She has no current shortness of breath she is not tachycardic she is not hypoxic she has no evidence of DVT, no pleuritic pain, I do not suspect pulmonary embolism at this time. CBC basic metabolic profile cardiac enzymes all within acceptable limits BNP mildly elevated 132. Chest x-ray showed no acute abnormality as interpreted by radiology. Patient will be admitted to the hospital for further evaluation and management of chest tightness with EKG changes. She did have a stress test about 5 months ago that was unremarkable, however with increased chest discomfort/pressure, EKG changes she will be admitted.
[2019-06-10] MEDS ORDERED: ALPRAZolam 0.5 MG TABLET PO ONE (16:03)
[2019-06-10] MEDS ORDERED: predniSONE 20 MG TABLET PO ONE (16:03)
[2019-06-10] MEDS: Nitroglycerin 0.4 MG TAB.SUBL SL SCH (16:23)
[2019-06-10 17:52] LABS: Basophils # 0.1 K/mcL (0.0-0.2); Basophils % 0.7 %; Eosinophils % 0.1 %; Hematocrit 49.6 % (35.3-44.9); Hemoglobin 16.5 g/dL (11.5-15.4); Immature Granulocytes % 0.1 % (0-4); Lymphocytes # 3.1 K/mcL (0.6-4.6); Lymphocytes % 41.5 %; Mean Corpuscular HGB Conc 33.3 g/dL (31.6-35.5); Mean Corpuscular Hemoglobin 30.6 pg (28.0-33.3); Mean Platelet Volume 9.4 fL (9.4-12.4); Monocytes # 0.5 K/mcL (0.0-1.3); Monocytes % 6.9 %; Neutrophils # 3.8 K/mcL (1.6-8.9); Platelet Count 281 K/mcL (140-400); Red Blood Count 5.39 M/mcL (3.82-4.97); Red Cell Distribution Width 15.2 % (11.5-14.5); Segmented Neutrophils % 50.7 %; White Blood Count 7.6 K/mcL (4.3-11.1)
[2019-06-10 18:06] LABS: BUN/Creatinine Ratio 17 (6-26); Blood Urea Nitrogen 14 mg/dL (8-23); Calcium 9.8 mg/dL (8.6-10.3); Carbon Dioxide 24 mEq/L (23-29); Chloride 98 mEq/L (98-107); Glucose 83 mg/dL (70-105); Osmolality,Calculated 278 (280-300); Potassium 3.6 mEq/L (3.5-5.1); Sodium 134 mEq/L (136-145); eGFR For African Americans > 60 (> 60); eGFR For Non-African Americans > 60 (> 60)
[2019-06-10 18:07] LABS: Troponin I < 0.03 ng/mL (< 0.04)
[2019-06-10] MEDS ORDERED: Naloxone 0.4 MG/ML INJ IVP PRN (22:36)
[2019-06-10] MEDS ORDERED: traMADol 50 MG TABLET PO PRN (23:22)
[2019-06-10] MEDS: Ondansetron 4 MG/2 ML VIAL IVP PRN (23:38)
[2019-06-10] MEDS: Gabapentin 300 MG CAPSULE PO SCH (23:38)
--- NOTE | 2019-06-10 23:40 | Internal Med History&Physical ---
Date of Encounter: 06/10/19 Time of Encounter: 22:30 Internal Medicine - H&P: HPI Chief complaint: Chest Pressure/Hypertension Admitted From: Home Plans for Post Hospital Care: Home History of present illness: Ms. Serrano is a 63 year old female with past medical history significant for A. fib, hypertension, COPD on 3.5 LPM nasal cannula continuously, arthritis, asthma, DVT, cancer, GERD, cataracts, chronic back and leg pain, anxiety, prior suicide attempt and hospitalization, and tobacco abuse who presents from o rustatient Pulmonary appointment due to hypertension and chest pressure. Blood pressure was reportedly 208/118 at Pulmonary office and patient also complained of intermittent chest pressure across her chest for past 3-4 days. Pain does not radiate and is associated with nausea, vomiting, and diaphoresis. Pain is improved with rest and exacerbated with exertion. Reports she has chronic chest pain over past two years that she attributes to her significant anxiety but states this felt different and has been getting progressively worse. States her typical chest pain is sharp in her left chest with palpitations which she has continued to experience intermittently with her above described chest pressure. She also has been under significant stress lately due to the of a friend which she thinks may be making it worse as well. ER reported she improved after nitroglycerin but patient denies receiving any and MAR shows none was given. Received DuoNeb, Xanax, aspirin, and prednisone while in ER according to MAR. Reports her breathing is at baseline and perhaps better than baseline and denies any recent increased shortness of breath or cough. Currently she is denying any chest pressure though she still appears anxious. Currently denies any headache, chest pain, shortness of breath, cough, abdominal pain, bowel or bladder changes. ER reported EKG as sinus rhythm without evidence of acute ST elevation, however there are new Twaves and ST segment depressions in the inferior leads compared to an EKG performed 03/01/2019 and persistent T wave inversions in the lateral leads as well. ER also obtained a chest x-ray which showed no acute cardiopulmonary disease. Patient had echocardiogram and stress testing completed in January 2019 showing a 69% EF and was negative for ischemia and infarct. Reports her blood pressures are typically well controlled with her systolics usually averaging in the 120s. Reports following regularly with her PCP and Pulmonary. Past Med Surg Social Fam HX - Past Medical History Medical history: arthritis, asthma, atrial fibrillation, cancer, COPD, DVT, GERD, hyperlipidemia, hypertension, myocardial infarction Additional medical history: SLEEP APNEA Psychiatric history: anxiety, depression, prior suicide attempt, previous ps ychiatric hospitalization - Past Surgical History Surgical History: cataract, colectomy, hysterectomy Additional surgical history: 18 inch bowel resection d/t prolapsed bowel per Dr Leonard one year ago, carpal tunnel release, right shoulder arthroscopy, right middle trigger finger release, bilateral cataract, excision of ganglion cyst - Social History Smoking Status: Current every day smoker Packs per day: 1 Smokeless Tobacco Status: No Alcohol use: none Drug use: none - Family History Father Living Status: Hx Family Cardiac Disorders: Yes (ND) Hx Family Respiratory Disorders: Yes (lung disease, ) Mother Living Status: Hx Family Cardiac Disorders: Yes (HTN, CAD) Hx Family Cancer: Yes Internal Medicine - H&P: Meds Albuterol Sulfate [Ventolin Hfa] 2 puff IH Q4H PRN 07/06/17 [History] BuPROPion SR (12 HR) [Wellbutrin SR] 150 mg PO BID 07/06/17 [History] Cetirizine HCl [Zyrtec] 10 mg PO DAILY PRN 07/06/17 [History] Cromolyn Sodium 1 drop OP QID PRN 07/06/17 [History] Fluticasone Propionate Nasal [Flonase] 2 spr NS BID PRN 07/06/17 [History] Montelukast [Singulair] 10 mg PO HS 07/06/17 [History] Paroxetine HCl [Paxil] 20 mg PO DAILY 07/06/17 [History] Propranolol HCl 40 mg PO BID 07/06/17 [History] Umeclidinium [place] [Incruse Ellipta] 62.5 mcg IH DAILY 07/06/17 [History] Aspirin Enteric Coated [Aspirin EC] 81 mg PO DAILY #30 tablet. 07/19/17 [Rx] Furosemide [Lasix] 40 mg PO DAILY tablet 12/27/17 [Rx] DiphenhydraMINE [Benadryl] 25 mg PO Q6HR PRN 01/23/19 [History] Piroxicam [Feldene] 20 mg PO DAILY 01/23/19 [History] Polyethylene Glycol 3350 [Gavilax] 8.5 gm PO DAILY PRN 01/23/19 [History] Sennosides/Docusate Sodium [Senna-S Tablet] 2 tab PO DAILY 01/23/19 [History] Potassium Chloride [Klor-Con 10] 10 meq PO DAILY 02/15/19 [History] Gabapentin [Neurontin] 300 mg PO TID #1 capsule 02/18/19 [Rx] Omeprazole [PriLOSEC] 40 mg PO DAILY #0 02/18/19 [Rx] Allergy/AdvReac Type Severity Reaction Status Date / Time No Known Allergies Allergy Verified 12/26/17 08:58 All Systems PM: A 10-system review of systems was performed and is negative for pertinent findings except as documented above in the HPI. - Constitutional Vitals: Temp Pulse Resp BP Pulse Ox 98.0 F 75 16 105/68 95 06/10/19 23:16 06/10/19 23:16 06/10/19 23:16 06/10/19 23:16 06/10/19 23:16 Exam: General: Alert and oriented. Appears anxious. Skin:Normal color, no rash, no lesions. HEENT:Pupils equal, round and reactive. Cardiovascular:Normal S1 & S2, no rubs, murmurs or gallops. No JVD. Pulse regular. Lungs:Breath sounds decreased, no wheezes or crackles. Abdomen:Soft, non-tender, no rigidity. Extremities:No deformity, no edema or tenderness, no joint swelling or clubbing. Neurological:Normal cognition and motor skills. Pulses:Carotid and radial pulses normal +2. Rest of the physical exam is non contributory. Internal Med - H&P Results - Labs CBC & Chem 7: 06/10/19 17:06 06/10/19 17:06 Labs: Short CBC 06/10/19 Range/Units 17:06 WBC 7.6 (4.3-11.1) K/mcL Hgb 16.5 H (11.5-15.4) g/dL Hct 49.6 H (35.3-44.9) % Plt Count 281 (140-400) K/mcL Neutrophils # 3.8 (1.6-8.9) K/mcL BMP 06/10/19 17:06 Sodium 134 L Potassium 3.6 Chloride 98 Carbon Dioxide 24 BUN 14 Creatinine 0.82 Glucose 83 Calcium 9.8 Cardiac Enzymes 06/10/19 Range/Units 17:06 Troponin I < 0.03 (< 0.04) ng/mL - Impressions ITS Impressions Chest X-Ray 06/10/19 15:54 IMPRESSION: No acute cardiopulmonary disease. D/ / Yarelis Gandhi MD / Yarelis Gandhi MD Interpreting Provider: Yarelis Gandhi MD - Assessment and Plan (1) Chest pain Current Visit: Yes Status: Acute Assessment and plan: Reports intermittent chest pressure across her chest for past 3-4 days. Currently resolved. Reports chronic chest pain over past 2 years that she attributes to her significant anxiety states this felt different and has been getting progressively worse. ER reported EKG as sinus rhythm without evidence of acute ST elevation, however there are new Twaves and ST segment depressions in the inferior leads compared to an EKG performed 03/01/2019 and persistent T wave inversions in the lateral leads as well. ER reported she improved after nitroglycerin but patient denies receiving any and MAR shows none was given. Patient had echocardiogram and stress testing completed in January 2019 showing a 69% EF and was negative for ischemia and infarct. Initial troponin in ER negative, serial troponins ordered. Continuous cardiac monitoring. Cardiology consult ordered for further recommendations given EKG changes and recent cardiac testing, will need called in a.m. Qualifiers: Chest pain type: unspecified Qualified Code(s): R07.9 - Chest pain, unspeci fied (2) Anxiety Current Visit: Yes Status: Acute Assessment and plan: Acute on chronic. Appears anxious on my exam. Received home Xanax in ER, will continue same. Resume other home medications once verified. (3) Hypertension Current Visit: Yes Status: Acute Assessment and plan: Sent from pulmonary office due to blood pressure being reportedly 208/118. Blood pressure has improved since arrival, continue to monitor closely. Resume home blood pressure medications once verified. Qualifiers: Hypertension type: unspecified Qualified Code(s): I10 - Essential (primary) hypertension (4) Hyponatremia Current Visit: Yes Status: Acute Assessment and plan: Minimally decreased at 134. Repeat labs ordered. (5) Elevated brain natriuretic peptide (BNP) level Current Visit: Yes Status: Chronic Assessment and plan: Elevated at 132. Does not appear to be fluid overloaded. Improved from previous in January 2019 at 168. (6) COPD (chronic obstructive pulmonary disease) Current Visit: Yes Status: Chronic Assessment and plan: Received DuoNeb and prednisone while in ER. Not an acute exacerbation. Resume home medications once verified. Qualifiers: COPD type: unspecified COPD Qualified Code(s): J44.9 - Chronic obstructive pulmonary disease, unspecified (7) Tobacco abuse Current Visit: Yes Status: Chronic Assessment and plan: Cessation strongly encouraged. - Time Spent With Patient Total time spent is greater than 50% in coordination of care (as documented) at patient's floor/unit and/or counseling patient:
[2019-06-11 05:19] LABS: Hematocrit 43.9 % (35.3-44.9); Mean Corpuscular HGB Conc 33.5 g/dL (31.6-35.5); Mean Corpuscular Hemoglobin 30.3 pg (28.0-33.3); Mean Corpuscular Volume 90.5 fL (83.0-100.0); Mean Platelet Volume 9.7 fL (9.4-12.4); Platelet Count 274 K/mcL (140-400); Red Blood Count 4.85 M/mcL (3.82-4.97); Red Cell Distribution Width 14.9 % (11.5-14.5); White Blood Count 5.1 K/mcL (4.3-11.1)
[2019-06-11 05:21] LABS: Hemoglobin 14.7 g/dL (11.5-15.4)
[2019-06-11 05:47] LABS: BUN/Creatinine Ratio 27 (6-26); Blood Urea Nitrogen 23 mg/dL (8-23); Calcium 8.9 mg/dL (8.6-10.3); Carbon Dioxide 20 mEq/L (23-29); Chloride 106 mEq/L (98-107); Glucose 125 mg/dL (70-105); Osmolality,Calculated 285 (280-300); Potassium 4.9 mEq/L (3.5-5.1); Sodium 135 mEq/L (136-145); Troponin I < 0.03 ng/mL (< 0.04); eGFR For African Americans > 60 (> 60); eGFR For Non-African Americans > 60 (> 60)
[2019-06-11] MEDS: *HR* Heparin 5,000 UNIT/ML VIAL SQ SCH ×2 (06:02→17:28)
[2019-06-11] MEDS ORDERED: CROMOLYN SODIUM OP PRN (09:13)
[2019-06-11] MEDS ORDERED: Loratadine 10 MG TABLET PO PRN (09:13)
[2019-06-11] MEDS ORDERED: Fluticasone Propionate Nasal 50 MCG/SPRAY BOTTLE NS PRN (09:13)
[2019-06-11] MEDS ORDERED: Mag Hydrox/Al Hydrox/Simeth 30 ML UDC PO PRN (09:15)
[2019-06-11] MEDS ORDERED: Furosemide 40 MG TABLET PO SCH (09:15)
[2019-06-11] MEDS ORDERED: Methocarbamol 750 MG TABLET PO PRN (10:11)
[2019-06-11] MEDS: BuPROPion SR (12 HR) 150 MG TABLET PO SCH ×2 (10:14→20:18)
[2019-06-11] MEDS: Sennosides/Docusate Sodium TABLET PO SCH (10:14)
[2019-06-11] MEDS: Diclofenac Sodium (24 HR) 100 MG TABLET PO SCH ×2 (10:15→20:19)
[2019-06-11] MEDS: Gabapentin 300 MG CAPSULE PO SCH ×3 (10:15→20:20)
[2019-06-11] MEDS: Aspirin Enteric Coated 81 MG Tablet PO SCH (10:15)
[2019-06-11] MEDS: ALPRAZolam 1 MG TABLET PO PRN ×2 (10:22→20:23)
--- NOTE | 2019-06-11 11:09 | Internal Med Progress Note ---
Hospitalist Progress Note - Encounter Date of Encounter: 06/11/19 Time of Encounter: 11:07 - Subjective Interval History: Ms. Serrano is a 63 year old female with past medical history significant for A. fib, hypertension, COPD on 3.5 LPM nasal cannula continuously, arthritis, asthma, DVT, cancer, GERD, cataracts, chronic back and leg pain, anxiety, prior suicide attempt and hospitalization, and tobacco abuse who presents from outpatient Pulmonary appointment due to hypertension and chest pressure. Blood pressure was reportedly 208/118 at Pulmonary office and patient also complained of intermittent chest pressure across her chest for past 3-4 days. Pain does not radiate and is associated with nausea, vomiting, and diaphoresis. Pain is improved with rest and exacerbated with exertion. Reports she has chronic chest pain over past two years that she attributes to her significant anxiety but states this felt different and has been getting progressively worse. States her typical chest pain is sharp in her left chest with palpitations which she has continued to experience intermittently with her above described chest pressure. She also has been under significant stress lately due to the of a friend which she thinks may be making it worse as well. ER reported she improved after nitroglycerin but patient denies receiving any and MAR shows none was given. Received DuoNeb, Xanax, aspirin, and prednisone while in ER according to MAR. Reports her breathing is at baseline and perhaps better than baseline and denies any recent increased shortness of breath or cough. Currently she is denying any chest pressure though she still appears anxious. Currently denies any headache, chest pain, shortness of breath, cough, abdominal pain, bowel or bladder changes. ER reported EKG as sinus rhythm without evidence of acute ST elevat ion, however there are new Twaves and ST segment depressions in the inferior leads compared to an EKG performed 03/01/2019 and persistent T wave inversions in the lateral leads as well. ER also obtained a chest x-ray which showed no acute cardiopulmonary disease. Patient had echocardiogram and stress testing completed in January 2019 showing a 69% EF and was negative for ischemia and infarct. Reports her blood pressures are typically well controlled with her systolics usually averaging in the 120s. Reports following regularly with her PCP and Pulmonary. Pt seen and examined in the room. She has no chest pain currently. - Exam Vitals: Temp Pulse Resp BP Pulse Ox 97.6 F 72 18 139/75 95 06/11/19 07:29 06/11/19 07:29 06/11/19 07:29 06/11/19 07:29 06/11/19 07:29 Exam: General: Alert and oriented. Appears anxious. Skin:Normal color, no rash, no lesions. HEENT:Pupils equal, round and reactive. Cardiovascular:Normal S1 & S2, no rubs, murmurs or gallops. No JVD. Pulse regular. Lungs:Breath sounds decreased, no wheezes or crackles. Abdomen:Soft, non-tender, no rigidity. Extremities:No deformity, no edema or tenderness, no joint swelling or clubbing. Neurological:Normal cognition and motor skills. Pulses:Carotid and radial pulses normal +2. Rest of the physical exam is non contributory. - Assessment and Plan (1) Chest pain Current Visit: Yes Status: Acute Assessment and Plan: Reports intermittent chest pressure across her chest for past 3-4 days. Currently resolved. Reports chronic chest pain over past 2 years that she attributes to her significant anxiety states this felt different and has been getting progressively worse. ER reported EKG as sinus rhythm without evidence of acute ST elevation, however there are new Twaves and ST segment depressions in the inferior leads compared to an EKG performed 03/01/2019 and persistent T wave inversions in the lateral leads as well. ER reported she improved after nitroglycerin but patient denies receiving any and MAR shows none was given. Patient had echocardiogram and stress testing completed in January 2019 showing a 69% EF and was negative for ischemia and infarct. Initial troponin in ER negative, serial troponins was negative. Continuous cardiac monitoring. Cardiology consult ordered for further recommendations given EKG changes and recent cardiac testing. (2) Anxiety Current Visit: Yes Status: Acute Assessment and Plan: Acute on chronic. Appears anxious on my exam. Received home Xanax in ER, continue same. Resume other home medications. (3) Hypertension Current Visit: Yes Status: Acute Assessment and Plan: Sent from pulmonary office due to blood pressure being reportedly 208/118. Blood pressure has improved since arrival, continue to monitor closely. Resume home blood pressure medications . (4) Hyponatremia Current Visit: Yes Status: Acute Assessment and Plan: Minimally decreased at 134. Repeat labs ordered. (5) Elevated brain natriuretic peptide (BNP) level Current Visit: Yes Status: Chronic Assessment and Plan: Elevated at 132. Does not appear to be fluid overloaded. Improved from previous in January 2019 at 168. (6) COPD (chronic obstructive pulmonary disease) Current Visit: Yes Status: Chronic Assessment and Plan: Received DuoNeb and prednisone while in ER. Not an acute exacerbation. Resume home medications. (7) Tobacco abuse Current Visit: Yes Status: Chronic Assessment and Plan: Cessation strongly encouraged. DVT Prophylaxis: Heparin sq. - Time Spent with Patient Total time spent is greater than 50% in coordination of care (as documented) at patient's floor/unit and/or counseling patient: Greater than 35 minutes Plan of Care Discussed with: patient Internal Medicine: Result - Labs CBC & Chem 7: 06/11/19 03:44 06/11/19 03:44 Labs: Short CBC 06/10/19 06/11/19 Range/Units 17:06 03:44 WBC 7.6 5.1 (4.3-11.1) K/mcL Hgb 16.5 H 14.7 D (11.5-15.4) g/dL Hct 49.6 H 43.9 (35.3-44.9) % Plt Count 281 274 (140-400) K/mcL Neutrophils # 3.8 (1.6-8.9) K/mcL BMP 06/10/19 06/11/19 17:06 03:44 Sodium 134 L 135 L Potassium 3.6 4.9 D Chloride 98 106 Carbon Dioxide 24 20 L BUN 14 23 Creatinine 0.82 0.86 Glucose 83 125 H Calcium 9.8 8.9 Cardiac Enzymes 06/10/19 06/10/19 06/11/19 Range/Units 17:06 23:51 03:44 Troponin I < 0.03 < 0.03 < 0.03 (< 0.04) ng/mL - Impressions Impressions Chest X-Ray 06/10/19 15:54 IMPRESSION: No acute cardiopulmonary disease. D/ / Yarelis Gandhi MD / Yarelis griffin MD Interpreting Provider: Yarelis Gandhi MD Consult Discharge Plan - Plan Referrals: Yang,Brain, DO [Primary Care Provider] - (1) Chest pain Qualifiers: Chest pain type: unspecified Qualified Code(s): R07.9 - Chest pain, unspecified (3) Hypertension Qualifiers: Hypertension type: unspecified Qualified Code(s): I10 - Essential (primary) hypertension (6) COPD (chronic obstructive pulmonary disease) Qualifiers: COPD type: unspecified COPD Qualified Code(s): J44.9 - Chronic obstructive pulmonary disease, unspecified
[2019-06-11] MEDS: *HR* OxyCODONE/APAP 5/325 TABLET PO PRN ×2 (11:47→21:37)
--- NOTE | 2019-06-11 12:46 | Cardiology Consult Note ---
<Magali Hassan William - Last Filed: 06/11/19 13:02> Date of Encounter: 06/11/19 Time of Encounter: 12:41 Assessment and Plan (1) Chest pain Current Visit: Yes Status: Acute Per cardiology: -Chest pain atypical for several months. However reported history of CAD, TN. -ECG with diffuse T wave abnormalities. -Troponins negative x3. -On asa, BB. -Denies current chest pain. -Stress test 01/2019 negative for ischemia or infarct. -TTE 01/2019 with LVEF 65-70%, mild concentric LVH, mild MR, no SWMA. -Discussed and reviewed with , with recurrent chest pain and negative stress test 01/2019, recommend LHC. Risks versus benefits of LHC explained to patient, who states understanding and agreeable to proceed. -Will plan for LHC in am. -Will start statin, imdur. Qualifiers: Chest pain type: unspecified Qualified Code(s): R07.9 - Chest pain, unspecified (2) Tobacco abuse Current Visit: Yes Status: Chronic Per cardiology: -Known tobacco abuse. -Smoking cessation education reviewed with patient. Discussion w patient/family: The assessment and plan as outlined above was discussed with the patient who expressed understanding and agreement. All questions were answered. Thank you for involving us in the care of your patient. Please call with any questions. Discussed and reviewed with . History of Present Illness Consult date: 06/11/19 Requesting physician: Lee Ann Ayers Consult reason: chest pain Chief complaint: chest pain, high BP History of present illness: Ms. Serrano is a 63 year old female with a relevant past medical history of CAD with reported LHC without intervention, TN, HTN, asthma, COPD, GERD, anxiety, depression, DVT, rectal prolapse, tobacco abuse, who presented to outpatient pulmonology appt and was recommended for ER evaluation due to elevated BP. Cardiology has been consulted for chest pain. Patient reports she has had intermittent chest pain for 6 months. States she mostly notices chest pain when she is worried and anxious. Does report chest pain worsens with exertion and is relieved by rest and "trying not to worry too much." Denies current chest pain. Patient very tearful during exam. Reports multiple stressors at home. Past Med Surg Social Fam HX - Past Medical History Attestation: Yes The following information was validated with the patient. Source: patient, old records reviewed Medical history: arthritis, asthma, cancer, COPD, coronary artery disease, DVT, GERD, hyperlipidemia, hypertension, myocardial infarction Additional medical history: SLEEP APNEA Psychiatric history: anxiety, depression, prior suicide attempt, previous psychiatric hospitalization - Past Surgical History Surgical History: cataract, colectomy, hysterectomy Additional surgical history: 18 inch bowel resection d/t prolapsed bowel per Dr Leonard one year ago, carpal tunnel release, right shoulder arthroscopy, right middle trigger finger release, bilateral cataract, excision of ganglion cyst - Social History Smoking Status: Current every day smoker Packs per day: 1 Smokeless Tobacco Status: No Alcohol use: none Drug use: none - Family History Father Living Status: Hx Family Cardiac Disorders: Yes (TN) Hx Family Respiratory Disorders: Yes (lung disease, ) Mother Living Status: Hx Family Cardiac Disorders: Yes (HTN, CAD) Hx Family Cancer: Yes Medications and Allergies Albuterol Sulfate [Ventolin Hfa] 2 puff IH Q4H PRN 07/06/17 [History] BuPROPion SR (12 HR) [Wellbutrin SR] 150 mg PO BID 07/06/17 [History] Cetirizine HCl [Zyrtec] 10 mg PO DAILY PRN 07/06/17 [History] Fluticasone Propionate Nasal [Flonase] 2 spr NS BID PRN 07/06/17 [History] Montelukast [Singulair] 10 mg PO HS 07/06/17 [History] Paroxetine HCl [Paxil] 20 mg PO DAILY 07/06/17 [History] Propranolol HCl 40 mg PO BID 07/06/17 [History] Umeclidinium [place] [Incruse Ellipta] 1 puff IH DAILY 07/06/17 [History] Aspirin Enteric Coated [Aspirin EC] 81 mg PO DAILY #30 tablet. 07/19/17 [Rx] Furosemide [Lasix] 40 mg PO DAILY tablet 12/27/17 [Rx] DiphenhydraMINE [Benadryl] 25 mg PO Q6HR PRN 01/23/19 [History] Piroxicam [Feldene] 20 mg PO DAILY 01/23/19 [History] Polyethylene Glycol 3350 [Gavilax] 8.5 gm PO DAILY PRN 01/23/19 [History] Sennosides/Docusate Sodium [Senna-S Tablet] 2 tab PO DAILY 01/23/19 [History] Potassium Chloride [Klor-Con 10] 10 meq PO DAILY 02/15/19 [History] Gabapentin [Neurontin] 300 mg PO TID #1 capsule 02/18/19 [Rx] Albuterol Neb [Proventil Neb] 3 ml IH TID 06/11/19 [History] Fluticasone/Salmeterol [Airduo Respiclick 232-14 Mcg] 1 puff IH BID 06/11/19 [History] Methocarbamol [Robaxin] 750 mg PO TID PRN 06/11/19 [History] Omeprazole [PriLOSEC] 40 mg PO BID 06/11/19 [History] OxyCODONE/APAP 5/325 [Percocet 5/325 MG] 1 tab PO Q6HR PRN 06/11/19 [History] Allergy/AdvReac Type Severity Reaction Status Date / Time No Known Allergies Allergy Verified 12/26/17 08:58 All Systems Review: The remainder of the systems were reviewed and are negative - Cardiovascular Cardiovascular: as per HPI, chest pain at rest, chest pain with exertion, dyspnea on exertion Physical Examination Vital Signs, Last 4 Hours Temp Pulse Resp BP Pulse Ox 06/11/19 12:35 98.2 F 62 16 127/72 98 06/11/19 11:49 18 95 General: Conversant, No Apparent Distress HEENT: Atraumatic, Normocephaly, Mucus Membranes Moist Neck: No JVD, Normal carotid pulses Cardiac: Reg Rate and Rhythm, Normal S1 and S2, No Murmur Lungs: Other (Lung sounds diminished throughout. ) Neuro: Alert and responsive, No focal deficits noted Abdomen: Soft, Non-Tender Skin: No rashes noted on visualized skin Musculoskeletal: No Chest Wall Tenderness Extremities: No Clubbing, No Cyanosis, No Edema, Normal Pulses Results 06/11/19 03:44 06/11/19 03:44 Lab Results Impressions Chest X-Ray 06/10/19 15:54 IMPRESSION: No acute cardiopulmonary disease. D/ / Yarelis Gandhi MD / Yarelis Gandhi MD Interpreting Provider: Yarelis Gandhi MD Active Medications Al Hydrox/Mg Hydrox/Simethicone (Maalox) 30 ml PO Q4H PRN; Protocol PRN Reason: Indigestion Stop: 12/11/19 09:16 Albuterol Sulfate (Proventil Inhaler) 2 puff IH Q4H PRN PRN Reason: Shortness Of Breath Stop: 12/11/19 09:14 Last Admin: 06/11/19 11:48 Dose: 2 puff Documented by: Albuterol Sulfate (Proventil Neb) 2.5 mg IH TID STEPHANIE; Protocol Stop: 12/11/19 15:01 Alprazolam (Xanax) 1 mg PO BID PRN; Protocol PRN Reason: Anxiety Stop: 12/11/19 00:24 Last Admin: 06/11/19 10:22 Dose: 1 mg Documented by: Aspirin (Aspirin Ec) 81 mg PO DAILY [facility] Stop: 12/11/19 09:16 Last Admin: 06/11/19 10:15 Dose: 81 mg Documented by: Budesonide/Formoterol Fumarate (Symbicort) 2 puff IH BIDR [facility] Stop: 12/11/19 21:01 Bupropion HCl (Wellbutrin Sr) 150 mg PO BID [facility] Stop: 12/11/19 09:16 Last Admin: 06/11/19 10:14 Dose: 150 mg Documented by: Diclofenac Sodium (Voltaren Xr) 100 mg PO BID [facility] Stop: 12/11/19 10:01 Last Admin: 06/11/19 10:15 Dose: 100 mg Documented by: Diphenhydramine HCl (Benadryl) 25 mg PO Q6HR PRN PRN Reason: Allergy Symptoms Stop: 12/11/19 09:14 Fluticasone Propionate (Flonase) 100 mcg NS BID PRN; Protocol PRN Reason: Allergy Symptoms Stop: 12/11/19 09:14 Furosemide (Lasix) 40 mg PO DAILY [facility] Stop: 12/11/19 09:16 Last Admin: 06/11/19 10:14 Dose: 40 mg Documented by: Gabapentin (Neurontin) 300 mg PO TID [facility] Stop: 12/10/19 23:23 Last Admin: 06/11/19 10:15 Dose: 300 mg Documented by: Heparin Sodium (Porcine) (Heparin) 5,000 unit SQ Q12HCO [facility]; Protocol Stop: 12/11/19 06:01 Last Admin: 06/11/19 06:02 Dose: 5,000 unit Documented by: Loratadine (Claritin) 10 mg PO DAILY PRN PRN Reason: Allergy Symptoms Methocarbamol (Robaxin) 750 mg PO TID PRN PRN Reason: Pain Stop: 12/11/19 10:12 Montelukast Sodium (Singulair) 10 mg PO HS STEPHANIE Stop: 12/11/19 09:16 Last Admin: 06/11/19 10:14 Dose: 10 mg Documented by: Naloxone HCl (Narcan) 0.4 mg IVP Q2MPRN PRN PRN Reason: SEE COMMENTS Stop: 12/10/19 22:37 Omeprazole (Prilosec) 40 mg PO DAILY [facility] Stop: 12/11/19 09:16 Last Admin: 06/11/19 10:15 Dose: 40 mg Documented by: Ondansetron HCl (Zofran) 4 mg IVP Q8HR PRN; Protocol PRN Reason: Nausea And Vomiting Stop: 12/10/19 23:21 Last Admin: 06/10/19 23:38 Dose: 4 mg Documented by: Oxycodone/Acetaminophen (Percocet 5/325) 1 each PO Q6HR PRN PRN Reason: Pain Stop: 12/11/19 10:12 Last Admin: 06/11/19 11:47 Dose: 1 each Documented by: Paroxetine HCl (Paxil) 20 mg PO DAILY [facility]; Protocol Stop: 12/11/19 09:16 Last Admin: 06/11/19 10:15 Dose: 20 mg Documented by: Pharmacy Profile Note (Patient Taking Own Medication) 1 each OP QID PRN PRN Reason: Allergy Symptoms Pharmacy Profile Note (Patient Taking Own Medication) 1 each IH DAILY [facility] Stop: 12/11/19 09:16 Last Admin: 06/11/19 11:48 Dose: Not Given Documented by: Polyethylene Glycol (Miralax) 8.5 gm PO DAILY PRN PRN Reason: Constipation Potassium Chloride (Potassium Chloride) 10 meq PO DAILY [facility] Stop: 12/11/19 09:16 Last Admin: 06/11/19 10:15 Dose: 10 meq Documented by: Propranolol HCl (Inderal) 40 mg PO BID STEPHANIE Stop: 12/11/19 09:16 Last Admin: 06/11/19 10:15 Dose: 40 mg Documented by: Senna/Docusate Sodium (Senna Plus) 2 each PO DAILY STEPHANIE; Protocol Stop: 12/11/19 09:16 Last Admin: 06/11/19 10:14 Dose: 2 each Documented by: Laboratory Tests 06/10/19 06/10/19 06/10/19 17:06 17:06 23:51 Hgb 16.5 H Creatinine Troponin I < 0.03 < 0.03 06/11/19 06/11/19 03:44 03:44 Hgb 14.7 D Creatinine 0.86 Troponin I < 0.03 - Imaging and Cardiology Chest Xray: report reviewed Stress Test: report reviewed Echo: report reviewed - EKG Interpretation EKG results cardiology: personally reviewed (ECG with SR, HR 71. T wave abnormalities noted.), other (Telemetry reviewed with average HR previous 12 hours noted to be 65, SR. PVCs, PACs, short a.tach noted.) Consult Discharge Plan - Plan Referrals: Indra Soria, [Primary Care Provider] - <Brennan Stafford - Last Filed: 06/11/19 20:43> Date of Encounter: 06/11/19 - Attending Attestation I have personally performed a face to face evaluation on this patient. I have reviewed and agree with the documented findings and care plan as documented by the BUILDING ASSOCIATE. History and Exam by me shows: Patient is a pleasant 63-year-old female current everyday smoker presenting with chest pain. EKG showed T-wave inversions in anterolateral leads. Pharm Nuc Stress test in January was negative for ischemia Recommend cardiac catheterization. Start Imdur 60mg daily, aspirin, statin. Urged to quit smoking. Thanks for the consult, please call with questions. Brennan Stafford MD [facility] Assessment and Plan Discussion w patient/family: The assessment and plan as outlined above was discussed with the patient and/or family members who expressed understanding and agreement. All questions were answered. Thank you for involving us in the care of your patient. Please call with any questions. History of Present Illness History of present illness: Ms. Serrano is a 63 year old female All Systems Review: The remainder of the systems were reviewed and are negative Physical Examination Vital Signs, Last 4 Hours Temp Pulse Resp BP Pulse Ox 06/11/19 19:31 97.8 F 57 18 117/68 96 06/11/19 17:03 16 96 Results 06/11/19 03:44 06/11/19 03:44 Lab Results 06/10/19 06/11/19 06/11/19 23:51 03:44 03:44 WBC 5.1 Hgb 14.7 D Hct 43.9 Plt Count 274 Sodium 135 L Potassium 4.9 D Chloride 106 Carbon Dioxide 20 L BUN 23 Creatinine 0.86 Glucose 125 H Calcium 8.9 Troponin I < 0.03 < 0.03
[2019-06-11] MEDS ORDERED: Isosorbide MONOnitrate (24 HR) 30 MG TAB.ER.24H PO SCH ×2 (13:03→15:45)
[2019-06-11] MEDS ORDERED: Isosorbide MONOnitrate (24 HR) 30 MG TAB.ER.24H PO ONE (16:02)
--- NOTE | 2019-06-11 16:10 | Electrocardiograph Report ---
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
[2019-06-11] MEDS: Albuterol 2.5 MG/3 ML NEBULIZER IH SCH ×2 (17:03→20:56)
[2019-06-11] MEDS: SALMETEROL IH SCH ×2 (20:50→20:56)
[2019-06-11] MEDS: FLUTICASONE IH SCH ×2 (20:50→20:56)
[2019-06-11] MEDS ORDERED: NON-FORMULARY MEDICATION 1 EACH EACH (Omeprazole [Prilosec] 40 MG) PO SCH (21:00)
[2019-06-12] MEDS: Ondansetron 4 MG/2 ML VIAL IVP PRN (04:17)
[2019-06-12 04:23] LABS: Basophils % 0.4 %; Eosinophils % 0.3 %; Hematocrit 37.1 % (35.3-44.9); Immature Granulocytes % 0.1 % (0-4); Lymphocytes # 2.7 K/mcL (0.6-4.6); Lymphocytes % 37.7 %; Mean Corpuscular HGB Conc 32.9 g/dL (31.6-35.5); Mean Corpuscular Hemoglobin 30.3 pg (28.0-33.3); Mean Corpuscular Volume 92.1 fL (83.0-100.0); Monocytes # 0.5 K/mcL (0.0-1.3); Monocytes % 6.7 %; Platelet Count 236 K/mcL (140-400); Red Blood Count 4.03 M/mcL (3.82-4.97); Red Cell Distribution Width 15.2 % (11.5-14.5); Segmented Neutrophils % 54.8 %; White Blood Count 7.3 K/mcL (4.3-11.1)
[2019-06-12 04:26] LABS: Hemoglobin 12.2 g/dL (11.5-15.4)
[2019-06-12 04:37] LABS: Calcium 8.2 mg/dL (8.6-10.3); Potassium 4.7 mEq/L (3.5-5.1)
[2019-06-12] MEDS: *HR* Heparin 5,000 UNIT/ML VIAL SQ SCH ×2 (06:04→19:10)
[2019-06-12] MEDS: Diclofenac Sodium (24 HR) 100 MG TABLET PO SCH ×2 (09:12→20:03)
[2019-06-12] MEDS: *HR* OxyCODONE/APAP 5/325 TABLET PO PRN ×3 (09:12→23:12)
[2019-06-12] MEDS: Gabapentin 300 MG CAPSULE PO SCH ×3 (09:13→20:04)
[2019-06-12] MEDS: 0.9 % Sodium Chloride 1,000 ML IVC SCH ×2 (09:13→20:09)
[2019-06-12] MEDS: Sennosides/Docusate Sodium TABLET PO SCH (09:13)
[2019-06-12] MEDS: Aspirin Enteric Coated 81 MG Tablet PO SCH (09:13)
[2019-06-12] MEDS: BuPROPion SR (12 HR) 150 MG TABLET PO SCH ×2 (09:13→20:03)
[2019-06-12] MEDS: ALPRAZolam 1 MG TABLET PO PRN ×2 (09:13→23:12)
[2019-06-12] MEDS: Isosorbide MONOnitrate (24 HR) 60 MG TAB.ER.24H PO SCH (09:14)
--- NOTE | 2019-06-12 09:44 | Internal Med Progress Note ---
Hospitalist Progress Note - Encounter Date of Encounter: 06/12/19 Time of Encounter: 09:44 - Subjective Interval History: Patient was seen and examined at bedside currently denies any chest pain or shortness of breath. She was to undergo a LHC this a.m. however patient did have elevation and creatinine overnight. We will hold Lasix and give gentle IV hydration and monitor closely. Discussed treatment plan with the patient who verbalizes understanding. She will be nothing by mouth after midnight for impending LHC in the a.m. if renal function has improved - Exam Vitals: Temp Pulse Resp BP Pulse Ox 97.9 F 46 18 127/75 96 06/12/19 06:40 06/12/19 06:40 06/12/19 06:40 06/12/19 06:40 06/12/19 06:40 Exam: General: Alert and oriented. Appears anxious. Skin:Normal color, no rash, no lesions. HEENT:Pupils equal, round and reactive. Cardiovascular:Normal S1 & S2, no rubs, murmurs or gallops. No JVD. Pulse regular. Lungs:Breath sounds decreased, no wheezes or crackles. Abdomen:Soft, non-tender, no rigidity. Extremities:No deformity, no edema or tenderness, no joint swelling or clubbing. Neurological:Normal cognition and motor skills. Pulses:Carotid and radial pulses normal +2. Rest of the physical exam is non contributory. - Assessment and Plan (1) Chest pain Current Visit: Yes Status: Acute Assessment and Plan: Reports intermittent chest pressure across her chest for past 3-4 days. Currently resolved. Reports chronic chest pain over past 2 years that she attributes to her significant anxiety states this felt different and has been getting progressively worse. ER reported EKG as sinus rhythm without evidence of acute ST elevation, however there are new Twaves and ST segment depressions in the inferior leads compared t o an EKG performed 03/01/2019 and persistent T wave inversions in the lateral leads as well. ER reported she improved after nitroglycerin but patient denies receiving any and MAR shows none was given. Patient had echocardiogram and stress testing completed in January 2019 showing a 69% EF and was negative for ischemia and infarct. Initial troponin in ER negative, serial troponins was negative. Continuous cardiac monitoring. Cardiology consult ordered for further recommendations given EKG changes and recent cardiac testing. 06/12 Currently chest [id number] with cardiac monitoring Nitroglycerin seen for chest pain Cardiology consulted and appreciate recommendations She will be nothing by mouth after midnight for impending LHC in the a.m. (2) Anxiety Current Visit: Yes Status: Acute Assessment and Plan: Acute on chronic. Appears anxious on my exam. Received home Xanax in ER, continue same. Resume other home medications. 06/12 Currently appears calm we will continue with home medications (3) Hypertension Current Visit: Yes Status: Acute Assessment and Plan: Sent from pulmonary office due to blood pressure being reportedly 208/118. Blood pressure has improved since arrival, continue to monitor closely. Resume home blood pressure medications . 06/12 Currently blood pressure appears controlled-Imdur was increased by cardiology which we will monitor blood pressure closely Lasix is currently on hold due to rise and creatinine We will give gentle IV hydration (4) Hyponatremia Current Visit: Yes Status: Acute Assessment and Plan: Minimally decreased at 134. Repeat labs ordered. 06/12 Recent has a drop and sodium level to 127 this a.m. most likely secondary to diuretic use. We will hold Lasix for now and give gentle IV hydration No neurological changes at this time Recheck sodium in the a.m. (5) Elevated brain natriuretic peptide (BNP) level Current Visit: Yes Status: Chronic Assessment and Plan: Elevated at 132. Does not appear to be fluid overloaded. Improved from previous in January 2019 at 168. 06/12 Currently does not appear fluid overloaded we will hold Lasix and reevaluate Give gentle IV hydration (6) COPD (chronic obstructive pulmonary disease) Current Visit: Yes Status: Chronic Assessment and Plan: Received DuoNeb and prednisone while in ER. Not an acute exacerbation. Resume home medications. 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 - Time Spent with Patient Total time spent is greater than 50% in coordination of care (as documented) at patient's floor/unit and/or counseling patient: Internal Medicine: Result - Labs CBC & Chem 7: 06/12/19 03:40 06/12/19 03:40 Labs: Short CBC 06/12/19 Range/Units 03:40 WBC 7.3 (4.3-11.1) K/mcL Hgb 12.2 D (11.5-15.4) g/dL Hct 37.1 (35.3-44.9) % Plt Count 236 (140-400) K/mcL Neutrophils # 4.0 (1.6-8.9) K/mcL [facility] 06/12/19 03:40 Sodium 127 L Potassium 4.7 Chloride 99 Carbon Dioxide 23 BUN 31 H Creatinine 1.70 H Glucose 96 Calcium 8.2 L Consult Discharge Plan - Plan Referrals: Indra Soria DO [Primary Care Provider] - 06/14/19 8:15 am (1) Chest pain Qualifiers: Chest pain type: unspecified Qualified Code(s): R07.9 - Chest pain, unspecified (3) Hypertension Qualifiers: Hypertension type: unspecified Qualified Code(s): I10 - Essential (primary) hypertension (6) COPD (chronic obstructive pulmonary disease) Qualifiers: COPD type: unspecified COPD Qualified Code(s): J44.9 - Chronic obstructive pulmonary disease, unspecified
[2019-06-12] MEDS: SALMETEROL IH SCH ×2 (09:58→21:54)
[2019-06-12] MEDS: FLUTICASONE IH SCH ×2 (09:58→21:54)
[2019-06-12] MEDS: Albuterol 2.5 MG/3 ML NEBULIZER IH SCH ×3 (09:58→21:54)
--- NOTE | 2019-06-12 10:12 | Cardiology Progress Note ---
Date of Encounter: 06/12/19 Time of Encounter: 08:30 Assessment and Plan (1) Chest pain Current Visit: Yes Status: Acute Per cardiology: -Chest pain atypical reports for several months. However reported history of CAD, VA. -ECG with diffuse T wave abnormalities. -Troponins negative x3. -On asa, BB, statin, imdur. -Denies current chest pain. -Stress test 01/2019 negative for ischemia or infarct. -TTE 01/2019 with LVEF 65-70%, mild concentric LVH, mild MR, no SWMA. -Plan for LHC when able. Risks versus benefits of LHC explained to patient, who states understanding and agreeable to proceed. -Of note, JP noted today. Will hold lasix and start IV fluids. Will repeat labs in am. If renal function normal, plan for LHC tomorrow. -NPO after midnight. Qualifiers: Chest pain type: unspecified Qualified Code(s): R07.9 - Chest pain, unspecified (2) Tobacco abuse Current Visit: Yes Status: Chronic Per cardiology: -Known tobacco abuse. -Smoking cessation education reviewed with patient. Discussion w patient/family: The assessment and plan as outlined above was discussed with the patient who expressed understanding and agreement. All questions were answered. Thank you for involving us in the care of your patient. Please call with any questions. Discussed and reviewed with . Subjective Principal diagnosis: Chest pain Interval history: Patient reports chest pain improved today. Just reports fatigue today. Objective Vital Signs, Last 4 Hours Temp Pulse Resp BP Pulse Ox 06/12/19 10:00 18 95 06/12/19 06:40 97.9 F 46 18 127/75 96 General: Conversant, No Apparent Distress HEENT: Atraumatic, Normocephaly, Mucus Membranes Moist Neck: No JVD, Normal carotid pulses Cardiac: Reg Rate and Rhythm, Normal S1 and S2, No Murmur Lungs: Other (Lung sounds diminished throughout. Coarse bases. ) Neuro: Alert and responsive, No focal deficits noted Abdomen: Soft, Non-Tender Skin: No rashes noted on visualized skin Musculoskeletal: No Chest Wall Tenderness Extremities: No Clubbing, No Cyanosis, No Edema, Normal Pulses Results 06/12/19 03:40 06/12/19 03:40 Lab Results Active Medications Al Hydrox/Mg Hydrox/Simethicone (Maalox) 30 ml PO Q4H PRN; Protocol PRN Reason: Indigestion Stop: 12/11/19 09:16 Albuterol Sulfate (Proventil Inhaler) 2 puff IH Q4H PRN PRN Reason: Shortness Of Breath Stop: 12/11/19 09:14 Last Admin: 06/11/19 20:50 Dose: 2 puff Documented by: Albuterol Sulfate (Proventil Neb) 2.5 mg IH TID STEPHANIE; Protocol Stop: 12/11/19 15:01 Last Admin: 06/12/19 09:58 Dose: 2.5 mg Documented by: Alprazolam (Xanax) 1 mg PO BID PRN; Protocol PRN Reason: Anxiety Stop: 12/11/19 00:24 Last Admin: 06/12/19 09:13 Dose: 1 mg Documented by: Aspirin (Aspirin Ec) 81 mg PO DAILY [facility] Stop: 12/11/19 09:16 Last Admin: 06/12/19 09:13 Dose: 81 mg Documented by: Atorvastatin Calcium (Lipitor) 40 mg PO HS [facility] Stop: 12/11/19 21:01 Last Admin: 06/11/19 20:19 Dose: 40 mg Documented by: Budesonide/Formoterol Fumarate (Symbicort) 2 puff IH BIDR [facility] Stop: 12/11/19 21:01 Last Admin: 06/12/19 09:58 Dose: 2 puff Documented by: Bupropion HCl (Wellbutrin Sr) 150 mg PO BID [facility] Stop: 12/11/19 09:16 Last Admin: 06/12/19 09:13 Dose: 150 mg Documented by: Diclofenac Sodium (Voltaren Xr) 100 mg PO BID [facility] Stop: 12/11/19 10:01 Last Admin: 06/12/19 09:12 Dose: 100 mg Documented by: Diphenhydramine HCl (Benadryl) 25 mg PO Q6HR PRN PRN Reason: Allergy Symptoms Stop: 12/11/19 09:14 Fluticasone Propionate (Flonase) 100 mcg NS BID PRN; Protocol PRN Reason: Allergy Symptoms Stop: 12/11/19 09:14 Furosemide (Lasix) 40 mg PO DAILY [facility] Stop: 12/11/19 09:16 Last Admin: 06/11/19 10:14 Dose: 40 mg Documented by: Gabapentin (Neurontin) 300 mg PO TID [facility] Stop: 12/10/19 23:23 Last Admin: 06/12/19 09:13 Dose: 300 mg Documented by: Heparin Sodium (Porcine) (Heparin) 5,000 unit SQ Q12HCO [facility]; Protocol Stop: 12/11/19 06:01 Last Admin: 06/12/19 06:04 Dose: 5,000 unit Documented by: Sodium Chloride (0.9 % Sodium Chloride) 1,000 mls @ 75 mls/hr IVC .[id number] [facility] Stop: 12/12/19 08:46 Last Admin: 06/12/19 09:13 Dose: 75 mls/hr Documented by: Isosorbide Mononitrate (Imdur) 60 mg PO DAILY [facility] Stop: 12/12/19 09:01 Last Admin: 06/12/19 09:14 Dose: 60 mg Documented by: Loratadine (Claritin) 10 mg PO DAILY PRN PRN Reason: Allergy Symptoms Methocarbamol (Robaxin) 750 mg PO TID PRN PRN Reason: Pain Stop: 12/11/19 10:12 Montelukast Sodium (Singulair) 10 mg PO [facility] Stop: 12/11/19 09:16 Last Admin: 06/11/19 20:20 Dose: 10 mg Documented by: Naloxone HCl (Narcan) 0.4 mg IVP Q2MPRN PRN PRN Reason: SEE COMMENTS Stop: 12/10/19 22:37 Omeprazole (Prilosec) 40 mg PO DAILY [facility] Stop: 12/11/19 09:16 Last Admin: 06/12/19 09:12 Dose: 40 mg Documented by: Ondansetron HCl (Zofran) 4 mg IVP Q8HR PRN; Protocol PRN Reason: Nausea And Vomiting Stop: 12/10/19 23:21 Last Admin: 06/12/19 04:17 Dose: 4 mg Documented by: Oxycodone/Acetaminophen (Percocet 5/325) 1 each PO Q6HR PRN PRN Reason: Pain Stop: 12/11/19 10:12 Last Admin: 06/12/19 09:12 Dose: 1 each Documented by: Paroxetine HCl (Paxil) 20 mg PO DAILY [facility]; Protocol Stop: 12/11/19 09:16 Last Admin: 06/12/19 09:13 Dose: 20 mg Documented by: Pharmacy Profile Note (Patient Taking Own Medication) 1 each OP QID PRN PRN Reason: Allergy Symptoms Pharmacy Profile Note (Patient Taking Own Medication) 1 each IH DAILY STEPH[facility]IE Stop: 12/11/19 09:16 Last Admin: 06/12/19 09:14 Dose: Not Given Documented by: Polyethylene Glycol (Miralax) 8.5 gm PO DAILY PRN PRN Reason: Constipation Potassium Chloride (Potassium Chloride) 10 meq PO DAILY [facility] Stop: 12/11/19 09:16 Last Admin: 06/12/19 09:13 Dose: 10 meq Documented by: Propranolol HCl (Inderal) 40 mg PO BID [facility]IE Stop: 12/11/19 09:16 Last Admin: 06/12/19 09:13 Dose: 40 mg Documented by: Senna/Docusate Sodium (Senna Plus) 2 each PO DAILY STEPHANIE; Protocol Stop: 12/11/19 09:16 Last Admin: 06/12/19 09:13 Dose: 2 each Documented by: Laboratory Tests 06/11/19 06/12/19 06/12/19 03:44 03:40 03:40 Hgb 12.2 D Creatinine 0.86 1.70 H - Imaging and Cardiology Chest Xray: report reviewed Stress Test: report reviewed Echo: report reviewed Cardiac cath: pending - EKG Interpretation EKG results cardiology: other (Telemetry reviewed with average HR previous 12 hours noted to be 52, SB. PVCs, PACs noted. Atrial tachycardia noted.) Consult Discharge Plan - Plan Referrals: Indra Soria DO [Primary Care Provider] - 06/14/19 8:15 am
[2019-06-13 02:06] LABS: Basophils % 0.7 %; Eosinophils % 0.2 %; Hematocrit 38.5 % (35.3-44.9); Hemoglobin 12.1 g/dL (11.5-15.4); Immature Granulocytes % 0.2 % (0-4); Lymphocytes # 2.1 K/mcL (0.6-4.6); Lymphocytes % 36.3 %; Mean Corpuscular HGB Conc 31.4 g/dL (31.6-35.5); Mean Corpuscular Hemoglobin 30.6 pg (28.0-33.3); Mean Corpuscular Volume 97.5 fL (83.0-100.0); Mean Platelet Volume 10.1 fL (9.4-12.4); Monocytes # 0.5 K/mcL (0.0-1.3); Neutrophils # 3.2 K/mcL (1.6-8.9); Platelet Count 142 K/mcL (140-400); Red Blood Count 3.95 M/mcL (3.82-4.97); Red Cell Distribution Width 14.9 % (11.5-14.5); Segmented Neutrophils % 54.6 %; White Blood Count 5.9 K/mcL (4.3-11.1)
[2019-06-13 02:26] LABS: BUN/Creatinine Ratio 25 (6-26); Blood Urea Nitrogen 25 mg/dL (8-23); Calcium 7.9 mg/dL (8.6-10.3); Carbon Dioxide 23 mEq/L (23-29); Chloride 101 mEq/L (98-107); Glucose 91 mg/dL (70-105); Osmolality,Calculated 270 (280-300); Potassium 5.1 mEq/L (3.5-5.1); Sodium 128 mEq/L (136-145); eGFR For African Americans > 60 (> 60); eGFR For Non-African Americans 56 (> 60)
[2019-06-13] MEDS: *HR* Heparin 5,000 UNIT/ML VIAL SQ SCH ×2 (05:03→18:38)
[2019-06-13] MEDS: Albuterol 2.5 MG/3 ML NEBULIZER IH SCH ×3 (07:45→20:04)
[2019-06-13] MEDS: SALMETEROL IH SCH ×2 (07:45→20:05)
[2019-06-13] MEDS: FLUTICASONE IH SCH ×2 (07:45→20:05)
--- NOTE | 2019-06-13 07:45 | Internal Med Progress Note ---
Hospitalist Progress Note - Encounter Date of Encounter: 06/13/19 Time of Encounter: 15:04 - Subjective Interval History: Patient was seen and examined earlier this morning she did undergo a cardiac catheter by cardiology-with no stent placement after returning from cardiac catheter patient did experience several bouts of diarrhea. We will recheck patient's sodium since patient does have some hyponatremia continue with IV fluids -stool for GI panel - Exam Vitals: Temp Pulse Resp BP Pulse Ox 98.3 F 82 18 125/70 94 06/13/19 07:38 06/13/19 07:38 06/13/19 07:38 06/13/19 07:38 06/13/19 07:38 Exam: General: Alert and oriented. Appears anxious. Skin:Normal color, no rash, no lesions. HEENT:Pupils equal, round and reactive. Cardiovascular:Normal S1 & S2, no rubs, murmurs or gallops. No JVD. Pulse regular. Lungs:Breath sounds decreased, no wheezes or crackles. Abdomen:Soft, non-tender, no rigidity. Extremities:No deformity, no edema or tenderness, no joint swelling or clubbing. Neurological:Normal cognition and motor skills. Pulses:Carotid and radial pulses normal +2. Rest of the physical exam is non contributory. - Assessment and Plan (1) Chest pain Current Visit: Yes Status: Acute Assessment and Plan: Reports intermittent chest pressure across her chest for past 3-4 days. Currently resolved. Reports chronic chest pain over past 2 years that she attributes to her significant anxiety states this felt different and has been getting progressively worse. ER reported EKG as sinus rhythm without evidence of acute ST elevation, however there are new Twaves and ST segment depressions in the inferior leads compared to an EKG performed 03/01/2019 and persistent T wave inversions in the lateral leads as well. ER reported she improved after nitroglycerin but patient denies receiving any and MAR shows none was given. Patient had echocardiogram and stress testing completed in January 2019 showing a 69% EF and was negative for ischemia and infarct. Initial troponin in ER negative, serial troponins was negative. Continuous cardiac monitoring. Cardiology consult ordered for further recommendations given EKG changes and recent cardiac testing. 06/12 Currently chest [id number] with cardiac monitoring Nitroglycerin seen for chest pain Cardiology consulted and appreciate recommendations She will be nothing by mouth after midnight for impending LHC in the a.m. 06/13 Patient was seen by cardiology and underwent LHC today with moderate CAD with no intervention Patient will need a follow-up with cardiology as outpatient (2) Anxiety Current Visit: Yes Status: Acute Assessment and Plan: Acute on chronic. Appears anxious on my exam. Received home Xanax in ER, continue same. Resume other home medications. 06/12 Currently appears calm we will continue with home medications 06/13 Continue home medications (3) Hypertension Current Visit: Yes Status: Acute Assessment and Plan: Sent from pulmonary office due to blood pressure being reportedly 208/118. Blood pressure has improved since arrival, continue to monitor closely. Resume home blood pressure medications . 06/12 Currently blood pressure appears controlled-Imdur was increased by cardiology which we will monitor blood pressure closely Lasix is currently on hold due to rise and creatinine We will give gentle IV hydration 06/13 Continue with home medications We will hold Lasix for now due to diarrhea Continue IV fluids (4) Hyponatremia Current Visit: Yes Status: Acute Assessment and Plan: Minimally decreased at 134. Repeat labs ordered. 06/12 Recent has a drop and sodium level to 127 this a.m. most likely secondary to diuretic use. We will hold Lasix for now and give gentle IV hydration No neurological changes at this time Recheck sodium in the a.m. 06/13 Slowly improving we will hold diuretics for now patient is having diarrhea give IV fluids Continue to monitor (5) Elevated brain natriuretic peptide (BNP) level Current Visit: Yes Status: Chronic Assessment and Plan: Elevated at 132. Does not appear to be fluid overloaded. Improved from previous in January 2019 at 168. 06/12 Currently does not appear fluid overloaded we will hold Lasix and reevaluate Give gentle IV hydration 06/13 Continue with IV fluids and monitor closely (6) COPD (chronic obstructive pulmonary disease) Current Visit: Yes Status: Chronic Assessment and Plan: Received DuoNeb and prednisone while in ER. Not an acute exacerbation. Resume home medications. 06/12 Does not appear to be in acute exacerbation We will continue home medications We did discuss smoking cessation 06/13 Appears stable at this time Continue home medications (7) Tobacco abuse Current Visit: Yes Status: Chronic Assessment and Plan: Cessation strongly encouraged.-Patient states that insurance will not cover Chantix we will discuss with case finisher (8) PAD (peripheral artery disease) Current Visit: Yes Status: Acute Assessment and Plan: history of claudication heavy smoker abnormal pulse check -anamaria cont to monitor will check MARY consider vascular consult DVT Prophylaxis: Heparin sq. - Time Spent with Patient Total time spent is greater than 50% in coordination of care (as documented) at patient's floor/unit and/or counseling patient: Internal Medicine: Result - Labs CBC & Chem 7: 06/13/19 01:26 06/13/19 01:26 Labs: Short CBC 06/13/19 Range/Units 01:26 WBC 5.9 (4.3-11.1) K/mcL Hgb 12.1 (11.5-15.4) g/dL Hct 38.5 (35.3-44.9) % Plt Count 142 (140-400) K/mcL Neutrophils # 3.2 (1.6-8.9) K/mcL BMP 06/13/19 01:26 Sodium 128 L Potassium 5.1 Chloride 101 Carbon Dioxide 23 BUN 25 H Creatinine 1.00 Glucose 91 Calcium 7.9 L Consult Discharge Plan - Plan Additional Instructions: A bedside commode and shower chair have been ordered for you through [employer]. You can call them to have equipment delivered or visit the [facility] location to olive picker items. Their contact number is #[phone]. Referrals: Indra Soria DO [Primary Care Provider] - 06/14/19 8:15 am __ (1) Chest pain Qualifiers: Chest pain type: unspecified Qualified Code(s): R07.9 - Chest pain, unspecified (3) Hypertension Qualifiers: Hypertension type: unspecified Qualified Code(s): I10 - Essential (primary) hypertension (6) COPD (chronic obstructive pulmonary disease) Qualifiers: COPD type: unspecified COPD Qualified Code(s): J44.9 - Chronic obstructive pulmonary disease, unspecified
--- NOTE | 2019-06-13 09:09 | Pre-Sedation Evaluation ---
Pre-sedation evaluation - Pre-sedation checklist Date of procedure: 06/12/19 Procedure: heart cath Recent Vitals: Last Vital Signs Temp 98.3 F 06/13/19 07:38 Pulse 82 06/13/19 07:38 Resp 20 06/13/19 07:49 BP 125/70 06/13/19 07:38 Pulse Ox 87 06/13/19 07:49 H&P (including ROS) documented in medical record: Yes Previous reaction to sedatives/anesthetics: Yes; explain in comment Dietary Status: NPO after Midnight Airway Assessment: Patient can open mouth completely, TMJ function normal Dentition: poor dentition Possible difficult airway: No ASA Classification *see protocol: CLASS II-Mild systemic disease Cardiac Registry (Cardio Only) - Functional Capacity Functional Capacity: >=4 METS with symptoms - Clincal Frailty Scale Clinical Frailty Scale: Well
[2019-06-13] MEDS: BuPROPion SR (12 HR) 150 MG TABLET PO SCH ×2 (09:58→21:42)
[2019-06-13] MEDS: Sennosides/Docusate Sodium TABLET PO SCH (09:58)
[2019-06-13] MEDS: Aspirin Enteric Coated 81 MG Tablet PO SCH (09:58)
[2019-06-13] MEDS: Isosorbide MONOnitrate (24 HR) 60 MG TAB.ER.24H PO SCH (09:58)
[2019-06-13] MEDS: Gabapentin 300 MG CAPSULE PO SCH ×3 (09:58→21:42)
[2019-06-13] MEDS: Diclofenac Sodium (24 HR) 100 MG TABLET PO SCH ×2 (10:03→21:42)
--- NOTE | 2019-06-13 10:40 | Event Note ---
Date of Encounter: 06/13/19 Time of Encounter: 08:30 - Cardiology Event Note Renal function improved today. Plan for LHC. Risks versus benefits of LHC explained to patient, who states understanding and agreeable to proceed. Of note, patient's HR is bradycardic. Will hold BB for now. Further recs pending LHC. HAS-BLED Score - Score Medication usage predisposing to bleeding: Antiplatelet agents, NSAIDs, Anticoagulants Score: 1
[2019-06-13] MEDS ORDERED: *HR* Midazolam HCl 2 MG/2 ML VIAL ONE (11:21)
[2019-06-13] MEDS ORDERED: Heparin 1,000 UNITS/500 mL 500 ML ONE (11:22)
[2019-06-13] MEDS ORDERED: Iopamidol 125 ML INFUS..BTL ONE (11:22)
[2019-06-13] MEDS ORDERED: Nitroglycerin 1,000 MCG/10 ML VIAL IV ONE (11:22)
[2019-06-13] MEDS ORDERED: *HR* FentaNYL (PF) 100 MCG/2 ML VIAL ONE (11:22)
[2019-06-13] MEDS ORDERED: 0.9 % Sodium Chloride 1,000 ML ONE (11:22)
[2019-06-13] MEDS ORDERED: *HR* Heparin 10,000 UNIT/10 ML VIAL ONE (11:22)
--- NOTE | 2019-06-13 13:19 | Invasive Diagnostic Lab Proc ---
Name: Makenzie Serrano Date of Study: 06/13/2019 Date: 1955 Ht: 61.0in Medical Record#: [id number] Age: 63 Wt: 125.44lb Gender: Female BSA: 1.55 Order #: [id number] BMI: 23.68 Physicians Procedure Physician: Al Ivey MD Referring MD: Referring MD: Staff Name Position Time In Yaneth Werner RN Monitor 12:29 PM Jean Carlos Paul RN Salt Manager 12:29 PM Sites, Radha RT (R) Scrub 12:29 PM Procedures Performed Procedure L HRT ARTERY/VENTRICLE ANGIO Pre-Procedure Checklist Pt not NPO for procedure and MD aware. Blood Pressure: 125/70 Plan of Care Patient will tolerate the procedure without complications. Adequate level of comfort will be maintained. Hemodynamics will remain stable Patient will recover from procedure without complications. Respiratory function will be maintained. Cardiac rhythm will remain stable. Patient temperature will be maintained. Patient and/or family have verbalized understanding of the procedure. Patient Education Intravenous Access Time IV Size Location DC'd Fluid/Drip Rate Units RN 11:23 AM 22g 1" Patent On Arrival Rt Wrist Allergies No Known Allergies Vital Signs Time BP (mmHg) HR (bpm) O2 Sat. RR (bpm) LOC 11:23 AM 125 / 70 82 87 % 20 12:31 PM / % 5 = Fully awake and oriented or at pre-proc level 12:31 PM / % 4 = Oriented but drowsy 12:32 PM 107 / 87 58 85 % 7 12:37 PM 105 / 65 113 84 % 20 12:42 PM 108 / 58 52 96 % 19 12:47 PM 103 / 62 52 97 % 22 12:52 PM 110 / 57 50 95 % 31 12:57 PM 91 / 51 52 94 % 17 Procedural Medications Time Medication Dose Units Method Given By 12:31 PM Oxygen 2 L/min nasal cannula Jean Carlos Paul RN 12:35 PM Versed 2 mg Intravenous Jean Carlos Paul RN 12:48 PM Lidocaine 2% 10 ml Subcutaneous Al Ivey MD ASA Classification: CLASS II- Mild systemic disease (i.e. well-controlled diabetes, hypertension, asthma, cigarette smoking) Jamar Score Preprocedure Postprocedure Activity 2- Moves 4 extremities sustained head lift Activity 2- Moves 4 extremities sustained head lift Circulation 2- SBP +/= 20 points of pre-anesthetic level Circulation 2- SBP +/= 20 points of pre-anesthetic level Consciousness 2- Awake and alert oriented x 3 Consciousness 2- Awake and alert oriented x 3 O2 Saturation 2- Able to maintain O2 satruation of 92% on room air O2 Saturation 2- Able to maintain O2 satruation of 92% on room air Respiratory 2- Able to deep breathe and cough well Respiratory 2- Able to deep breathe and cough well Total Score 10 Total Score 10 Contrast Agent: Isovue Diagnostic Contrast: 65 ml Total Contrast: 65 ml Fluoro Dose: 10 mGy Procedure Log Time Note Enter By 11:24 AM CathStat 12:29 PM 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 at 12:29 [facility] 12:29 PM Yaneth Werner RN Position: Monitor Time in: 12:29 [facility] 12:29 PM Jean Carlos Paul RN Position: Salt Manager Time in: :29 [facility] 12:29 PM Radha Alonzo RT (R) Position: Scrub Time in: :29 [facility] 12:29 PM Patient charges- Angio tray pack, Navilyst 3mm J, Pulse Oximetry and ACIST tubing and transducer [facility] 12:29 PM Physician arrived 12:29 [facility] 12:30 PM Meet and greet completed [facility] 12:30 PM Sign in performed according to hospital policy. Informed consent was obtained. [facility] 12:31 PM Procedure start 12:31 [facility] 12:31 PM Vitals capture started with the following parameters, Patient=Adult, Interval=5 min, Initial Qriniioy=086 mmHg, Deflation Rate=3 mmHg, Cuff placed on Right Arm 12:31 PM Hair removed from procedure site in procedure lab using clippers. Bilateral groin prepped with Chloraprep by Radha Alonzo RT (R), then patient was draped. Skin intact. [facility] 12:31 PM Time: 12:31 Oxygen on at 2 L/min per nasal cannula by Jean Carlos Paul RN [facility] 12:31 PM Time: 12:31 Patient comfortable and pain free: Yes [facility] 12:31 PM Time: 12:31LOC: 5 = Fully awake and oriented or at pre-proc level tsoummers 12:32 PM HR=58 bpm, PJER=082/87 mmhg, SpO2=85.0 %, Resp=7 B/min 12:33 PM Recorded ECG: HR=57 Condition=Condition 1 12:34 PM ASA Class CLASS II- Mild systemic disease (i.e. well-controlled diabetes, hypertension, asthma, cigarette smoking) tsoummers 12:35 PM Time: 12:35 Versed 2 mg Intravenous Given by Jean Carlos Paul RN tsoummers 12:37 PM EI=328 bpm, ZGSA=702/65 mmhg, SpO2=84.0 %, Resp=20 B/min 12:42 PM HR=52 bpm, DCXZ=226/58 mmhg, SpO2=96.0 %, Resp=19 B/min 12:42 PM Pressure channel 2 zeroed. 12:46 PM Time out was performed according to hospital policy. Conscious sedation and anesthesia was achieved (see medication log with in this report above) tsoummers 12:47 PM HR=52 bpm, NZWI=887/62 mmhg, SpO2=97.0 %, Resp=22 B/min 12:47 PM Time: 12:31LOC: 4 = Oriented but drowsy tsoummers 12:47 PM Time: 12:31 Patient comfortable and pain free: Yes [facility] 12:48 PM Time: 12:48 10 ml Lidocaine 2% to left groin Subcutaneous Given by Al Ivey MD [facility] 12:50 PM Access obtained by percutaneous puncture. 6Fr 10cm [facility] sheath placed in left Femoral artery. [id number] tsoummers 12:50 PM 0.035 145cm Navilyst 3mmJ wire [id number] [facility] 12:50 PM 6Fr FR 4 catheter inserted over the wire [facility] tsoummers 12:50 PM [facility] 12:51 PM RCA angiography performed in multiple views. tsmmers 12:51 PM Recorded Pressure: Ao, HR=55, Condition=Condition 1 (Aorta) Ao 107/65/84 12:51 PM Catheter removed tsoummers 12:51 PM 6Fr FL 4 catheter inserted over the wire [facility] 12:52 PM HR=50 bpm, ROQH=062/57 mmhg, SpO2=95.0 %, Resp=31 B/min 12:52 PM LCA angiography performed in multiple views. [facility] 12:53 PM Recorded Pressure: Ao, HR=53, Condition=Condition 1 (Aorta) Ao 100/57/74 12:53 PM Catheter removed [facility] 12:53 PM 5Fr Pigtail catheter inserted over the wire [facility] mm 12:54 PM Catheter crossed the aortic valve and was selectively placed in the left ventricle. Pressures recorded on pullback for left heart catheterization. tsoumm 12:54 PM Recorded Pressure: LV, HR=55, Condition=Condition 1 (Left Ventricle) LV 106/-2/16 12:54 PM Recorded Pressure: LV, HR=54, Condition=Condition 1 (Left Ventricle) LV 112/-6/14 12:54 PM Recorded Pressure: LV, Ao, HR=61, Condition=Condition 1 (Left Ventricle) LV 90/-2/3, (Aorta) Ao 93/44/68 12:55 PM Bolus angiogram of left Ventricle complete: hand injection [facility] 12:55 PM Catheter removed [facility] 12:55 PM Coronary Dominance: right tsmmers 12:55 PM Bolus angiogram of left Femoral complete: [facility] 12:56 PM Procedure completed at 12:56 06/13/2019[facility] 12:56 PM Did you address JANICE flow and Dominance? YesCoronary Dominance: right tsoummers 12:56 PM Sign out completed: Radiation Dose 74.58 mGy, 9.56 Gy/cm2 Fluoro Time: 1 Isovue 370 - 200ml contrast 65 ml given by Al Ivey MD. Complications: None. 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 Sedation minutes 21. Cardiac Rehab Consult needed: No. Confirmed administered medications: Yes tsmmers 12:56 PM Isovue 370 - 200ml,1 Bottle(s) used. tsmm 12:57 PM Arterial sheath pulled, Perclose closure device used and was Successful [id number] S/N. tsoumm 12:57 PM HR=52 bpm, NIBP=91/51 mmhg, SpO2=94.0 %, Resp=17 B/min 12:58 PM Estimated Blood Loss: minimal tsoummers 12:58 PM Post ECG Sinus Bradycardia tsoummers 12:58 PM [facility] 91[facility] 12:[facility] PM Information taught Cardiac Cath and Perclose [facility] 12:58 PM Education needs Procedure, Plan of Care, Obtaining further treatment, and Responsibilities of Patient in Care tsoummers 12:58 PM Learning barriers :Sedated [facility] 12:58 PM Education Methods Verbal [facility] 12:58 PM Education evaluation Able to repeat information [facility] 12:58 PM Site status No bleeding/ No Hematoma - Lt Groin as reported by Sites, Radha RT (R) at 12:58 [facility] 12:58 PM Opsite applied [facility] 12:58 PM Plavix, Effient or Brilinta given No tsoummers 12:58 PM Delay to floor No tsoummers 12:59 PM Family placed in consult room. tsmmers 12:59 PM Complications: None [facility] 01:09 PM Lesion found in Mid LAD. Pre Stenosis: 30 Pre JANICE Flow: [facility] 01:10 PM Patient out of room: 13:10 [facility] 01:11 PM Report given to gray LORENZO Pt taken to 3B Room #35. 13:11 [facility] Complications Complication None Hemodynamics Pressures Site Systolic/A Wave Diastolic/V Wave Mean AO 107 65 84 AO 100 57 74 LV 106 -2 16 LV 112 -6 14 LV 90 -2 3 AO 93 44 68 Post Procedure Information Blood Pressure: 91/51 mmHg Rhythm: Sinus Bradycardia Post procedural instructions were given Closure Device Time Device Success/Fail 06/13/2019 12:59:00 PM Perclose ProGlide Successful Site Checks Time Location Status Staff Sheath In? Note 12:58 PM Lt Groin No bleeding/ No Hematoma Sites, Radha RT (R) Pulses Updated by Yaneth Werner RN on 06/13/2019 1:11:51 PM electronically signed on 06/13/2019 1:12:07 PM with status of Final
--- NOTE | 2019-06-13 13:28 | Event Note ---
Date of Encounter: 06/13/19 Time of Encounter: 13:25 - Cardiology Event Note Cath Completed LVEF 60%RCA- normal LCA - LAD mid 50% Circ normal + history of claudication and abnormal pulses.check arterial duplex and consider vascular consult. Antiplt and risk factor modification.
--- NOTE | 2019-06-13 13:49 | Event Note ---
Date of Encounter: 06/13/19 Time of Encounter: 13:47 - Cardiology Event Note Patient with moderate CAD no intervention on [facility]. Peripheral arterial disease. Recommend arterial duplex and consider vascular surgery consult. Continue asa, statin. BB on hold due to bradycardia. Cardiology will sign off, re-consult if needed
[2019-06-13] MEDS: *HR* OxyCODONE/APAP 5/325 TABLET PO PRN ×2 (14:17→21:42)
[2019-06-13] MEDS: 0.9 % Sodium Chloride 1,000 ML IVC SCH (14:21)
[2019-06-13 16:45] LABS: BUN/Creatinine Ratio 18 (6-26); Blood Urea Nitrogen 17 mg/dL (8-23); Calcium 8.1 mg/dL (8.6-10.3); Carbon Dioxide 26 mEq/L (23-29); Chloride 102 mEq/L (98-107); Glucose 69 mg/dL (70-105); Osmolality,Calculated 268 (280-300); Sodium 129 mEq/L (136-145); eGFR For African Americans > 60 (> 60); eGFR For Non-African Americans 59 (> 60)
[2019-06-13 19:46] LABS: Adenovirus F 40/41 PCR Not detected (Not detect); Astrovirus PCR Not detected (Not detect); C.difficile Toxin A/B Gene PCR Not detected (Not detect); Campylobacter by PCR Not detected (Not detect); Cryptosporidium by PCR Not detected (Not detect); Cyclospora cayetanensis PCR Not detected (Not detect); E. coli O157 by PCR Not detected (Not detect); Entamoeba histolytica PCR Not detected (Not detect); Enteroaggregative E.coli(EAEC) Not detected (Not detect); Enteropathogenic E.coli(EPEC) Not detected (Not detect); Enterotoxigenic E.coli (ETEC) Not detected (Not detect); Giardia lamblia PCR Not detected (Not detect); Norovirus GI/GII PCR Not detected (Not detect); Plesiomonas shigelloides PCR Not detected (Not detect); Rotavirus A PCR Not detected (Not detect); Salmonella PCR Not detected (Not detect); Sapovirus PCR Not detected (Not detect); Shig/EnteroinvasiveE coli EIEC Not detected (Not detect); Shigalike tox-prod E coli STEC Not detected (Not detect); Vibrio PCR Not detected (Not detect); Vibrio cholerae PCR Not detected (Not detect); Yersinia enterocolitica PCR Not detected (Not detect)
[2019-06-13] MEDS: ALPRAZolam 1 MG TABLET PO PRN (21:42)
[2019-06-14] MEDS: 0.9 % Sodium Chloride 1,000 ML IVC SCH (04:55)
[2019-06-14] MEDS: *HR* Heparin 5,000 UNIT/ML VIAL SQ SCH (05:05)
[2019-06-14] MEDS: Albuterol 2.5 MG/3 ML NEBULIZER IH SCH (08:06)
[2019-06-14] MEDS: FLUTICASONE IH SCH (08:06)
[2019-06-14] MEDS: SALMETEROL IH SCH (08:06)
[2019-06-14 09:05] LABS: Hemoglobin 12.2 g/dL (11.5-15.4); Mean Corpuscular Hemoglobin 30.6 pg (28.0-33.3); Mean Corpuscular Volume 92.7 fL (83.0-100.0); Mean Platelet Volume 10.3 fL (9.4-12.4); Platelet Count 185 K/mcL (140-400); Red Blood Count 3.99 M/mcL (3.82-4.97); Red Cell Distribution Width 14.8 % (11.5-14.5); White Blood Count 4.2 K/mcL (4.3-11.1)
[2019-06-14 09:24] LABS: Alanine Aminotransferase 21 Units/L (7-52); Albumin 3.2 g/dL (3.5-5.7); Albumin/Globulin Ratio 1.4 (1.1-2.2); Alkaline Phosphatase 54 Units/L (34-104); Aspartate Amino Transferase 19 Units/L (13-39); BUN/Creatinine Ratio 16 (6-26); Bilirubin,Total 0.3 mg/dL (0.3-1.0); Blood Urea Nitrogen 12 mg/dL (8-23); Calcium 8.2 mg/dL (8.6-10.3); Carbon Dioxide 25 mEq/L (23-29); Chloride 103 mEq/L (98-107); Globulin 2.3 g/dL (2.4-3.5); Glucose 90 mg/dL (70-105); Osmolality,Calculated 271 (280-300); Potassium 4.3 mEq/L (3.5-5.1); Sodium 131 mEq/L (136-145); Total Protein 5.5 g/dL (6.4-8.9); eGFR For African Americans > 60 (> 60); eGFR For Non-African Americans > 60 (> 60)
[2019-06-14 09:38] LABS: Thyroid Stimulating Hormone 1.559 mcIU/mL (0.340-5.600)
[2019-06-14] MEDS ORDERED: Tiotropium 18 MCG inhalation IH SCH (10:00)
[2019-06-14] MEDS: Diclofenac Sodium (24 HR) 100 MG TABLET PO SCH (10:42)
[2019-06-14] MEDS: Aspirin Enteric Coated 81 MG Tablet PO SCH (10:42)
[2019-06-14] MEDS: Sennosides/Docusate Sodium TABLET PO SCH (10:42)
[2019-06-14] MEDS: Gabapentin 300 MG CAPSULE PO SCH (10:42)
[2019-06-14] MEDS: BuPROPion SR (12 HR) 150 MG TABLET PO SCH (10:42)
[2019-06-14] MEDS: Isosorbide MONOnitrate (24 HR) 60 MG TAB.ER.24H PO SCH (10:42)
[2019-06-14] MEDS: *HR* OxyCODONE/APAP 5/325 TABLET PO PRN (10:42)
[2019-06-14 11:01] VITALS: BP 129/74
--- NOTE | 2019-06-14 12:31 | Discharge Summary ---
Date of Encounter: 06/14/19 Time of Encounter: 12:28 - Discharge Diagnosis (1) Chest pain Priority: Secondary Status: Acute Qualifiers: Chest pain type: unspecified Qualified Code(s): R07.9 - Chest pain, unspecified (2) Anxiety Priority: Secondary Status: Acute (3) Hypertension Priority: Secondary Status: Acute Qualifiers: Hypertension type: unspecified Qualified Code(s): I10 - Essential (primary) hypertension (4) Hyponatremia Priority: Primary Status: Acute (5) Elevated brain natriuretic peptide (BNP) level Priority: Primary Status: Chronic (6) COPD (chronic obstructive pulmonary disease) Priority: Secondary Status: Chronic Qualifiers: COPD type: unspecified COPD Qualified Code(s): J44.9 - Chronic obstructive pulmonary disease, unspecified (7) Tobacco abuse Priority: Secondary Status: Chronic (8) PAD (peripheral artery disease) Priority: Primary Status: Acute Hospital course: Ms. Serrano is a 63 year old female with PMH HTN, anxiety, COPD and PAD presented to [facility] on 06/10/2019 with complaints of chest pain. She was hospitalized for further workup and treatment. Hospital course as follows: ACS ruled out with negative serial troponins. EKG showed diffuse T-wave abnormalities. 01/2019 TTE with EF 65% and no wall motion abnormalities. Patient underwent a LHC which showed moderate CAD. She was also found to be hyponatremic; Na dropped to 127 which slowly improved with holding offending medications and IV fluids. She remained neurologically intact. Na 131 at time of discharge. Of note patient reported history of claudication. ABIs were completed that showed moderate occlusive disease to right lower extremity. Pulses were diminished but palpable on exam. She was already on ASA and statin therapy was initiated. At time of discharge patient was symptom-free. No further chest pain, no shortness of breath. She reported intermittent dizziness but overall improved and wanted to go home. She was advised to follow-up with her PCP for repeat CMP within 1 week. Her Lasix and BB were decreased at time of discharge. Is also advised to follow-up with vascular surgery. Advised return to ER if chest pain/SOB recurs or she noticed discoloration/coldness of either extremity. Discharge discussed with: patient - Time Spent with Patient Total time spent providing and/or coordinating discharge services: - Discharge Medications Prescriptions: New Atorvastatin [Lipitor] 40 mg PO HS #30 tablet Propranolol [Inderal] 10 mg PO BID #60 tablet Continued Cetirizine HCl [Zyrtec] 10 mg PO DAILY PRN PRN Reason: Allergy Symptoms Fluticasone Propionate Nasal [Flonase] 2 spr NS BID PRN PRN Reason: Allergy Symptoms BuPROPion SR (12 HR) [Wellbutrin SR] 150 mg PO BID Albuterol Sulfate [Ventolin Hfa] 2 puff IH Q4H PRN PRN Reason: Shortness Of Breath Umeclidinium Cost [Incruse Ellipta] 1 puff IH DAILY Paroxetine HCl [Paxil] 20 mg PO DAILY Montelukast [Singulair] 10 mg PO HS Aspirin Enteric Coated [Aspirin EC] 81 mg PO DAILY #30 tablet. DiphenhydraMINE [Benadryl] 25 mg PO Q6HR PRN PRN Reason: Allergy Symptoms Piroxicam [Feldene] 20 mg PO DAILY Polyethylene Glycol 3350 [Gavilax] 8.5 gm PO DAILY PRN PRN Reason: Constipation Sennosides/Docusate Sodium [Senna-S Tablet] 2 tab PO DAILY Potassium Chloride [Klor-Con 10] 10 meq PO DAILY Gabapentin [Neurontin] 300 mg PO TID #1 capsule Omeprazole [PriLOSEC] 40 mg PO BID Albuterol Neb [Proventil Neb] 3 ml IH TID Fluticasone/Salmeterol [Airduo Respiclick 232-14 Mcg] 1 puff IH BID Methocarbamol [Robaxin] 750 mg PO TID PRN PRN Reason: Pain OxyCODONE/APAP 5/325 [Percocet 5/325 MG] 1 tab PO Q6HR PRN PRN Reason: Pain Changed Furosemide [Lasix] 20 mg PO DAILY #30 tablet Discontinued Propranolol HCl 40 mg PO BID Home Medications: Albuterol Sulfate [Ventolin Hfa] 2 puff IH Q4H PRN 07/06/17 [History] BuPROPion SR (12 HR) [Wellbutrin SR] 150 mg PO BID 07/06/17 [History] Cetirizine HCl [Zyrtec] 10 mg PO DAILY PRN 07/06/17 [History] Fluticasone Propionate Nasal [Flonase] 2 spr NS BID PRN 07/06/17 [History] Montelukast [Singulair] 10 mg PO HS 07/06/17 [History] Paroxetine HCl [Paxil] 20 mg PO DAILY 07/06/17 [History] Umeclidinium Cost [Incruse Ellipta] 1 puff IH DAILY 07/06/17 [History] Aspirin Enteric Coated [Aspirin EC] 81 mg PO DAILY #30 tablet. 07/19/17 [Rx] DiphenhydraMINE [Benadryl] 25 mg PO Q6HR PRN 01/23/19 [History] Piroxicam [Feldene] 20 mg PO DAILY 01/23/19 [History] Polyethylene Glycol 3350 [Gavilax] 8.5 gm PO DAILY PRN 01/23/19 [History] Sennosides/Docusate Sodium [Senna-S Tablet] 2 tab PO DAILY 01/23/19 [History] Potassium Chloride [Klor-Con 10] 10 meq PO DAILY 02/15/19 [History] Gabapentin [Neurontin] 300 mg PO TID #1 capsule 02/18/19 [Rx] Albuterol Neb [Proventil Neb] 3 ml IH TID 06/11/19 [History] Fluticasone/Salmeterol [Airduo Respiclick 232-14 Mcg] 1 puff IH BID 06/11/19 [History] Methocarbamol [Robaxin] 750 mg PO TID PRN 06/11/19 [History] Omeprazole [PriLOSEC] 40 mg PO BID 06/11/19 [History] OxyCODONE/APAP 5/325 [Percocet 5/325 MG] 1 tab PO Q6HR PRN 06/11/19 [History] Atorvastatin [Lipitor] 40 mg PO HS #30 tablet 06/14/19 [Rx] Furosemide [Lasix] 20 mg PO DAILY #30 tablet 06/14/19 [Rx] Propranolol [Inderal] 10 mg PO BID #60 tablet 06/14/19 [Rx] Allergies/Adverse Reactions: Allergy/AdvReac Type Severity Reaction Status Date / Time No Known Allergies Allergy Verified 12/26/17 08:58 Date of admission: 06/10/19 19:17 Primary care physician: Indra Soria Consults: 06/11/19 08:15 Consult to Cardiology [CONS] Routine Comment: Consulting Provider: Cardiology Wedron Reason for Consult: CP Call Completed: Yes 06/11/19 10:12 Consult to Sample Sawyer [CONS] Routine Reason for SW Consult: home oxygen issues 06/14/19 08:55 Consult to Occupational Therapy [CONS] Routine Comment: Evaluate, develop and implement POC Reason for Consult: generalized weakness, unsteady gait Does patient have active BEDREST order?: No Is patient medically & hemodynamically stable?: Yes Consult to Physical Therapy [CONS] Routine Comment: Evaluate, develop and implement POC Reason for Consult: generalized weakness, unsteady gait Does patient have active BEDREST order?: No Is patient medically & hemodynamically stable?: Yes Discharging clinician: Raya Hernandez Anticipated date of discharge: 06/14/19 - Constitutional Vitals: Temp Pulse Resp BP Pulse Ox 98.2 F 88 16 129/74 100 06/14/19 11:02 06/14/19 11:02 06/14/19 11:02 06/14/19 10:57 06/14/19 11:02 Exam: General: Alert and oriented. Appears anxious. Skin:Normal color, no rash, no lesions. HEENT:Pupils equal, round and reactive. Cardiovascular:Normal S1 & S2, no rubs, murmurs or gallops. No JVD. Pulse r egular. Lungs:Breath sounds decreased, no wheezes or crackles. Abdomen:Soft, non-tender, no rigidity. Extremities:No deformity, no edema or tenderness, no joint swelling or clubbing. Neurological:Normal cognition and motor skills. Pulses:Carotid and radial pulses normal +2. RLE pedal pulses +1 Rest of the physical exam is non contributory. - Patient Status Disposition: Home, Self-Care Condition: Good Functional capacity at discharge: uses cane/walker Overall status at discharge: patient is progressing back to baseline - Discharge Instructions Instructions: Coronary Artery Disease (DC), Hyponatremia (DC), Peripheral Vascular Disorders (DC) Follow Up With: Indra Soria DO [Primary Care Provider] - 06/14/19 8:15 am (Please follow-up with your primary care provider on 06/14/2019. Your found to have decreased circulation right leg and he should follow-up with vascular surgeon outpatient. You may need a referral from your primary care provider) Additional Instructions: A bedside commode and shower chair have been ordered for you through [employer]. You can call them to have equipment delivered or visit the [place] location to pick up driver items. Their contact number is #[phone]. - Diet and Activity Activity: ambulate only with your walker, increase activity as tolerated Diet: low fat, low cholesterol
== END 2019-06-14 15:02 | disposition home or self-care (01) ==
LOC: EMEROOARM 14:35 → 3BNU 14:35
PROVIDERS: ADMIT Internal Medicine; ATTEND Internal Medicine

== ENCOUNTER 2020-07-27 17:28 | Inpatient (IN) ==
[2020-07-27] MEDS ORDERED: Ipratropium/Albuterol Neb 3 ML ONE (17:47)
[2020-07-27] MEDS ORDERED: Ipratropium/Albuterol Neb 3 ML IH ONE (17:47)
[2020-07-27] MEDS ORDERED: methylPREDNISolone 125 MG/2 ML VIAL IVP ONE (17:47)
[2020-07-27 18:04] LABS: Hematocrit 44.3 % (35.3-44.9); Hemoglobin 14.6 g/dL (11.5-15.4); Mean Corpuscular Hemoglobin 31.1 pg (28.0-33.3); Mean Corpuscular Volume 94.5 fL (83.0-100.0); Mean Platelet Volume 9.5 fL (9.4-12.4); Platelet Count 351 K/mcL (140-400); Red Blood Count 4.69 M/mcL (3.82-4.97); Red Cell Distribution Width 13.3 % (11.5-14.5)
[2020-07-27 18:18] LABS: BUN/Creatinine Ratio 24 (6-26); Blood Urea Nitrogen 26 mg/dL (8-23); Calcium 9.3 mg/dL (8.6-10.3); Carbon Dioxide 30 mEq/L (23-29); Chloride 98 mEq/L (98-107); Glucose 104 mg/dL (70-105); Osmolality,Calculated 293 (280-300); Potassium 2.8 mEq/L (3.5-5.1); Sodium 139 mEq/L (136-145); eGFR For African Americans > 60 (> 60); eGFR For Non-African Americans 50 (> 60)
[2020-07-27 18:27] LABS: Lymphocytes # 3.8 K/mcL (0.6-4.6); Monocytes # 0.2 K/mcL (0.0-1.3); Neutrophils # 7.9 K/mcL (1.6-8.9)
[2020-07-27 18:43] LABS: Troponin I 0.04 ng/mL (< 0.04)
[2020-07-27] MEDS ORDERED: Aspirin 81 MG TAB.CHEW PO ONE (19:22)
[2020-07-27] MEDS ORDERED: Potassium Chloride 40 MEQ, Lidocaine 1% 2 ML in 0.9 % Sodium Chloride 500 ML IVPB ONE (19:22)
[2020-07-27] MEDS ORDERED: cefTRIAXone 1,000 MG in Water for inj. (sterile) 10 ML IVP ONE (19:40)
[2020-07-27] MEDS ORDERED: Azithromycin 500 MG in 0.9 % Sodium Chloride 250 ML IVPB ONE (19:40)
[2020-07-27] MEDS ORDERED: Naloxone 0.4 MG/ML INJ IVP PRN (21:04)
[2020-07-27] MEDS ORDERED: Prochlorperazine 10 MG/2 ML VIAL IVP PRN (21:08)
[2020-07-27 21:30] LABS: ABG Base Excess -2 mEq/L (-2 to 3); ABG HCO3 26 mEq/L (21-27); ABG Oxygen Saturation 90 % (95-98); ABG PCO2 52 mmHg (35-45); ABG PO2 65 mmHg (85-104); ABG TCO2 27 mEq/L (20-26)
[2020-07-27] MEDS: Acetylcysteine 10% 2 ML INHSOL IH SCH (22:06)
[2020-07-27] MEDS: Levalbuterol Neb 1.25 MG/3 ML IH SCH (22:09)
[2020-07-27] MEDS ORDERED: *HR* LORazepam 2 MG/ML VIAL IVP ONE (23:02)
[2020-07-28 00:45] LABS: ABG Base Excess 0 mEq/L (-2 to 3); ABG HCO3 28 mEq/L (21-27); ABG Oxygen Saturation 88 % (95-98); ABG PCO2 59 mmHg (35-45); ABG PH 7.28 pH Units (7.32-7.45); ABG PO2 63 mmHg (85-104); ABG TCO2 30 mEq/L (20-26)
[2020-07-28 01:00] LABS: Hematocrit 39.5 % (35.3-44.9); Mean Corpuscular HGB Conc 32.9 g/dL (31.6-35.5); Mean Corpuscular Hemoglobin 31.5 pg (28.0-33.3); Mean Corpuscular Volume 95.6 fL (83.0-100.0); Mean Platelet Volume 9.5 fL (9.4-12.4); Platelet Count 278 K/mcL (140-400); Red Blood Count 4.13 M/mcL (3.82-4.97); Red Cell Distribution Width 13.4 % (11.5-14.5); White Blood Count 9.8 K/mcL (4.3-11.1)
[2020-07-28] MEDS: MetroNIDAZOLE 500 MG/100 ML 500 MG/100 ML BAG IVPB SCH ×2 (01:10→07:46)
[2020-07-28 01:38] LABS: BUN/Creatinine Ratio 28 (6-26); Blood Urea Nitrogen 23 mg/dL (8-23); Calcium 8.2 mg/dL (8.6-10.3); Carbon Dioxide 24 mEq/L (23-29); Chloride 106 mEq/L (98-107); Chol/HDL Ratio 4.5 (0-4.9); Cholesterol 125 mg/dL (< 200); Glucose 207 mg/dL (70-105); HDL Cholesterol 28 mg/dL (40-59); LDL Cholesterol,Calculated 78 mg/dL (< 100); Magnesium 2.2 mg/dL (1.6-2.6); Osmolality,Calculated 298 (280-300); Sodium 139 mEq/L (136-145); Triglycerides 93 mg/dL (< 150); eGFR For African Americans > 60 (> 60); eGFR For Non-African Americans > 60 (> 60)
[2020-07-28] MEDS: Acetylcysteine 10% 2 ML INHSOL IH SCH ×6 (03:39→23:53)
[2020-07-28] MEDS: Levalbuterol Neb 1.25 MG/3 ML IH SCH ×6 (03:39→23:53)
[2020-07-28 04:21] LABS: ABG Base Excess 2 mEq/L (-2 to 3); ABG HCO3 30 mEq/L (21-27); ABG Oxygen Saturation 93 % (95-98); ABG PCO2 60 mmHg (35-45); ABG PO2 76 mmHg (85-104); ABG TCO2 31 mEq/L (20-26)
[2020-07-28] MEDS: *HR* Heparin 5,000 UNIT/ML VIAL SQ SCH ×3 (04:47→20:15)
[2020-07-28] MEDS ORDERED: *HR* LORazepam 2 MG/ML VIAL IVP ONE (04:48)
[2020-07-28] MEDS ORDERED: MethylPREDNISolone 40 MG/ML VIAL IVP SCH ×2 (06:00→08:00)
[2020-07-28] MEDS: Furosemide 20 MG/2 ML VIAL IVP SCH ×2 (07:45→20:16)
[2020-07-28] MEDS ORDERED: ALPRAZolam 0.25 MG TABLET PO PRN (09:19)
[2020-07-28] MEDS ORDERED: *HR* LORazepam 2 MG/ML VIAL IVP PRN (09:43)
[2020-07-28] MEDS: Doxycycline 100 MG CAPSULE PO SCH ×2 (11:22→20:14)
[2020-07-28] MEDS ORDERED: Nitroglycerin 0.4 MG TAB.SUBL SL ONE ×2 (13:43→13:44)
[2020-07-28] MEDS: MethylPREDNISolone 40 MG/ML VIAL IVP SCH (17:21)
[2020-07-28] MEDS: *HR* HYDROcodone/Acet 5/325 mg TABLET PO PRN (17:22)
[2020-07-28] MEDS ORDERED: Azithromycin 500 MG in 0.9 % Sodium Chloride 250 ML IVPB SCH (20:00)
[2020-07-28] MEDS: Budesonide/Formoterol 160/4.5 1 PUFF INH IH SCH (20:03)
[2020-07-28] MEDS: BuPROPion SR (12 HR) 150 MG TABLET PO SCH (20:14)
[2020-07-28] MEDS: methocarbamoL 750 MG TABLET PO SCH (20:14)
[2020-07-28] MEDS: Gabapentin 300 MG CAPSULE PO SCH (20:14)
[2020-07-28] MEDS: ALPRAZolam 1 MG TABLET PO SCH (20:15)
[2020-07-28] MEDS ORDERED: cefTRIAXone 1,000 MG in 0.9 % Sodium Chloride Mini Bag 100 ML IVPB SCH (21:00)
[2020-07-29 01:16] LABS: Hematocrit 39.8 % (35.3-44.9); Hemoglobin 13.1 g/dL (11.5-15.4); Mean Corpuscular HGB Conc 32.9 g/dL (31.6-35.5); Mean Corpuscular Hemoglobin 31.6 pg (28.0-33.3); Mean Corpuscular Volume 95.9 fL (83.0-100.0); Mean Platelet Volume 9.5 fL (9.4-12.4); Platelet Count 322 K/mcL (140-400); Red Blood Count 4.15 M/mcL (3.82-4.97); Red Cell Distribution Width 13.4 % (11.5-14.5); White Blood Count 11.2 K/mcL (4.3-11.1)
[2020-07-29 01:33] LABS: BUN/Creatinine Ratio 29 (6-26); Blood Urea Nitrogen 20 mg/dL (8-23); Calcium 8.4 mg/dL (8.6-10.3); Carbon Dioxide 26 mEq/L (23-29); Chloride 102 mEq/L (98-107); Glucose 130 mg/dL (70-105); Osmolality,Calculated 288 (280-300); Potassium 4.2 mEq/L (3.5-5.1); Sodium 137 mEq/L (136-145); eGFR For African Americans > 60 (> 60); eGFR For Non-African Americans > 60 (> 60)
[2020-07-29] MEDS: *HR* HYDROcodone/Acet 5/325 mg TABLET PO PRN ×2 (02:15→10:07)
[2020-07-29] MEDS: Acetylcysteine 10% 2 ML INHSOL IH SCH ×6 (03:44→19:57)
[2020-07-29] MEDS: Levalbuterol Neb 1.25 MG/3 ML IH SCH ×6 (03:44→23:56)
[2020-07-29] MEDS: MethylPREDNISolone 40 MG/ML VIAL IVP SCH ×2 (05:14→15:12)
[2020-07-29] MEDS: *HR* Heparin 5,000 UNIT/ML VIAL SQ SCH ×3 (05:14→22:40)
[2020-07-29] MEDS: Budesonide/Formoterol 160/4.5 1 PUFF INH IH SCH ×2 (07:31→19:53)
[2020-07-29] MEDS ORDERED: Furosemide 40 MG TABLET PO SCH (09:00)
[2020-07-29] MEDS: Aspirin 325 MG TABLET PO SCH (09:53)
[2020-07-29] MEDS: Gabapentin 300 MG CAPSULE PO SCH ×3 (09:53→20:02)
[2020-07-29] MEDS: Doxycycline 100 MG CAPSULE PO SCH ×2 (09:53→20:02)
[2020-07-29] MEDS: Sennosides/Docusate Sodium TABLET PO SCH (09:54)
[2020-07-29] MEDS: Furosemide 20 MG/2 ML VIAL IVP SCH ×2 (09:54→20:02)
[2020-07-29] MEDS: methocarbamoL 750 MG TABLET PO SCH ×3 (09:54→20:02)
[2020-07-29] MEDS: BuPROPion SR (12 HR) 150 MG TABLET PO SCH ×2 (09:54→20:02)
[2020-07-29] MEDS: PARoxetine 20 MG TABLET PO SCH (09:54)
[2020-07-29] MEDS: Nicotine 14 MG PATCH.TD24 TD SCH (09:56)
[2020-07-29] MEDS: Benzonatate 100 MG CAPSULE PO PRN ×2 (13:02→20:11)
[2020-07-29] MEDS: ALPRAZolam 1 MG TABLET PO SCH (20:02)
[2020-07-29] MEDS: *HR* OxyCODONE/APAP 5/325 TABLET PO PRN (22:40)
[2020-07-30] MEDS: MethylPREDNISolone 40 MG/ML VIAL IVP SCH ×3 (00:16→15:22)
[2020-07-30] MEDS: Acetylcysteine 10% 2 ML INHSOL IH SCH (02:44)
[2020-07-30] MEDS: Levalbuterol Neb 1.25 MG/3 ML IH SCH ×6 (03:22→23:59)
[2020-07-30 03:57] LABS: ABG Base Excess 7 mEq/L (-2 to 3); ABG HCO3 34 mEq/L (21-27); ABG Oxygen Saturation 98 % (95-98); ABG PCO2 58 mmHg (35-45); ABG PH 7.38 pH Units (7.32-7.45); ABG PO2 119 mmHg (85-104); ABG TCO2 36 mEq/L (20-26)
[2020-07-30 05:58] LABS: Basophils # 0.1 K/mcL (0.0-0.2); Basophils % 0.7 %; Hemoglobin 13.7 g/dL (11.5-15.4); Immature Granulocytes % 3.9 % (0-4); Lymphocytes # 1.6 K/mcL (0.6-4.6); Lymphocytes % 13.4 %; Mean Corpuscular HGB Conc 31.9 g/dL (31.6-35.5); Mean Corpuscular Hemoglobin 30.8 pg (28.0-33.3); Mean Corpuscular Volume 96.6 fL (83.0-100.0); Mean Platelet Volume 9.9 fL (9.4-12.4); Monocytes # 0.3 K/mcL (0.0-1.3); Monocytes % 2.3 %; Neutrophils # 9.3 K/mcL (1.6-8.9); Platelet Count 406 K/mcL (140-400); Red Blood Count 4.45 M/mcL (3.82-4.97); Red Cell Distribution Width 13.6 % (11.5-14.5); Segmented Neutrophils % 79.7 %; White Blood Count 11.7 K/mcL (4.3-11.1)
[2020-07-30] MEDS: *HR* Heparin 5,000 UNIT/ML VIAL SQ SCH ×3 (06:08→20:42)
[2020-07-30 06:18] LABS: BUN/Creatinine Ratio 33 (6-26); Blood Urea Nitrogen 29 mg/dL (8-23); Calcium 8.6 mg/dL (8.6-10.3); Carbon Dioxide 30 mEq/L (23-29); Chloride 97 mEq/L (98-107); Glucose 177 mg/dL (70-105); Magnesium 1.9 mg/dL (1.6-2.6); Osmolality,Calculated 292 (280-300); Phosphorous 3.1 mg/dL (2.7-4.5); Sodium 136 mEq/L (136-145); eGFR For African Americans > 60 (> 60); eGFR For Non-African Americans > 60 (> 60)
[2020-07-30 06:41] LABS: Platelet Estimate Normal (Normal); Reactive Lymphocytes Present (Not Present)
[2020-07-30] MEDS: Budesonide/Formoterol 160/4.5 1 PUFF INH IH SCH ×2 (07:28→19:50)
[2020-07-30] MEDS: Aspirin 325 MG TABLET PO SCH (09:00)
[2020-07-30] MEDS: Furosemide 20 MG/2 ML VIAL IVP SCH ×2 (09:00→20:42)
[2020-07-30] MEDS: Doxycycline 100 MG CAPSULE PO SCH ×2 (09:03→20:42)
[2020-07-30] MEDS: Gabapentin 300 MG CAPSULE PO SCH ×3 (09:04→20:43)
[2020-07-30] MEDS: methocarbamoL 750 MG TABLET PO SCH ×3 (09:04→20:42)
[2020-07-30] MEDS: PARoxetine 20 MG TABLET PO SCH (09:04)
[2020-07-30] MEDS: Benzonatate 100 MG CAPSULE PO PRN ×2 (09:04→20:54)
[2020-07-30] MEDS: BuPROPion SR (12 HR) 150 MG TABLET PO SCH ×2 (09:04→20:42)
[2020-07-30] MEDS: *HR* OxyCODONE/APAP 5/325 TABLET PO PRN ×2 (09:04→20:53)
[2020-07-30] MEDS: Sennosides/Docusate Sodium TABLET PO SCH (09:04)
[2020-07-30] MEDS: Nicotine 14 MG PATCH.TD24 TD SCH (09:05)
[2020-07-30] MEDS: ALPRAZolam 1 MG TABLET PO SCH (20:43)
[2020-07-31] MEDS: MethylPREDNISolone 40 MG/ML VIAL IVP SCH ×3 (00:34→17:38)
[2020-07-31] MEDS: Ondansetron 4 MG/2 ML VIAL IVP PRN ×2 (02:40→08:49)
[2020-07-31] MEDS: Levalbuterol Neb 1.25 MG/3 ML IH SCH ×6 (03:20→23:53)
[2020-07-31] MEDS: *HR* Heparin 5,000 UNIT/ML VIAL SQ SCH ×3 (05:28→21:48)
[2020-07-31] MEDS: Budesonide/Formoterol 160/4.5 1 PUFF INH IH SCH ×2 (07:45→20:04)
[2020-07-31] MEDS: Nicotine 14 MG PATCH.TD24 TD SCH (08:22)
[2020-07-31] MEDS: Gabapentin 300 MG CAPSULE PO SCH ×3 (08:39→21:46)
[2020-07-31] MEDS: Aspirin 325 MG TABLET PO SCH (08:39)
[2020-07-31] MEDS: PARoxetine 20 MG TABLET PO SCH (08:39)
[2020-07-31] MEDS: BuPROPion SR (12 HR) 150 MG TABLET PO SCH ×2 (08:39→21:47)
[2020-07-31] MEDS: Sennosides/Docusate Sodium TABLET PO SCH (08:39)
[2020-07-31] MEDS: methocarbamoL 750 MG TABLET PO SCH ×3 (08:40→21:49)
[2020-07-31] MEDS: Doxycycline 100 MG CAPSULE PO SCH (08:40)
[2020-07-31] MEDS: Furosemide 20 MG/2 ML VIAL IVP SCH ×2 (08:40→21:48)
[2020-07-31] MEDS: *HR* OxyCODONE/APAP 5/325 TABLET PO PRN ×2 (12:25→21:51)
[2020-07-31 13:36] LABS: BUN/Creatinine Ratio 30 (6-26); Blood Urea Nitrogen 30 mg/dL (8-23); Carbon Dioxide 37 mEq/L (23-29); Chloride 94 mEq/L (98-107); Glucose 159 mg/dL (70-105); Osmolality,Calculated 292 (280-300); Potassium 3.6 mEq/L (3.5-5.1); Sodium 136 mEq/L (136-145); eGFR For African Americans > 60 (> 60); eGFR For Non-African Americans 56 (> 60)
[2020-07-31] MEDS: Piperacillin/Tazobactam 3.375 GM in 0.9 % Sodium Chloride Mini Bag 100 ML IVPB SCH (17:38)
[2020-07-31] MEDS ORDERED: Perflutren Lipid Microsphere 1.3 ML in 0.9 % Sodium Chloride 8.7 ML IVP PRN (17:52)
[2020-07-31] MEDS: ALPRAZolam 1 MG TABLET PO SCH (21:47)
[2020-08-01] MEDS: MethylPREDNISolone 40 MG/ML VIAL IVP SCH ×2 (00:28→10:01)
[2020-08-01] MEDS: Piperacillin/Tazobactam 3.375 GM in 0.9 % Sodium Chloride Mini Bag 100 ML IVPB SCH ×2 (00:29→10:01)
[2020-08-01 02:15] LABS: Basophils # 0.1 K/mcL (0.0-0.2); Basophils % 0.6 %; Hematocrit 45.7 % (35.3-44.9); Hemoglobin 14.5 g/dL (11.5-15.4); Immature Granulocytes % 3.2 % (0-4); Lymphocytes # 1.2 K/mcL (0.6-4.6); Mean Corpuscular HGB Conc 31.7 g/dL (31.6-35.5); Mean Corpuscular Hemoglobin 30.4 pg (28.0-33.3); Mean Corpuscular Volume 95.8 fL (83.0-100.0); Mean Platelet Volume 9.6 fL (9.4-12.4); Monocytes # 0.7 K/mcL (0.0-1.3); Neutrophils # 10.9 K/mcL (1.6-8.9); Nucleated Red Blood Cells 0.2 /100 WBC (0); Platelet Count 375 K/mcL (140-400); Red Blood Count 4.77 M/mcL (3.82-4.97); Red Cell Distribution Width 13.2 % (11.5-14.5); Segmented Neutrophils % 82.2 %; White Blood Count 13.3 K/mcL (4.3-11.1)
[2020-08-01 02:31] LABS: BUN/Creatinine Ratio 35 (6-26); Blood Urea Nitrogen 31 mg/dL (8-23); Calcium 8.8 mg/dL (8.6-10.3); Carbon Dioxide 32 mEq/L (23-29); Chloride 95 mEq/L (98-107); Glucose 121 mg/dL (70-105); Magnesium 1.8 mg/dL (1.6-2.6); Osmolality,Calculated 288 (280-300); Phosphorous 3.6 mg/dL (2.7-4.5); Potassium 4.3 mEq/L (3.5-5.1); Sodium 135 mEq/L (136-145); eGFR For African Americans > 60 (> 60); eGFR For Non-African Americans > 60 (> 60)
[2020-08-01 02:31] LABS: Magnesium 1.8 mg/dL (1.6-2.6); Potassium 4.3 mEq/L (3.5-5.1)
[2020-08-01] MEDS: Levalbuterol Neb 1.25 MG/3 ML IH SCH ×3 (03:41→11:31)
[2020-08-01] MEDS: Benzonatate 100 MG CAPSULE PO PRN (03:47)
[2020-08-01] MEDS: *HR* OxyCODONE/APAP 5/325 TABLET PO PRN ×2 (03:48→10:10)
[2020-08-01] MEDS: *HR* Heparin 5,000 UNIT/ML VIAL SQ SCH (06:33)
[2020-08-01] MEDS: Budesonide/Formoterol 160/4.5 1 PUFF INH IH SCH (07:35)
[2020-08-01] MEDS: methocarbamoL 750 MG TABLET PO SCH (10:00)
[2020-08-01] MEDS: BuPROPion SR (12 HR) 150 MG TABLET PO SCH (10:00)
[2020-08-01] MEDS: PARoxetine 20 MG TABLET PO SCH (10:00)
[2020-08-01] MEDS: Gabapentin 300 MG CAPSULE PO SCH (10:00)
[2020-08-01] MEDS: Aspirin 325 MG TABLET PO SCH (10:00)
[2020-08-01] MEDS: Furosemide 20 MG/2 ML VIAL IVP SCH (10:00)
[2020-08-01] MEDS: Sennosides/Docusate Sodium TABLET PO SCH (10:00)
[2020-08-01] MEDS: Nicotine 14 MG PATCH.TD24 TD SCH (10:01)
[2020-08-01 10:33] VITALS: BP 136/80
== END 2020-08-01 13:05 | disposition home or self-care (01) | DRG 140 ==
LOC: 2ANU 17:28 → EMEROOARM 17:28 → SUATTDRO 20:06 → 2ANU 21:07
PROVIDERS: ADMIT Family Medicine; ATTEND Internal Medicine

== ENCOUNTER 2021-02-20 20:43 | Inpatient (IN) ==
[2021-02-20] MEDS ORDERED: methylPREDNISolone 125 MG/2 ML VIAL IVP ONE (21:07)
[2021-02-20] MEDS ORDERED: Azithromycin 500 MG in 0.9 % Sodium Chloride 250 ML IVPB ONE (21:07)
[2021-02-20] MEDS ORDERED: cefTRIAXone 1,000 MG in Water for inj. (sterile) 10 ML IVP ONE (21:07)
[2021-02-20] MEDS ORDERED: 0.9 % Sodium Chloride 1,000 ML IVC ONE ×2 (21:07→21:45)
[2021-02-20] MEDS ORDERED: Ipratropium/Albuterol Neb 3 ML IH ONE (21:08)
[2021-02-20] MEDS ORDERED: *HR* FentaNYL (PF) 100 MCG/2 ML VIAL IVP ONE (21:09)
[2021-02-20 21:47] LABS: Basophils % 0.4 %; Eosinophils % 0.1 %; Hematocrit 41.6 % (35.3-44.9); Hemoglobin 13.8 g/dL (11.5-15.4); Immature Granulocytes % 0.5 % (0-4); Lymphocytes # 2.3 K/mcL (0.6-4.6); Lymphocytes % 21.4 %; Mean Corpuscular HGB Conc 33.2 g/dL (31.6-35.5); Mean Corpuscular Hemoglobin 29.9 pg (28.0-33.3); Mean Corpuscular Volume 90.2 fL (83.0-100.0); Monocytes # 0.9 K/mcL (0.0-1.3); Monocytes % 8.7 %; Neutrophils # 7.3 K/mcL (1.6-8.9); Platelet Count 256 K/mcL (140-400); Red Blood Count 4.61 M/mcL (3.82-4.97); Red Cell Distribution Width 15.9 % (11.5-14.5); Segmented Neutrophils % 68.9 %; White Blood Count 10.7 K/mcL (4.3-11.1)
[2021-02-20 21:55] LABS: Prothrombin Time 11.3 Seconds (9.4-12.1)
[2021-02-20 21:58] LABS: Activated Partial Thrombo Time 27.7 Seconds (26.0-36.0)
[2021-02-20 22:15] LABS: BUN/Creatinine Ratio 15 (6-26); Blood Urea Nitrogen 15 mg/dL (8-23); Carbon Dioxide 21 mEq/L (23-29); Chloride 101 mEq/L (98-107); Potassium 4.3 mEq/L (3.5-5.1); Sodium 134 mEq/L (136-145); eGFR For African Americans > 60 (> 60)
[2021-02-20 22:16] LABS: Alanine Aminotransferase 22 Units/L (7-52); Albumin 3.7 g/dL (3.5-5.7); Albumin/Globulin Ratio 1.1 (1.1-2.2); Alkaline Phosphatase 118 Units/L (34-104); Aspartate Amino Transferase 32 Units/L (13-39); Bilirubin,Direct 0.1 mg/dL (0.0-0.2); Bilirubin,Indirect 0.3 mg/dL (0.0-1.0); Bilirubin,Total 0.4 mg/dL (0.3-1.0); Calcium 8.7 mg/dL (8.6-10.3); Globulin 3.5 g/dL (2.4-3.5); Glucose 103 mg/dL (70-105); Osmolality,Calculated 279 (280-300); Total Protein 7.2 g/dL (6.4-8.9); Troponin I 0.06 ng/mL (< 0.04); eGFR For Non-African Americans 55 (> 60)
[2021-02-20] MEDS ORDERED: Isovue-370 500 ML BOTTLE IVP ONE (22:20)
[2021-02-20] MEDS ORDERED: Aspirin 81 MG TAB.CHEW PO STA (22:24)
[2021-02-21] MEDS ORDERED: Naloxone 0.4 MG/ML INJ IVP PRN ×2 (00:40→00:41)
[2021-02-21] MEDS ORDERED: Acetaminophen 325 MG TABLET PO PRN (00:41)
[2021-02-21] MEDS ORDERED: Ondansetron 4 MG/2 ML VIAL IVP PRN (00:41)
[2021-02-21] MEDS ORDERED: Albuterol 2.5 MG/3 ML NEBULIZER IH ONE (00:41)
[2021-02-21] MEDS ORDERED: Ipratropium/Albuterol Neb 3 ML IH PRN (00:43)
[2021-02-21] MEDS ORDERED: 0.9 % Sodium Chloride 1,000 ML IVC ONE (01:34)
[2021-02-21 02:06] LABS: Adenovirus Not Detected (Not Detect); Bordetella Pertussis Not Detected (Not Detect); Chlamydophila pneumoniae Not Detected (Not Detect); Coronavirus 229E Not Detected (Not Detect); Coronavirus HKU1 Not Detected (Not Detect); Coronavirus NL63 Not Detected (Not Detect); Coronavirus OC43 Not Detected (Not Detect); Human Metapneumovirus Not Detected (Not Detect); Human Rhinovirus/Enterovirus Not Detected (Not Detect); Influenza A Subtype 2009 H1 Not Detected (Not Detect); Influenza B Not Detected (Not Detect); Mycoplasma pneumoniae Not Detected (Not Detect); Parainfluenza Virus 1 Not Detected (Not Detect); Parainfluenza Virus 2 Not Detected (Not Detect); Parainfluenza Virus 3 Not Detected (Not Detect); Parainfluenza Virus 4 Not Detected (Not Detect); Respiratory Syncytial Virus Not Detected (Not Detect); SARS-CoV-2 Not Detected (Not Detect)
[2021-02-21] MEDS ORDERED: Perflutren Lipid Microsphere 1.3 ML in 0.9 % Sodium Chloride 8.7 ML IVP PRN (03:25)
[2021-02-21 04:27] LABS: Basophils % 0.1 %; Hematocrit 36.9 % (35.3-44.9); Immature Granulocytes % 0.4 % (0-4); Lymphocytes # 0.5 K/mcL (0.6-4.6); Lymphocytes % 5.6 %; Mean Corpuscular HGB Conc 32.8 g/dL (31.6-35.5); Mean Corpuscular Volume 91.6 fL (83.0-100.0); Mean Platelet Volume 9.8 fL (9.4-12.4); Monocytes # 0.1 K/mcL (0.0-1.3); Monocytes % 0.9 %; Neutrophils # 7.5 K/mcL (1.6-8.9); Platelet Count 219 K/mcL (140-400); Red Blood Count 4.03 M/mcL (3.82-4.97); Red Cell Distribution Width 15.9 % (11.5-14.5); White Blood Count 8.1 K/mcL (4.3-11.1)
[2021-02-21 04:28] LABS: Hemoglobin 12.1 g/dL (11.5-15.4)
[2021-02-21 04:49] LABS: BUN/Creatinine Ratio 15 (6-26); Blood Urea Nitrogen 13 mg/dL (8-23); Calcium 7.8 mg/dL (8.6-10.3); Carbon Dioxide 20 mEq/L (23-29); Chloride 107 mEq/L (98-107); Glucose 188 mg/dL (70-105); Magnesium 1.9 mg/dL (1.6-2.6); Osmolality,Calculated 283 (280-300); Sodium 134 mEq/L (136-145); eGFR For African Americans > 60 (> 60); eGFR For Non-African Americans > 60 (> 60)
[2021-02-21 04:59] LABS: Troponin I 0.04 ng/mL (< 0.04)
[2021-02-21 05:17] LABS: Thyroid Stimulating Hormone 0.328 mcIU/mL (0.340-5.600)
[2021-02-21] MEDS: MethylPREDNISolone 40 MG/ML VIAL IVP SCH ×2 (05:38→17:28)
[2021-02-21] MEDS ORDERED: Calcium Gluconate 1gm/50mL 1 GM/50 ML BAG IVPB ONE (06:55)
[2021-02-21 08:31] LABS: Triiodothyronine (T3) Free 2.72 pg/mL (2.50-3.90); Triiodothyronine (T3) Total 0.73 ng/mL (0.87-1.78)
[2021-02-21 08:34] LABS: Bilirubin,Urine Negative (Negative); Blood,Urine Negative (Negative); Clarity,Urine Clear (Clear); Color,Urine Light-Yellow (Yellow); Glucose,Urine (UA) Normal (Normal); Ketones,Urine Negative (Negative); Leukocyte Esterase,Urine Negative (Negative); Nitrite,Urine Negative (Negative); Protein,Urine Trace mg/dL (Neg-Trace); Specific Gravity,Urine > 1.030 (1.010-1.025); Urobilinogen,Urine Normal (Normal)
[2021-02-21] MEDS: Azithromycin 500 MG in 0.9 % Sodium Chloride 250 ML IVPB SCH (09:58)
[2021-02-21] MEDS: *HR* Enoxaparin 30 MG/0.3 ML SYRINGE SQ SCH (09:59)
[2021-02-21 10:53] LABS: VBG HCO3 20 mEq/L (21-27); VBG PCO2 34 mmHg (41-51); VBG PH 7.39 pH Units (7.32-7.42); VBG PO2 205 mmHg (25-50)
[2021-02-21] MEDS: Ipratropium/Albuterol Neb 3 ML IH SCH ×4 (11:04→19:57)
[2021-02-21] MEDS: cefTRIAXone 1,000 MG in 0.9 % Sodium Chloride Mini Bag 100 ML IVPB SCH (12:14)
[2021-02-21] MEDS: Aspirin Enteric Coated 81 MG Tablet PO SCH (12:14)
[2021-02-21] MEDS ORDERED: ALPRAZolam 1 MG TABLET PO ONE (15:50)
[2021-02-21] MEDS ORDERED: Benzonatate 100 MG CAPSULE PO PRN (17:29)
[2021-02-21] MEDS: Budesonide/Formoterol 160/4.5 1 PUFF INH IH SCH (19:57)
[2021-02-21] MEDS ORDERED: Albuterol 2.5 MG/3 ML NEBULIZER IH SCH (21:00)
[2021-02-21] MEDS ORDERED: ALPRAZolam 1 MG TABLET PO SCH (21:00)
[2021-02-21] MEDS: BuPROPion SR (12 HR) 150 MG TABLET PO SCH (21:30)
[2021-02-21] MEDS: Gabapentin 400 MG CAPSULE PO SCH (21:31)
[2021-02-21] MEDS: *HR* OxyCODONE/APAP 5/325 TABLET PO SCH (21:31)
[2021-02-21] MEDS: cilostazoL 100 MG TABLET PO SCH (21:32)
[2021-02-21] MEDS: Fluticasone Propionate Nasal 50 MCG/SPRAY BOTTLE NS SCH (21:32)
[2021-02-22] MEDS: Ipratropium/Albuterol Neb 3 ML IH SCH ×8 (00:39→23:31)
[2021-02-22] MEDS ORDERED: ALPRAZolam 1 MG TABLET PO ONE (05:15)
[2021-02-22] MEDS: MethylPREDNISolone 40 MG/ML VIAL IVP SCH ×2 (05:29→18:31)
[2021-02-22] MEDS: Budesonide/Formoterol 160/4.5 1 PUFF INH IH SCH ×3 (07:55→20:05)
[2021-02-22] MEDS: Aspirin Enteric Coated 81 MG Tablet PO SCH (08:24)
[2021-02-22] MEDS: Furosemide 40 MG TABLET PO SCH (08:24)
[2021-02-22] MEDS: Gabapentin 400 MG CAPSULE PO SCH ×3 (08:24→20:53)
[2021-02-22] MEDS: *HR* OxyCODONE/APAP 5/325 TABLET PO SCH (08:24)
[2021-02-22] MEDS: cilostazoL 100 MG TABLET PO SCH ×2 (08:25→20:53)
[2021-02-22] MEDS: BuPROPion SR (12 HR) 150 MG TABLET PO SCH ×2 (08:26→20:53)
[2021-02-22] MEDS: Fluticasone Propionate Nasal 50 MCG/SPRAY BOTTLE NS SCH ×2 (08:30→22:47)
[2021-02-22] MEDS: *HR* Enoxaparin 30 MG/0.3 ML SYRINGE SQ SCH (08:31)
[2021-02-22] MEDS: cefTRIAXone 1,000 MG in 0.9 % Sodium Chloride Mini Bag 100 ML IVPB SCH (08:33)
[2021-02-22] MEDS: Azithromycin 500 MG in 0.9 % Sodium Chloride 250 ML IVPB SCH (08:34)
[2021-02-22 09:47] LABS: Hematocrit 38.3 % (35.3-44.9); Hemoglobin 12.5 g/dL (11.5-15.4); Mean Corpuscular HGB Conc 32.6 g/dL (31.6-35.5); Mean Corpuscular Hemoglobin 30.1 pg (28.0-33.3); Mean Corpuscular Volume 92.3 fL (83.0-100.0); Mean Platelet Volume 10.3 fL (9.4-12.4); Platelet Count 266 K/mcL (140-400); Red Blood Count 4.15 M/mcL (3.82-4.97)
[2021-02-22] MEDS ORDERED: Tiotropium 10 INH DOSE IH SCH (10:00)
[2021-02-22 10:10] LABS: BUN/Creatinine Ratio 26 (6-26); Blood Urea Nitrogen 19 mg/dL (8-23); Carbon Dioxide 23 mEq/L (23-29); Chloride 106 mEq/L (98-107); Glucose 119 mg/dL (70-105); Osmolality,Calculated 283 (280-300); Potassium 4.6 mEq/L (3.5-5.1); Sodium 135 mEq/L (136-145); eGFR For African Americans > 60 (> 60); eGFR For Non-African Americans > 60 (> 60)
[2021-02-22] MEDS ORDERED: Haloperidol Lactate 5 MG/ML VIAL IVP ONE (20:43)
[2021-02-22] MEDS: ALPRAZolam 1 MG TABLET PO SCH (20:53)
[2021-02-22] MEDS ORDERED: traZODone 50 MG TABLET PO SCH (21:00)
[2021-02-22] MEDS: *HR* OxyCODONE/APAP 5/325 TABLET PO PRN (22:47)
[2021-02-23] MEDS: Ipratropium/Albuterol Neb 3 ML IH SCH ×2 (03:39→07:20)
[2021-02-23] MEDS ORDERED: *HR* Enoxaparin 40 MG/0.4 ML SYRINGE SQ SCH (06:00)
[2021-02-23] MEDS: MethylPREDNISolone 40 MG/ML VIAL IVP SCH (06:22)
[2021-02-23] MEDS: Budesonide/Formoterol 160/4.5 1 PUFF INH IH SCH (07:20)
[2021-02-23 07:46] VITALS: BP 120/106
[2021-02-23] MEDS: cilostazoL 100 MG TABLET PO SCH (08:23)
[2021-02-23] MEDS: Furosemide 40 MG TABLET PO SCH (08:23)
[2021-02-23] MEDS: BuPROPion SR (12 HR) 150 MG TABLET PO SCH (08:23)
[2021-02-23] MEDS: Aspirin Enteric Coated 81 MG Tablet PO SCH (08:23)
[2021-02-23] MEDS: Gabapentin 400 MG CAPSULE PO SCH (08:23)
[2021-02-23] MEDS: ALPRAZolam 1 MG TABLET PO SCH (08:23)
[2021-02-23] MEDS: Fluticasone Propionate Nasal 50 MCG/SPRAY BOTTLE NS SCH (08:24)
[2021-02-23] MEDS: cefTRIAXone 1,000 MG in 0.9 % Sodium Chloride Mini Bag 100 ML IVPB SCH (08:34)
[2021-02-23] MEDS: *HR* OxyCODONE/APAP 5/325 TABLET PO PRN (08:41)
== END 2021-02-23 09:40 | disposition left against medical advice (07) | DRG 720 ==
LOC: EMEROOARM 20:43 → 2NENU 20:43 → SUATTDRO 02-21 02:07 → 2NENU 02-21 02:51
PROVIDERS: ADMIT Internal Medicine; ATTEND Internal Medicine

== ENCOUNTER 2022-03-03 15:22 | Inpatient (IN) ==
[2022-03-03] MEDS ORDERED: Azithromycin 500 MG in 0.9 % Sodium Chloride 250 ML IVPB ONE (15:33)
[2022-03-03] MEDS ORDERED: methylPREDNISolone 125 MG/2 ML VIAL IVP ONE (15:33)
[2022-03-03] MEDS ORDERED: Ipratropium/Albuterol Neb 3 ML IH ONE (15:33)
[2022-03-03] MEDS ORDERED: cefTRIAXone 1,000 MG in 0.9 % Sodium Chloride 10 ML IVP ONE (15:33)
[2022-03-03 16:13] LABS: Basophils % 0.2 %; Hematocrit 28.3 % (35.3-44.9); Hemoglobin 8.7 g/dL (11.5-15.4); Immature Granulocytes % 0.5 % (0-4); Lymphocytes # 0.5 K/mcL (0.6-4.6); Lymphocytes % 4.4 %; Mean Corpuscular HGB Conc 30.7 g/dL (31.6-35.5); Mean Corpuscular Hemoglobin 27.6 pg (28.0-33.3); Mean Corpuscular Volume 89.8 fL (83.0-100.0); Mean Platelet Volume 9.1 fL (9.4-12.4); Monocytes # 0.4 K/mcL (0.0-1.3); Monocytes % 3.5 %; Neutrophils # 10.2 K/mcL (1.6-8.9); Platelet Count 522 K/mcL (140-400); Red Blood Count 3.15 M/mcL (3.82-4.97); Red Cell Distribution Width 14.8 % (11.5-14.5); Segmented Neutrophils % 91.4 %; White Blood Count 11.2 K/mcL (4.3-11.1)
[2022-03-03] MEDS ORDERED: Iopamidol - 370 500 ML MLS IVP ONE (16:23)
[2022-03-03 16:27] LABS: Albumin 3.6 g/dL (3.5-5.7); Albumin/Globulin Ratio 1.1 (1.1-2.2); Bilirubin,Direct 0.1 mg/dL (0.0-0.2); Bilirubin,Indirect 0.3 mg/dL (0.0-1.0); Bilirubin,Total 0.4 mg/dL (0.3-1.0); Calcium 8.6 mg/dL (8.6-10.3); Globulin 3.3 g/dL (2.4-3.5); Potassium 4.1 mEq/L (3.5-5.1); Total Protein 6.9 g/dL (6.4-8.9); Troponin I 0.03 ng/mL (< 0.04)
[2022-03-03 16:36] LABS: Influenza A PCR Negative (Negative); Influenza B PCR Negative (Negative); Resp. Syncytial Virus PCR Negative (Negative)
[2022-03-03] MEDS ORDERED: 0.9 % Sodium Chloride 1,000 ML IVC ONE ×2 (16:51→17:05)
[2022-03-03] MEDS ORDERED: Albuterol 2.5 MG/3 ML NEBULIZER IH ONE (17:05)
[2022-03-03] MEDS ORDERED: *HR* Norepinephrine 4 MG/4 ML VIAL IVC ONE (17:20)
[2022-03-03] MEDS ORDERED: 0.9 % Sodium Chloride 250 ML ONE (17:20)
[2022-03-03 17:28] LABS: ABG Base Excess -5 mEq/L (-2 to 3); ABG HCO3 22 mEq/L (21-27); ABG Oxygen Saturation 94 % (95-98); ABG PCO2 46 mmHg (35-45); ABG PH 7.28 pH Units (7.32-7.45); ABG PO2 79 mmHg (85-104); ABG TCO2 23 mEq/L (20-26)
[2022-03-03] MEDS ORDERED: Norepinephrine 4 MG/254 ML IV.SOLN IVC SCH (17:30)
[2022-03-03 17:39] LABS: SARS-CoV-2 by PCR (In House) Negative (Negative)
[2022-03-03] MEDS ORDERED: Piperacillin/Tazobactam 3.375 GM in 0.9 % Sodium Chloride Mini Bag 100 ML IVPB ONE (17:43)
[2022-03-04] MEDS ORDERED: Naloxone 0.4 MG/ML INJ IVP PRN ×2 (00:37→10:03)
[2022-03-04 06:50] LABS: Basophils % 0.1 %; Hematocrit 23.3 % (35.3-44.9); Hemoglobin 7.2 g/dL (11.5-15.4); Immature Granulocytes % 0.6 % (0-4); Lymphocytes # 0.8 K/mcL (0.6-4.6); Lymphocytes % 4.6 %; Mean Corpuscular HGB Conc 30.9 g/dL (31.6-35.5); Mean Corpuscular Hemoglobin 27.8 pg (28.0-33.3); Mean Platelet Volume 9.7 fL (9.4-12.4); Monocytes # 0.7 K/mcL (0.0-1.3); Monocytes % 4.3 %; Neutrophils # 14.6 K/mcL (1.6-8.9); Platelet Count 439 K/mcL (140-400); Red Blood Count 2.59 M/mcL (3.82-4.97); Red Cell Distribution Width 14.7 % (11.5-14.5); Segmented Neutrophils % 90.4 %; White Blood Count 16.2 K/mcL (4.3-11.1)
[2022-03-04 07:17] LABS: BUN/Creatinine Ratio 28 (6-26); Blood Urea Nitrogen 23 mg/dL (8-23); Calcium 7.8 mg/dL (8.6-10.3); Carbon Dioxide 23 mEq/L (23-29); Chloride 104 mEq/L (98-107); Glucose 130 mg/dL (70-105); Osmolality,Calculated 283 (280-300); Potassium 4.2 mEq/L (3.5-5.1); Sodium 134 mEq/L (136-145); eGFR For African Americans > 60 (> 60); eGFR For Non-African Americans > 60 (> 60)
[2022-03-04] MEDS ORDERED: Piperacillin/Tazobactam 3.375 GM in 0.9 % Sodium Chloride Mini Bag 100 ML IVPB SCH (08:00)
[2022-03-04] MEDS ORDERED: *HR* OxyCODONE/APAP 7.5/325 TABLET PO PRN (09:08)
[2022-03-04] MEDS ORDERED: Benzonatate 100 MG CAPSULE PO PRN ×2 (09:08→10:03)
[2022-03-04] MEDS ORDERED: Doxycycline 100 MG CAPSULE PO SCH (09:15)
[2022-03-04] MEDS ORDERED: predniSONE 20 MG TABLET PO SCH (09:15)
[2022-03-04] MEDS ORDERED: ALPRAZolam 1 MG TABLET PO SCH (09:15)
[2022-03-04] MEDS ORDERED: Ipratropium/Albuterol Neb 3 ML IH SCH (10:00)
[2022-03-04] MEDS ORDERED: *HR* Enoxaparin 40 MG/0.4 ML SYRINGE SQ SCH (10:00)
[2022-03-04] MEDS ORDERED: Piperacillin/Tazobactam 3.375 GM in 0.9 % Sodium Chloride Mini Bag 100 ML IVPB ONE (10:03)
[2022-03-04] MEDS: Gabapentin 400 MG CAPSULE PO SCH ×3 (12:12→20:28)
[2022-03-04] MEDS: *HR* OxyCODONE/APAP 7.5/325 TABLET PO PRN (12:12)
[2022-03-04] MEDS ORDERED: Gabapentin 400 MG CAPSULE PO SCH (13:00)
[2022-03-04] MEDS: ALPRAZolam 1 MG TABLET PO SCH ×2 (14:31→20:28)
[2022-03-04 15:11] LABS: Iron < 10 mcg/dL (50-170); Transferrin 233 mg/dL (203-362)
[2022-03-04] MEDS: Ipratropium/Albuterol Neb 3 ML IH SCH ×2 (15:46→20:39)
[2022-03-04] MEDS: Piperacillin/Tazobactam 3.375 GM in 0.9 % Sodium Chloride Mini Bag 100 ML IVPB SCH (17:02)
[2022-03-04] MEDS: Doxycycline 100 MG CAPSULE PO SCH (20:28)
[2022-03-04] MEDS: cilostazoL 100 MG TABLET PO SCH (20:28)
[2022-03-04] MEDS: Fluticasone Propionate Nasal 50 MCG/SPRAY BOTTLE NS SCH (20:28)
[2022-03-04] MEDS: Budesonide/Formoterol 160/4.5 1 PUFF INH IH SCH (20:40)
[2022-03-04] MEDS ORDERED: Budesonide/Formoterol 160/4.5 1 PUFF INH IH SCH (21:00)
[2022-03-04] MEDS ORDERED: cilostazoL 100 MG TABLET PO SCH (21:00)
[2022-03-04] MEDS ORDERED: Fluticasone Propionate Nasal 50 MCG/SPRAY BOTTLE NS SCH (21:00)
[2022-03-05] MEDS: Piperacillin/Tazobactam 3.375 GM in 0.9 % Sodium Chloride Mini Bag 100 ML IVPB SCH ×3 (00:01→17:16)
[2022-03-05] MEDS: *HR* OxyCODONE/APAP 7.5/325 TABLET PO PRN (02:14)
[2022-03-05] MEDS: Ipratropium/Albuterol Neb 3 ML IH SCH ×4 (04:55→21:56)
[2022-03-05] MEDS ORDERED: *HR* Enoxaparin 40 MG/0.4 ML SYRINGE SQ SCH (06:00)
[2022-03-05 06:15] LABS: Hematocrit 20.7 % (35.3-44.9); Hemoglobin 6.3 g/dL (11.5-15.4); Mean Corpuscular HGB Conc 30.4 g/dL (31.6-35.5); Mean Corpuscular Hemoglobin 27.2 pg (28.0-33.3); Mean Corpuscular Volume 89.2 fL (83.0-100.0); Mean Platelet Volume 9.3 fL (9.4-12.4); Platelet Count 426 K/mcL (140-400); Red Blood Count 2.32 M/mcL (3.82-4.97); Red Cell Distribution Width 14.8 % (11.5-14.5); White Blood Count 12.3 K/mcL (4.3-11.1)
[2022-03-05 06:32] LABS: BUN/Creatinine Ratio 25 (6-26); Blood Urea Nitrogen 20 mg/dL (8-23); Calcium 8.3 mg/dL (8.6-10.3); Carbon Dioxide 29 mEq/L (23-29); Chloride 100 mEq/L (98-107); Glucose 116 mg/dL (70-105); Osmolality,Calculated 280 (280-300); Potassium 4.1 mEq/L (3.5-5.1); Sodium 133 mEq/L (136-145); eGFR For African Americans > 60 (> 60); eGFR For Non-African Americans > 60 (> 60)
[2022-03-05] MEDS ORDERED: Iopamidol - 370 500 ML MLS IVP ONE ×3 (08:27→10:25)
[2022-03-05] MEDS ORDERED: predniSONE 20 MG TABLET PO SCH (09:00)
[2022-03-05] MEDS: ALPRAZolam 1 MG TABLET PO SCH ×3 (09:22→21:18)
[2022-03-05] MEDS: Gabapentin 400 MG CAPSULE PO SCH ×4 (09:23→21:42)
[2022-03-05] MEDS: cilostazoL 100 MG TABLET PO SCH ×2 (09:23→21:42)
[2022-03-05] MEDS: Doxycycline 100 MG CAPSULE PO SCH ×2 (09:24→22:15)
[2022-03-05] MEDS: Fluticasone Propionate Nasal 50 MCG/SPRAY BOTTLE NS SCH ×2 (09:27→21:42)
[2022-03-05] MEDS ORDERED: 0.9 % Sodium Chloride 250 ML ONE (10:54)
[2022-03-05 10:58] LABS: Ferritin 38 ng/mL (10-120)
[2022-03-05] MEDS: Budesonide/Formoterol 160/4.5 1 PUFF INH IH SCH ×2 (10:58→21:56)
[2022-03-05] MEDS ORDERED: 0.9 % Sodium Chloride 500 ML IVC ONE (12:10)
[2022-03-05 13:10] LABS: Alanine Aminotransferase 11 Units/L (7-52); Albumin 2.9 g/dL (3.5-5.7); Albumin/Globulin Ratio 1.1 (1.1-2.2); Alkaline Phosphatase 56 Units/L (34-104); Aspartate Amino Transferase 10 Units/L (13-39); Bilirubin,Direct 0.1 mg/dL (0.0-0.2); Bilirubin,Indirect 0.3 mg/dL (0.0-1.0); Bilirubin,Total 0.4 mg/dL (0.3-1.0); Globulin 2.6 g/dL (2.4-3.5); Total Protein 5.5 g/dL (6.4-8.9)
[2022-03-05 16:15] LABS: Hematocrit 24.5 % (35.3-44.9); Hemoglobin 7.8 g/dL (11.5-15.4)
[2022-03-05 16:23] LABS: INR 1.1; Prothrombin Time 12.1 Seconds (9.4-12.1)
[2022-03-05 16:30] LABS: ABG Base Excess 0 mEq/L (-2 to 3); ABG HCO3 26 mEq/L (21-27); ABG Oxygen Saturation 84 % (95-98); ABG PCO2 49 mmHg (35-45); ABG PH 7.34 pH Units (7.32-7.45); ABG PO2 52 mmHg (85-104); ABG TCO2 28 mEq/L (20-26); Blood Gas FiO2 4.5 (1-15=lpm or21-100=%)
[2022-03-06] MEDS: Piperacillin/Tazobactam 3.375 GM in 0.9 % Sodium Chloride Mini Bag 100 ML IVPB SCH (00:09)
[2022-03-06 02:19] LABS: Hemoglobin 7.6 g/dL (11.5-15.4); Mean Corpuscular HGB Conc 31.7 g/dL (31.6-35.5); Mean Corpuscular Hemoglobin 28.5 pg (28.0-33.3); Mean Corpuscular Volume 89.9 fL (83.0-100.0); Mean Platelet Volume 9.3 fL (9.4-12.4); Platelet Count 406 K/mcL (140-400); Red Blood Count 2.67 M/mcL (3.82-4.97); Red Cell Distribution Width 14.6 % (11.5-14.5); White Blood Count 10.9 K/mcL (4.3-11.1)
[2022-03-06 02:42] LABS: BUN/Creatinine Ratio 25 (6-26); Blood Urea Nitrogen 14 mg/dL (8-23); Calcium 8.4 mg/dL (8.6-10.3); Carbon Dioxide 27 mEq/L (23-29); Chloride 103 mEq/L (98-107); Glucose 111 mg/dL (70-105); Osmolality,Calculated 281 (280-300); Potassium 4.7 mEq/L (3.5-5.1); Sodium 135 mEq/L (136-145); eGFR For African Americans > 60 (> 60); eGFR For Non-African Americans > 60 (> 60)
[2022-03-06] MEDS: Ipratropium/Albuterol Neb 3 ML IH SCH ×2 (03:55→10:42)
[2022-03-06 06:35] VITALS: BP 111/69; PULSE 76; TEMP 97.9; O2SAT 91
[2022-03-06] MEDS: Budesonide/Formoterol 160/4.5 1 PUFF INH IH SCH (10:42)
== END 2022-03-06 10:30 | disposition left against medical advice (07) | DRG 720 ==
LOC: EMEROOARM 15:22 → ICNU 15:22 → 3ANU 03-04 11:37 → 2NENU 03-05 16:50
PROVIDERS: ADMIT Internal Medicine; ATTEND Internal Medicine